=== PATIENT | male | born 1955 | race Caucasian/White ===

== ENCOUNTER 2023-08-07 19:37 | Emergency (ER) | payer OTHER, SELFPAY ==
[2023-08-07 19:41] VITALS: BP 134/56
[2023-08-07 19:43] VITALS: BP 134/56
[2023-08-07 20:00] VITALS: BP 152/76
--- NOTE | 2023-08-07 20:43 | ED.GENMED ---
History of Present Illness
General
Chief Complaint: Fall
Source: patient, ambulance crew and residential records
Exam Limitations: none
Time Seen by Provider: 08/07/23 20:01
Nursing documentation reviewed up to this point in time: agreed with
Travel History
Have you had any contact with someone who has COVID-19?: No
Do you have any symptoms of coronavirus? Fever > 100 degrees, chills, cough, shortness of breath, sore throat, loss of taste or smell, muscle aches, or headache?: No
History of Present Illness
History of Present Illness:
68-year-old male with a past medical history of blindness, COPD, hypertension, hyperlipidemia, DVT on Lovenox, urinary retention secondary to BPH with chronic Brown catheter, morbid obesity who presents to the emergency department from [facility]
residential for evaluation after fall. Patient says that he is mostly bedbound due to his weight. He says that he has been working on transferring and standing recently. He says that today he tried to get up and unfortunately was unable to
support himself. He says that he fell forward�he says that his left leg was tucked underneath him with his knee bent and his right leg went forward into a semisplit position. He says that he fell to the side and hit his head did not lose
consciousness. He was sent to the emergency room for assessment. He complains primarily of pain in his knees he says much worse on the left. He complains of some mild ankle pain mostly in the left ankle. He says that he has some very mild neck
pain. Denies any headache. Complains of some mild back pain in triage he says is no worse than usual. He denies any chest pain or abdominal pain. He denies any numbness or weakness in his extremities. No nausea or vomiting. He is on Lovenox
and aspirin.
Review of Systems
Review of Systems
All Other Systems: ROS reviewed and negative except as documented in HPI and ROS
Constitutional: Denies fever
Respiratory: Denies trouble breathing
Cardiac: Denies chest pain
ABD/GI: Denies abdominal pain, nausea or vomiting
: Denies flank pain
Musculoskeletal: Reports joint pain (Bilateral knee pain worse on the left; left ankle pain) and neck pain; Denies back pain
Neurological: Denies dizzy, headache, weakness or numbness
Phy Exam
Physical Exam
Physical Exam:
General: Awake, alert, oriented x3; appears chronically ill
Head: Normocephalic, atraumatic
Eyes: Conjunctiva normal
Throat: Airway intact, handling secretions
Neck: Trachea midline, no midline cervical spine tenderness
Lungs: Breathing comfortably no distress
Heart: Regular rate; no chest wall tenderness
Abd: Obese but soft, non distended, nontender
: Brown catheter in place draining clear urine without significant sediment
Neuro: Cranial nerves grossly intact, speech fluid
Skin: no rash
Extremities: Patient has left knee held in 45 degrees of flexion; no obvious deformity the left knee he has significant tenderness of the joint line medial greater than lateral and pain with manipulation of patella on the left; he cannot tolerate
passive range of motion on flexion or full extension of the left knee due to pain; he has no significant joint effusion of the left knee; he has no swelling of the left ankle, no reproducible tenderness in the lateral or medial malleolus on the left
he does have some pain with dorsiflexion and plantarflexion mostly in the lateral left ankle; he has a good strong DP pulse distal left lower extremity //on exam of his right knee he has no joint effusion, no deformity; he has medial joint line
tenderness; he does allow for passive range of motion although he has discomfort with full extension and full flexion on the right; he has no swelling or tenderness in the right ankle and tolerates dorsi and plantarflexion of the right ankle without
significant discomfort he has a strong pulse right DP //upper extremities atraumatic with good pulses
Scores
Heart Failure Risk
Heart Failure Risk Score: Not Applicable
Heart Score for Chest Pain Patients
STEMI patient?: Not applicable
Withdrawal Assessment of Alcohol
Withdrawal Assessment Completed?: Not applicable
Course
Orders/Labs/Results
Orders:
Orders
08/07/23 20:41
CR Ankle - Left Min 3 Views Urgent
Comment:
Reason For Exam: ankle pain s/p fall
CR Knee - Left 4 Or More View* Urgent
Comment:
Reason For Exam: knee pain s/p fall
CR Knee- Right 4 Or More View* Urgent
Comment:
Reason For Exam: knee pain s/p fall
08/07/23 20:42
CT Cervical Spine W/o Iv Contr Urgent
Comment:
Reason For Exam: fall with head trauma, neck pain, on lovenox
CT Head W/o Iv Contrast Urgent
Comment:
Reason For Exam: fall with head trauma, on lovenox
08/07/23 20:49
CR Pelvis Comp Min 3 Views Urgent
Comment:
Reason For Exam: fall, b/l leg pain
Vital Signs
Initial and Last Documented VS:
Initial Vital Signs
Temp Pulse Resp BP Pulse Ox
36.5 C 90 16 134/56 95
08/07/23 19:41 08/07/23 19:41 08/07/23 19:41 08/07/23 19:41 08/07/23 19:41
Last Documented Vital Signs
Temp Pulse Resp BP Pulse Ox
36.5 C 82 9 139/74 91
08/07/23 19:41 08/07/23 22:45 08/07/23 22:45 08/07/23 22:44 08/07/23 22:45
MDM/Problems Addressed
Differential Diagnosis Includes:
Knee pain: Fracture, dislocation, sprain, ligamentous injury, meniscus injury
Ankle pain: Fracture, dislocation, sprain
Neck pain: Cervical strain, cervical spine fracture
MDM/Problems Addressed:
68-year-old male presents after mechanical fall from ground-level; he is on Lovenox. Mechanism as above. Complaining mainly of knee pain left greater than right also complaining of some mild left ankle pain, mild neck pain. There was head trauma
but no headache, no nausea vomiting normal mental status. Vital signs are normal. Exam as above. Plan to check CT of the head and cervical spine. Check x-ray of the pelvis, bilateral knees and left ankle. Will monitor closely reassess after the
above.
CT head and cervical spine negative for any acute posttraumatic injury. X-rays of the knees show significant arthritis but no other acute pathology noted. X-ray of the ankle no fracture or dislocation. X-ray of the pelvis normal. Patient awake
and alert with normal vital signs here. I think he is stable for discharge�likely strain/sprain of the knees and ankle as part of the fall. I do not think there is any indication for a knee immobilizer at this point as he is bedbound at baseline
already essentially. Will provide a referral to orthopedist for outpatient follow-up. Patient comfortable with this plan. Spoke about return precautions all questions answered.
Chronic conditions affecting care:
Obesity
*Radiology
Radiology exam reviewed: preliminary read by ED provider and radiology read reviewed
*Pulse Oximetry
Patient hypoxic: no
*Critical Care Note
Total Time (30-74mins, 75-104mins- exclusive of procedures): Not Applicable
Data Reviewed
Source: patient, records and ambulance crew
ED Attending Note
-
Portions of this chart may have been created with voice recognition software.� Occasional wrong word or��sound alike� substitutions may have occurred due to the inherent limitations of voice recognition software.
Discharge Plan
Departure
Patient Disposition: Home (Routine Discharge)
Date of Disposition: 08/07/23
Time of Disposition: 23:01
Patient with high blood pressure during this ER visit?: No
Discharge Problem:
Bilateral knee pain, Ankle pain, left, Neck strain
Instructions: Cervical Muscle Strain (DC), Ankle Sprain ED, Knee Sprain ED
Prescriptions:
No Action
metformin 500 MG tablet
500 mg PO BID
metoprolol tartrate 50 MG tablet
50 mg PO BID
lisinopril 10 MG tablet
20 mg PO DAILY
furosemide [Lasix] 40 mg Tablet
40 mg PO DAILY
acetaminophen [Tylenol] 325 mg Tablet
650 mg PO Q6HPRN PRN (Reason: mild pain)
gabapentin 600 mg Tablet
600 mg PO HS
ipratropium-albuterol [DuoNeb] 0.5 mg-3 mg(2.5 mg base)/3 mL Solution For Nebulization
3 ml INHALATION R Q4HPRN PRN (Reason: sob)
polyethylene glycol 3350 [Miralax] 17 gram Powder In Packet
17 g PO BID
urea 20 % Cream
1 applic TOPICAL BID
Metamucil Packet
1 packet PO DAILY
loperamide 2 mg Tablet
2 mg PO Q6HPRN PRN (Reason: diarrhea)
Thera Tablet
1 tab PO DAILY
melatonin 3 mg Tablet
3 mg PO HS
amlodipine [Norvasc] 5 mg Tablet
5 mg PO DAILY
divalproex [Depakote] 500 mg Tablet,Delayed Release (Dr/Ec)
500 mg PO BID
omeprazole 40 mg Capsule,Delayed Release(Dr/Ec)
40 mg PO DAILY
magnesium hydroxide [Milk of Magnesia] 400 mg/5 mL Suspension
2,400 mg PO HSPRN PRN (Reason: if no bm by 3rd day)
miconazole nitrate 2 % Ointment
1 applic TOPICAL BID
insulin aspart U-100 100 unit/mL Solution
0 sliding scale dose SC ACHS
Patient Comments:
150-200=2units, 201-250=4unit, 251-300=6units, 301-350=8units
bisacodyl [Dulcolax (bisacodyl)] 10 mg Suppository
10 mg WV DAILYPRN PRN (Reason: constipation)
ferrous sulfate 325 mg (65 mg iron) Tablet
325 mg PO DAILY
lidocaine [Lidoderm] 5 % Adhesive Patch,Medicated
1 patch topical DAILYPRN PRN (Reason: b/l knee)
Fleet Enema 19-7 gram/118 mL Enema
118 ml WV DAILYPRN PRN (Reason: constipation)
docusate sodium [Colace] 100 mg Capsule
100 mg PO HS
gabapentin 300 mg Capsule
300 mg PO DAILY
aspirin 81 mg Tablet,Chewable
81 mg PO DAILY
nystatin 100,000 unit/gram Powder
1 applic TOPICAL BID
oxybutynin chloride 5 mg Tablet
5 mg PO TIDPRN PRN (Reason: bladder spasms)
divalproex 125 mg Capsule, Delayed Rel Sprinkle
125 mg PO BID
enoxaparin [Lovenox] 120 mg/0.8 mL Syringe
120 mg SC Q12H
aripiprazole 15 mg Tablet
7.5 mg PO HS
cholecalciferol (vitamin D3) [Vitamin D3] 25 mcg (1,000 unit) Tablet
25 mcg PO DAILY
insulin glargine 100 unit/mL (3 mL) Insulin Pen
10 unit SC HS
Biofreeze (menthol) 4 % Gel
1 applic TOPICAL Q4HPRN PRN (Reason: back,neck,b/l knee)
Referrals:
Silas Ramírez I., DO [Family Provider] -
Ivone Hale I., DO [Active] - Call in 1-3 days for appt
Activity Restrictions/Additional Instructions:
Thank you for visiting the Emergency Department at [facility].
1. Please schedule a follow up appointment as directed. Call first thing tomorrow morning to make an appointment.
2. If indicated, please take your medications as instructed and indicated on discharge paperwork.
3. If any of your symptoms do not improve, or persist, or become more severe within 6-12 hours, please return to the emergency department for further care.
4. Please return to the emergency department if you develop a headache, neck pain/stiffness, fever greater than 100.4F, chest pain, shortness of breath, persistent nausea, vomiting, slurred speech, difficulty walking, numbness/tingling, weakness,
signs of infection or any other symptoms that are worrisome to you.
Please call [phone] if you have any questions.
Interventions
Interventions:
*Risk Screen - Suicide Last Done: 08/07/23 19:47
*General Assessment Last Done: 08/07/23 19:47
*Neglect/Abuse Screening Last Done: 08/07/23 19:47
*ED COVID-19 Vaccine History Last Done: 08/07/23 19:47
ED-Musculoskeletal Assessment Last Done: 08/07/23 19:54
ED- Neurological Assessment Last Done: 08/07/23 19:54
ED-Skin Assessment Last Done: 08/07/23 19:55
[2023-08-07 21:00] VITALS: BP 139/108
[2023-08-07 22:44] VITALS: BP 139/74
[2023-08-07 23:00] VITALS: BP 114/92
[2023-08-07] MEDS: MOTRIN 400 MG PO (23:16)
[2023-08-08] VITALS: BP 121/53
[2023-08-08 01:16] VITALS: BP 106/85
[2023-08-08 02:00] VITALS: BP 122/62
[2023-08-08 03:01] VITALS: BP 143/91
[2023-08-08 08:30] VITALS: BP 120/61
[2023-08-08] MEDS: TYLENOL 650 MG PO (09:54)
[2023-08-10 17:09] LABS: Glucose - Point of Care 162 mg/dl (70-99)
== END 2023-08-08 10:08 | disposition home or self-care (01) ==
LOC: EMR 19:37
PROVIDERS: EMERGENCY PHYSICIAN Emergency Medicine; FAMILY PHYSICIAN Internal Medicine
DX: S16.1XXA Strain of muscle, fascia and tendon at neck level, initial encounter (principal); M25.562 Pain in left knee; M25.561 Pain in right knee; M25.572 Pain in left ankle and joints of left foot; X58.XXXA Exposure to other specified factors, initial encounter
CPT/HCPCS: 99285; 70450; 72125; 72190; 73564; 73610; 82962

== ENCOUNTER 2023-08-10 20:26 | Inpatient (IN) | payer OTHER, SELFPAY ==
[2023-08-10] VITALS (8 sets, daily range): BP systolic 100–128; BP diastolic 60–95; BMI 50.1
[2023-08-10 17:25] LABS: % Eosinophils 6.6 % (0-6); % Immature Granulocytes 1.7 % (0-0.5); % Lymphocytes 22.4 % (20.5-51.1); % Monocytes 11.1 % (1.7-9.3); % Neutrophils 57.2 % (42.2-75.2); Absolute Basophils 0.1 10^3/uL (0-0.2); Absolute Eosinophils 0.6 10^3/uL (0-0.7); Absolute Immature Granulocytes 0.2 10^3/uL (0-0.05); Absolute Lymphocytes 2.2 10^3/uL (1.2-3.4); Absolute Monocytes 1.1 10^3/uL (0.1-0.6); Absolute Neutrophils 5.5 10^3/uL (1.4-6.5); Hematocrit 36.6 % (39.0-52.0); Hemoglobin 12.4 g/dL (13.0-18.0); Mean Corp Hgb Conc. 33.9 g/dL (33.0-37.0); Mean Corpuscular Hgb 33.4 pg (27.0-31.0); Mean Corpuscular Volume 98.7 fL (80.0-94.0); Mean Platelet Volume 9.6 fL (7.4-10.4); Nucleated Red Blood Cells % 0 % (-); Platelet Count 319 10^3/uL (130-400); Red Blood Cell Count 3.71 10^6/uL (4.70-6.10); Red Cell Dist. Width 14.8 % (11.5-14.5); White Blood Cell Count 9.7 10^3/uL (4.8-10.8)
[2023-08-10 17:45] LABS: ALT (SGPT) 28 U/L (0-50); AST (SGOT) 30 U/L (17-59); Albumin 4.5 g/dl (3.5-5.0); Alkaline Phosphatase 77 U/L (38-126); Blood Urea Nitrogen 47 mg/dl (9-20); Calcium 9.7 mg/dl (8.4-10.2); Carbon Dioxide 22 mmol/L (22-30); Estimated Creatinine Clearance 47 ml/min; Glucose 149 mg/dl (70-99); Total Bilirubin 0.6 mg/dl (0.2-1.3); Total Protein 7.9 g/dl (6.3-8.2); eGFR 29.99
[2023-08-10 17:58] LABS: Chloride 103 mmol/L (98-107); Sodium 139 mmol/L (135-145)
[2023-08-10 18:00] LABS: Potassium 6.8 mmol/L (3.5-5.1)
--- NOTE | 2023-08-10 18:07 | ED.GENMED ---
History of Present Illness
<CAMILO Ambrosio - Last Filed: 08/10/23 19:33>
General
Chief Complaint: Abnormal Lab Value
Source: patient
Exam Limitations: none
Time Seen by Provider: 08/10/23 17:39
Nursing documentation reviewed up to this point in time: agreed with
Travel History
Have you had any contact with someone who has COVID-19?: No
Do you have any symptoms of coronavirus? Fever > 100 degrees, chills, cough, shortness of breath, sore throat, loss of taste or smell, muscle aches, or headache?: No
History of Present Illness
History of Present Illness:
Pt is a 68 yr old male from [facility] sent for elevated potassium . Pt arrives awake alert has on complaints. Pt is on chronic O2 4l NC . Blood work from [facility] shows a Potassium of 6.5 BUN 47/2.15
From today August 10. [facility] who reports that on July 13 he had a BUN of 26 and a creatinine was 1.18.
Review of Systems
<CAMILO Ambrosio - Last Filed: 08/10/23 19:33>
Review of Systems
Allergies reviewed?: Yes
All Other Systems: ROS reviewed and negative except as documented in HPI and ROS
Constitutional: Reports no symptoms; Denies fever, fatigue or chills
EENT: Reports no symptoms
Respiratory: Reports no symptoms
Cardiac: Reports no symptoms
ABD/GI: Reports no symptoms
: Reports no symptoms
Musculoskeletal: Reports no symptoms
Skin: Reports no symptoms
Neurological: Reports no symptoms
Psychiatric: Reports no symptoms
Phy Exam
<CAMILO Ambrosio - Last Filed: 08/10/23 19:33>
General Physical Exam
General Presentation: no apparent distress
General age: appears stated age
General Skin: warm and dry
General Habitus: obese
General Mental: alert
General Hydration: appears well hydrated
Cardiovascular Exam
Cardiovascular Exam: regular rate/rhythm, no murmur and normal peripheral pulses
Pulmonary Exam
Pulmonary Exam: lungs clear and no respiratory distress
Genitourinary Exam Male
Exam Male: other (chronic villareal in place )
Neurological Exam
Neurological Exam: alert and oriented x3
Musculoskeletal Exam
Musculoskeletal Exam: full ROM
Skin Exam
Skin Exam: normal color and warm/dry
Psychiatric Exam
Psychiatric Exam: normal mood/affect
Course
<CAMILO Ambrosio - Last Filed: 08/10/23 19:33>
Orders/Labs/Results
Orders:
Orders
08/10/23 17:13
EKG [Electrocardiogram (*1)] Urgent
Reason for Study: Fatigue / Weakness
08/10/23 17:14
EKG- Treatment ONCE
08/10/23 17:15
Complete Blood Count/With Diff Urgent
Comprehensive Metabolic Panel Urgent
Magnesium Urgent
08/10/23 18:18
Bladder Scan- Treatment ONCE
08/10/23 18:22
Calcium Gluconate 1 gram/100mL [Calcium Gluconate] 1 gram in 100 ml IV ONCE
Dextrose 50%-Water [Dextrose 50% Syringe] 25 grams IV NOW STA
Insulin Human Regular [Novolin R] 5 units IV NOW STA
Sodium Bicarbonate 50 meq IV NOW STA
08/10/23 19:18
Sodium Zirconium Cyclosilicate [Lokelma] 10 gram PO NOW STA
08/10/23 19:26
Add On- LAB Urgent
Tests Added?: depakote level
08/10/23 19:44
Depakane Urgent
Comment: COLLECT PLAIN RED
08/10/23 20:05
Insulin Human Regular [Novolin R] 5 units IV NOW STA
08/10/23 20:06
Admit/Transfer Patient As Directed
Co-Sign Provider:
Level of Care: Inpatient admission
Assign to:: IMU- Intermediate Care
Physician / Group: manish lewis
Diagnosis: acute hyperkalemia, delusions, jonh on ckd
Reason for Hospitalization: acute hyperkalemia, delusions, john on ckd
Expected length of stay greater than two midnights?: Yes
ELOS- Estimated Length of Stay in days: 4
I certify the patient meets the requirements for IP care: Yes
08/10/23 20:13
HEMATOLOGY CONSULT Routine
Consulting Provider: Sumi Smiley
Was physician already notified: Yes
Reason for consult: hyperk on lovenox
PSYCHIATRY CONSULT Routine
Consulting Provider: Beronica Romano
Was physician already notified: Yes
Reason for consult: delusion on depakote. hyperK, john
08/10/23 20:22
NEPHROLOGY CONSULT Routine
Consulting Provider: Javier Dimas V.
Was physician already notified: Yes
Reason for consult: john on ckd , hyperk
08/10/23 21:02
Acetaminophen [Tylenol] 650 mg PO Q6HPRN PRN
Bisacodyl [Dulcolax] 10 mg RECTAL DAILYPRN PRN
Dextrose 50%-Water [Dextrose 50% Syringe] 12.5 grams IV [id number] PRN
Glucagon [GlucaGen] 1 mg IM PRN PRN
HydrALAZINE [Apresoline] 10 mg IV Q6HPRN PRN
Ipratropium/Albuterol Sulfate [Duoneb] 3 ml INH R Q4HPRN PRN
Oxybutynin Chloride [Ditropan] 5 mg PO Q8HPRN PRN
Polyethylene Glycol Powder [Miralax] 17 grams PO Q12
urea 0 applic TOPICAL Q12
08/10/23 21:02
Bedside Glucose Monitoring As Directed
Frequency: AC&HS
Comment: Change to q6h if pt on TPN, tube feeding or not eating
DX Deep Vein Thrombosis Video Routine
08/10/23 21:09
Lidocaine [Lidocaine 4% Patch] 1 patch TOPICAL DAILYPRN PRN
08/10/23 22:00
Aripiprazole [Abilify] 7.5 mg PO HS
Docusate Sodium [Colace] 100 mg PO HS
Gabapentin [Neurontin] 600 mg PO HS
Melatonin 3 mg PO HS
Miconazole Nitrate [Desenex/Mitrazol/Zeasorb] 0 applic TOPICAL BID
insulin glargine 10 unit SC HS
08/11/23 00:00
BMP [Basic Metabolic Panel] Urgent
08/11/23 06:00
EKG [Electrocardiogram (*1)] IN AM
Reason for Study: QTc Monitoring
Comment: hyperkalemia
BMP [Basic Metabolic Panel] Q6H
Glycohemoglobin (HgbA1c) IN AM
US Renal Only W/O Bladder IN AM
Comment:
Reason For Exam: john
08/11/23 07:30
Insulin Aspart Corrective Low [Novolog Flexpen-Low Resistance] See Protocol SC AC
08/11/23 08:00
Amlodipine [Norvasc] 5 mg PO DAILY
Aspirin Chewable [Low Strength Aspirin] 81 mg PO DAILY
Cholecalciferol (Vitamin D3) [VITAMIN D3 (cholecalciferol)] 25 mcg PO DAILY
Ferrous Sulfate [Feosol] 325 mg PO DAILY
Gabapentin [Neurontin] 300 mg PO DAILY
Heparin 5,000 units SC Q12
Metoprolol [Lopressor] 50 mg PO BID
Miconazole Nitrate [Antifungal Clear] 0 applic TOPICAL BID
Multivitamin [Theragran] 1 tablet PO DAILY
Pantoprazole [Protonix] 40 mg PO DAILY
08/11/23 12:00
BMP [Basic Metabolic Panel] Q6H
08/11/23 18:00
BMP [Basic Metabolic Panel] Q6H
Abnormal Lab Results
08/10/23 08/10/23
17:15 19:44
RBC 3.71 L 10^6/uL
(4.70-6.10)
Hgb 12.4 L g/dL
(13.0-18.0)
Hct 36.6 L %
(39.0-52.0)
MCV 98.7 H fL
(80.0-94.0)
MCH 33.4 H pg
(27.0-31.0)
RDW 14.8 H %
(11.5-14.5)
Abs Immat Gran (auto) 0.2 H 10^3/uL
(0-0.05)
Absolute Monos (auto) 1.1 H 10^3/uL
(0.1-0.6)
Immature Gran % 1.7 H %
(0-0.5)
Monocytes % 11.1 H %
(1.7-9.3)
Eosinophils % 6.6 H %
(0-6)
Potassium 6.8 H* mmol/L
(3.5-5.1)
BUN 47 H mg/dl
(9-20)
Creatinine 2.3 H mg/dL
(0.7-1.3)
Glucose 149 H mg/dl
(70-99)
Valproic Acid 28.4 L ug/ml
(50.0-120.0)
08/10/23 17:15
08/10/23 17:15
Vital Signs
Initial and Last Documented VS:
Initial Vital Signs
Temp Pulse Resp BP Pulse Ox
98.6 F 75 18 120/91 95
08/10/23 17:09 08/10/23 17:09 08/10/23 17:09 08/10/23 17:09 08/10/23 17:09
Last Documented Vital Signs
Temp Pulse Resp BP Pulse Ox
98.3 F 89 19 113/62 96
08/10/23 23:04 08/10/23 21:20 08/10/23 21:20 08/10/23 21:20 08/10/23 23:37
Public Health Analyst consulted with Physician
Public Health Analyst consulted with physician?: Yes
Name of Physician Consulted: shaista
<Deshawn Jackman MD - Last Filed: 08/10/23 23:50>
Orders/Labs/Results
Orders:
Orders
08/10/23 17:13
EKG [Electrocardiogram (*1)] Urgent
Reason for Study: Fatigue / Weakness
08/10/23 17:14
EKG- Treatment ONCE
08/10/23 17:15
Complete Blood Count/With Diff Urgent
Comprehensive Metabolic Panel Urgent
Magnesium Urgent
08/10/23 18:18
Bladder Scan- Treatment ONCE
08/10/23 18:22
Calcium Gluconate 1 gram/100mL [Calcium Gluconate] 1 gram in 100 ml IV ONCE
Dextrose 50%-Water [Dextrose 50% Syringe] 25 grams IV NOW STA
Insulin Human Regular [Novolin R] 5 units IV NOW STA
Sodium Bicarbonate 50 meq IV NOW STA
08/10/23 19:18
Sodium Zirconium Cyclosilicate [Lokelma] 10 gram PO NOW STA
08/10/23 19:26
Add On- LAB Urgent
Tests Added?: depakote level
08/10/23 19:44
Depakane Urgent
Comment: COLLECT PLAIN RED
08/10/23 20:05
Insulin Human Regular [Novolin R] 5 units IV NOW STA
08/10/23 20:06
Admit/Transfer Patient As Directed
Co-Sign Provider:
Level of Care: Inpatient admission
Assign to:: IMU- Intermediate Care
Physician / Group: manish lewis
Diagnosis: acute hyperkalemia, delusions, john on ckd
Reason for Hospitalization: acute hyperkalemia, delusions, john on ckd
Expected length of stay greater than two midnights?: Yes
ELOS- Estimated Length of Stay in days: 4
I certify the patient meets the requirements for IP care: Yes
08/10/23 20:13
HEMATOLOGY CONSULT Routine
Consulting Provider: Sumi Smiley
Was physician already notified: Yes
Reason for consult: hyperk on lovenox
PSYCHIATRY CONSULT Routine
Consulting Provider: Beronica Romano
Was physician already notified: Yes
Reason for consult: delusion on depakote. hyperK, john
08/10/23 20:22
NEPHROLOGY CONSULT Routine
Consulting Provider: Javier Dimas V.
Was physician already notified: Yes
Reason for consult: john on ckd , hyperk
08/10/23 21:02
Acetaminophen [Tylenol] 650 mg PO Q6HPRN PRN
Bisacodyl [Dulcolax] 10 mg RECTAL DAILYPRN PRN
Dextrose 50%-Water [Dextrose 50% Syringe] 12.5 grams IV [id number] PRN
Glucagon [GlucaGen] 1 mg IM PRN PRN
HydrALAZINE [Apresoline] 10 mg IV Q6HPRN PRN
Ipratropium/Albuterol Sulfate [Duoneb] 3 ml INH R Q4HPRN PRN
Oxybutynin Chloride [Ditropan] 5 mg PO Q8HPRN PRN
Polyethylene Glycol Powder [Miralax] 17 grams PO Q12
urea 0 applic TOPICAL Q12
08/10/23 21:02
Bedside Glucose Monitoring As Directed
Frequency: AC&HS
Comment: Change to q6h if pt on TPN, tube feeding or not eating
DX Deep Vein Thrombosis Video Routine
08/10/23 21:09
Lidocaine [Lidocaine 4% Patch] 1 patch TOPICAL DAILYPRN PRN
08/10/23 22:00
Aripiprazole [Abilify] 7.5 mg PO HS
Docusate Sodium [Colace] 100 mg PO HS
Gabapentin [Neurontin] 600 mg PO HS
Melatonin 3 mg PO HS
Miconazole Nitrate [Desenex/Mitrazol/Zeasorb] 0 applic TOPICAL BID
insulin glargine 10 unit SC HS
08/11/23 00:00
BMP [Basic Metabolic Panel] Urgent
08/11/23 06:00
EKG [Electrocardiogram (*1)] IN AM
Reason for Study: QTc Monitoring
Comment: hyperkalemia
BMP [Basic Metabolic Panel] Q6H
Glycohemoglobin (HgbA1c) IN AM
US Renal Only W/O Bladder IN AM
Comment:
Reason For Exam: john
08/11/23 07:30
Insulin Aspart Corrective Low [Novolog Flexpen-Low Resistance] See Protocol SC AC
08/11/23 08:00
Amlodipine [Norvasc] 5 mg PO DAILY
Aspirin Chewable [Low Strength Aspirin] 81 mg PO DAILY
Cholecalciferol (Vitamin D3) [VITAMIN D3 (cholecalciferol)] 25 mcg PO DAILY
Ferrous Sulfate [Feosol] 325 mg PO DAILY
Gabapentin [Neurontin] 300 mg PO DAILY
Heparin 5,000 units SC Q12
Metoprolol [Lopressor] 50 mg PO BID
Miconazole Nitrate [Antifungal Clear] 0 applic TOPICAL BID
Multivitamin [Theragran] 1 tablet PO DAILY
Pantoprazole [Protonix] 40 mg PO DAILY
08/11/23 12:00
BMP [Basic Metabolic Panel] Q6H
08/11/23 18:00
BMP [Basic Metabolic Panel] Q6H
Abnormal Lab Results
08/10/23 08/10/23
17:15 19:44
RBC 3.71 L 10^6/uL
(4.70-6.10)
Hgb 12.4 L g/dL
(13.0-18.0)
Hct 36.6 L %
(39.0-52.0)
MCV 98.7 H fL
(80.0-94.0)
MCH 33.4 H pg
(27.0-31.0)
RDW 14.8 H %
(11.5-14.5)
Abs Immat Gran (auto) 0.2 H 10^3/uL
(0-0.05)
Absolute Monos (auto) 1.1 H 10^3/uL
(0.1-0.6)
Immature Gran % 1.7 H %
(0-0.5)
Monocytes % 11.1 H %
(1.7-9.3)
Eosinophils % 6.6 H %
(0-6)
Potassium 6.8 H* mmol/L
(3.5-5.1)
BUN 47 H mg/dl
(9-20)
Creatinine 2.3 H mg/dL
(0.7-1.3)
Glucose 149 H mg/dl
(70-99)
Valproic Acid 28.4 L ug/ml
(50.0-120.0)
08/10/23 17:15
08/10/23 17:15
Vital Signs
Initial and Last Documented VS:
Initial Vital Signs
Temp Pulse Resp BP Pulse Ox
98.6 F 75 18 120/91 95
08/10/23 17:09 08/10/23 17:09 08/10/23 17:09 08/10/23 17:09 08/10/23 17:09
Last Documented Vital Signs
Temp Pulse Resp BP Pulse Ox
98.3 F 89 19 113/62 96
08/10/23 23:04 08/10/23 21:20 08/10/23 21:20 08/10/23 21:20 08/10/23 23:37
<CAMILO Ambrosio - Last Filed: 08/10/23 19:33>
MDM/Problems Addressed
Differential Diagnosis Includes:
Not limited to acute renal failure
MDM/Problems Addressed:
Patient is a 68-year-old male with history of chronic Villareal DVT hypertension hyperlipidemia COPD legally blind [facility] L [facility]. Patient was sent for elevated potassium. I spoke to [facility] the [facility] and last labs
other than today was from July 13 at that time. He had a BUN of 26 and a creatinine 1.18. Patient's BUN today here is 47 creatinine 2.3 and potassium elevated 6.8. Patient has a normal sodium no acute EKG changes. Case discussed with ED
physician will admit, hyperkalemic meds ordered. Pt has no complaints. Pt does have chronic villareal however will bladder scan.
<CAMILO Ambrosio - Last Filed: 08/10/23 19:33>
*Pulse Oximetry
Patient hypoxic: no
*EKG
Interpreted by ED Provider?: Yes
Interpretation: normal
Heart Rate: 77
Rate: normal
Rhythm: sinus
QRS Pattern: right bundle branch block
Ischemia: no ischemia
*Critical Care Note
Total Time (30-74mins, 75-104mins- exclusive of procedures): Not Applicable
ED Attending Note
<CAMILO Ambrosio - Last Filed: 08/10/23 19:33>
-
Portions of this chart may have been created with voice recognition software.� Occasional wrong word or��sound alike� substitutions may have occurred due to the inherent limitations of voice recognition software.
<Deshawn Jackman MD - Last Filed: 08/10/23 23:50>
ED Attending Note
Patient seen and examined by attending physician: Yes
ED Attending Note:
Patient with history of oxygen dependent COPD, [facility] after outpatient blood work revealed elevated potassium. Patient denies any complaints. Denies fever. Denies abdominal pain. Denies nausea or vomiting. Denies
recent change in medications or diet. Denies recent illness.
Physical Exam
General: no apparent distress, not acutely ill. afebrile. obese
Head: nc/at. eomi
Neck: supple. normal range of motion.
Heart: s1/s2 regular rate and rhythm, no murmur. equal radial pulses.
Lungs: no acute respiratory distress. clear bilaterally
Abdomen: normal bowel sounds. not tender.
Neuro: alert and oriented. no focal neurological deficits
Skin: no rash
Psychiatric: well kept. interactive and cooperative
Extremities: lymphedema. no calf tenderness.
Elevated potassium noted, increased on outpatient blood work result. Despite normal EKG, without any acute changes, patient will be treated with calcium, sodium bicarbonate, D50, insulin, and Lokelma. Patient will be admitted for further
evaluation treatment.
Discharge Plan
Departure
Patient Disposition: Admit
Date of Disposition: 08/10/23
Time of Disposition: 19:30
Admit to: Med/Surg
Admit to doctor: hospitalist
Presentation/result/management discussed w/ accepting MD/DO: Hospitalist
Patient with high blood pressure during this ER visit?: Yes
Condition: Fair
Covid-19: Not Applicable
Discharge Problem:
Acute renal failure, Acute hyperkalemia
Interventions
Interventions:
*Risk Screen - Suicide Last Done: 08/10/23 17:11
*General Assessment Last Done: 08/10/23 17:11
*Neglect/Abuse Screening Last Done: 08/10/23 17:11
ED- Fall Risk Assessment Last Done: 08/10/23 21:22
*ED COVID-19 Vaccine History Last Done: 08/10/23 17:11
*Nursing Disposition Last Done: 08/10/23 21:22
Discharge Date and Time
Discharge Date/Time: 08/10/23 21:00
[2023-08-10] MEDS: NOVOLIN R 5 UNITS IV (18:45)
[2023-08-10] MEDS: SODIUM BICARBONATE 50 MEQ IV (18:46)
[2023-08-10] MEDS: DEXTROSE 50% SYRINGE 25 GRAMS IV (18:46)
[2023-08-10] MEDS: CALCIUM GLUCONATE 100 IV (18:47)
[2023-08-10] MEDS: LOKELMA 10 GRAM PO (19:29)
--- NOTE | 2023-08-10 19:45 | HPS.HSE ---
Family Physician
-
Family Physician: Silas Ramírez
Chief Complaint
-
Hyperkalemia outpatient lab work
History of Present Illness
68-year-old male from [facility] home for hyperkalemia with outpatient blood work showing a potassium of 6.5 with creat 2.15. On July 13 his creat was 1.18 per [facility] report to ER. The patient is on Lovenox and lisinopril.
Patient reports he had a delusion on 2 to that is from his coming to pick him up at 8 AM to go to [facility] attempted to get out of bed of which she has been nonambulatory for 3 years. And fell onto his left knee and left ankle. He was seen in the ER on
08/07/2023 for left knee and left ankle pain and discharged back to [facility] no acute fracture. The patient is past medical history of chronic respiratory failure with hypercapnia on chronic 2 to 3 L nasal cannula, morbid obesity, chronic Brown
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
Medical History
Past Medical History
Past Medical History: Reports Other
Additional Past Medical History:
chronic respiratory failure with hypercapnia on chronic 2 to 3 L nasal cannula
morbid obesity with chronic ambulatory dysfunction
chronic Brown catheter x 1 year GERD
bipolar disorder
HTN
ESSIE
iron deficiency anemia
vitamin D deficiency
DM2 with diabetic neuropathy
BPH
DVT
restless leg syndrome
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
Past Surgical History: Reports None
Social History
Tobacco: Former Smoker (1 pack week 40 years )
Alcohol: None
Drug: None
Personal:
Living: [facility]
Employment: Retired
Family History
Family History: Not pertinent
Allergies / Home Medications
Allergies reflects when Allergies were last updated in [employer].
Home Medications with original date entered in [employer]
Allergy/Medication List:
Allergies
Allergy/AdvReac Type Severity Reaction Status Date / Time
No Known Allergies Allergy Verified 08/07/23 23:08
Home Medications
metformin 500 mg tablet 500 mg PO BIDWMEAL 11/07/11
metoprolol tartrate 50 mg tablet 50 mg PO BID 11/07/11
acetaminophen 325 mg tablet (Tylenol) 650 mg PO Q6HPRN PRN mild pain 08/07/23
amlodipine 5 mg tablet (Norvasc) 5 mg PO DAILY 08/07/23
aripiprazole 15 mg tablet 7.5 mg PO HS 08/07/23
aspirin 81 mg chewable tablet 81 mg PO DAILY 08/07/23
bisacodyl 10 mg rectal suppository (Dulcolax (bisacodyl)) 10 mg MD DAILYPRN PRN constipation 08/07/23
cholecalciferol (vitamin D3) 25 mcg (1,000 unit) tablet (Vitamin D3) 25 mcg PO DAILY 08/07/23
divalproex 500 mg tablet,delayed release (Depakote) 500 mg PO BID 08/07/23
docusate sodium 100 mg capsule (Colace) 100 mg PO HS 08/07/23
enoxaparin 120 mg/0.8 mL subcutaneous syringe (Lovenox) 120 mg SC Q12H 08/07/23
ferrous sulfate 325 mg (65 mg iron) tablet 325 mg PO DAILY 08/07/23
furosemide 40 mg tablet (Lasix) 40 mg PO DAILY 08/07/23
gabapentin 300 mg capsule 300 mg PO DAILY 08/07/23
gabapentin 600 mg tablet 600 mg PO HS 08/07/23
insulin aspart U-100 100 unit/mL subcutaneous solution 0 sliding scale dose SC ACHS 08/07/23
insulin glargine 100 unit/mL (3 mL) subcutaneous pen 10 unit SC HS 08/07/23
ipratropium 0.5 mg-albuterol 3 mg (2.5 mg base)/3 mL nebulization soln 3 ml inhalation R Q4HPRN PRN sob/wheezing 08/07/23
lidocaine 5 % topical patch (Lidoderm) 1 patch topical [id number] PRN apply to B/L knees 08/07/23
magnesium hydroxide 400 mg/5 mL oral suspension (Milk of Magnesia) 30 ml PO HSPRN PRN if no BM in 3 days 08/07/23
melatonin 3 mg tablet 3 mg PO HS 08/07/23
menthol 4 % topical gel (Biofreeze (menthol)) 1 applic topical Q4HPRN PRN apply to back, neck, or B/L knees 08/07/23
miconazole nitrate 2 % topical ointment 1 applic topical BID apply to folds, scrotum, groin 08/07/23
nystatin 100,000 unit/gram topical powder 1 applic topical Q12H apply to gluteal folds 08/07/23
omeprazole 40 mg capsule,delayed release 40 mg PO DAILY 08/07/23
oxybutynin chloride 5 mg tablet 5 mg PO Q8HPRN PRN bladder instability 08/07/23
polyethylene glycol 3350 17 gram oral powder packet (Miralax) 17 g PO Q12H 08/07/23
psyllium 1 packet PO DAILY 08/07/23
sodium phosphates 19 gram-7 gram/118 mL enema (Fleet Enema) 118 ml MD DAILYPRN PRN constipation 08/07/23
therapeutic multivitamin 1 tab PO DAILY 08/07/23
urea 20 % topical cream 1 applic topical Q12H apply to B/L feet 08/07/23
lisinopril 20 mg tablet 20 mg PO DAILY 08/10/23
loperamide 2 mg capsule 2 mg PO Q6H PRN diarrhea 08/10/23
Review of Systems
-
History Source: Patient
A 12 point ROS was completed and negative except as noted: Yes
Constitutional: Denies Fever or Chills
EENT: Denies Sore Throat or Runny Nose
Respiratory: Denies Cough or Trouble Breathing
Cardiac: Denies Chest Pain, Palpitations or Syncope
Abdomen/GI: Denies Abdominal Pain, Nausea, Vomiting, Diarrhea, Constipated or Bloody Stools
: Reports Brown (Chronic Brown on admit)
Musculoskeletal: Denies Joint Pain or Edema
Skin: Denies Itching or Rash
Neurological: Reports Other (Reports delusions thinking friend is picking him up the other day); Denies Dizzy or Headache
Endocrine: Reports No Symptoms
Hematologic/Lymphatic: Reports No Symptoms
Psych: Reports Calm
Physical Exam
Vital Signs
Vital Signs
Temp Pulse Resp BP Pulse Ox
98.6 F 75 18 120/91 95
08/10/23 17:09 08/10/23 17:09 08/10/23 17:09 08/10/23 17:09 08/10/23 17:09
Physical Exam
General: Comfortable, Conversant and Morbidly Obese; No Pain, Fever or Chills
HEENT: NormoCephalic, PERRLA, No Ptosis and Other (Patient legally blind)
Respiratory: Clear; No Wheezes, Rales or Rhonchi
Cardiac: S1/S2 and Regular Rhythm; No Murmur, Rub, Gallop or Peripheral Edema
GI: Soft, Non Tender, Non Distended, Normal Bowel Sounds and No Hepatosplenomegaly
Rectal: Deferred by Provider
Genito-urinary: Deferred by me and Brown (Present on admission draining yellow in color)
Musculoskeletal: No Clubbing, No Cyanosis and No Edema
Skin: Warm and Dry; No Rash
Neuro: AO x 3, No Motor Deficits (While in bed), No Sensory Deficits and Other (Chronic legally blind); No Slurred Speech or Facial Droop
Psych: Calm
Laboratory Results
-
08/10/23 17:15
08/10/23 17:15
Laboratory Results
Total Bilirubin 0.6 mg/dl (0.2-1.3) 08/10/23 17:15
AST 30 U/L (17-59) 08/10/23 17:15
ALT 28 U/L (0-50) 08/10/23 17:15
Alkaline Phosphatase 77 U/L (38-126) 08/10/23 17:15
Data Reviewed
-
Lab Data: Labs Reviewed by me
Impression/Plan
-
Impression/plan:
Admit to IMU
#Acute hyperkalemia
K6.8
IV dextrose, IV insulin, calcium gluconate, Sodium bicarb given in ER
-Lokelma 10 g once given in ER
-Repeat BMP q 6 hours
ekg in am
-Hold lisinopril, hold Lovenox, hold mag oxide
-Consult hematology for alternative to Lovenox due to hyperkalemia
EKG: NSR with sinus arrhythmia 77 bpm, RBBB, QTc 432 MS-no previous EKGs
#RBBB unclear old or new
#Chronic Brown catheter
-Draining yellow in color
#NATALIA on CKD unclear stage
Creat 2.3 was 1.8 on 07/13/2023 per [facility] records
-Hold metformin 500 mg twice daily
-Continue gabapentin 300 a.m., 600 p.m.
-Hold Lasix 40 mg daily
-Renal ultrasound
-Consult Nephrology
#DVT unknown leg June 2023
-Patient reports was seen at [facility] for DVT unsure which leg
-Check venous Dopplers bilateral lower extremities
-Change Lovenox to heparin
#Hx chronic respiratory failure with hypercapnia on chronic 2 to 3 L nasal cannula -no current active problem
-Continue supportive O2
#DM 2/diabetic neuropathy
-Accu-Cheks with SSI, check HgbA1c
--Continue insulin glargine 10 units subcu at bedtime
#HTN�benign
-Continue amlodipine 5 mg daily
-Iv hydralazine prn
#Bipolar disorder with reported delusions
-Check Depakote level
Continue Depakote 500 mg twice daily if normal
Consult psychiatry-patient reports gets delusions every time he is resumed on Depakote
#GERD
#ESSIE
-Continue CPAP
#Restless leg syndrome
Continue Requip 7.5 mg at bedtime
#Iron deficiency
-Continue ferrous sulfate 325 mg daily
#Insomnia
Continue melatonin 3 mg at bedtime
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
#Vitamin D deficiency
-Continue supplemental vitamin D3
#Morbid obesity due to excess calorie consumption�BMI 51.8 kg
Low-fat 1800 ADA diet
Weight loss recommended
DVT prophylaxis
Change Lovenox to subcu heparin
Full code
[2023-08-10 20:18] LABS: Depakane 28.4 ug/ml (50.0-120.0)
--- NOTE | 2023-08-10 20:27 | HPS.HSE ---
Family Physician
-
Family Physician: Silas Ramírez
Chief Complaint
-
hi K at [place]
History of Present Illness
68M [facility] with class III morbid obesity ( BMI 51) hi dose LMWH for HX DVT , on ACEI for HTN , sent to ER for evalaution of elevated potassium . He wears chronic O2 4l NC . Blood work from [facility] shows a Potassium of 6.5 BUN
47/2.15. On July 13 he had a BUN of 26 and Cr 1.18.
Medical History
Past Medical History
Past Medical History: Reports Other
Additional Past Medical History:
BPDz/Anxiety
Retinitis Pigmentosa - legally blind
Sipnal stenosis
Past Surgical History: Reports Other
Additional Past Surgical History:
Colon resection
Corrected surgery for deviated nsal septum 1997
Social History
Tobacco: Former Smoker
Alcohol: Occasional
Family History
Family History: Not pertinent
Allergies / Home Medications
Allergies reflects when Allergies were last updated in [facility].
Home Medications with original date entered in [facility]
Allergy/Medication List:
Allergies
Allergy/AdvReac Type Severity Reaction Status Date / Time
No Known Allergies Allergy Verified 08/07/23 23:08
Home Medications
metformin 500 mg tablet 500 mg PO BIDWMEAL 11/07/11
metoprolol tartrate 50 mg tablet 50 mg PO BID 11/07/11
acetaminophen 325 mg tablet (Tylenol) 650 mg PO Q6HPRN PRN mild pain 08/07/23
amlodipine 5 mg tablet (Norvasc) 5 mg PO DAILY 08/07/23
aripiprazole 15 mg tablet 7.5 mg PO HS 08/07/23
aspirin 81 mg chewable tablet 81 mg PO DAILY 08/07/23
bisacodyl 10 mg rectal suppository (Dulcolax (bisacodyl)) 10 mg AK DAILYPRN PRN constipation 08/07/23
cholecalciferol (vitamin D3) 25 mcg (1,000 unit) tablet (Vitamin D3) 25 mcg PO DAILY 08/07/23
divalproex 500 mg tablet,delayed release (Depakote) 500 mg PO BID 08/07/23
docusate sodium 100 mg capsule (Colace) 100 mg PO HS 08/07/23
enoxaparin 120 mg/0.8 mL subcutaneous syringe (Lovenox) 120 mg SC Q12H 08/07/23
ferrous sulfate 325 mg (65 mg iron) tablet 325 mg PO DAILY 08/07/23
furosemide 40 mg tablet (Lasix) 40 mg PO DAILY 08/07/23
gabapentin 300 mg capsule 300 mg PO DAILY 08/07/23
gabapentin 600 mg tablet 600 mg PO HS 08/07/23
insulin aspart U-100 100 unit/mL subcutaneous solution 0 sliding scale dose SC ACHS 08/07/23
insulin glargine 100 unit/mL (3 mL) subcutaneous pen 10 unit SC HS 08/07/23
ipratropium 0.5 mg-albuterol 3 mg (2.5 mg base)/3 mL nebulization soln 3 ml inhalation R Q4HPRN PRN sob/wheezing 08/07/23
lidocaine 5 % topical patch (Lidoderm) 1 patch topical [id number] PRN apply to B/L knees 08/07/23
magnesium hydroxide 400 mg/5 mL oral suspension (Milk of Magnesia) 30 ml PO HSPRN PRN if no BM in 3 days 08/07/23
melatonin 3 mg tablet 3 mg PO HS 08/07/23
menthol 4 % topical gel (Biofreeze (menthol)) 1 applic topical Q4HPRN PRN apply to back, neck, or B/L knees 08/07/23
miconazole nitrate 2 % topical ointment 1 applic topical BID apply to folds, scrotum, groin 08/07/23
nystatin 100,000 unit/gram topical powder 1 applic topical Q12H apply to gluteal folds 08/07/23
omeprazole 40 mg capsule,delayed release 40 mg PO DAILY 08/07/23
oxybutynin chloride 5 mg tablet 5 mg PO Q8HPRN PRN bladder instability 08/07/23
polyethylene glycol 3350 17 gram oral powder packet (Miralax) 17 g PO Q12H 08/07/23
psyllium 1 packet PO DAILY 08/07/23
sodium phosphates 19 gram-7 gram/118 mL enema (Fleet Enema) 118 ml AK DAILYPRN PRN constipation 08/07/23
therapeutic multivitamin 1 tab PO DAILY 08/07/23
urea 20 % topical cream 1 applic topical Q12H apply to B/L feet 08/07/23
lisinopril 20 mg tablet 20 mg PO DAILY 08/10/23
loperamide 2 mg capsule 2 mg PO Q6H PRN diarrhea 08/10/23
Review of Systems
-
Constitutional: Reports No Symptoms
EENT: Reports No Symptoms
Respiratory: Reports No Symptoms
Cardiac: Reports No Symptoms
Abdomen/GI: Reports No Symptoms
: Reports No Symptoms
Musculoskeletal: Reports No Symptoms
Skin: Reports See HPI
Neurological: Reports No Symptoms
Endocrine: Reports No Symptoms
Hematologic/Lymphatic: Reports No Symptoms
Psych: Reports No Symptoms
Physical Exam
Vital Signs
Vital Signs
Temp Pulse Resp BP Pulse Ox
98.6 F 83 17 128/95 97
08/10/23 17:09 08/10/23 20:15 08/10/23 20:15 08/10/23 20:00 08/10/23 20:15
Physical Exam
General: Other
HEENT: Other (see below )
Laboratory Results
-
08/10/23 17:15
08/10/23 17:15
Laboratory Results
Total Bilirubin 0.6 mg/dl (0.2-1.3) 08/10/23 17:15
AST 30 U/L (17-59) 08/10/23 17:15
ALT 28 U/L (0-50) 08/10/23 17:15
Alkaline Phosphatase 77 U/L (38-126) 08/10/23 17:15
Data Reviewed
-
Diagnostic Radiology: Report Reviewed by me
Medical Tests (Nuc Med, Echo, EKG etc): Report Reviewed by me
Lab Data: Labs Reviewed by me
Old Records: Reviewed
Impression/Plan
-
Reviewed VS: stable and unremarkable
PE
Gen: Morbidly obese
HEENT: NAD, anicteric, legally blind
Neck:
Lungs: symmetric AE
Cor: RRR S1 S2
Abdomen: Obese
CHRONOMETER REPAIRER: NFND
MS: no edema
Psych: appropriate
Data
nl WCC
Hgb 12.4
Plt 320
K 6.8
CO2 22
Cr 2.3 last Cr in 2011 was 1.0
eGFR 30
BG 150
nl ALT nl AST
BG 160
Pending Valproate
EKG NSR , LAD , RBBB, abn EKG , QTc 432
No prior hospitalist admission:
ASSESSMENT & PLAN
Obtain records for [facility]
Severe hyperkalemia without EKG changes
NATALIA
Chr indwelling F cath
- S/P Calcium G, 1 amp D50, 5 then 5 U Regular insulin , 1 ampIV NaHCO3 50 , Lokalma @ 1820H in ER - repet K at mid night
- held hi dose Lovenox and Lisinopril
- Held PT Frusemide
- held MoM
- F/U K Q6h
- IV NS
- EKG in AM
- US KUB
- Renal consult
HX DVT with PE ? on hi dose Lovenox
- Due to Hyperkalemia - Heaprin gtt in place of hi dose Lovenox
- f/u K
- Heme consult for alternative AC
- Repeat US Maty
HX BPdz
+ Delusions since on resumption of valproate
- check valproate level
- Psych consult for modification of Psych
HX chronic hypoxic RF wear NC 2
on Nocturnal CPAP
- cont CPAP HS
Essential HTN
- cont Metoprolol tartrate
- add IV Hydralazine PRN for SBP > 165, DBP >110
IDDM
- cont CURAM DEVELOPER Basal/Bolus insulin
- held Metformin due to NATAILA
- add ISS Low
Class III Obesity
Bed bound due to body habitat
HX fall following hallucination vs delusionas
- cont indwelling F Cath
- Skin care
DVT Px: Heparin gtt
Code: Full code
IMU
[2023-08-10 21:38] LABS: Glucose - Point of Care 205 mg/dl (70-99)
[2023-08-10] MEDS: ABILIFY 7.5 MG PO (22:19)
[2023-08-10] MEDS: COLACE 100 MG PO (22:21)
[2023-08-10] MEDS: DESENEX/MITRAZOL/ZEASORB TOPICAL (22:21)
[2023-08-10] MEDS: LANTUS 0.100000000000000006 UNITS SC (22:21)
[2023-08-10] MEDS: MELATONIN 3 MG PO (22:21)
[2023-08-10] MEDS: NEURONTIN 600 MG PO (22:21)
[2023-08-10] MEDS: MIRALAX 17 GRAMS PO (22:21)
[2023-08-10] MEDS: NOVOLIN R 0.0500000000000000028 UNITS IV (22:53)
[2023-08-11] VITALS (17 sets, daily range): BP systolic 114–152; BP diastolic 60–123; PULSE 2–105; BMI 49.9
[2023-08-11 01:02] LABS: Blood Urea Nitrogen 51 mg/dl (9-20); Calcium 9.6 mg/dl (8.4-10.2); Carbon Dioxide 27 mmol/L (22-30); Chloride 102 mmol/L (98-107); Estimated Creatinine Clearance 48 ml/min; Glucose 155 mg/dl (70-99); Potassium 6.1 mmol/L (3.5-5.1); Sodium 141 mmol/L (135-145); eGFR 31.63
--- NOTE | 2023-08-11 01:12 | PTCARENOTE ---
Repeat k 6.1. rubber mill tender provider made aware and ordered dextrose, insulin, and lokelma.
[2023-08-11] MEDS: DEXTROSE 50% SYRINGE 25 GRAMS IV ×2 (01:30→06:26)
[2023-08-11] MEDS: NOVOLIN R 0.100000000000000006 UNITS IV ×2 (01:31→06:21)
[2023-08-11] MEDS: LOKELMA 10 GRAM PO (01:32)
[2023-08-11 01:41] LABS: Glucose - Point of Care 197 mg/dl (70-99)
[2023-08-11 05:50] LABS: Blood Urea Nitrogen 48 mg/dl (9-20); Calcium 9.2 mg/dl (8.4-10.2); Carbon Dioxide 27 mmol/L (22-30); Chloride 104 mmol/L (98-107); Estimated Creatinine Clearance 46 ml/min; Glucose 163 mg/dl (70-99); Potassium 6.4 mmol/L (3.5-5.1); Sodium 139 mmol/L (135-145); eGFR 29.99
[2023-08-11] MEDS: CALCIUM GLUCONATE 100 IV (06:27)
[2023-08-11 06:34] LABS: Glucose - Point of Care 168 mg/dl (70-99)
[2023-08-11] MEDS: APRESOLINE 10 MG IV ×2 (06:37→13:38)
[2023-08-11 07:43] LABS: Glucose - Point of Care 200 mg/dl (70-99)
[2023-08-11 08:37] LABS: Glycohemoglobin (HgbA1c) 7.4 % (4.0-5.6)
--- NOTE | 2023-08-11 09:02 | CS.PSYCHR ---
Consult Summary - Psychiatry
-
68-year-old male from [facility] admitted with hyperkalemia- potassium 6.8 with elevated creatinine reportedly above baseline.� Pt was seen in ER 08/07/23 for left knee and ankle injury- Pt reportedly attempted to get out of bed
although he has been nonambulatory for 3 years, returned to [facility] after cleared of any fracture.�
PMH: chronic respiratory failure with hypercapnia on chronic 2 to 3 L O2, morbid obesity, chronic Brown catheter, GERD, HTN, ESSIE, iron deficiency anemia, vitamin D deficiency, DM2 with diabetic neuropathy, BPH, DVT, restless leg syndrome, Legally
blind from retinitis pigmentosa
Psych Hx: unspecified hx of Bipolar d/o; no details available. Pt on Abilify 7.5 mg HS, Depakote 500 mg BID. Pt reportedly c/o delusions on Depakote. VPA level on admission 28.4 (low)
MSE: pt sleeping heavily, with loud breathing/ snoring. He partially woke up, but quickly went back to sleep. Pt calm/ not moving around. Unable to fully assess due to obtunded state
Imp: Unspecified Bipolar d/o by hx. Unclear if sedation is related to psychotropic meds. Abilify and Depakote are not usually sedating. Depakote would not typically cause delusions. No information available on whether there were any recent med
changes
Rec: Would continue Depakote. Could hold Abilify or decrease, although pt is on a relatively low dose. Need further history of pt's medication mgt at [facility].
Will follow
--- NOTE | 2023-08-11 09:04 | W.PN.HOSP.TC ---
Today's Communication/Plan
-
see note
Assessment / Plan
Assessment / Plan
1. Hyperkalemia
-Secondary to renal failure and lisinopril.
-EKG showing NSR, DC 190ms, QRS 142ms.
-Patient got calcium gluconate/insulin-glucose.
-maintain on Lokelma for now if could take oral
2. NATALIA
-Renal function 0.9 in Jul 29, at admit 2.3
-Hold Lasix/lisinopril
-Patient chronic indwelling Villareal catheter, discussed with RN to check with [facility] and was advised change. Asked RN to change villareal catheter, if difficult to replace, will ask urology to help
-Renal ultrasound pending
-Nephrology help requested
3. Left leg DVT
-Recently diagnosed in [facility], was on lovenox 120mg/bid
-repeat LE venous doppler has been ordered
-recheck ordered
-Heme/onc has been involved
4. Acute toxic metabolic encephalopathy
Reported delusion
History of bipolar disorder
-Patient with reported history of delusion with valproate use?
-Currently patient sedated and not able to communicate, ABG ordered to r/o hypercapnic resp failure
-Hold Abilify. Valproate level within normal.
-Psychiatry has been asked to further evaluation.
-Will do brain imaging if patient does not improve after holding psych meds
-Will need speech therapy evaluation before can be started on diet
5. Insulin-dependent diabetes mellitus
-Maintained on Lantus 10 unit at bedtime and insulin sliding scale
6. Essential HTN
-Maintain on metoprolol tartrate. prn hydralazine
GERD
Morbid obesity
Obstructive sleep apnea
Neuropathy
DVT prophylaxis - heparin subq
Full code
Discussed with nephrology/hematology
Voicemail left for daughter to call back
Records requested from [facility].
Total time spent : 56 mins
I personally saw and examined the patient.
I have reviewed all diagnostic interpretations and treatment plans as written.
Time includes patient management by me, time spent at the patients bedside, time to review lab and imaging results, discussing patient care, documentation in the medical record, and time spent with the family or caregiver and discussing care plan
with RN/Consultants.
Anticipated Discharge: 24 - 48 hours
Subjective/Interval History
-
Date of Service: August 11, 2023
Patient sedated, snoring. Waking up on painful stimuli although no meaningful communication
Discussed with RN, patient was able to wake up momentarily although had incoherent speech
Afebrile overnight, BP stable
Objective Data
-
Labs:
Laboratory Results
08/11/23 08/11/23 08/11/23
00:20 04:55 12:00
Sodium 141 139 Pending
Potassium 6.1 H* 6.4 H* Pending
Chloride 102 104 Pending
Carbon Dioxide 27 27 Pending
BUN 51 H 48 H Pending
Creatinine 2.2 H 2.3 H Pending
Glucose 155 H 163 H Pending
Calcium 9.6 9.2 Pending
08/11/23
18:00
Sodium Pending
Potassium Pending
Chloride Pending
Carbon Dioxide Pending
BUN Pending
Creatinine Pending
Glucose Pending
Calcium Pending
Vital Signs:
Vital Signs
Temp Pulse Resp BP Pulse Ox
99.2 F 101 21 114/61 93
08/11/23 03:31 08/11/23 08:03 08/11/23 08:03 08/11/23 08:03 08/11/23 08:03
I&O
08/10/23 08/11/23 08/12/23
06:59 06:59 06:59
Output Total 700 / 700
Balance -700 / -700
Review of Systems
-
Unable to obtain full review of systems at this time due to: Acuity
Physical Exam
-
General: No Apparent Distress; Negative Respiratory Distress
HEENT: Oxygen (NC)
Respiratory: Rhonchi
Cardiac: Regular Rhythm, S1/S2 and Tachycardic
GI: Soft, Nondistended and Normal Bowel Sounds
Musculoskeletal: No Edema
Neuro: Negative Awake or Oriented
--- NOTE | 2023-08-11 09:15 | CON.ONC ---
Impression
Impression
recent nonocclusive LLE DVT (06/2023), identified during admission at [facility] for pneumonia, requiring intubation
NATALIA, hyperkalemia (creatinine on 07/10/23 was 0.9)
Plan
Plan
Reviewed recent records from [facility], DVT was provoked in the setting of ICU admission
Lovenox stopped this admission due to NATALIA/hyperkalemia
Await repeat LE dopplers
Would favor 3 month course of anticoagulation regardless of doppler results due to high risk for re-clot w/ any less than 3 mo a/c
Rec. DOAC if insurance coverage (and no further progression of NATALIA) or warfarin
nephrology consult pending
Patient History
History of Present Illness
68 yo M with extensive PMH as below, sent from [place] with NATALIA (2.15) and hyperkalemia (6.5) on outpatient labs.
Recent medical history noted for LLL pneumonia requiring intubation at [facility] in late Jun 2023 (06/27/23 - 07/10/23). He was found to have staph bacteremia, though was thought possibly a contaminant. He was treated with 7 days of
Vanco and Cefepime. During admission, he was found to have a LLE acute nonocclusive DVT (common femoral and profunda femoral veins). CTA showed no PE. He was started on Lovenox. Creatinine on 07/10/23 was 0.9.
Lovenox was stopped at admission, he's now on UFH 5000u q12
He's unable to offer any history, barely opens eyes to touch.
Past-Medical/Surgical History
PMH/PSH - past medical history of chronic respiratory failure with hypercapnia on chronic 2 to 3 L nasal cannula, morbid obesity, chronic Brown catheter x 1 year GERD, bipolar disorder, HTN, ESSIE, iron deficiency anemia, vitamin D deficiency, DM2
with diabetic neuropathy, BPH, DVT, restless leg syndrome, Legally blind from retinitis pigmentosa
SH - lives in retirement
FH - unknown
Patient Medication
Medication Instructions Recorded Confirmed Last Taken Type
metformin 500 mg tablet 500 mg PO BIDWMEAL 11/07/11 08/10/23 11/09/11 19:15 History
metoprolol tartrate 50 mg tablet 50 mg PO BID 11/07/11 08/10/23 11/09/11 16:00 History
acetaminophen 325 mg tablet 650 mg PO Q6HPRN PRN mild pain 08/07/23 08/10/23 Unknown History
(Tylenol)
amlodipine 5 mg tablet (Norvasc) 5 mg PO DAILY 08/07/23 08/10/23 Unknown History
aripiprazole 15 mg tablet 7.5 mg PO HS 08/07/23 08/10/23 Unknown History
aspirin 81 mg chewable tablet 81 mg PO DAILY 08/07/23 08/10/23 Unknown History
bisacodyl 10 mg rectal suppository 10 mg SD DAILYPRN PRN constipation 08/07/23 08/10/23 Unknown History
(Dulcolax (bisacodyl))
cholecalciferol (vitamin D3) 25 25 mcg PO DAILY 08/07/23 08/10/23 Unknown History
mcg (1,000 unit) tablet (Vitamin
D3)
divalproex 500 mg tablet,delayed 500 mg PO BID 08/07/23 08/10/23 Unknown History
release (Depakote)
docusate sodium 100 mg capsule 100 mg PO HS 08/07/23 08/10/23 Unknown History
(Colace)
enoxaparin 120 mg/0.8 mL 120 mg SC Q12H 08/07/23 08/10/23 Unknown History
subcutaneous syringe (Lovenox)
ferrous sulfate 325 mg (65 mg 325 mg PO DAILY 08/07/23 08/10/23 Unknown History
iron) tablet
furosemide 40 mg tablet (Lasix) 40 mg PO DAILY 08/07/23 08/10/23 Unknown History
gabapentin 300 mg capsule 300 mg PO DAILY 08/07/23 08/10/23 Unknown History
gabapentin 600 mg tablet 600 mg PO HS 08/07/23 08/10/23 Unknown History
insulin aspart U-100 100 unit/mL 0 sliding scale dose SC ACHS 08/07/23 08/10/23 Unknown History
subcutaneous solution
insulin glargine 100 unit/mL (3 10 unit SC HS 08/07/23 08/10/23 Unknown History
mL) subcutaneous pen
ipratropium 0.5 mg-albuterol 3 mg 3 ml inhalation R Q4HPRN PRN 08/07/23 08/10/23 Unknown History
(2.5 mg base)/3 mL nebulization sob/wheezing
soln
lidocaine 5 % topical patch 1 patch topical [id number] PRN apply 08/07/23 08/10/23 Unknown History
(Lidoderm) to B/L knees
magnesium hydroxide 400 mg/5 mL 30 ml PO HSPRN PRN if no BM in 3 08/07/23 08/10/23 Unknown History
oral suspension (Milk of Magnesia) days
melatonin 3 mg tablet 3 mg PO HS 08/07/23 08/10/23 Unknown History
menthol 4 % topical gel (Biofreeze 1 applic topical Q4HPRN PRN apply 08/07/23 08/10/23 Unknown History
(menthol)) to back, neck, or B/L knees
miconazole nitrate 2 % topical 1 applic topical BID apply to 08/07/23 08/10/23 Unknown History
ointment folds, scrotum, groin
nystatin 100,000 unit/gram topical 1 applic topical Q12H apply to 08/07/23 08/10/23 Unknown History
powder gluteal folds
omeprazole 40 mg capsule,delayed 40 mg PO DAILY 08/07/23 08/10/23 Unknown History
release
oxybutynin chloride 5 mg tablet 5 mg PO Q8HPRN PRN bladder 08/07/23 08/10/23 Unknown History
instability
polyethylene glycol 3350 17 gram 17 g PO Q12H 08/07/23 08/10/23 Unknown History
oral powder packet (Miralax)
psyllium 1 packet PO DAILY 08/07/23 08/10/23 Unknown History
sodium phosphates 19 gram-7 118 ml SD DAILYPRN PRN constipation 08/07/23 08/10/23 Unknown History
gram/118 mL enema (Fleet Enema)
therapeutic multivitamin 1 tab PO DAILY 08/07/23 08/10/23 Unknown History
urea 20 % topical cream 1 applic topical Q12H apply to B/L 08/07/23 08/10/23 Unknown History
feet
lisinopril 20 mg tablet 20 mg PO DAILY 08/10/23 08/10/23 Unknown History
loperamide 2 mg capsule 2 mg PO Q6H PRN diarrhea 08/10/23 08/10/23 Unknown History
Active Medications
Generic Name Dose Route Start Last Admin
Trade Name Freq PRN Reason Stop Dose Admin
Acetaminophen 650 mg 08/10/23 21:02
Acetaminophen 325 Mg Tablet PO 09/07/23 21:01
Q6HPRN PRN
mild pain
Albuterol/Ipratropium 3 ml 08/10/23 21:02
Ipratropium 0.5/Albuterol 3 Mg (3 Ml Ampul) INH 09/07/23 21:01
R Q4HPRN PRN
sob/wheezing
Protocol
Amlodipine Besylate 5 mg 08/11/23 08:00
Amlodipine 5 Mg Tablet PO 09/08/23 07:59
DAILY PAMELA
Aripiprazole 7.5 mg 08/10/23 22:00 08/10/23 22:19
Aripiprazole 15 Mg Tablet PO 09/07/23 21:59 7.5 mg
HS PAMELA Administration
Aspirin 81 mg 08/11/23 08:00
Aspirin 81 Mg Chewable Tablet PO 09/08/23 07:59
DAILY PAMELA
Bisacodyl 10 mg 08/10/23 21:02
Bisacodyl 10 Mg Rectal Suppository RECTAL 09/07/23 21:01
DAILYPRN PRN
constipation
Cholecalciferol 25 mcg 08/11/23 08:00
Cholecalciferol (Vitamin D3) 25 Mcg Tablet (1,000 Units) PO 09/08/23 07:59
DAILY PAMELA
Dextrose 12.5 grams 08/10/23 21:02
Dextrose 50% (0.5 Grams/Ml) 50 Ml Syringe IV 09/07/23 21:01
[id number] PRN
hypoglycemia
Protocol
Docusate Sodium 100 mg 08/10/23 22:00 08/10/23 22:21
Docusate Sodium 100 Mg Capsule PO 09/07/23 21:59 100 mg
HS PAMELA Administration
Ferrous Sulfate 325 mg 08/11/23 08:00
Ferrous Sulfate 325 Mg Tablet PO 09/08/23 07:59
DAILY PAMELA
Furosemide 20 mg 08/11/23 09:08
Furosemide 20 Mg (10 Mg/Ml) 2 Ml Vial IV 08/11/23 09:09
ONCE ONE
Gabapentin 600 mg 08/10/23 22:00 08/10/23 22:21
Gabapentin 300 Mg Capsule PO 09/07/23 21:59 600 mg
HS PAMELA Administration
Gabapentin 300 mg 08/11/23 08:00
Gabapentin 300 Mg Capsule PO 09/08/23 07:59
DAILY PAMELA
Glucagon 1 mg 08/10/23 21:02
Glucagon 1 Mg Vial IM 09/07/23 21:01
PRN PRN
hypoglycemia
Protocol
Heparin Sodium 5,000 units 08/11/23 08:00
Heparin 5,000 Units/Ml 1 Ml Vial SC 09/08/23 07:59
Q12 PAMELA
Hydralazine HCl 10 mg 08/10/23 21:02 08/11/23 06:37
Hydralazine 20 Mg/Ml Vial IV 09/07/23 21:01 10 mg
Q6HPRN PRN Administration
SBP>165 eliana>100
Insulin Glargine 10 units/ 0.1 mls @ 0 mls/hr 08/10/23 22:00 08/10/23 22:21
Device SC 09/07/23 21:59 0.1 mls
HS PAMELA Administration
As Directed
Insulin Aspart 0 units 08/11/23 07:30
Insulin Aspart Low Resistance 300 Units/3 Ml Pen.Injctr SC 09/08/23 07:29
AC PAMELA
Protocol
Lidocaine 1 patch 08/10/23 21:09
Lidocaine 4% Topical Patch TOPICAL 09/07/23 21:08
DAILYPRN PRN
apply to B/L knees
Melatonin 3 mg 08/10/23 22:00 08/10/23 22:21
Melatonin 3 Mg Tablet PO 09/07/23 21:59 3 mg
HS PAMELA Administration
Metoprolol Tartrate 50 mg 08/11/23 08:00
Metoprolol 50 Mg Regular Release Tablet PO 09/08/23 07:59
BID PAMELA
Miconazole Nitrate 0 applic 08/11/23 08:00
Miconazole 2% (Same As Aloe [place]) Ointment Tube TOPICAL 09/08/23 07:59
BID PAMELA
Miconazole Nitrate 0 applic 08/10/23 22:00 08/10/23 22:21
Miconazole Powder Bottle TOPICAL 09/07/23 21:59 Not Given
BID PAMELA
Multivitamins Therapeutic 1 tablet 08/11/23 08:00
Multivitamin Tablet PO 09/08/23 07:59
DAILY PAMELA
Urea 20 % Cream Top 0 applic 08/10/23 21:02 08/11/23 08:12
To Bilat Feet Q12 TOPICAL 09/07/23 21:01 Not Given
Q12 PAMELA
Oxybutynin Chloride 5 mg 08/10/23 21:02
Oxybutynin 5 Mg Tablet PO 09/07/23 21:01
Q8HPRN PRN
bladder instability
Pantoprazole Sodium 40 mg 08/11/23 08:00
Pantoprazole 40 Mg Delayed Release Tablet PO 09/08/23 07:59
DAILY PAMLEA
Polyethylene Glycol 17 grams 08/10/23 21:02 08/10/23 22:21
Polyethylene Glycol Powder 17 Grams Packet PO 09/07/23 21:01 17 grams
Q12 PAMELA Administration
Sodium Chloride 0 flush 08/10/23 22:00
Sodium Chloride 0.9% (Flush) Syringe IV 09/07/23 21:59
PER PROTOCOL PAMELA
Sodium Zirconium Cyclosilicate 10 gram 08/11/23 14:00
Sodium Zirconium Cyclosilicate (Lokelma) 10 Gram Powder Packet PO 08/13/23 06:01
TID@0600,1400,1800 PAMELA
Physical Exam
-
limited exam
morbidly obese
no LE edema
Labs
Lab Results
WBC 9.7 10^3/uL (4.8-10.8) 08/10/23 17:15
RBC 3.71 10^6/uL (4.70-6.10) L 08/10/23 17:15
Hgb 12.4 g/dL (13.0-18.0) L 08/10/23 17:15
Hct 36.6 % (39.0-52.0) L 08/10/23 17:15
MCV 98.7 fL (80.0-94.0) H 08/10/23 17:15
MCH 33.4 pg (27.0-31.0) H 08/10/23 17:15
MCHC 33.9 g/dL (33.0-37.0) 08/10/23 17:15
RDW 14.8 % (11.5-14.5) H 08/10/23 17:15
Plt Count 319 10^3/uL (130-400) 08/10/23 17:15
MPV 9.6 fL (7.4-10.4) 08/10/23 17:15
Abs Immat Gran (auto) 0.2 10^3/uL (0-0.05) H 08/10/23 17:15
Absolute Neuts (auto) 5.5 10^3/uL (1.4-6.5) 08/10/23 17:15
Absolute Lymphs (auto) 2.2 10^3/uL (1.2-3.4) 08/10/23 17:15
Absolute Monos (auto) 1.1 10^3/uL (0.1-0.6) H 08/10/23 17:15
Absolute Eos (auto) 0.6 10^3/uL (0-0.7) 08/10/23 17:15
Absolute Basos (auto) 0.1 10^3/uL (0-0.2) 08/10/23 17:15
Immature Gran % 1.7 % (0-0.5) H 08/10/23 17:15
Neutrophils % 57.2 % (42.2-75.2) 08/10/23 17:15
Lymphocytes % 22.4 % (20.5-51.1) 08/10/23 17:15
Monocytes % 11.1 % (1.7-9.3) H 08/10/23 17:15
Eosinophils % 6.6 % (0-6) H 08/10/23 17:15
Basophils % 1.0 % (0-2) 08/10/23 17:15
Creatinine 2.3 mg/dL (0.7-1.3) H 08/11/23 04:55
Vital Signs
Vital Signs
Temp Pulse Resp BP Pulse Ox
96.6 F L 101 21 114/61 93
08/11/23 07:05 08/11/23 08:03 08/11/23 08:03 08/11/23 08:03 08/11/23 08:03
[2023-08-11] MEDS: HEPARIN 5000 UNITS SC ×2 (10:10→20:11)
[2023-08-11 10:25] LABS: B.E. 2.2 mmol/L; HCO3 29.4 mmol/L (21-28); O2 Saturation % 98.4 % (94-98); PCO2 57 mmHg (35-48); PO2 90 mmHg (83-108); pH 7.32 (7.35-7.45)
--- NOTE | 2023-08-11 10:52 | PTCARENOTE ---
Patient too lethargic to swallow pills. Patient currently getting ultra renal ultra sound at bedside. Blood gases obtained and resulted. Dr. Singh looking at labs. Respiratory therapist in room to put CPAP back on. Continuous pressure of 10
with 02 67L. Sp02 currently 97%. Patient will arouse but quickly falls right back asleep. Will monitor frequently.
--- NOTE | 2023-08-11 11:10 | CON.MD ---
Consultation - Medical
-
Impression:
Acute kidney injury (baseline 0.9-1 in 07/29)
Hyperkalemia
Respiratory acidosis
COPD on chronic oxygen therapy
Recent fall with left patellar injury
Hypertension
Change of mental status
Left lower extremity DVT
Diabetes
History of hypertension
Blind
Obese
Chronic Brown due to BPH and chronic urinary retention
Plan:
NATALIA:Hyperkalemia
-Will exchange Brown catheter
-Renal ultrasound obtained
-Hold LES inhibitor and metformin
-Check urinalysis
-Rectal Kayexalate provided for hyperkalemia, hyperkalemia likely due to ongoing acidemia secondary to respiratory acidosis
-BiPAP to be placed for respiratory acidosis and obtain chest x-ray
-recheck bmp at 4pm
[2023-08-11 11:58] LABS: Glucose - Point of Care 174 mg/dl (70-99)
[2023-08-11 12:03] LABS: Urine Albumin Trace (Neg - Trace); Urine Bilirubin Negative (Negative); Urine Character Slightly Cloudy (Clear); Urine Color Yellow; Urine Glucose Negative (Negative); Urine Ketone Negative (Negative); Urine Leukocyte 2+ (Negative); Urine Nitrite Positive (Negative); Urine Occult Blood 4+ (Negative); Urine Specific Gravity 1.015 (<1.030); Urine Urobilinogen Negative (Neg - 1+)
[2023-08-11] MEDS: ANTIFUNGAL CLEAR 1 APPLIC TOPICAL ×2 (12:05→20:15)
[2023-08-11] MEDS: DESENEX/MITRAZOL/ZEASORB 1 APPLIC TOPICAL ×2 (12:06→20:14)
[2023-08-11 12:14] LABS: Urine Bacteria Few (Negative); Urine Red Blood Cell 40-50 /HPF (0-2); Urine White Cell 21-25 /HPF (0-5)
[2023-08-11] MEDS: NOVOLOG FLEXPEN-LOW RESISTANCE 1 UNITS SC ×2 (12:22→18:42)
[2023-08-11] MEDS: NOVOLOG FLEXPEN-LOW RESISTANCE SC (12:22)
[2023-08-11] MEDS: FLUSH (NSS) 1 FLUSH IV (13:39)
--- NOTE | 2023-08-11 13:55 | PTCARENOTE ---
Dobhoff placed by TERMINAL OPERATIONS MANAGER in right nare. Placed for medication administration due to lethargy. Waiting for portal xray to verify placement.
--- NOTE | 2023-08-11 14:23 | CM ---
Reviewed chart and spoke to Stacey, [facility] liaison and [facility]. Patient has been in SNF for 3 years. He was recently moved at [facility] request from [facility] to [facility]. She is satisfied with [facility] and has no concerns for him
to return there. He has 15 day [place] bed hold.
tr reports the hallucinations started about one year ago. They are not constant.
Patient is bed bound at SNF. [facility] has requested they get him up to shower but he has sponge baths. HE was able to feed himself, sitting up in bed.
pharmacy: [facility]
Dr. Ramírez.
PLAN:return to [facility]
[2023-08-11] MEDS: KAYEXALATE SUSPENSION 30 GRAMS PO (15:13)
[2023-08-11] MEDS: VITAMIN D3 (cholecalciferol) PO (15:33)
[2023-08-11] MEDS: THERAGRAN PO (15:33)
[2023-08-11] MEDS: NORVASC 5 MG PO (15:35)
[2023-08-11] MEDS: LOW STRENGTH ASPIRIN 81 MG PO (15:36)
[2023-08-11] MEDS: MIRALAX PO ×2 (15:36→19:50)
[2023-08-11] MEDS: LOPRESSOR PO (15:36)
[2023-08-11] MEDS: FEOSOL PO (15:36)
[2023-08-11 16:34] LABS: Glucose - Point of Care 178 mg/dl (70-99)
[2023-08-11 18:21] LABS: Blood Urea Nitrogen 57 mg/dl (9-20); Calcium 9.6 mg/dl (8.4-10.2); Carbon Dioxide 27 mmol/L (22-30); Chloride 101 mmol/L (98-107); Estimated Creatinine Clearance 38 ml/min; Glucose 175 mg/dl (70-99); Potassium 5.9 mmol/L (3.5-5.1); Sodium 140 mmol/L (135-145); eGFR 23.68
--- NOTE | 2023-08-11 18:30 | PTCARENOTE ---
Kayexalate administered via right nare dobhoff. Patient INC of very large liquid BM. Groin and scrotum with MSAD on admission. Fungal cream and powder applied. Dobhoff is currently clogged. When patient is more alert he can take po medications.
BMP obtained after BM. Potassium result 5.9. Dr Singh notified and order obtained. Brown catheter changed out today and urine sent as ordered. Patient axillary temp this afternoon 101.6. notified blood cultures obtained and started on zosyn.
CPAP was changed today to BIPAP 06/11 4L spo2 91-95%. Patient on n/c later in the day on 4L and tolerated well. Patient starting to be more alert and conversant.
[2023-08-11] MEDS: ZOSYN 50 IV (18:41)
[2023-08-11] MEDS: LOKELMA PO ×2 (18:42)
[2023-08-11 18:56] LABS: Blood Urea Nitrogen 57 mg/dl (9-20); Calcium 9.6 mg/dl (8.4-10.2); Carbon Dioxide 27 mmol/L (22-30); Chloride 101 mmol/L (98-107); Estimated Creatinine Clearance 36 ml/min; Glucose 176 mg/dl (70-99); Potassium 5.9 mmol/L (3.5-5.1); Sodium 141 mmol/L (135-145); eGFR 22.71
[2023-08-11] MEDS: LOPRESSOR 50 MG PO (20:10)
[2023-08-11] MEDS: LASIX 40 MG IV (20:11)
[2023-08-11] MEDS: TYLENOL 650 MG PO (20:20)
--- NOTE | 2023-08-11 20:43 | PTCARENOTE ---
Received pt from [facility]. Pt is AAOx2 (time), drowsy, confused/forgetful, legally blind. Sinus tach w/ BBB, trace LE edema. On 4L NC O2 sat 96%, lungs diminished, shallow and labored breathing, bipap HS. Chronic villareal in place, hygiene provided.
Abd obese, pt able to take pills with water. Dobhoff in R nare, clogged. Pt c/o pain in his butt, PRN pain med given (see MAR). Q2T provided. Mouth care provided. Pt is laying comfortable in bed with call alvarez in reach.
[2023-08-11 21:25] LABS: Glucose - Point of Care 160 mg/dl (70-99)
[2023-08-11] MEDS: COLACE 100 MG PO (22:06)
[2023-08-11] MEDS: NEURONTIN 600 MG PO (22:06)
[2023-08-11] MEDS: MELATONIN 3 MG PO (22:06)
[2023-08-11] MEDS: LANTUS 0.100000000000000006 UNITS SC (22:07)
[2023-08-12] VITALS (77 sets, daily range): BP systolic 54–188; BP diastolic 29–97; PULSE 2–110
[2023-08-12] MEDS: ZOSYN 50 IV ×4 (00:09→17:47)
[2023-08-12 04:27] LABS: Hematocrit 37.7 % (39.0-52.0); Hemoglobin 11.9 g/dL (13.0-18.0); Mean Corp Hgb Conc. 31.6 g/dL (33.0-37.0); Mean Corpuscular Hgb 32.6 pg (27.0-31.0); Mean Corpuscular Volume 103.3 fL (80.0-94.0); Mean Platelet Volume 9.2 fL (7.4-10.4); Platelet Count 300 10^3/uL (130-400); Red Blood Cell Count 3.65 10^6/uL (4.70-6.10); Red Cell Dist. Width 15.2 % (11.5-14.5)
[2023-08-12 05:09] LABS: Blood Urea Nitrogen 58 mg/dl (9-20); Calcium 9.2 mg/dl (8.4-10.2); Carbon Dioxide 28 mmol/L (22-30); Chloride 101 mmol/L (98-107); Estimated Creatinine Clearance 36 ml/min; Glucose 232 mg/dl (70-99); Potassium 6.6 mmol/L (3.5-5.1); Sodium 142 mmol/L (135-145); eGFR 22.71
--- NOTE | 2023-08-12 05:14 | PTCARENOTE ---
CAMILO Hephziba notified for O2 sat of 86%, pt is belly breathing. RT in the room bipap increased to 20/10 @ 15L. Pt O2 sat now 88%.
[2023-08-12] MEDS: SODIUM BICARBONATE 50 MEQ IV (05:31)
[2023-08-12] MEDS: DEXTROSE 50% SYRINGE 25 GRAMS IV (05:32)
[2023-08-12] MEDS: NOVOLIN R 0.100000000000000006 UNITS IV (05:36)
[2023-08-12] MEDS: CALCIUM GLUCONATE 100 IV (05:39)
[2023-08-12 05:41] LABS: Glucose - Point of Care 231 mg/dl (70-99)
[2023-08-12 05:46] LABS: B.E. 3.7 mmol/L; HCO3 37.1 mmol/L (21-28); O2 Saturation % 95.4 % (94-98); PO2 82 mmHg (83-108)
[2023-08-12 05:48] LABS: O2 Therapy bipap 95
[2023-08-12 05:49] LABS: PCO2 > 115 mmHg (35-48); pH 7.08 (7.35-7.45)
[2023-08-12] MEDS: LOKELMA PO (05:51)
--- NOTE | 2023-08-12 06:05 | W.PN.UPDATE ---
Update Note
Progress Note Update
RN notified VALET RUNNER, Patient drowsy, opens eyes when called his name, K 6.6. IV Calcium gluconate, IV Insulin, IV Dextrose, IV Sodium bicarb 1 amp, ordered.
Seen and evaluated patient, patient wasn't responding to sternal rub, FEED MANAGEMENT ADVISOR called, Stable VS at this time, ordered stat EKG, stat ABG .
ABG results noted, Will transfer patient to ICU for intubation,
AIRLINE RESERVATION AGENT, PORTER Hoover, Dr Olmedo made aware.
Daughter and friend were called 2 times.
Finally was able to reach daughter and conveyed the message. Patient remains Full code.
Patient is in ICU
--- NOTE | 2023-08-12 06:11 | W.PN.UPDATE ---
Update Note
Progress Note Update
Laboratory Tests
08/11/23 08/11/23 08/12/23
10:14 10:14 05:38
pH 7.32 L 7.08
pCO2 57 >115
Base Excess 2.2 3.7
Intubated and TF to ICU
[2023-08-12] MEDS: LEVOPHED 250 IV (06:18)
[2023-08-12] MEDS: NSS 250 IV (06:23)
--- NOTE | 2023-08-12 06:27 | W.PN.ANESINT ---
Anesthesia Intubation Note
- Intubation Note
Intubation Note:
Diagnosis: Respiratory Distress
Blade: Glidescope 4
Tube Size: 8.0
Depth: 23cm at the teeth
Side Taped: center
Drugs Used: propofol 30mg, rocuronium 50mg, phenylephrine 1mg
Grade View: 1
EtCO2 Present: yes
Atraumatic: yes
Attempts: 1
Insertion Start and Stop Time: 558 start 600 end
SaO2 Pre: 83
SaO2 Post: 99
Glidescope Used: yes
Other Airway Adjustments: n/a
Pre-Oxygenated: yes
Portable Chest X-Ray: no
RSI: no
Suctioned: no
Bilateral Breath Sounds Confirmed: yes
Vent Settings: per attending MARKETING PERFORMANCE ANALYST
Settings per ___Attending Physician
[2023-08-12] MEDS: NEO-SYNEPHRINE 250 IV (06:44)
--- NOTE | 2023-08-12 06:46 | RR ---
A Rapid Response was called on this patient, please see Rapid Response form.
Rapid response called due to change in mental status. O2 dropping to 84-88% on bipap 20/10 @ 15L. RT @ bedside. Critical K 6.6 ASSOCIATE PROFESSOR OF MEDICINE Hephziba notified Calcium, dextrose, Insulin and Kayexalate ordered (see MAR).
--- NOTE | 2023-08-12 06:58 | W.PN.UPDATE ---
Update Note
Progress Note Update
0600 Patient transferred from IMU requiring immediate intubation. The patient was unresponsive, in respiratory acidosis, and maxed on bipap. Patient intubated successfully in ICU. House ROTARY SHEAR CUTTER was in the process of updating family. ABG 7.08/>115/82�
[2023-08-12 07:04] LABS: Glucose - Point of Care 340 mg/dl (70-99)
--- NOTE | 2023-08-12 07:04 | W.PN.ONC2 ---
Addendum entered and electronically signed by Eduardo Goyal MD 08/12/23 07:27:
Exams: US Periph Venous LOWER Ext Rod
EXAMINATION: Bilateral lower extremity duplex venous ultrasound
INDICATION: Lower extremity edema. Shortness of breath. Patient with a history of DVT. On Lovenox.
COMPARISON: None at this institution.
FINDINGS: Duplex venous ultrasound of both lower extremities is performed.
There is no evidence for deep venous thrombosis on the right. The calf veins are poorly visualized on the right.
There is nonocclusive thrombus in the left common femoral vein proximal to the greater saphenous vein. There is no occlusive thrombus on the left. Poor visualization of the left peroneal vein
IMPRESSION: There is no DVT on the right.
There is nonocclusive thrombus in the left common femoral vein.
Poor visualization of the veins in the calf bilaterally
Original Note:
Today's Communication / Plan
-
Switch from SQ heparin prophylaxis to IV heparin (no bolus) with acute DVT in June (< 3 mo ago) and high risk for VTE progression.
Impression
Impression
recent nonocclusive LLE DVT (06/2023), identified during admission at [facility] for pneumonia, requiring intubation
NATALIA, hyperkalemia (creatinine on 07/10/23 was 0.9)
VDRF
IDDM
Plan
Plan
Reviewed recent records from [place], DVT was provoked in the setting of ICU admission
Lovenox stopped this admission due to NATALIA/hyperkalemia
Repeat LE Doppler reveals no DVT on the right; nonocclusive thrombus in the left common femoral vein.
Patient is just on SQ heparin. This is inadequate A/C for acute DVT (< 3 mo old) with residual thrombus seen on Doppler.
With his being acutely ill and on vent, I would switch to IV heparin (no bolus needed) to maintain therapeutic aPTT.
Would favor 3 month course of anticoagulation at minimum due to high risk for re-clot w/ any less than 3 mo a/c
Subjective/Objective
Chief Complaint
Heme F/U
Subjective
Intubated overnight for severe respiratory acidosis (PH=7.08) and unresponsiveness. Currently on pressors x 2
Vital Signs:
Vital Signs
Temp Pulse Resp BP Pulse Ox
97.4 F 104 28 151/81 100
08/12/23 03:05 08/12/23 04:09 08/12/23 04:09 08/12/23 04:09 08/12/23 06:20
Lab Results:
Laboratory Data
WBC 12.0 10^3/uL (4.8-10.8) H 08/12/23 04:14
Hgb 11.9 g/dL (13.0-18.0) L 08/12/23 04:14
Plt Count 300 10^3/uL (130-400) 08/12/23 04:14
eGFR 22.71 08/12/23 04:14
Physical Exam
Intubated. Lethargic
Cardiology: S1 and S2
--- NOTE | 2023-08-12 07:45 | PTCARENOTE ---
05 rapid response called to room 3342, patient non responsive, abg 7.0, k+6.6, iv meds pushed/and gtts started, no change in condition, brought to ICU for rapid intubation.
pt intubated with 8 ett/25 lip, patient has dobhoff which per IMU staff has been blocked since yesterday, will attept to unclog it today vs insert new one , pt recieved bolus of 500 nss as well on ICU floor
patient severely hypotensive post intubation, with sbp of 55, Levo and Sony started, meds titrated for sbp,
0700 - levo is at 10 and sony is off. no other fluids running at this time.
restraints to b/l upper extremities are in room if needed, pt is still obtunded and non responsive even to vigorous stimulus
--- NOTE | 2023-08-12 07:46 | CON.INTV ---
Consultation
Consultation Request
Date/Time Consultation Requested: 08/12/2023-7 AM
Date/Time Consultation Performed: 08/12/2023-7 AM
Requesting Provider: Hospitalist
Performing Provider: Dr. Bullard
Reason for Consultation: Ventilator/critical care management
Medical History
-
Chief Complaint: Respiratory failure/ventilator dependent
History of Present Illness:
68-year-old male morbidly obese with probable obesity hypoventilation syndrome with chronic hypercapnia on chronic oxygen, bipolar disorder, hypertension, diabetes, DVT presented with recently diagnosed left leg DVT, NATALIA, hyperkalemia, metabolic
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 Patient unresponsive on the ventilator and unable to obtain review of systems. No increased secretions.
Past Medical History
Past Medical History: None (Morbid obesity-BMI 51. Recent [facility] stay. Hypertension. Obesity hypoventilation syndrome. Chronic oxygen supplementation. Legally blind-retinitis pigmentosa. Spinal stenosis. Colon resection. Deviated
septum repair. Former smoker.)
Social History
Tobacco: Former Smoker
Alcohol: Occasional
Drug: None
Personal: Single
Occupational Exposures: No known asbestos exposure
Environmental Exposures: No known tuberculosis exposure
Family History
Family History: Reviewed & Not Pertinent
Allergies / Home Medications
Allergies
Allergy/AdvReac Type Severity Reaction Status Date / Time
No Known Allergies Allergy Verified 08/07/23 23:08
Home Medications
Medication Instructions Recorded Confirmed Last Taken Type
metformin 500 mg tablet 500 mg PO BIDWMEAL Diabetes 11/07/11 08/10/23 11/09/11 19:15 History
metoprolol tartrate 50 mg tablet 50 mg PO BID Blood Pressure 11/07/11 08/10/23 11/09/11 16:00 History
acetaminophen 325 mg tablet 650 mg PO Q6HPRN PRN mild pain 08/07/23 08/10/23 Unknown History
(Tylenol)
amlodipine 5 mg tablet (Norvasc) 5 mg PO DAILY Blood Pressure 08/07/23 08/10/23 Unknown History
aripiprazole 15 mg tablet 7.5 mg PO HS Mental Health/Anxiety 08/07/23 08/10/23 Unknown History
aspirin 81 mg chewable tablet 81 mg PO DAILY Blood Clot 08/07/23 08/10/23 Unknown History
Prevention/Tx
bisacodyl 10 mg rectal suppository 10 mg NC DAILYPRN PRN constipation 08/07/23 08/10/23 Unknown History
(Dulcolax (bisacodyl))
cholecalciferol (vitamin D3) 25 25 mcg PO DAILY Supplement 08/07/23 08/10/23 Unknown History
mcg (1,000 unit) tablet (Vitamin
D3)
divalproex 500 mg tablet,delayed 500 mg PO BID Seizures 08/07/23 08/10/23 Unknown History
release (Depakote)
docusate sodium 100 mg capsule 100 mg PO HS Constipation 08/07/23 08/10/23 Unknown History
(Colace)
enoxaparin 120 mg/0.8 mL 120 mg SC Q12H Blood Clot 08/07/23 08/10/23 Unknown History
subcutaneous syringe (Lovenox) Prevention/Tx
ferrous sulfate 325 mg (65 mg 325 mg PO DAILY Supplement 08/07/23 08/10/23 Unknown History
iron) tablet
furosemide 40 mg tablet (Lasix) 40 mg PO DAILY Fluid 08/07/23 08/10/23 Unknown History
Retention/Swelling
gabapentin 300 mg capsule 300 mg PO DAILY Pain 08/07/23 08/10/23 Unknown History
gabapentin 600 mg tablet 600 mg PO HS Pain 08/07/23 08/10/23 Unknown History
insulin aspart U-100 100 unit/mL 0 sliding scale dose SC ACHS 08/07/23 08/10/23 Unknown History
subcutaneous solution Diabetes
insulin glargine 100 unit/mL (3 10 unit SC HS Diabetes 08/07/23 08/10/23 Unknown History
mL) subcutaneous pen
ipratropium 0.5 mg-albuterol 3 mg 3 ml inhalation R Q4HPRN PRN 08/07/23 08/10/23 Unknown History
(2.5 mg base)/3 mL nebulization sob/wheezing
soln
lidocaine 5 % topical patch 1 patch topical [id number] PRN apply 08/07/23 08/10/23 Unknown History
(Lidoderm) to B/L knees
magnesium hydroxide 400 mg/5 mL 30 ml PO HSPRN PRN if no BM in 3 08/07/23 08/10/23 Unknown History
oral suspension (Milk of Magnesia) days
melatonin 3 mg tablet 3 mg PO HS Sleep 08/07/23 08/10/23 Unknown History
menthol 4 % topical gel (Biofreeze 1 applic topical Q4HPRN PRN apply 08/07/23 08/10/23 Unknown History
(menthol)) to back, neck, or B/L knees
miconazole nitrate 2 % topical 1 applic topical BID apply to 08/07/23 08/10/23 Unknown History
ointment folds, scrotum, groin
nystatin 100,000 unit/gram topical 1 applic topical Q12H apply to 08/07/23 08/10/23 Unknown History
powder gluteal folds
omeprazole 40 mg capsule,delayed 40 mg PO DAILY GERD 08/07/23 08/10/23 Unknown History
release
oxybutynin chloride 5 mg tablet 5 mg PO Q8HPRN PRN bladder 08/07/23 08/10/23 Unknown History
instability
polyethylene glycol 3350 17 gram 17 g PO Q12H Constipation 08/07/23 08/10/23 Unknown History
oral powder packet (Miralax)
psyllium 1 packet PO DAILY Constipation 08/07/23 08/10/23 Unknown History
sodium phosphates 19 gram-7 118 ml NC DAILYPRN PRN constipation 08/07/23 08/10/23 Unknown History
gram/118 mL enema (Fleet Enema)
therapeutic multivitamin 1 tab PO DAILY Supplement 08/07/23 08/10/23 Unknown History
urea 20 % topical cream 1 applic topical Q12H apply to B/L 08/07/23 08/10/23 Unknown History
feet
lisinopril 20 mg tablet 20 mg PO DAILY Blood Pressure 08/10/23 08/10/23 Unknown History
loperamide 2 mg capsule 2 mg PO Q6H PRN diarrhea 08/10/23 08/10/23 Unknown History
Review of Systems
-
Unable to Obtain full review of systems at this time due to: Patient Intubation
Vitals / Labs / Diagnostic Testing
Vital Signs
Temp Pulse Resp BP Pulse Ox
97.4 F 104 28 151/81 100
08/12/23 03:05 08/12/23 04:09 08/12/23 04:09 08/12/23 04:09 08/12/23 06:20
Lab Data
08/12/23 04:14
Laboratory Results
08/11/23 08/12/23
10:14 05:38
pH 7.32 L 7.08 L*
pCO2 57 H > 115 H*
pO2 90 82 L
HCO3 29.4 H 37.1 H
O2 Delivery Level bipap 95
Diagnostic Testing:
Physical Exam
-
Exam:
Well-nourished and well-developed in no apparent distress
HEENT-atraumatic, normocephalic, thick neck, oral tracheal intubation
Neck-supple, no JVD, no bruit
Heart-regular rate and rhythm-no murmurs, rubs or gallops
Chest with diminished breath sounds but clear without wheezes or crackles
Abdomen-soft, nontender, nondistended, no hepatosplenomegaly
Extremities-no cyanosis, clubbing, edema and good peripheral pulses
Integument-intact, no rashes, lesions or ecchymosis
Neurology-alert and oriented, nonfocal motor and sensory exam
Assessment
-
68-year-old male morbidly obese with probable obesity hypoventilation syndrome with chronic hypercapnia on chronic oxygen, bipolar disorder, hypertension, diabetes, DVT presented with recently diagnosed left leg DVT, NATALIA, hyperkalemia, metabolic
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
Assessment
Hypercapnic respiratory failure-ABG 08/12/2023-greater than 115/82/7.08
Intubated 08/12/2023
Extubated
Toxic metabolic encephalopathy
NATALIA
Hyperkalemia
Obesity hypoventilation syndrome suspected
Pneumonia-aspiration risk
COPD on chronic oxygen suspected
Recent left lower extremity DVT-provoked
Leukocytosis
Wkozry-mznroxbuuh-adaoyzpjoh 11.9
Hyperglycemia
Hypertriglyceridemia
Conditions present prior to admission:
Morbid obesity-BMI 51.
Recent [facility] stay.
Hypertension.
Obesity hypoventilation syndrome.
Chronic oxygen supplementation.
Legally blind-retinitis pigmentosa.
Spinal stenosis.
Colon resection.
Deviated septum repair.
Former smoker.
COPD on chronic oxygen supplementation
Chronic Brown due to BPH and chronic urinary retention
Plan
Patient critically ill and transferred to ICU emergently intubated
Ventilator settings reviewed
ABG reviewed
Decrease FiO2 and then PEEP-reviewed with FELT PAD CUTTER
Follow ABG
Consider SBT in the next 24 hours if other issues stabilized
Will need to transition to noninvasive or BiPAP
VAP prevention protocol
Nebulizers if needed-currently not bronchospastic
Anticoagulation for recent DVT
Hematology following-correspondence reviewed
Monitor renal function
Replace and correcting electrolyte abnormalities
Nephrology seen-correspondence reviewed
Check cultures
Empiric antibiotics
Check echocardiogram with abnormal EKG and possible interstitial edema
Monitor hemoglobin
Transfuse if needed
PPI while on the ventilator
Monitor blood sugar
Insulin supplementation as needed
DVT prophylaxis-on heparin drip
GI prophylaxis-on pantoprazole
Early nutrition
Early mobilization
Critical care statement: A total of 50 minutes of critical care time was provided for this patient today. This includes management of unstable vital signs, evaluation of the patient at bedside, reviewing the patient's pertinent medical records
including radiographs, ventilator management, pressor management, sedation management, microbiology, laboratory evaluations, and discussion with primary team, consultants, pharmacy, nutrition, physical therapy, case management, charge nurse,
critical care nursing, and respiratory therapy.
Diagnostic data:
Chest x-ray 08/11/2023-bibasilar interstitial pneumonia
Chest x-ray 08/12/2023-rotated to the left, no pneumothorax, ET tube above lashon, bilateral interstitial infiltrates
Data Reviewed
-
EKG: Report reviewed by me
Radiology: Report reviewed by me
CT Scan: Report reviewed by me
Medical Tests (Nuc Med, Echo etc): Report reviewed by me
Old Records: Reviewed
Critical Care Time (in minutes): 45
[2023-08-12 07:54] LABS: HCO3 26.5 mmol/L (21-28); O2 Saturation % 99.1 % (94-98); PCO2 40 mmHg (35-48); PO2 210 mmHg (83-108); pH 7.43 (7.35-7.45)
[2023-08-12] MEDS: SUBLIMAZE 50 MCG IV ×4 (08:56→21:05)
[2023-08-12] MEDS: VITAMIN D3 (cholecalciferol) PO (08:59)
[2023-08-12] MEDS: LOPRESSOR PO (08:59)
[2023-08-12] MEDS: THERAGRAN PO (08:59)
[2023-08-12] MEDS: NORVASC PO (08:59)
[2023-08-12] MEDS: ANTIFUNGAL CLEAR 1 APPLIC TOPICAL ×2 (09:00→21:00)
[2023-08-12] MEDS: DESENEX/MITRAZOL/ZEASORB 1 APPLIC TOPICAL ×2 (09:00→21:00)
[2023-08-12] MEDS: NOVOLOG FLEXPEN-LOW RESISTANCE 3 UNITS SC (09:09)
[2023-08-12 09:15] LABS: Glucose - Point of Care 289 mg/dl (70-99)
[2023-08-12 10:18] LABS: APTT 23.1 Sec (23.4-35.0)
--- NOTE | 2023-08-12 10:26 | W.PN.NEPH.PH ---
Today's Communication / Plan
-
lokelma
Assessment/Plan
-
Impression:
Acute kidney injury (baseline 0.9-1 in 07/29)
Hyperkalemia
Respiratory acidosis
COPD on chronic oxygen therapy
Recent fall with left patellar injury
Hypertension
Change of mental status
Left lower extremity DVT
Diabetes
History of hypertension
Blind
Obese
Chronic Brown due to BPH and chronic urinary retention
Plan:
-treat K medically
-for OGT, lokelma
-serial BMP
-check cortisol
-keep MAP > 65
-no acidosis
-critical care time 31 minutes
-
-
Date of Service: August 12, 2023
CC / HPI / ROS
-
Chief Complaint:
NATALIA
History of Present Illness:
Hyperkalemia still 6.6
critically ill in ICU on pressors, vent
BP stable on pressors
NATALIA/Cr stable at 2.9
Review of Systems:
intubated/sedated
Labs
-
Labs:
WBC 12.0 10^3/uL (4.8-10.8) H 08/12/23 04:14
RBC 3.65 10^6/uL (4.70-6.10) L 08/12/23 04:14
Hgb 11.9 g/dL (13.0-18.0) L 08/12/23 04:14
Hct 37.7 % (39.0-52.0) L 08/12/23 04:14
Plt Count 300 10^3/uL (130-400) 08/12/23 04:14
eGFR 22.71 08/12/23 04:14
Albumin 4.5 g/dl (3.5-5.0) 08/10/23 17:15
Physical Exam
-
Vital Signs:
Vital Signs
Temp Pulse Resp BP Pulse Ox
98.5 F 99 23 142/80 100
08/12/23 08:00 08/12/23 09:20 08/12/23 09:20 08/12/23 09:20 08/12/23 09:20
Cardiovascular:: Regular rate and rhythm
Respiratory:: Bilateral: Coarse and Bilateral: Wheeze
Lung Excursion:: Normal
Abdomen:: Nontender and Soft
Bowel Sounds:: Normal
Extremity Edema:: +1: Bilateral:
[2023-08-12 10:55] LABS: Blood Urea Nitrogen 53 mg/dl (9-20); Calcium 8.7 mg/dl (8.4-10.2); Carbon Dioxide 24 mmol/L (22-30); Chloride 101 mmol/L (98-107); Estimated Creatinine Clearance 39 ml/min; Glucose 301 mg/dl (70-99); Potassium 6.5 mmol/L (3.5-5.1); Sodium 138 mmol/L (135-145); eGFR 24.74
[2023-08-12] MEDS: MIRALAX PO ×2 (11:06→20:31)
[2023-08-12] MEDS: FEOSOL PO (11:06)
[2023-08-12] MEDS: LOW STRENGTH ASPIRIN PO (11:06)
[2023-08-12] MEDS: HEPARIN 25000 UNITS/250 ML IV ×2 (11:08→20:55)
[2023-08-12 11:14] LABS: Triglycerides 710 mg/dl (10-149)
[2023-08-12] MEDS: KAYEXALATE SUSPENSION 30 GRAMS PO (11:15)
[2023-08-12 12:06] LABS: Cortisol, Random 33.7 ug/dl
[2023-08-12 12:11] LABS: Glucose - Point of Care 210 mg/dl (70-99)
[2023-08-12] MEDS: NOVOLIN R 10 UNITS IV (12:20)
[2023-08-12] MEDS: DEXTROSE 50% SYRINGE 12.5 GRAMS IV (12:21)
[2023-08-12] MEDS: NOVOLOG FLEXPEN-LOW RESISTANCE 2 UNITS SC (12:28)
--- NOTE | 2023-08-12 12:40 | PTCARENOTE ---
Pt received at 0700. Pt lethargic on ventilator. Vent setting A/C 28/500/60%/10. Received on 100% FiO2 and PEEP 15. Weaned by TOY MECHANIC per MD.
PRN Fentanyl boluses x2
Sinus tach with 1st degree and R BBB. Levophed weaned off.
Received with clogged DHT. D/c'd and new DHT placed.
Chronic villareal, hypospadias.
All other assessments unchanged from am
--- NOTE | 2023-08-12 13:41 | W.PN.HOSP.TC ---
Today's Communication/Plan
-
maintain on lokelma, f/u K
vent weaning per pulm
f/u blood and urine cs
continue on zosyn
Assessment / Plan
Assessment / Plan
1. Acute hypercapnic respiratory failure
Acute toxic metabolic encephalopathy
-Patient required intubation on 08/12 in the morning
-Postintubation x-ray showing ET tube in correct position. No pneumothorax
-ABG showing pCO2 greater than 115, repeat ABG postintubation showing pCO2 down to 40
-remains intubated at this point. vent weaning/sedation vacation per Hand Braille Transcriber
2. Hyperkalemia
-Secondary to renal failure and lisinopril.
-EKG showing NSR, MI 190ms, QRS 142ms.
-Patient got calcium gluconate/insulin-glucose.
-NGT in place and getting loklema through NGT
3. NATALIA
-Renal function 0.9 in Jul 29, continue to up trend. 2.9 today.
-Hold Lasix/lisinopril
-Patient chronic indwelling Villareal catheter, discussed with RN to check with assisted and was advised change. Asked RN to change villareal catheter, if difficult to replace, will ask urology to help
-Renal ultrasound pending
-Nephrology help requested
3. Left leg DVT
-Recently diagnosed in [facility], was on lovenox 120mg/bid
-Left lower extremity Doppler showing nonocclusive thrombus in common femoral vein
-Patient has been started on heparin drip per hematology recommendation
4. Sepsis
- suspected urinary source
-Blood culture and urine culture collected
-Maintain on empiric Zosyn
5. Insulin-dependent diabetes mellitus - Uncontrolled
-Maintained on Lantus 10 unit at bedtime and insulin sliding scale
6. Essential HTN
-Maintain on metoprolol tartrate. prn hydralazine
7. Chronic indwelling Villareal catheter
Hypospadias
-Villareal catheter has been exchanged on 08/11
8. Reported delusion
History of bipolar disorder
-Hold Abilify. Valproate level within normal.
-Psychiatry has been asked to further evaluation.
GERD
Morbid obesity
Obstructive sleep apnea
Neuropathy
DVT prophylaxis - heparin subq
Full code
Total critical care time 40 mins. Total critical care time documented does not include time spent on separately billed procedures or the services of residents, students, nurses or physician assistants. I personally saw and examined the patient. I
have reviewed all diagnostic interpretations and treatment plans as written. I was present for the figueroa portions of any procedures performed and the inclusive time noted in any critical care statement. Critical care time includes patient management
by me, time spent at the patients bedside, time to review lab and imaging results, discussing patient care, documentation in the medical record, and time spent with the family or caregiver.
Anticipated Discharge: > 48 hours
Subjective/Interval History
-
Date of Service: August 12, 2023
Intubated and sedated
Earlier in the morning patient was unresponsive and required intubation after found to having worsening hypercapnic respiratory failure
Patient also spiking fever from yesterday evening
Objective Data
-
Labs:
Laboratory Results
08/12/23 08/12/23 08/12/23
04:14 05:38 07:41
WBC 12.0 H
Hgb 11.9 L
Hct 37.7 L
Plt Count 300
APTT
HCO3 37.1 H 26.5
Sodium 142
Potassium 6.6 H*
Chloride 101
Carbon Dioxide 28
BUN 58 H
Creatinine 2.9 H
Glucose 232 H
Calcium 9.2
08/12/23 08/12/23
10:01 15:00
WBC
Hgb
Hct
Plt Count
APTT 23.1 L
HCO3
Sodium 138 Pending
Potassium 6.5 H* Pending
Chloride 101 Pending
Carbon Dioxide 24 Pending
BUN 53 H Pending
Creatinine 2.7 H Pending
Glucose 301 H Pending
Calcium 8.7 Pending
Vital Signs:
Vital Signs
Temp Pulse Resp BP Pulse Ox
98.2 F 112 28 127/66 97
08/12/23 11:00 08/12/23 11:15 08/12/23 11:15 08/12/23 11:15 08/12/23 11:46
I&O
08/11/23 08/12/23 08/13/23
06:59 06:59 06:59
Intake Total 150 / 150 641 / 641
Output Total 700 / 700 850 / 850 625 / 625
Balance -700 / -700 -700 / -700 16 / 16
Review of Systems
-
Unable to obtain full review of systems at this time due to: Patient Intubation
Physical Exam
-
General: No Apparent Distress and Intubated; Negative Respiratory Distress
Respiratory: Rhonchi
Cardiac: Regular Rhythm and S1/S2; Negative Murmur
GI: Soft and Normal Bowel Sounds
Genito-urinary: Other (Villareal caheter in place, have hypospadiasis)
Musculoskeletal: No Edema
Neuro: Sedated
--- NOTE | 2023-08-12 14:12 | CM ---
CM following re: discharge planning.
Discussed in rounds, reviewed pt's chart, met with pt and spoke to pt's daughter Negra. Per Rounds meeting, pt with hypercapnic respiratory failure, Intubated today 08/12/2023, continue supportive care.
Per daughter, pt just moved to [facility] one month ago from [facility] and per daughter pt was intubated 4 times since 2021. Pt's daughter had a long conversation with tab cutter regarding plan of care.
D/C plan: return back to [facility] when medically stable.
CM will follow with discharge plan updates as hospitalization progresses
--- NOTE | 2023-08-12 14:25 | CARDSERVLU ---
Echocardiogram with Lumason completed after protocol screening completed. Allergies verified.
Patent IV site: __left AC___
IV site flushed with 0.9% NaCl pre and post administration.
Diluted bolus method utilized to enhance visualization of ventricular decker.
Total volume given: ___3.5_ mL
Patient tolerated all procedures well without complications.
--- NOTE | 2023-08-12 14:43 | W.PN.UPDATE ---
Update Note
Progress Note Update
Reevaluated patient at the bedside-updated and spoke to daughter at length
She reports fourth intubation in the last year and a half. He has been on CPAP but not BiPAP. She was inquiring about tracheostomy tube
Explained that if he was extubated to BiPAP and he used BiPAP at the retirement religiously and despite BiPAP his CO2 retained he would be a tracheostomy tube candidate.
Plan is to extubate in the next 24 hours with transition to BiPAP-close monitoring for CO2 retention, arrangement of BiPAP in the outpatient setting and if requires reintubation then tracheostomy tube if patient willing would be in order. I
explained long-term tracheostomy tube care, recurrent pneumonias, need for ventilator facility, etc. to daughter. He is 'a fighter' and would want everything at this point.
[2023-08-12] MEDS: LOKELMA 10 GRAM PO (15:03)
--- NOTE | 2023-08-12 16:19 | W.PN.UPDATE ---
Update Note
Progress Note Update
this chart was reviewed. patient has been intubated since seen by psychiatry. agree with fidel antunez. there is little psychiatry can do at this point. patient is quiet in bed. we will sign off for now. please let us know if/when you need us to
return.
--- NOTE | 2023-08-12 16:27 | PTCARENOTE ---
Heparin gtt per protocol.
Echo done at bedside.
Vent settings 28/500/60%/10. Small amount thick yellow secretions.
All other assessments unchanged.
[2023-08-12 17:05] LABS: Blood Urea Nitrogen 52 mg/dl (9-20); Calcium 8.2 mg/dl (8.4-10.2); Carbon Dioxide 22 mmol/L (22-30); Chloride 108 mmol/L (98-107); Estimated Creatinine Clearance 42 ml/min; Glucose 162 mg/dl (70-99); Potassium 4.5 mmol/L (3.5-5.1); Sodium 140 mmol/L (135-145); eGFR 27.13
[2023-08-12 17:10] LABS: APTT 64.4 Sec (23.4-35.0)
[2023-08-12] MEDS: NOVOLOG FLEXPEN-LOW RESISTANCE 1 UNITS SC (17:46)
[2023-08-12 17:56] LABS: Glucose - Point of Care 186 mg/dl (70-99)
[2023-08-12] MEDS: COLACE PO (20:32)
[2023-08-12] MEDS: LOPRESSOR 50 MG PO (21:00)
--- NOTE | 2023-08-12 21:00 | PTCARENOTE ---
Pt tolerating change in vent settings satting at 96% pulse ox.
[2023-08-12] MEDS: MELATONIN PO (21:01)
[2023-08-12] MEDS: NEURONTIN 600 MG PO (21:01)
[2023-08-12 23:22] LABS: Glucose - Point of Care 197 mg/dl (70-99)
[2023-08-12] MEDS: NOVOLOG FLEXPEN-MODERATE RESISTANCE 1 UNITS SC (23:35)
[2023-08-12] MEDS: LANTUS 0.100000000000000006 UNITS SC (23:35)
[2023-08-13] VITALS (27 sets, daily range): BP systolic 89–130; BP diastolic 52–91; BMI 49.2
[2023-08-13 00:09] LABS: APTT 93.9 Sec (23.4-35.0)
[2023-08-13] MEDS: ZOSYN 50 IV ×2 (00:53→05:45)
[2023-08-13] MEDS: TYLENOL SUSPENSION 650 MG PO (04:28)
--- NOTE | 2023-08-13 05:00 | PTCARENOTE ---
PRN tylenol administered by this RN for temp of 100.5 via dobhoff tube. VSS.
[2023-08-13 06:12] LABS: Hematocrit 29.7 % (39.0-52.0); Hemoglobin 9.7 g/dL (13.0-18.0); Mean Corp Hgb Conc. 32.7 g/dL (33.0-37.0); Mean Corpuscular Hgb 32.1 pg (27.0-31.0); Mean Corpuscular Volume 98.3 fL (80.0-94.0); Mean Platelet Volume 9.6 fL (7.4-10.4); Platelet Count 250 10^3/uL (130-400); Red Blood Cell Count 3.02 10^6/uL (4.70-6.10); Red Cell Dist. Width 15.4 % (11.5-14.5); White Blood Cell Count 12.9 10^3/uL (4.8-10.8)
[2023-08-13 06:20] LABS: APTT 90.7 Sec (23.4-35.0)
[2023-08-13] MEDS: NOVOLOG FLEXPEN-MODERATE RESISTANCE 3 UNITS SC (06:58)
[2023-08-13] MEDS: DESENEX/MITRAZOL/ZEASORB 1 APPLIC TOPICAL ×2 (06:59→21:18)
[2023-08-13] MEDS: ANTIFUNGAL CLEAR 1 APPLIC TOPICAL ×2 (07:00→21:18)
[2023-08-13] MEDS: VITAMIN D3 (cholecalciferol) 25 MCG PO (07:06)
[2023-08-13] MEDS: LOW STRENGTH ASPIRIN 81 MG PO (07:06)
[2023-08-13] MEDS: MIRALAX 17 GRAMS PO (07:06)
[2023-08-13] MEDS: PROTONIX IV 40 MG IV (07:06)
[2023-08-13] MEDS: NORVASC 5 MG PO (07:06)
[2023-08-13] MEDS: NSS (PRESERVATIVE FREE) 10 ML IV (07:06)
[2023-08-13 07:07] LABS: Blood Urea Nitrogen 61 mg/dl (9-20); Calcium 8.3 mg/dl (8.4-10.2); Carbon Dioxide 28 mmol/L (22-30); Chloride 103 mmol/L (98-107); Estimated Creatinine Clearance 33 ml/min; Glucose 207 mg/dl (70-99); Potassium 3.9 mmol/L (3.5-5.1); Sodium 141 mmol/L (135-145); eGFR 20.18
[2023-08-13] MEDS: LOPRESSOR 50 MG PO (07:07)
[2023-08-13] MEDS: THERAGRAN 1 TABLET PO (07:07)
[2023-08-13] MEDS: FEOSOL 325 MG PO (07:07)
[2023-08-13 07:09] LABS: Glucose - Point of Care 205 mg/dl (70-99)
[2023-08-13] MEDS: HEPARIN 25000 UNITS/250 ML IV ×2 (07:14→18:18)
--- NOTE | 2023-08-13 07:43 | W.PN.INTV ---
Today's Communication / Plan
Recommendations
Change antibiotics
Not ready for spontaneous breathing trial
Intravenous fluids
Replace electrolytes
Follow hemoglobin
Insulin drip
Assessment
-
68-year-old male morbidly obese with probable obesity hypoventilation syndrome with chronic hypercapnia on chronic oxygen, bipolar disorder, hypertension, diabetes, DVT presented with recently diagnosed left leg DVT, NATALIA, hyperkalemia, metabolic
encephalopathy and hypercapnia despite maximum BiPAP requiring intubation-cream dipper consulted for ventilator/critical care management 08/12/2023.
Assessment
Hypercapnic respiratory failure-ABG 08/12/2023-greater than 115/82/7.08
Intubated 08/12/2023
Extubated
Toxic metabolic encephalopathy
NATALIA
Hyperkalemia
Obesity hypoventilation syndrome suspected
Pneumonia-aspiration risk
COPD on chronic oxygen suspected
Recent left lower extremity DVT-provoked
Leukocytosis
Wgkcrr-rrmzytgzxe-uurficybwc 11.9
Hyperglycemia
Hypertriglyceridemia
Conditions present prior to admission:
Morbid obesity-BMI 51.
Recent NVK-ojlffefx-INT stay.
Hypertension.
Obesity hypoventilation syndrome.
Chronic oxygen supplementation.
Legally blind-retinitis pigmentosa.
Spinal stenosis.
Colon resection.
Deviated septum repair.
Former smoker.
COPD on chronic oxygen supplementation
Chronic Brown due to BPH and chronic urinary retention
Plan
Remains critically ill on a ventilator sedated
Ventilator settings reviewed-adjusted accordingly
Follow occasional ABG
FiO2 weaned
Not stable for spontaneous breathing trial and will consider SBT in the next 24 hours if other issues stabilized
Will need to transition to noninvasive or BiPAP-reviewed with daughter-fourth intubation in the last 1.5 years-transition to CPAP and not BiPAP-told daughter and family members that if we extubate him we would likely extubate him to BiPAP at night
and during the daytime as needed, however, if he failed and required reintubation he would likely be a tracheostomy tube candidate if desired
VAP prevention protocol
Nebulizers if needed-currently not bronchospastic
Anticoagulation for recent DVT
Hematology following-correspondence reviewed
Follow renal function
Continue to replace and correcting electrolyte abnormalities
Nephrology seen-correspondence reviewed-check lactate, serial renal function, continue IV fluids and maintain MAP greater than 65
Check cultures
Empiric antibiotics
With ongoing temperatures on Zosyn will obtain infectious disease consultation-correspondence reviewed-changed to cefepime/renal dosing
Check echocardiogram with abnormal EKG and possible interstitial edema
Follow hemoglobin
Transfuse if needed
PPI while on the ventilator
Follow blood sugar
Insulin drip initiated 08/13/2023
DVT prophylaxis-on heparin drip
GI prophylaxis-on pantoprazole
Early nutrition
Early mobilization
Critical care statement: A total of 45 minutes of critical care time was provided for this patient today. This includes management of unstable vital signs, evaluation of the patient at bedside, reviewing the patient's pertinent medical records
including radiographs, ventilator management, pressor management, sedation management, microbiology, laboratory evaluations, and discussion with primary team, consultants, pharmacy, nutrition, physical therapy, case management, charge nurse,
critical care nursing, and respiratory therapy.
Diagnostic data:
Chest x-ray 08/11/2023-bibasilar interstitial pneumonia
Chest x-ray 08/12/2023-rotated to the left, no pneumothorax, ET tube above lashon, bilateral interstitial infiltrates
Subjective Dataa
Subjective Data
Date of Service:
Date of Service: August 13, 2023
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
Subjective:
Increased secretions, hemoglobin drop, mental status decline, worsening renal function, elevated blood sugar, unable to obtain review of systems as patient is minimally responsive
Review of Systems
General: Unobtainable - Sedation
Objective Data
Data Reviewed
Vital Signs / I&O / Oxygen:
Vital Signs
Temp Pulse Resp BP Pulse Ox
100.5 F H 95 21 119/58 97
08/13/23 03:27 08/13/23 06:00 08/13/23 06:00 08/13/23 06:00 08/13/23 06:00
Intake and Output
08/12/23 08/13/23 08/14/23
06:59 06:59 06:59
Intake Total 150 / 150 1028 / 1028
Output Total 850 / 850 1225 / 1225
Balance -700 / -700 -197 / -197
SaO2 97
Nasal Cannula flow liters per 4
minute
Physical Exam
General: Respiratory Distress (n) and Comfortable
HEENT: Normocephalic and Anicteric
Cardiovascular: Regular Rhythm
Respiratory: Wheeze (n), Crackles, Rhonchi (n), Non-Labored Respirations, Accessory Resp Muscle Use (n) and Stridor (n)
GI: Soft, Non Distended and Non Tender
Neurology: No Motor Deficits, Depressed and Other (Sedated on a ventilator)
Skin: Warm, Good Color, Cyanosis (n) and Jaundice (n)
Labs/Micro/Reports
Lab Data
08/13/23 05:51
08/13/23 05:51
Laboratory Results
08/12/23 08/12/23 08/12/23
07:41 10:01 16:51
APTT 23.1 L 64.4 H
pH 7.43
pCO2 40
pO2 210 H
HCO3 26.5
O2 Delivery Level
08/12/23 08/13/23
23:48 05:51
APTT 93.9 H 90.7 H
pH
pCO2
pO2
HCO3
O2 Delivery Level
Microbiology
08/12/23 15:45 Tracheal Aspirate Gram Stain - Preliminary
08/11/23 18:22 Blood/Venous Blood Culture - Preliminary
No Growth in 24 hours- Final report to follow
08/11/23 17:58 Blood/Venous Blood Culture - Preliminary
No Growth in 24 hours- Final report to follow
08/11/23 04:54 Nose MRSA Screen - Final
No Methicillin Resistant Staphylococcus aureus isolated.
--- NOTE | 2023-08-13 09:43 | W.PN.NEPH.PH ---
Today's Communication / Plan
-
IVF
Assessment/Plan
-
Impression:
Acute kidney injury (baseline 0.9-1 in 07/29)
Hyperkalemia
Respiratory acidosis
COPD on chronic oxygen therapy
Recent fall with left patellar injury
Hypertension
Change of mental status
Left lower extremity DVT
Diabetes
History of hypertension
Blind
Obese
Chronic Brown due to BPH and chronic urinary retention
Plan:
-check lactate
-serial BMP
-IVF today
-keep MAP > 65
-critical care time 31 minutes
-
-
Date of Service: August 13, 2023
CC / HPI / ROS
-
Chief Complaint:
NATALIA
History of Present Illness:
Hyperkalemia better at 3.9
critically ill in ICU on pressors, vent
BP stable on pressors
NATALIA/Cr worse to 3.2 today
Review of Systems:
intubated/sedated
Labs
-
Labs:
WBC 12.9 10^3/uL (4.8-10.8) H 08/13/23 05:51
RBC 3.02 10^6/uL (4.70-6.10) L 08/13/23 05:51
Hgb 9.7 g/dL (13.0-18.0) L 08/13/23 05:51
Hct 29.7 % (39.0-52.0) L 08/13/23 05:51
Plt Count 250 10^3/uL (130-400) 08/13/23 05:51
Sodium 141 mmol/L (135-145) 08/13/23 05:51
Potassium 3.9 mmol/L (3.5-5.1) 08/13/23 05:51
Chloride 103 mmol/L (98-107) 08/13/23 05:51
Carbon Dioxide 28 mmol/L (22-30) 08/13/23 05:51
BUN 61 mg/dl (9-20) H 08/13/23 05:51
Creatinine 3.2 mg/dL (0.7-1.3) H 08/13/23 05:51
eGFR 20.18 08/13/23 05:51
Glucose 207 mg/dl (70-99) H 08/13/23 05:51
Calcium 8.3 mg/dl (8.4-10.2) L 08/13/23 05:51
Albumin 4.5 g/dl (3.5-5.0) 08/10/23 17:15
Physical Exam
-
Vital Signs:
Vital Signs
Temp Pulse Resp BP Pulse Ox
101.9 F H 81 20 110/60 96
08/13/23 08:07 08/13/23 08:00 08/13/23 08:00 08/13/23 08:00 08/13/23 08:00
Cardiovascular:: Regular rate and rhythm
Respiratory:: Bilateral: Coarse
Lung Excursion:: Normal
Abdomen:: Nontender and Soft
Bowel Sounds:: Normal
Extremity Edema:: +1: Bilateral:
--- NOTE | 2023-08-13 10:35 | CON.ID ---
Consultation
-
Date/Time Consultation Requested: 08/13/2023 09:33
Date/Time Consultation Performed: 08/13/2023 1010
Requesting Provider: Dr. Bullard
Performing Provider: Dr. Dickey
Reason for Consultation: Pneumonia; fever
Chief Complaint / Past History
History of Present Illness
Dong Nahs is a 68-year-old man with a significant past medical history of morbid obesity, retinitis pigmentosa and bipolar disease being evaluated at the request of Dr. Bullard in regards to fever and pneumonia. History is obtained from
chart review, along with patient interview.
The patient presented to [facility] on 08/10/2023 from a local [facility]p ([facility]) secondary to an elevated potassium found on testing. At that point in time he was awake and alert had no complaints. According to reviewed notes he
is on chronic O2 (4 L nasal cannula). According to notes, the patient had a normal creatinine earlier in the month, but workup in the ER revealed NATALIA. Since admission, he has developed respiratory insufficiency, and was intubated on 08/12.
Further history obtained includes that of recent admission to [facility] in June 2023, during which time he was noted to have a LLL pneumonia, along with staph bacteremia (?contaminant). He was treated with 7 days of vancomycin
and cefepime, and during that admission he was found to have a nonocclusive DVT without PE.
Past History
Additional Past Medical History:
Retinitis pigmentosa (legally blind)
Spinal stenosis
Bipolar disease/anxiety
Morbid obesity
Hx DVT
HTN
COPD
DM
BPH with chronic urinary retention (chronic Brown)
Allergy History:
No Known Allergies Allergy (Verified 08/07/23 23:08)
Medications Reviewed: Yes
Current Antibiotics:
Zosyn 3.375 g IV every 6 hours (day #3)
Social History
Tobacco: Former Smoker
Alcohol: Occasional
Drug: None
Living: Care Home
Employment: Disabled
Family History
Family History: Unable to Obtain
Review of Systems
Vital Signs
Temp Pulse Resp BP Pulse Ox
101.9 F H 81 20 110/60 96
08/13/23 08:07 08/13/23 08:00 08/13/23 08:00 08/13/23 08:00 08/13/23 08:00
Physical Exam
Physical Exam
Constitutional: Acutely Ill, Chronically Ill and Non-toxic
Head: Normocephalic
Eyes: Pupils Equal, Pupils Round, No Conjunctival Hemorrhage and Sclera Anicteric
Oral: Other (ET tube in place.)
Cardiovascular: S1/S2; Negative S3/S4 or Murmur
Pulmonary: Coarse and Other (On vent.); Negative Wheezes or Rales
Gastrointestinal: Soft, Non Distended, Normal Bowel Sounds, No Rebound and No Guarding
Genito-Urinary: Brown and Clear Urine
Extremities: Edema; Negative Cyanosis or Erythema
Skin: Warm and Dry; Negative Rash or Jaundice
Neurological: Awake and Alert
Psychological: Calm
.
Lab / Diagnostic Study Results
08/13/23 05:51
Abs Immat Gran (auto) 0.2 10^3/uL (0-0.05) H 08/10/23 17:15
Absolute Neuts (auto) 5.5 10^3/uL (1.4-6.5) 08/10/23 17:15
Absolute Lymphs (auto) 2.2 10^3/uL (1.2-3.4) 08/10/23 17:15
Absolute Monos (auto) 1.1 10^3/uL (0.1-0.6) H 08/10/23 17:15
Absolute Basos (auto) 0.1 10^3/uL (0-0.2) 08/10/23 17:15
Immature Gran % 1.7 % (0-0.5) H 08/10/23 17:15
Neutrophils % 57.2 % (42.2-75.2) 08/10/23 17:15
Lymphocytes % 22.4 % (20.5-51.1) 08/10/23 17:15
Monocytes % 11.1 % (1.7-9.3) H 08/10/23 17:15
Eosinophils % 6.6 % (0-6) H 08/10/23 17:15
Basophils % 1.0 % (0-2) 08/10/23 17:15
Urine WBC 21-25 /HPF (0-5) A 08/11/23 11:45
Ur Squamous Epith Cells 3-5 /LPF (Few) 08/11/23 11:45
Microbiology Results
Micro:
08/12/23 15:45 Respiratory Culture - Pending
Tracheal Aspirate Gram Stain - Preliminary
08/11/23 18:22 Blood Culture - Preliminary
Blood/Venous No Growth in 24 hours- Final report to follow
08/11/23 17:58 Blood Culture - Preliminary
Blood/Venous No Growth in 24 hours- Final report to follow
08/11/23 04:54 MRSA Screen - Final
Nose No Methicillin Resistant Staphylococcus aureus isolated.
Imaging:
08/11/2023 Renal ultrasound: No hydronephrosis. No abnormal solid or complex renal masses. No renal calculi. Please see full dictation for additional detail.
Assessment / Plan
VDRF
Fever
Leukocytosis
Retinitis pigmentosa (legally blind)
Spinal stenosis
Bipolar disease/anxiety
Morbid obesity
Hx DVT
HTN
COPD
DM
BPH with chronic urinary retention (chronic Brown)
Recommendations:
Fever may be multifactorial (infection VS drug fever VS other)
Continue with antibiotic coverage, although change to cefepime, dosed for renal insufficiency.
Monitor white count and temperature curve.
Monitor CXR. Not clear if findings are new or residual from prior pneumonia.
Further infectious workup if fevers persist.
Continue with supportive measures. Wean as tolerated.
Patient critically ill in intensive care unit.
Care Review
Plan reviewed with: Physician (Critical Care)
[2023-08-13] MEDS: NSS 1000 IV (11:08)
[2023-08-13] MEDS: STERILE WATER FOR INJECTION 10 ML IV (11:08)
[2023-08-13] MEDS: MAXIPIME 2000 MG IV (11:08)
[2023-08-13] MEDS: NOVOLIN R INSULIN INFUSION 100 IV (11:13)
[2023-08-13] MEDS: NOVOLIN R 3 UNITS IV (11:17)
[2023-08-13 11:25] LABS: Glucose - Point of Care 183 mg/dl (70-99)
[2023-08-13] MEDS: SUBLIMAZE 50 MCG IV ×4 (11:29→21:17)
[2023-08-13] MEDS: NEURONTIN 300 MG TUBE (11:33)
--- NOTE | 2023-08-13 11:44 | PN.DE.MGMTRT ---
Insulin Management
- -
08/13/2023 Diabetes Management Consult
Patient admitted 08/10 with hyperkalemia from [place]. PMH Chronic respiratory failure, morbid obesity, HTN, ESSIE, BPH, DVT, neuropathy. Prior to admission chart indicated patient diabetes regimen was lantus 10 units @ HS with SS novolog and metformin
500 mg BID. Patient received lantus @ hs with corrective insulin but glucose has remained > 200. Glycemic protocol to be started today and possibly tube feeds. Will assess in AM for readiness to transition from insulin infusion to subcutaneous.
Diabetes History
- -
Type of Diabetes: 2 requiring insulin
Pre-Admission Diabetes Regimen
08/12/23 08/13/23
15:45 05:51
Creatinine 2.5 H 3.2 H
Lab Results
Hemoglobin A1c 7.4 % (4.0-5.6) H 08/11/23 04:54
Insulin Pump Settings
IP Diabetes Regimen
08/12/23 08/12/23 08/12/23
12:00 15:45 17:43
Glucose 162 H
POC Glucose 210 H 186 H
08/12/23 08/13/23 08/13/23
23:11 05:51 06:57
Glucose 207 H
POC Glucose 197 H 205 H
08/13/23
11:14
Glucose
POC Glucose 183 H
Patient Education
--- NOTE | 2023-08-13 12:00 | PTCARENOTE ---
Pt remains drowsy. No sedation. Only PRN Fentanyl boluses.
Sinus rhythm with first degree and BBB
Vent settings A/C 20/500/40%/8. No SBT today d/t pt remains drowsy, +temps, and worsening creat.
Lungs coarse. Slightly more secretions via ETT today. Now thick yellow to bernard.
Small brown stool.
Shaye urine via chronic villareal. Poor output. IVF started.
Insulin gtt for glycemic protocol. Remains on Heparin gtt protocol.
All other assessments unchanged.
[2023-08-13 12:15] LABS: COVID-19 Antigen Negative (Negative)
[2023-08-13 12:58] LABS: Glucose - Point of Care 190 mg/dl (70-99)
--- NOTE | 2023-08-13 13:41 | W.PN.HOSP.TC ---
Today's Communication/Plan
-
abx adjusted, ID on board
vent weaning per pulm
Assessment / Plan
Assessment / Plan
1. Acute hypercapnic respiratory failure
Acute toxic metabolic encephalopathy
-Patient required intubation on 08/12 in the morning
-Postintubation x-ray showing ET tube in correct position. No pneumothorax
-ABG showing pCO2 greater than 115, repeat ABG postintubation showing pCO2 down to 40
-remains intubated at this point. vent weaning/sedation vacation per Grain Drier
2. Hyperkalemia - resolved
-Secondary to renal failure and lisinopril.
-EKG showing NSR, AK 190ms, QRS 142ms
-Patient got calcium gluconate/insulin-glucose.
-NGT in place and getting loklema through NGT
3. NATALIA - ongoing
-Renal function 0.9 in Jul 29, continue to up trend. 2.9 today.
-Hold Lasix/lisinopril
-Brown exchanged on day of admission
-Renal ultrasound normal.
-Nephrology following
4. Left leg DVT
-Recently diagnosed in [facility], was on lovenox 120mg/bid
-Left lower extremity Doppler showing nonocclusive thrombus in common femoral vein
-Patient has been started on heparin drip per hematology recommendation
5. Sepsis
-suspected urinary source vs other
-Blood culture and urine culture collected
-ID involved and following along. on cefepime.
6. Insulin-dependent diabetes mellitus - Uncontrolled
-diabetic CONVEYOR [employer] BAK[employer] WORKER involved in care, remains uncontrolled.
6. Essential HTN
-Maintain on metoprolol tartrate. prn hydralazine
7. Chronic indwelling Brown catheter
Hypospadias
-Brown catheter has been exchanged on 08/11
8. Reported delusion
History of bipolar disorder
-Hold Abilify. Valproate level within normal.
-Psychiatry evaluated on day of admission, currently remains intubated/sedated and will be re-involved post extubation
GERD
Morbid obesity
Obstructive sleep apnea
Neuropathy
DVT prophylaxis - heparin subq
Full code
Total critical care time 38 mins. Total critical care time documented does not include time spent on separately billed procedures or the services of residents, students, nurses or physician assistants. I personally saw and examined the patient. I
have reviewed all diagnostic interpretations and treatment plans as written. I was present for the figueroa portions of any procedures performed and the inclusive time noted in any critical care statement. Critical care time includes patient management
by me, time spent at the patients bedside, time to review lab and imaging results, discussing patient care, documentation in the medical record, and time spent with the family or caregiver.
Anticipated Discharge: 24 - 48 hours
Subjective/Interval History
-
Date of Service: August 13, 2023
remains intubated and sedated
on vent
Objective Data
-
Labs:
Laboratory Results
08/13/23 08/13/23
05:51 15:00
WBC 12.9 H
Hgb 9.7 L
Hct 29.7 L
Plt Count 250
APTT 90.7 H
Sodium 141 Pending
Potassium 3.9 Pending
Chloride 103 Pending
Carbon Dioxide 28 Pending
BUN 61 H Pending
Creatinine 3.2 H Pending
Glucose 207 H Pending
Calcium 8.3 L Pending
Vital Signs:
Vital Signs
Temp Pulse Resp BP Pulse Ox
100.9 F H 82 20 100/63 97
08/13/23 11:55 08/13/23 11:00 08/13/23 11:00 08/13/23 11:00 08/13/23 11:00
I&O
08/12/23 08/13/23 08/14/23
06:59 06:59 06:59
Intake Total 150 / 150 1028 / 1028 264 / 264
Output Total 850 / 850 1225 / 1225 150 / 150
Balance -700 / -700 -197 / -197 114 / 114
Review of Systems
-
Unable to obtain full review of systems at this time due to: Patient Intubation
Physical Exam
-
General: No Apparent Distress and Intubated; Negative Respiratory Distress
Respiratory: Clear to Auscultation
Cardiac: Regular Rhythm and S1/S2; Negative Murmur
GI: Soft and Normal Bowel Sounds
Genito-urinary: Other (Brown caheter in place, have hypospadiasis)
Musculoskeletal: No Edema
Neuro: Sedated
[2023-08-13 13:54] LABS: Glucose - Point of Care 171 mg/dl (70-99)
--- NOTE | 2023-08-13 14:40 | CM ---
CM following re: discharge planning.
Discussed in rounds, reviewed pt's chart, met with pt. Per Rounds meeting, pt with hypercapnic respiratory failure, Intubated yesterday 08/12/2023, no plan for extubation today, continue supportive care.
Per daughter, pt just moved to [facility] one month ago from [facility] and per daughter pt was intubated 4 times since 2021.
D/C plan: return back to [facility] when medically stable.
CM will follow with discharge plan updates as hospitalization progress
[2023-08-13] MEDS: NSS 500 IV (15:02)
[2023-08-13 15:10] LABS: Glucose - Point of Care 156 mg/dl (70-99)
[2023-08-13 15:40] LABS: Glucose - Point of Care 159 mg/dl (70-99)
[2023-08-13 15:46] LABS: Lactic Acid 1.4 mmol/L (0.7-2.0)
[2023-08-13 16:14] LABS: Blood Urea Nitrogen 64 mg/dl (9-20); Calcium 8.5 mg/dl (8.4-10.2); Carbon Dioxide 26 mmol/L (22-30); Chloride 102 mmol/L (98-107); Estimated Creatinine Clearance 32 ml/min; Glucose 161 mg/dl (70-99); Potassium 3.7 mmol/L (3.5-5.1); Sodium 142 mmol/L (135-145); eGFR 19.44
--- NOTE | 2023-08-13 16:37 | PTCARENOTE ---
Pt more awake. Makes attempts to mouth words but unintelligible. PRN Fentanyl boluses per order. No other sedation/gtts.
Tube feeds started. Remains on Insulin gtt, Heparin gtt and IVF.
Urine output as low as 10ml/hr this afternoon. Nephro notified. One time 500ml NSS bolus given. Urine output improved. See I&Os.
All other assessments unchanged.
[2023-08-13 17:41] LABS: Glucose - Point of Care 175 mg/dl (70-99)
--- NOTE | 2023-08-13 18:05 | PTCARENOTE ---
SpO2 decreased to 87%. Pt suctioned for large amount of thick yellow secretions. SpO2 remained 87-89% on 40% FiO2. Lung sounds diminished on left side. SENIOR PRINCIPAL and MD notified. CXR ordered.
[2023-08-13 19:54] LABS: Glucose - Point of Care 174 mg/dl (70-99)
[2023-08-13 20:43] LABS: Glucose - Point of Care 160 mg/dl (70-99)
[2023-08-13] MEDS: MIRALAX TUBE (20:50)
[2023-08-13] MEDS: COLACE LIQUID TUBE (20:51)
[2023-08-13 20:54] LABS: Glucose - Point of Care 174 mg/dl (70-99)
[2023-08-13] MEDS: LOPRESSOR 50 MG TUBE (21:17)
[2023-08-13] MEDS: NEURONTIN 600 MG TUBE (21:26)
[2023-08-13 21:41] LABS: Glucose - Point of Care 181 mg/dl (70-99)
[2023-08-13 22:43] LABS: Glucose - Point of Care 167 mg/dl (70-99)
[2023-08-13 23:55] LABS: Glucose - Point of Care 167 mg/dl (70-99)
[2023-08-14] VITALS (24 sets, daily range): BP systolic 98–150; BP diastolic 49–88; BMI 49.7
[2023-08-14] MEDS: NSS 1000 IV ×3 (00:55→23:45)
[2023-08-14 02:04] LABS: Glucose - Point of Care 167 mg/dl (70-99)
[2023-08-14 03:48] LABS: Glucose - Point of Care 195 mg/dl (70-99)
[2023-08-14 04:30] LABS: B.E. 5.8 mmol/L; HCO3 29.8 mmol/L (21-28); O2 Saturation % 97.3 % (94-98); PCO2 40 mmHg (35-48); PO2 84 mmHg (83-108); pH 7.48 (7.35-7.45)
[2023-08-14 04:31] LABS: O2 Therapy VENT
[2023-08-14 04:44] LABS: Glucose - Point of Care 185 mg/dl (70-99)
[2023-08-14 05:43] LABS: Glucose - Point of Care 201 mg/dl (70-99)
[2023-08-14 05:48] LABS: Hematocrit 27.6 % (39.0-52.0); Hemoglobin 9.1 g/dL (13.0-18.0); Mean Corpuscular Hgb 32.9 pg (27.0-31.0); Mean Corpuscular Volume 99.6 fL (80.0-94.0); Mean Platelet Volume 9.9 fL (7.4-10.4); Platelet Count 228 10^3/uL (130-400); Red Blood Cell Count 2.77 10^6/uL (4.70-6.10); Red Cell Dist. Width 15.4 % (11.5-14.5); White Blood Cell Count 11.9 10^3/uL (4.8-10.8)
[2023-08-14 06:10] LABS: Blood Urea Nitrogen 57 mg/dl (9-20); Calcium 7.9 mg/dl (8.4-10.2); Carbon Dioxide 26 mmol/L (22-30); Chloride 105 mmol/L (98-107); Estimated Creatinine Clearance 44 ml/min; Glucose 187 mg/dl (70-99); Potassium 3.5 mmol/L (3.5-5.1); Sodium 143 mmol/L (135-145); eGFR 28.49
[2023-08-14 06:42] LABS: Glucose - Point of Care 177 mg/dl (70-99)
[2023-08-14] MEDS: SUBLIMAZE 50 MCG IV ×6 (07:24→22:26)
[2023-08-14] MEDS: ANTIFUNGAL CLEAR 1 APPLIC TOPICAL ×2 (07:38→20:23)
[2023-08-14] MEDS: VITAMIN D3 (cholecalciferol) 25 MCG TUBE (07:39)
[2023-08-14] MEDS: LOPRESSOR 50 MG TUBE ×2 (07:39→21:09)
[2023-08-14] MEDS: THERAGRAN 1 TABLET TUBE (07:39)
[2023-08-14] MEDS: FEOSOL 325 MG TUBE (07:39)
[2023-08-14] MEDS: DESENEX/MITRAZOL/ZEASORB 1 APPLIC TOPICAL ×2 (07:39→20:22)
[2023-08-14] MEDS: NORVASC 5 MG TUBE (07:39)
[2023-08-14] MEDS: PROTONIX IV 40 MG IV (07:40)
[2023-08-14] MEDS: NSS (PRESERVATIVE FREE) 10 ML IV (07:40)
[2023-08-14] MEDS: LOW STRENGTH ASPIRIN 81 MG TUBE (07:40)
[2023-08-14] MEDS: NEURONTIN 300 MG TUBE (07:40)
--- NOTE | 2023-08-14 07:47 | W.PN.INTV ---
Today's Communication / Plan
Recommendations
Adjust ventilator
Recheck sputum culture
Antibiotics
Avoid oversedation
Insulin drip
Spontaneous breathing trial if secretions manageable
Follow occasional chest x-ray
Assessment
-
68-year-old male morbidly obese with probable obesity hypoventilation syndrome with chronic hypercapnia on chronic oxygen, bipolar disorder, hypertension, diabetes, DVT presented with recently diagnosed left leg DVT, NATALIA, hyperkalemia, metabolic
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
Assessment
Hypercapnic respiratory failure-ABG 08/12/2023-greater than 115/82/7.08
Intubated 08/12/2023
Extubated
Toxic metabolic encephalopathy
NATALIA
Hyperkalemia
Obesity hypoventilation syndrome suspected
Pneumonia-aspiration risk
COPD on chronic oxygen suspected
Recent left lower extremity DVT-provoked
Leukocytosis
Xfuyum-hfndmfvcnt-hpkpmvtbnr 11.9
Hyperglycemia
Hypertriglyceridemia
Conditions present prior to admission:
Morbid obesity-BMI 51.
Recent [facility] stay.
Hypertension.
Obesity hypoventilation syndrome.
Chronic oxygen supplementation.
Legally blind-retinitis pigmentosa.
Spinal stenosis.
Colon resection.
Deviated septum repair.
Former smoker.
COPD on chronic oxygen supplementation
Chronic Brown due to BPH and chronic urinary retention
Plan
Continues to be critically ill sedated on a ventilator
Ventilator settings reviewed-adjusted accordingly
ABG on occasion
Wean FiO2
Patient is still not stable for spontaneous breathing trial and will consider SBT in the next 24 hours if other issues stabilized
Will need to transition to noninvasive or BiPAP-reviewed with daughter-fourth intubation in the last 1.5 years-transition to CPAP and not BiPAP-told daughter and family members that if we extubate him we would likely extubate him to BiPAP at night
and during the daytime as needed, however, if he failed and required reintubation he would likely be a tracheostomy tube candidate if desired
VAP prevention protocol
Nebulizers if needed-currently not bronchospastic
Chest x-ray 08/13/2023-increased left lower lobe pneumonia
Repeat chest x-ray several days
Sport bed with percussion-appears to be helping
Anticoagulation for recent DVT
Hematology following-correspondence reviewed
Monitor renal function
Continue to replace and correcting electrolyte abnormalities
Nephrology seen-correspondence reviewed-check lactate, serial renal function, continue IV fluids and maintain MAP greater than 65
Cultures reviewed-unrevealing thus far
Repeat sputum culture with changing character, volume, leukocytosis, etc.
Infectious disease consultation obtained-correspondence reviewed-changed to cefepime
Echocardiogram 08/12/2023-EF 65-70%
Monitor hemoglobin
Transfuse if needed
PPI while on the ventilator
Monitor blood sugar
Insulin drip initiated 08/13/2023
Diabetic nurse practitioner consultation
DVT prophylaxis-on heparin drip
GI prophylaxis-on pantoprazole
Tolerating tube feeds
Bedside range of motion
Critical care statement: A total of 38 minutes of critical care time was provided for this patient today. This includes management of unstable vital signs, evaluation of the patient at bedside, reviewing the patient's pertinent medical records
including radiographs, ventilator management, pressor management, sedation management, microbiology, laboratory evaluations, and discussion with primary team, consultants, pharmacy, nutrition, physical therapy, case management, charge nurse,
critical care nursing, and respiratory therapy.
Diagnostic data:
Chest x-ray 08/11/2023-bibasilar interstitial pneumonia
Chest x-ray 08/12/2023-rotated to the left, no pneumothorax, ET tube above lashon, bilateral interstitial infiltrates
Subjective Dataa
Subjective Data
Date of Service:
Date of Service: August 14, 2023
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
Subjective:
More alert, thick secretions, no respiratory distress,
Review of Systems
General: Unobtainable - Sedation
Objective Data
Data Reviewed
Vital Signs / I&O / Oxygen:
Vital Signs
Temp Pulse Resp BP Pulse Ox
100.1 F 78 24 122/54 97
08/14/23 07:38 08/14/23 07:39 08/14/23 07:00 08/14/23 07:39 08/14/23 07:00
Intake and Output
08/13/23 08/14/23 08/15/23
06:59 06:59 06:59
Intake Total 1028 / 1028 3332.7 / 3332.7
Output Total 1225 / 1225 1655 / 1655
Balance -197 / -197 1677.7 / 1677.7
SaO2 97
Nasal Cannula flow liters per 4
minute
Physical Exam
General: Respiratory Distress (n) and Comfortable
HEENT: Normocephalic and Anicteric
Cardiovascular: Regular Rhythm
Respiratory: Wheeze (n), Crackles, Rhonchi (n), Non-Labored Respirations, Accessory Resp Muscle Use (n) and Stridor (n)
GI: Soft, Non Distended and Non Tender
Neurology: No Motor Deficits, Depressed and Other (Sedated on a ventilator)
Skin: Warm, Good Color, Cyanosis (n) and Jaundice (n)
Labs/Micro/Reports
Lab Data
08/14/23 05:27
08/14/23 05:27
Laboratory Results
08/14/23
04:23
pH 7.48 H
pCO2 40
pO2 84
HCO3 29.8 H
O2 Delivery Level Vent
Microbiology
08/11/23 18:22 Blood/Venous Blood Culture - Preliminary
No Growth in 48 hours- Final report to follow
08/11/23 17:58 Blood/Venous Blood Culture - Preliminary
No Growth in 48 hours- Final report to follow
08/13/23 11:02 Nasal Swab Influenza Types A & B (ADELITA) - Final
Negative for Influenza A & B, NAAT
Negative results must be combined with clinical observations
and patient history.
Nucleic Acid Amplification test (NAAT)performed on the
[employer] platform.
08/12/23 15:45 Tracheal Aspirate Respiratory Culture - Preliminary
08/12/23 15:45 Tracheal Aspirate Gram Stain - Preliminary
08/11/23 04:54 Nose MRSA Screen - Final
No Methicillin Resistant Staphylococcus aureus isolated.
[2023-08-14 07:48] LABS: Glucose - Point of Care 179 mg/dl (70-99)
[2023-08-14] MEDS: MIRALAX TUBE ×2 (08:20→20:23)
--- NOTE | 2023-08-14 08:35 | PN.DE.MGMTRT ---
Insulin Management
- -
08/13/2023 Diabetes Management Consult
Patient admitted 08/10 with hyperkalemia from [place]. PMH Chronic respiratory failure, morbid obesity, HTN, ESSIE, BPH, DVT, neuropathy. Prior to admission chart indicated patient diabetes regimen was Lantus 10 units @ HS with SS NovoLog and metformin
500 mg BID. Patient received Lantus @ hs with corrective insulin but glucose has remained > 200. Glycemic protocol to be started today and possibly tube feeds. Will assess in AM for readiness to transition from insulin infusion to subcutaneous.
08/14/2023: Diabetes Management F/U:
A1C
Pt required initiation of glycemic protocol due to Hyperglycemia. Tube feeds were started yesterday, currently @50cc/hr.
Glucose has remained elevated 167-201 on drip, requiring 4-6 units of insulin/hr.
Will cont CCGP today and reassess this evening for readiness to transition, ideally at 1800
Diabetes History
- -
Type of Diabetes: 2 requiring insulin
Pre-Admission Diabetes Regimen
08/13/23 08/14/23
15:20 05:27
Creatinine 3.3 H 2.4 H
Lab Results
Hemoglobin A1c 7.4 % (4.0-5.6) H 08/11/23 04:54
Insulin Pump Settings
IP Diabetes Regimen
08/13/23 08/13/23 08/13/23
11:14 12:46 13:42
Glucose
POC Glucose 183 H 190 H 171 H
08/13/23 08/13/23 08/13/23
14:59 15:20 15:29
Glucose 161 H
POC Glucose 156 H 159 H
08/13/23 08/13/23 08/13/23
17:30 19:43 20:32
Glucose
POC Glucose 175 H 174 H 160 H
08/13/23 08/13/23 08/13/23
20:43 21:30 22:32
Glucose
POC Glucose 174 H 181 H 167 H
08/13/23 08/14/23 08/14/23
23:45 01:53 03:37
Glucose
POC Glucose 167 H 167 H 195 H
08/14/23 08/14/23 08/14/23
04:32 05:27 05:31
Glucose 187 H
POC Glucose 185 H 201 H
08/14/23 08/14/23
06:31 07:36
Glucose
POC Glucose 177 H 179 H
Patient Education
[2023-08-14 08:50] LABS: Glucose - Point of Care 182 mg/dl (70-99)
--- NOTE | 2023-08-14 09:25 | W.PN.ID1 ---
Date of Service
Date of Service: August 14, 2023
Today's Communication
Continue antibiotics for today.
Assessment / Plan
VDRF
Fever
Leukocytosis
Retinitis pigmentosa (legally blind)
Spinal stenosis
Bipolar disease/anxiety
Morbid obesity
Hx DVT
HTN
COPD
DM
BPH with chronic urinary retention (chronic Brown)
Recommendations:
COVID and influenza negative. Respiratory culture pending. Blood cultures negative x 48 hours.
Fever may be multifactorial (infection VS drug fever VS other)
Continue with cefepime for today (dosed for renal insufficiency)
Monitor white count and temperature curve.
Monitor CXR. Not clear if findings are new or residual from prior pneumonia.
Further infectious workup if fevers persist.
Continue with supportive measures. Wean as tolerated.
Patient remains critically ill in intensive care unit.
Chief Complaint
-: Fever
Subjective / Review of Systems
Patient seen and examined. Remains vent dependent at the present time. Ongoing fevers noted overnight.
Vital Signs / Physical Exam
Vital Signs
Vital Signs
Temp Pulse Resp BP Pulse Ox
100.1 F 67 20 122/54 96
08/14/23 07:38 08/14/23 08:23 08/14/23 08:23 08/14/23 07:39 08/14/23 08:23
Tmax 101.9
Physical Exam
Constitutional: Acutely Ill, Chronically Ill, Non-toxic and Obese
Eyes: Sclera Anicteric
Oropharyngeal: Other (ET tube in place to vent.)
Cardiovascular: Regular Rate and S1/S2; Negative S3/S4
Pulmonary: Rhonchi and Coarse
Gastrointestinal: Soft, Non Distended and Normal Bowel Sounds
Extremities: Edema; Negative Cyanosis or Erythema
Skin: Negative Rash or Jaundice
Psychological: Calm
Objective Data
Lab Data
Lab Results
08/14/23 05:27
08/14/23 05:27
APTT 90.7 Sec (23.4-35.0) H 08/13/23 05:51
Estimated Creat Clear 44 ml/min 08/14/23 05:27
Lactic Acid 1.4 mmol/L (0.7-2.0) 08/13/23 15:20
Total Bilirubin 0.6 mg/dl (0.2-1.3) 08/10/23 17:15
AST 30 U/L (17-59) 08/10/23 17:15
ALT 28 U/L (0-50) 08/10/23 17:15
Alkaline Phosphatase 77 U/L (38-126) 08/10/23 17:15
Most recent labs reviewed.
Micro Results:
08/11/23 18:22 Blood Culture - Preliminary
Blood/Venous No Growth in 48 hours- Final report to follow
08/11/23 17:58 Blood Culture - Preliminary
Blood/Venous No Growth in 48 hours- Final report to follow
08/13/23 11:02 Influenza Types A & B (ADELITA) - Final
Nasal Swab Negative for Influenza A & B, NAAT
Negative results must be combined with clinical observations
and patient history.
Nucleic Acid Amplification test (NAAT)performed on the
[employer] platform.
08/12/23 15:45 Respiratory Culture - Preliminary
Tracheal Aspirate Gram Stain - Preliminary
08/11/23 04:54 MRSA Screen - Final
Nose No Methicillin Resistant Staphylococcus aureus isolated.
Imaging:
08/11/2023 Renal ultrasound: No hydronephrosis. No abnormal solid or complex renal masses. No renal calculi. Please see full dictation for additional detail.
--- NOTE | 2023-08-14 09:38 | PN.CDI ---
CDI
- -
CDI:
Physician Documentation Request
Admit Date: 08/10/23 20:26
Dear Doctor Kyler,
Please review the following and provide your response in the progress notes.
Clinical Indicators:
Pt admitted with Acute Hyperkalemia/ NATALIA
Documented per progress notes 08/12 & 08/13,' Sepsis -suspected urinary source vs other ...-ID involved and following along. on cefepime....'
On admission Tmax 101.6, HR 95, RR 27
Please clarify the following:
_Sepsis __ was present on admission
__Sepsis _ was not present on admission
Unable to determine
Use of terms such as suspected, likely, concern for, or probable (associated with a specific diagnosis that is being evaluated, monitored, or treated as if it exists) are acceptable and can be coded in the inpatient setting, when documented at the
time of discharge.
Thank you,
Meghan Weeks RN
CDI Specialist
[place] [facility]
Please use your independent medical judgment in providing your response.
--- NOTE | 2023-08-14 09:41 | PTCARENOTE ---
pt received from previous rn- remains on ivf, heparin, and insulin gtts. given prn fentanyl bolus for pain. pt able to nod head yes and no appropriately. full am care and bath provided. turned and repositioned. tube feeds continue and tolerating.
see vent settings as charted. nsr on monitor. all safety precautions in place.
[2023-08-14 09:44] LABS: % Basophils 0.5 % (0-2); % Eosinophils 1.5 % (0-6); % Immature Granulocytes 0.8 % (0-0.5); % Lymphocytes 14.8 % (20.5-51.1); % Monocytes 9.4 % (1.7-9.3); Absolute Basophils 0.1 10^3/uL (0-0.2); Absolute Eosinophils 0.2 10^3/uL (0-0.7); Absolute Immature Granulocytes 0.1 10^3/uL (0-0.05); Absolute Lymphocytes 1.7 10^3/uL (1.2-3.4); Absolute Monocytes 1.1 10^3/uL (0.1-0.6); Absolute Neutrophils 8.6 10^3/uL (1.4-6.5); Nucleated Red Blood Cells % 0 % (-)
[2023-08-14 09:46] LABS: Glucose - Point of Care 175 mg/dl (70-99)
--- NOTE | 2023-08-14 09:49 | PN.CDI ---
CDI
- -
CDI:
Physician Documentation Request
Admit Date: 08/10/23 20:26
Dear Doctor Kyler,
Please review the following and provide your response in the progress notes.
Current documentation includes a diagnosis of hypotension.
Clinical Indicators:
Pt admitted with Acute Hyperkalemia/ NATALIA
Progress notes 08/12 & 08/13,' Sepsis -suspected urinary source vs other ..'
Nephrology note 08/13, ' critically ill in ICU on pressors, vent BP stable on pressors...'
Patient care note 08/12 @ 0745, ' patient severely hypotensive post intubation, with sbp of 55, Levo and Sony started, meds titrated for sbp, 0700 - levo is at 10 and sony is off. no other fluids running at this time. '
Please clarify which of the following is the most likely etiology of the above symptoms and treatment rendered/Pressors:
Septic shock
Hypotension only
Other
Use of terms such as suspected, likely, concern for, or probable (associated with a specific diagnosis that is being evaluated, monitored, or treated as if it exists) are acceptable and can be coded in the inpatient setting, when documented at the
time of discharge.
Thank you,
Meghan Weeks RN
CDI Specialist
[place] [facility]
Please use your independent medical judgment in providing your response.
[2023-08-14] MEDS: NOVOLIN R INSULIN INFUSION 100 IV ×2 (10:28→22:32)
--- NOTE | 2023-08-14 11:02 | W.PN.NEPH.PH ---
Today's Communication / Plan
-
follow bmp
no HD requirement
Assessment/Plan
-
Impression:
Acute kidney injury (baseline 0.9-1 in 07/29)
Hyperkalemia
Respiratory acidosis
Intubated: hypercapnic resp failure
COPD on chronic oxygen therapy
Recent fall with left patellar injury
Hypertension
Change of mental status
Left lower extremity DVT
Diabetes
History of hypertension
Blind
Obese
Chronic Villareal due to BPH and chronic urinary retention
Plan:
-creatinine down to 2.4
-K down to 3.5
-grossly non oliguric
-serial BMP
-now on tube feeds
-keep MAP > 65
-critical care time 31 minutes
Total Time Spent with Patient (in minutes): 31 minutes
-
-
Date of Service: August 14, 2023
CC / HPI / ROS
-
Chief Complaint:
NATALIA
History of Present Illness:
Hyperkalemia better at 3.5
critically ill in ICU on pressors, vent
BP stable on pressors
NATALIA/Cr improved to 2,4
heparin gtt
insulin gtt
Review of Systems:
intubated/sedated
villareal
Labs
-
Labs:
WBC 11.9 10^3/uL (4.8-10.8) H 08/14/23 05:27
RBC 2.77 10^6/uL (4.70-6.10) L 08/14/23 05:27
Hgb 9.1 g/dL (13.0-18.0) L 08/14/23 05:27
Hct 27.6 % (39.0-52.0) L 08/14/23 05:27
Plt Count 228 10^3/uL (130-400) 08/14/23 05:27
Sodium 143 mmol/L (135-145) 08/14/23 05:27
Potassium 3.5 mmol/L (3.5-5.1) 08/14/23 05:27
Chloride 105 mmol/L (98-107) 08/14/23 05:27
Carbon Dioxide 26 mmol/L (22-30) 08/14/23 05:27
BUN 57 mg/dl (9-20) H 08/14/23 05:27
Creatinine 2.4 mg/dL (0.7-1.3) H 08/14/23 05:27
eGFR 28.49 08/14/23 05:27
Glucose 187 mg/dl (70-99) H 08/14/23 05:27
Calcium 7.9 mg/dl (8.4-10.2) L 08/14/23 05:27
Albumin 4.5 g/dl (3.5-5.0) 08/10/23 17:15
Physical Exam
-
Vital Signs:
Vital Signs
Temp Pulse Resp BP Pulse Ox
100.1 F 67 20 122/54 96
08/14/23 07:38 08/14/23 08:23 08/14/23 08:23 08/14/23 07:39 08/14/23 08:23
Cardiovascular:: Regular rate and rhythm
Respiratory:: Bilateral: Coarse
Lung Excursion:: Normal
Abdomen:: Nontender and Soft
Bowel Sounds:: Decreased
Extremity Edema:: +1: Bilateral:
Villareal Catheter: Yes
[2023-08-14] MEDS: MAXIPIME 2000 MG IV (11:18)
[2023-08-14] MEDS: STERILE WATER FOR INJECTION 10 ML IV (11:18)
[2023-08-14] MEDS: KCL ELIXIR 20 MEQ TUBE (11:18)
--- NOTE | 2023-08-14 11:20 | W.PN.HOSP.TC ---
Today's Communication/Plan
-
continue abx
vent weaning per health education assistant
f/u renal function
Assessment / Plan
Assessment / Plan
1. Acute hypercapnic respiratory failure
Vent dependent resp failure
Acute toxic metabolic encephalopathy
-Patient required intubation on 08/12 in the morning
-Postintubation x-ray showing ET tube in correct position. No pneumothorax
-ABG showing pCO2 greater than 115, repeat ABG postintubation showing pCO2 down to 40
-remains intubated at this point. vent weaning/sedation vacation per [employer]
2. Hyperkalemia - resolved
-Secondary to renal failure and lisinopril.
-EKG showing NSR, MS 190ms, QRS 142ms
-Patient got calcium gluconate/insulin-glucose.
-NGT in place and getting Lokelma through NGT
3. NATALIA - Improving
-Renal function 0.9 in Jul 29, trending down slowly.
-Hold Lasix/lisinopril
-Brown exchanged on day of admission
-Renal ultrasound normal.
-Nephrology following
4. Left leg DVT
-Recently diagnosed in [facility], was on Lovenox 120mg/bid
-Left lower extremity Doppler showing nonocclusive thrombus in common femoral vein
-Patient has been started on heparin drip per hematology recommendation
5. Sepsis - POA
Hypotensions w/o shock
-suspected urinary source vs pulm vs other
-Blood culture and urine culture collected
-Reps cs negative so far
-Continues to spike fever.
-ID involved and following along. on cefepime.
6. Insulin-dependent diabetes mellitus - Uncontrolled
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
-On insulin drip as part of ICU protocol
6. Essential HTN
-Maintain on metoprolol tartrate. prn hydralazine
7. Chronic indwelling Brown catheter
Hypospadias
-Brown catheter has been exchanged on 08/11
8. Reported delusion
History of bipolar disorder
-Hold Abilify. Valproate level within normal.
-Psychiatry evaluated on day of admission, currently remains intubated/sedated and will be re-involved post extubation
GERD
Morbid obesity
Obstructive sleep apnea
Neuropathy
DVT prophylaxis - heparin subq
Full code
Total critical care time 36 mins. Total critical care time documented does not include time spent on separately billed procedures or the services of residents, students, nurses or physician assistants. I personally saw and examined the patient. I
have reviewed all diagnostic interpretations and treatment plans as written. I was present for the figueroa portions of any procedures performed and the inclusive time noted in any critical care statement. Critical care time includes patient management
by me, time spent at the patients bedside, time to review lab and imaging results, discussing patient care, documentation in the medical record, and time spent with the family or caregiver.
Anticipated Discharge: > 48 hours
Subjective/Interval History
-
Date of Service: August 14, 2023
Remains intubated
Waking up off sedation
No acute issues overnight
Objective Data
-
Labs:
Laboratory Results
08/14/23 08/14/23
04:23 05:27
WBC 11.9 H
Hgb 9.1 L
Hct 27.6 L
Plt Count 228
HCO3 29.8 H
Sodium 143
Potassium 3.5
Chloride 105
Carbon Dioxide 26
BUN 57 H
Creatinine 2.4 H
Glucose 187 H
Calcium 7.9 L
Vital Signs:
Vital Signs
Temp Pulse Resp BP Pulse Ox
100.1 F 67 20 122/54 96
08/14/23 07:38 08/14/23 08:23 08/14/23 08:23 08/14/23 07:39 08/14/23 08:23
I&O
08/13/23 08/14/23 08/15/23
06:59 06:59 06:59
Intake Total 1028 / 1028 3332.7 / 3507.7 535 / 535
Output Total 1225 / 1225 1655 / 1675 80 / 80
Balance -197 / -197 1677.7 / 1832.7 455 / 455
Review of Systems
-
Unable to obtain full review of systems at this time due to: Patient Intubation
Physical Exam
-
General: No Apparent Distress and Intubated; Negative Respiratory Distress
Respiratory: Clear to Auscultation
Cardiac: Regular Rhythm and S1/S2; Negative Murmur
GI: Soft and Normal Bowel Sounds
Genito-urinary: Other (Brown caheter in place, have hypospadiasis)
Musculoskeletal: No Edema
Neuro: Sedated
[2023-08-14 11:26] LABS: Glucose - Point of Care 172 mg/dl (70-99)
--- NOTE | 2023-08-14 12:01 | PTCARENOTE ---
assessment unchanged, continues on ivf, heparin and tube feeds. pt comfortable at this time. chest percussion on bed completed by RT. turned and repositioned, oral care provided.
[2023-08-14 13:44] LABS: Glucose - Point of Care 162 mg/dl (70-99)
--- NOTE | 2023-08-14 14:27 | CM ---
CM following re: discharge planning.
Discussed in rounds, reviewed pt's chart, met with pt. Per Rounds meeting, pt with hypercapnic respiratory failure, remains intubated, weaning trial today, no plan for extubation today, continue supportive care.
Per daughter, pt just moved to [facility] one month ago from [facility] and per daughter pt was intubated 4 times since 2021.
D/C plan: return back to [facility] when medically stable.
CM will follow with discharge plan updates as hospitalization progress
[2023-08-14 14:34] LABS: Glucose - Point of Care 150 mg/dl (70-99)
[2023-08-14] MEDS: HEPARIN 25000 UNITS/250 ML IV (15:39)
[2023-08-14 15:49] LABS: Glucose - Point of Care 159 mg/dl (70-99)
[2023-08-14 16:39] LABS: Glucose - Point of Care 152 mg/dl (70-99)
[2023-08-14 16:55] LABS: Potassium 3.1 mmol/L (3.5-5.1)
[2023-08-14 17:31] LABS: Glucose - Point of Care 135 mg/dl (70-99)
[2023-08-14] MEDS: KCL ELIXIR 40 MEQ TUBE (17:32)
--- NOTE | 2023-08-14 17:37 | PTCARENOTE ---
pt given prn fentanyl as ordered, turned and repositioned. pt with multiple smears of bm throughout shift. oral care provided. suctioned for thick white to bernard secretions frequently. update given to daughter francisca.
[2023-08-14 18:33] LABS: Glucose - Point of Care 145 mg/dl (70-99)
--- NOTE | 2023-08-14 20:00 | PTCARENOTE ---
report received from rico walker. pt able to nod head to questions. remains intubated. vent setting unchanged, off infusing jevity 1.5 @ 75cc/hr per protocol. hep gtt @ 2300 units/hr. insulin gtt at 8 units/hr. nss @ 80cc/hr. pt assessed and
turned. villareal care provided. prn 50mcg fent given prior to turning. pt suctioned for bernard thick secretions. bilat wrist restraints remain in pace for safety. Will monitor.
[2023-08-14 20:41] LABS: Glucose - Point of Care 147 mg/dl (70-99)
--- NOTE | 2023-08-14 22:30 | PTCARENOTE ---
instulin gtt increased to 12units/hr per protocol. next accu check @ 2387
[2023-08-14 22:42] LABS: Glucose - Point of Care 171 mg/dl (70-99)
[2023-08-14] MEDS: COLACE LIQUID TUBE (22:51)
[2023-08-14] MEDS: NEURONTIN 600 MG TUBE (22:52)
[2023-08-14 23:43] LABS: Glucose - Point of Care 163 mg/dl (70-99)
[2023-08-15] VITALS (22 sets, daily range): BP systolic 96–171; BP diastolic 58–81; BMI 50.2
[2023-08-15 00:40] LABS: Glucose - Point of Care 162 mg/dl (70-99)
--- NOTE | 2023-08-15 00:48 | PTCARENOTE ---
assessment unchanged. nsr. vss. insulin gtt at 12 units/hr per glycemic protocol. Will monitor.
--- NOTE | 2023-08-15 01:30 | PTCARENOTE ---
insulin gtt decreased to 8 units/hr per protcol. will monitor.
[2023-08-15] MEDS: TYLENOL SUSPENSION 650 MG TUBE (01:41)
[2023-08-15 01:47] LABS: Glucose - Point of Care 133 mg/dl (70-99)
[2023-08-15] MEDS: HEPARIN 25000 UNITS/250 ML IV ×3 (02:42→23:20)
[2023-08-15 02:51] LABS: Glucose - Point of Care 138 mg/dl (70-99)
[2023-08-15 03:48] LABS: Glucose - Point of Care 146 mg/dl (70-99)
[2023-08-15] MEDS: SUBLIMAZE 50 MCG IV ×7 (04:36→23:37)
[2023-08-15 05:36] LABS: Hemoglobin 8.9 g/dL (13.0-18.0); Mean Corpuscular Hgb 32.8 pg (27.0-31.0); Mean Corpuscular Volume 99.6 fL (80.0-94.0); Platelet Count 216 10^3/uL (130-400); Red Blood Cell Count 2.71 10^6/uL (4.70-6.10); Red Cell Dist. Width 15.1 % (11.5-14.5); White Blood Cell Count 8.3 10^3/uL (4.8-10.8)
[2023-08-15 05:38] LABS: APTT 68.7 Sec (23.4-35.0)
--- NOTE | 2023-08-15 05:38 | PTCARENOTE ---
bs 125. insulin gtt decreased to 8 units/hr. will recheck in two hours per protocol.
[2023-08-15 05:52] LABS: Glucose - Point of Care 125 mg/dl (70-99)
[2023-08-15 05:53] LABS: Blood Urea Nitrogen 39 mg/dl (9-20); Calcium 7.9 mg/dl (8.4-10.2); Carbon Dioxide 24 mmol/L (22-30); Chloride 110 mmol/L (98-107); Estimated Creatinine Clearance 62 ml/min; Glucose 142 mg/dl (70-99); Magnesium 1.8 mg/dl (1.6-2.3); Potassium 3.3 mmol/L (3.5-5.1); Sodium 146 mmol/L (135-145)
[2023-08-15 05:57] LABS: Triglycerides 411 mg/dl (10-149)
[2023-08-15] MEDS: MAGNESIUM SULFATE 100 IV (06:22)
[2023-08-15] MEDS: KCL 270 MEQ IV (06:30)
--- NOTE | 2023-08-15 07:41 | W.PN.INTV ---
Addendum entered and electronically signed by Caleb Bullard MD 08/15/23 10:46:
No atrial fibrillation-inadvertently placed into his chart-atrial fibrillation was in another patient in the room next to him
Disregard atrial fibrillation rate control comments
Original Note:
Today's Communication / Plan
Recommendations
Atrial fibrillation rate control
Attempt spontaneous breathing trial-doubt extubated will with voluminous secretions
Antibiotics
CT head
Assessment
-
68-year-old male morbidly obese with probable obesity hypoventilation syndrome with chronic hypercapnia on chronic oxygen, bipolar disorder, hypertension, diabetes, DVT presented with recently diagnosed left leg DVT, NATALIA, hyperkalemia, metabolic
encephalopathy and hypercapnia despite maximum BiPAP requiring intubation-spray cementer consulted for ventilator/critical care management 08/12/2023.
Assessment
Hypercapnic respiratory failure-ABG 08/12/2023-greater than 115/82/7.08
Intubated 08/12/2023
Extubated
Toxic metabolic encephalopathy
NATALIA
Hyperkalemia
Rapid atrial fibrillation 08/15/2023
Obesity hypoventilation syndrome suspected
Pneumonia-aspiration risk
COPD on chronic oxygen suspected
Recent left lower extremity DVT-provoked
Leukocytosis
Ebimgc-voldlkczfo-hhrebpyamf 11.9
Hyperglycemia
Hypertriglyceridemia
Conditions present prior to admission:
Morbid obesity-BMI 51.
Recent YIS-ycvwydvx-HND stay.
Hypertension.
Obesity hypoventilation syndrome.
Chronic oxygen supplementation.
Legally blind-retinitis pigmentosa.
Spinal stenosis.
Colon resection.
Deviated septum repair.
Former smoker.
COPD on chronic oxygen supplementation
Chronic Brown due to BPH and chronic urinary retention
Plan
Remains critically ill sedated on a ventilator
Ventilator settings reviewed-adjusted accordingly
ABG on occasion
FiO2 weaned
Attempt spontaneous breathing trial-doubt extubated but with voluminous secretions and marginal long-term preintubation respiratory status
If extubated and requires reintubation likely a tracheostomy tube candidate-have reviewed this with daughter
If extubated we will attempt to transition to noninvasive or BiPAP-Dr. Bullard reviewed with daughter-fourth intubation in the last 1.5 years-transition to CPAP and not BiPAP-Dr. Bullard told daughter and family members that if we extubate him we
would likely extubate him to BiPAP at night and during the daytime as needed, however, if he failed and required reintubation he would likely be a tracheostomy tube candidate if desired
VAP prevention protocol
Nebulizers if needed-currently not bronchospastic
Chest x-ray 08/13/2023-increased left lower lobe pneumonia
Repeat chest x-ray Thursday
Sport bed with percussion-appears to be helping
Anticoagulation for recent DVT
Hematology following-correspondence reviewed
Now with rapid atrial fibrillation
Cardiology evaluation
Rate control
Echocardiogram 08/12/2023-EF 65-70%
With unclear mental status/neurologic exam-obtain CT head-reviewed with primary team
Follow renal function
Replace electrolyte abnormalities
Nephrology seen-correspondence reviewed-check lactate, serial renal function, continue IV fluids and maintain MAP greater than 65
Cultures reviewed-unrevealing thus far
Repeat sputum 08/14/2023-usual respiratory harpreet
Infectious disease consultation obtained-correspondence reviewed-changed to cefepime
Monitor hemoglobin
Transfuse if needed
PPI while on the ventilator
Monitor blood sugar
Insulin drip initiated 08/13/2023
Diabetic nurse practitioner consultation ongoing
DVT prophylaxis-on heparin drip
GI prophylaxis-on pantoprazole
Tolerating tube feeds
Bedside range of motion
Critical care statement: A total of 36 minutes of critical care time was provided for this patient today. This includes management of unstable vital signs, evaluation of the patient at bedside, reviewing the patient's pertinent medical records
including radiographs, atrial fibrillation rate control, ventilator management, spontaneous breathing trial management, pressor management, sedation management, microbiology, laboratory evaluations, and discussion with primary team, consultants,
pharmacy, nutrition, physical therapy, case management, charge nurse, critical care nursing, and respiratory therapy.
Diagnostic data:
Chest x-ray 08/11/2023-bibasilar interstitial pneumonia
Chest x-ray 08/12/2023-rotated to the left, no pneumothorax, ET tube above lashon, bilateral interstitial infiltrates
Subjective Dataa
Subjective Data
Date of Service:
Date of Service: August 15, 2023
Chief Complaint: Collar Tacker Follow Up, Pulmonary Follow Up and Vent Management Follow Up
Subjective:
Still with significant secretions, not following all commands, review of systems unobtainable
Review of Systems
General: Other (Per HPI)
Objective Data
Data Reviewed
Vital Signs / I&O / Oxygen:
Vital Signs
Temp Pulse Resp BP Pulse Ox
98.0 F 63 20 139/71 99
08/15/23 07:22 08/15/23 06:19 08/15/23 06:19 08/15/23 06:19 08/15/23 06:19
Intake and Output
08/14/23 08/15/23 08/16/23
06:59 06:59 06:59
Intake Total 3332.7 / 3507.7 3012.5 / 3012.5
Output Total 1655 / 1675 1610 / 1610
Balance 1677.7 / 1832.7 1402.5 / 1402.5
SaO2 [A/C] 95
SaO2 99
Nasal Cannula flow liters per 4
minute
Physical Exam
General: Respiratory Distress (n) and Comfortable
HEENT: Normocephalic and Anicteric
Cardiovascular: Regular Rhythm
Respiratory: Wheeze (n), Crackles, Rhonchi (n), Non-Labored Respirations, Accessory Resp Muscle Use (n) and Stridor (n)
GI: Soft, Non Distended and Non Tender
Neurology: No Motor Deficits, Depressed and Other (Sedated on a ventilator)
Skin: Warm, Good Color, Cyanosis (n) and Jaundice (n)
Labs/Micro/Reports
Lab Data
08/15/23 05:13
08/15/23 05:13
Laboratory Results
08/15/23
05:17
APTT 68.7 H
Microbiology
08/11/23 18:22 Blood/Venous Blood Culture - Preliminary
No Growth in 72 hours- Final report to follow
08/11/23 17:58 Blood/Venous Blood Culture - Preliminary
No Growth in 72 hours- Final report to follow
08/14/23 10:38 Tracheal Aspirate Gram Stain - Preliminary
08/12/23 15:45 Tracheal Aspirate Respiratory Culture - Preliminary
08/12/23 15:45 Tracheal Aspirate Gram Stain - Preliminary
08/13/23 11:02 Nasal Swab Influenza Types A & B (ADELITA) - Final
Negative for Influenza A & B, NAAT
Negative results must be combined with clinical observations
and patient history.
Nucleic Acid Amplification test (NAAT)performed on the
[employer] platform.
08/11/23 04:54 Nose MRSA Screen - Final
No Methicillin Resistant Staphylococcus aureus isolated.
[2023-08-15 07:47] LABS: Glucose - Point of Care 155 mg/dl (70-99)
--- NOTE | 2023-08-15 07:56 | PTCARENOTE ---
0700 patient received in bed. intubated. ETT 8/24 cm left lip; AC: 20/*500/+8/40% peak 41; VT 538 peak 21; Suction via ETT copious amount thick bernard secretion . oral care done. VS: 98.0-SR 78; RR 21; 156/64 MAP 89; indwelling Brown care done per
hospital's protocols. Draining bayron clear urine. Hourly I/O monitor. Restraints #2 soft b/l wrist in place. pt aroused, not following commands. Blood sugar 155/adjusted per protocol to 14 units , will be rechecked in one hour. Heparing at 2600;
next PTT at 1200; K-cl infusing . MG completed. NSS at 80/hr . HOB elevated
[2023-08-15] MEDS: NOVOLIN R INSULIN INFUSION 100 IV ×2 (08:05→17:54)
[2023-08-15] MEDS: ANTIFUNGAL CLEAR 1 APPLIC TOPICAL ×2 (08:09→20:51)
[2023-08-15] MEDS: MIRALAX 17 GRAMS TUBE (08:20)
[2023-08-15] MEDS: PROTONIX IV 40 MG IV (08:20)
[2023-08-15] MEDS: FEOSOL 325 MG TUBE (08:20)
[2023-08-15] MEDS: NSS (PRESERVATIVE FREE) 10 ML IV (08:20)
[2023-08-15] MEDS: NEURONTIN 300 MG TUBE (08:20)
[2023-08-15] MEDS: LOPRESSOR 50 MG TUBE ×2 (08:22→21:08)
[2023-08-15] MEDS: NORVASC 5 MG TUBE (08:22)
[2023-08-15] MEDS: LOW STRENGTH ASPIRIN 81 MG TUBE (08:22)
[2023-08-15] MEDS: THERAGRAN 1 TABLET TUBE (08:22)
[2023-08-15] MEDS: VITAMIN D3 (cholecalciferol) 25 MCG TUBE (08:31)
[2023-08-15] MEDS: DESENEX/MITRAZOL/ZEASORB 1 APPLIC TOPICAL ×2 (08:32→20:51)
[2023-08-15 09:10] LABS: Glucose - Point of Care 155 mg/dl (70-99)
--- NOTE | 2023-08-15 09:44 | W.PN.ID1 ---
Date of Service
Date of Service: August 15, 2023
Today's Communication
continue cefepime
Assessment / Plan
VDRF
Fever
Leukocytosis
Retinitis pigmentosa (legally blind)
Spinal stenosis
Bipolar disease/anxiety
Class III obesity
Hx DVT
HTN
COPD
DM
BPH with chronic urinary retention (chronic Brown)
Recommendations:
COVID and influenza negative. Respiratory culture usual resp harpreet
Fever resolved
Continue with cefepime - dose adjusted for improving renal function - day 4
Monitor white count and temperature curve
Monitor CXR. Not clear if findings are new or residual from prior pneumonia.
Continue with supportive measures
Dysconjugate gaze noted - seems to be new notified hospitalist - defer management to their team
Patient remains critically ill in intensive care unit - interval improvement
Chief Complaint
-: Fever
Subjective / Review of Systems
no further fevers
bp hypertensive off of pressors
remains ventilated - fio2 40%
leukocytosis resolved
cr further imprvoed - crcl now 60
cxr my read: rotated study, right lung clear, L lung base probable effusion, possible consolidation - radiology read: Obscuration of the left hemidiaphragm suggesting a moderate left lower lobe pneumonia. Stable
moving all extremities - markedly dysconjugate gaze on my exam
Vital Signs / Physical Exam
Vital Signs
Vital Signs
Temp Pulse Resp BP Pulse Ox
98.0 F 74 20 164/70 98
08/15/23 07:22 08/15/23 08:22 08/15/23 06:19 08/15/23 08:22 08/15/23 08:27
Physical Exam
Constitutional: No Acute Distress
Head: Other (markedly deconjugate gaze)
Cardiovascular: Regular Rate and S1/S2; Negative Murmur or Rub
Pulmonary: Clear and Symmetric; Negative Wheezes or Rales
Gastrointestinal: Soft, Non Tender, Non Distended and Normal Bowel Sounds
Skin: Warm and Dry; Negative Rash or Jaundice
Neurological: Awake
Objective Data
Lab Data
Lab Results
08/15/23 05:13
08/15/23 05:13
APTT 68.7 Sec (23.4-35.0) H 08/15/23 05:17
Estimated Creat Clear 62 ml/min 08/15/23 05:13
Lactic Acid 1.4 mmol/L (0.7-2.0) 08/13/23 15:20
Total Bilirubin 0.6 mg/dl (0.2-1.3) 08/10/23 17:15
AST 30 U/L (17-59) 08/10/23 17:15
ALT 28 U/L (0-50) 08/10/23 17:15
Alkaline Phosphatase 77 U/L (38-126) 08/10/23 17:15
Most recent labs reviewed.
Micro Results:
08/14/23 10:38 Respiratory Culture - Preliminary
Tracheal Aspirate Usual Respiratory Harpreet
Gram Stain - Preliminary
08/11/23 18:22 Blood Culture - Preliminary
Blood/Venous No Growth in 72 hours- Final report to follow
08/11/23 17:58 Blood Culture - Preliminary
Blood/Venous No Growth in 72 hours- Final report to follow
08/12/23 15:45 Respiratory Culture - Preliminary
Tracheal Aspirate Gram Stain - Preliminary
08/13/23 11:02 Influenza Types A & B (ADELITA) - Final
Nasal Swab Negative for Influenza A & B, NAAT
Negative results must be combined with clinical observations
and patient history.
Nucleic Acid Amplification test (NAAT)performed on the
[employer] platform.
08/11/23 04:54 MRSA Screen - Final
Nose No Methicillin Resistant Staphylococcus aureus isolated.
Imaging:
08/11/2023 Renal ultrasound: No hydronephrosis. No abnormal solid or complex renal masses. No renal calculi. Please see full dictation for additional detail.
Care Review
Plan reviewed with: Physician (Dr Chávez- rosaura morel )
[2023-08-15 09:46] LABS: Glucose - Point of Care 162 mg/dl (70-99)
--- NOTE | 2023-08-15 10:02 | W.PN.NEPH.PH ---
Today's Communication / Plan
-
increase FWF to 50cc/hr
replete K
Assessment/Plan
-
Impression:
Acute kidney injury (baseline 0.9-1 in 07/29)
Hyperkalemia
Respiratory acidosis
Intubated: hypercapnic resp failure
COPD on chronic oxygen therapy
Recent fall with left patellar injury
Hypertension
Change of mental status
Left lower extremity DVT
Diabetes
History of hypertension
Blind
Obese
Chronic Villareal due to BPH and chronic urinary retention
Plan:
-creatinine down to 1.7
-K down to 3.3, replete
-hypernatremia evolving
-grossly non oliguric ~1800cc
-serial BMP
-now on tube feeds
-keep MAP > 65,hemodynamically stable
-critical care time 31 minutes, remains on vent
-
-
Date of Service: August 15, 2023
CC / HPI / ROS
-
Chief Complaint:
NATALIA
History of Present Illness:
Hyperkalemia better at 3.3
critically ill in ICU on pressors, vent
BP stable on pressors
NATALIA/Cr improved to 1.7
heparin gtt
insulin gtt
Review of Systems:
intubated/sedated
villareal and non oliguric
Labs
-
Labs:
WBC 8.3 10^3/uL (4.8-10.8) 08/15/23 05:13
RBC 2.71 10^6/uL (4.70-6.10) L 08/15/23 05:13
Hgb 8.9 g/dL (13.0-18.0) L 08/15/23 05:13
Hct 27.0 % (39.0-52.0) L 08/15/23 05:13
Plt Count 216 10^3/uL (130-400) 08/15/23 05:13
Sodium 146 mmol/L (135-145) H 08/15/23 05:13
Potassium 3.3 mmol/L (3.5-5.1) L 08/15/23 05:13
Chloride 110 mmol/L (98-107) H 08/15/23 05:13
Carbon Dioxide 24 mmol/L (22-30) 08/15/23 05:13
BUN 39 mg/dl (9-20) H 08/15/23 05:13
Creatinine 1.7 mg/dL (0.7-1.3) H 08/15/23 05:13
eGFR 43.10 08/15/23 05:13
Glucose 142 mg/dl (70-99) H 08/15/23 05:13
Calcium 7.9 mg/dl (8.4-10.2) L 08/15/23 05:13
Albumin 4.5 g/dl (3.5-5.0) 08/10/23 17:15
Physical Exam
-
Vital Signs:
Vital Signs
Temp Pulse Resp BP Pulse Ox
98.0 F 74 20 164/70 98
08/15/23 07:22 08/15/23 08:22 08/15/23 06:19 08/15/23 08:22 08/15/23 08:27
Cardiovascular:: Regular rate and rhythm
Respiratory:: Bilateral: Coarse
Lung Excursion:: Normal
Abdomen:: Nontender and Soft
Bowel Sounds:: Normal
Extremity Edema:: +1: Bilateral:
Villareal Catheter: Yes
Other Findings::
Gen: intubated and awake and oriented
[2023-08-15 11:20] LABS: Glucose - Point of Care 116 mg/dl (70-99)
[2023-08-15] MEDS: DAILY VITAMIN/CENTRUM TUBE (11:31)
[2023-08-15] MEDS: MAXIPIME 2000 MG IV ×2 (11:44→21:08)
[2023-08-15] MEDS: STERILE WATER FOR INJECTION 10 ML IV ×2 (11:45→21:09)
[2023-08-15] MEDS: NSS 1000 IV ×2 (12:04→23:30)
[2023-08-15 12:07] LABS: Glucose - Point of Care 136 mg/dl (70-99)
[2023-08-15 12:22] LABS: APTT 97.1 Sec (23.4-35.0)
--- NOTE | 2023-08-15 12:34 | W.PN.HOSP.TC ---
Today's Communication/Plan
-
increase FWF
abx per ID
increased secretion, went weaning per carpenters supervisor
Assessment / Plan
Assessment / Plan
1. Acute hypercapnic respiratory failure with suspected OHS
Vent dependent resp failure
Acute toxic metabolic encephalopathy
-Patient required intubation on 08/12 in the morning
-Postintubation x-ray showing ET tube in correct position. No pneumothorax
-pre-intubation ABG showing pCO2 greater than 115, repeat ABG postintubation showing pCO2 down to 40
-remains intubated at this point. vent weaning difficult with excessive secretion.
2. Hyperkalemia - resolved
-Secondary to renal failure and lisinopril.
-EKG showing NSR, RI 190ms, QRS 142ms
-Patient got calcium gluconate/insulin-glucose.
-NGT in place and getting Lokelma through NGT
3. NATALIA - Improving
-Renal function 0.9 in Jul 29, trending down slowly.
-Hold Lasix/lisinopril
-Brown exchanged on day of admission
-Renal ultrasound normal.
-Nephrology following
4. Left leg DVT
-Recently diagnosed in [facility], was on Lovenox 120mg/bid
-Left lower extremity Doppler showing nonocclusive thrombus in common femoral vein
-Patient has been started on heparin drip per hematology recommendation
5. Sepsis - POA
Hypotensions w/o shock
-suspected urinary source vs pulm vs other
-Blood culture and urine culture collected
-Reps cs negative so far
-Continues to spike fever.
-ID involved and following along. on cefepime.
6. Insulin-dependent diabetes mellitus - Uncontrolled
-diabetic COAL CARRIER involved in care
-On insulin drip as part of ICU protocol
6. Essential HTN
-Maintain on metoprolol tartrate. prn hydralazine
7. Chronic indwelling Brown catheter
Hypospadias
-Brown catheter has been exchanged on 08/11
8. Reported delusion
History of bipolar disorder
-Hold Abilify. Valproate level within normal.
-Psychiatry evaluated on day of admission, currently remains intubated/sedated and will be re-involved post extubation
9. Hypernatremia
- FWF increased to 50mls/hr
GERD
Morbid obesity
Obstructive sleep apnea
Neuropathy
DVT prophylaxis - heparin subq
Full code
Total critical care time 38 mins. Total critical care time documented does not include time spent on separately billed procedures or the services of residents, students, nurses or physician assistants. I personally saw and examined the patient. I
have reviewed all diagnostic interpretations and treatment plans as written. I was present for the figueroa portions of any procedures performed and the inclusive time noted in any critical care statement. Critical care time includes patient management
by me, time spent at the patients bedside, time to review lab and imaging results, discussing patient care, documentation in the medical record, and time spent with the family or caregiver.
Anticipated Discharge: > 48 hours
Subjective/Interval History
-
Date of Service: August 15, 2023
Remains intubated
Waking up off sedation and following commands
Blood pressure stable, does not require vasopressors
Last Tmax of 100.8 Fahrenheit yesterday 1899
Objective Data
-
Labs:
Laboratory Results
08/15/23 08/15/23 08/15/23
05:13 05:17 11:59
WBC 8.3
Hgb 8.9 L
Hct 27.0 L
Plt Count 216
APTT 68.7 H 97.1 H
Sodium 146 H
Potassium 3.3 L
Chloride 110 H
Carbon Dioxide 24
BUN 39 H
Creatinine 1.7 H
Glucose 142 H
Calcium 7.9 L
Vital Signs:
Vital Signs
Temp Pulse Resp BP Pulse Ox
99.2 F 65 20 163/70 99
08/15/23 11:30 08/15/23 10:00 08/15/23 10:00 08/15/23 10:00 08/15/23 10:00
I&O
08/14/23 08/15/23 08/16/23
06:59 06:59 06:59
Intake Total 3332.7 / 3507.7 3012.5 / 3012.5 642.5 / 642.5
Output Total 1655 / 1675 1610 / 1610 500 / 500
Balance 1677.7 / 1832.7 1402.5 / 1402.5 142.5 / 142.5
Review of Systems
-
Unable to obtain full review of systems at this time due to: Patient Intubation
Physical Exam
-
General: No Apparent Distress and Intubated; Negative Respiratory Distress
Respiratory: Rhonchi
Cardiac: Regular Rhythm and S1/S2; Negative Murmur
GI: Soft, Nontender and Normal Bowel Sounds
Genito-urinary: Other (Brown caheter in place, have hypospadiasis)
Musculoskeletal: No Edema
Neuro: Awake (Waking up off sedation and following command)
[2023-08-15 14:14] LABS: Glucose - Point of Care 134 mg/dl (70-99)
--- NOTE | 2023-08-15 14:24 | PTCARENOTE ---
patient on CPAP mode 8/8/40% . AT 1450 increase secretion thick white copious amount via ETT/oral . pt switch back to AC 20/500/+8/40% peak 27. VT 338/RR 28. PTT 97.1 per protocol target reached no change in rate Heparin infusing via RT AC .
[2023-08-15 15:47] LABS: Glucose - Point of Care 112 mg/dl (70-99)
[2023-08-15 17:17] LABS: Glucose - Point of Care 136 mg/dl (70-99)
--- NOTE | 2023-08-15 18:31 | PTCARENOTE ---
patient in bed, intubated. Large amount of white thick secretion. fentaly prn for pain. Brown draining clear bayron urine . pt AAO .
[2023-08-15 18:37] LABS: INR 1.37; PT 16.7 Sec (11.4-14.6)
[2023-08-15 18:39] LABS: APTT 107.4 Sec (23.4-35.0)
[2023-08-15 19:00] LABS: Glucose - Point of Care 129 mg/dl (70-99)
--- NOTE | 2023-08-15 20:00 | PTCARENOTE ---
report received from rico. pt nods appropiately. 8.0 tube remains 24@ lip. vent setting /. insulin gtt @ 12units/hr. (will follow glycemic protocol). hep gtt infusing 2600 units/hr. ptt therapeutic @ 107.4. nss @ 80cc/hr. villareal cath
draining bayron urine w/ sediment adequately. villareal care provided. bilat restraints intact. prn fent given per protocol. (see mar). pt suctioned for thick bernard secretions. pt updated on plan of care. will monitor.
[2023-08-15] MEDS: MIRALAX TUBE (20:52)
[2023-08-15 21:07] LABS: Glucose - Point of Care 136 mg/dl (70-99)
[2023-08-15 22:22] LABS: Glucose - Point of Care 129 mg/dl (70-99)
[2023-08-15 23:19] LABS: Glucose - Point of Care 142 mg/dl (70-99)
[2023-08-15] MEDS: COLACE LIQUID TUBE (23:31)
[2023-08-15] MEDS: NEURONTIN 600 MG TUBE (23:31)
[2023-08-16] VITALS (27 sets, daily range): BP systolic 87–179; BP diastolic 55–100; BMI 51.9
[2023-08-16] MEDS: NOVOLIN R INSULIN INFUSION 100 IV ×3 (01:10→19:27)
[2023-08-16 01:23] LABS: Glucose - Point of Care 134 mg/dl (70-99)
[2023-08-16] MEDS: SUBLIMAZE 50 MCG IV ×7 (01:36→23:35)
[2023-08-16 03:27] LABS: Glucose - Point of Care 137 mg/dl (70-99)
--- NOTE | 2023-08-16 04:35 | PTCARENOTE ---
no changes in assessment. insulin gtt @ 10units/hr. hep gtt remains 2600 units/hr. nss @80cc/hr. multiple secretions suctioned. fent given per protocol. pt updated on plan of care
[2023-08-16 05:44] LABS: Hematocrit 27.6 % (39.0-52.0); Mean Corp Hgb Conc. 32.6 g/dL (33.0-37.0); Mean Corpuscular Hgb 33.6 pg (27.0-31.0); Mean Platelet Volume 9.7 fL (7.4-10.4); Platelet Count 220 10^3/uL (130-400); Red Blood Cell Count 2.68 10^6/uL (4.70-6.10); Red Cell Dist. Width 14.9 % (11.5-14.5); White Blood Cell Count 9.8 10^3/uL (4.8-10.8)
[2023-08-16 05:48] LABS: Glucose - Point of Care 144 mg/dl (70-99)
[2023-08-16 06:01] LABS: APTT 83.1 Sec (23.4-35.0)
[2023-08-16] MEDS: TYLENOL SUSPENSION 650 MG TUBE (06:03)
[2023-08-16 06:06] LABS: Blood Urea Nitrogen 23 mg/dl (9-20); Carbon Dioxide 24 mmol/L (22-30); Chloride 110 mmol/L (98-107); Estimated Creatinine Clearance 88 ml/min; Glucose 149 mg/dl (70-99); Sodium 144 mmol/L (135-145); eGFR > 60.00
--- NOTE | 2023-08-16 07:30 | W.PN.INTV ---
Today's Communication / Plan
Recommendations
Continue antibiotics
Spontaneous breathing trial-voluminous amounts of secretions that he will likely not be able to handle if extubated is currently limiting factor towards successful extubation
Fentanyl for pain/agitation
Assessment
-
68-year-old male morbidly obese with probable obesity hypoventilation syndrome with chronic hypercapnia on chronic oxygen, bipolar disorder, hypertension, diabetes, DVT presented with recently diagnosed left leg DVT, NATALIA, hyperkalemia, metabolic
encephalopathy and hypercapnia despite maximum BiPAP requiring intubation-veterinary technician assistant consulted for ventilator/critical care management 08/12/2023.
Assessment
Hypercapnic respiratory failure-ABG 08/12/2023-greater than 115/82/7.08
Intubated 08/12/2023
Extubated
Toxic metabolic encephalopathy
NATALIA
Hyperkalemia
Obesity hypoventilation syndrome suspected
Pneumonia-aspiration risk
COPD on chronic oxygen suspected
Recent left lower extremity DVT-provoked
Leukocytosis
[id number] 11.9
Hyperglycemia
Hypertriglyceridemia
Conditions present prior to admission:
Morbid obesity-BMI 51.
Recent LLT-qzlzuiud-[facility] stay.
Hypertension.
Obesity hypoventilation syndrome.
Chronic oxygen supplementation.
Legally blind-retinitis pigmentosa.
Spinal stenosis.
Colon resection.
Deviated septum repair.
Former smoker.
COPD on chronic oxygen supplementation
Chronic Brown due to BPH and chronic urinary retention
Plan
Continues to be critically ill sedated on a ventilator with voluminous amounts of secretions
Ventilator settings reviewed-adjusted accordingly
Follow ABG on occasion
Tolerated spontaneous breathing trial for about 2 hours, however, not extubated because of the voluminous amounts of secretions
Continue occasional spontaneous breathing trial, however, believe would not last long off ventilator unless secretions diminish-hopefully with pneumonia treatment today will
If extubated and requires reintubation likely a tracheostomy tube candidate-Dr. Bullard has reviewed this with daughter
If extubated we will attempt to transition to noninvasive or BiPAP-Dr. Bullard reviewed with daughter-fourth intubation in the last 1.5 years-transition to CPAP and not BiPAP-Dr. Bullard told daughter and family members that if we extubate him we
would likely extubate him to BiPAP at night and during the daytime as needed, however, if he failed and required reintubation he would likely be a tracheostomy tube candidate if desired
VAP prevention protocol continues
Nebulizers if needed-currently not bronchospastic
Chest x-ray 08/13/2023-increased left lower lobe pneumonia
Repeat chest x-ray Thursday
Sport bed with percussion-appears to be helping
Anticoagulation for recent DVT
Hematology following-correspondence reviewed
Echocardiogram 08/12/2023-EF 65-70%
With unclear mental status/neurologic exam-obtain CT head-reviewed with primary team
Monitor renal function
Replace electrolyte abnormalities
Nephrology seen-correspondence reviewed-check lactate, serial renal function, continue IV fluids and maintain MAP greater than 65
Cultures reviewed-unrevealing thus far
Repeat sputum 08/14/2023-usual respiratory harpreet
Infectious disease consultation obtained-correspondence reviewed-changed to cefepime
Follow hemoglobin
Transfuse if needed
PPI while on the ventilator
Follow blood sugar
Insulin drip initiated 08/13/2023
Diabetic nurse practitioner consultation ongoing
DVT prophylaxis-on heparin drip
GI prophylaxis-on pantoprazole
Tolerating tube feeds
Bedside range of motion
Critical care statement: A total of 35 minutes of critical care time was provided for this patient today. This includes management of unstable vital signs, evaluation of the patient at bedside, reviewing the patient's pertinent medical records
including radiographs, ventilator management, spontaneous breathing trial management, pressor management, sedation management, microbiology, laboratory evaluations, and discussion with primary team, consultants, pharmacy, nutrition, physical
therapy, case management, charge nurse, critical care nursing, and respiratory therapy.
Diagnostic data:
Chest x-ray 08/11/2023-bibasilar interstitial pneumonia
Chest x-ray 08/12/2023-rotated to the left, no pneumothorax, ET tube above lashon, bilateral interstitial infiltrates
Subjective Dataa
Subjective Data
Date of Service:
Date of Service: August 16, 2023
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
Subjective:
Opens eyes, follows commands, requiring intermittent fentanyl for comfort, still has voluminous amounts of secretions which is prohibiting extubation,
Review of Systems
General: Other (Per HPI)
Objective Data
Data Reviewed
Vital Signs / I&O / Oxygen:
Vital Signs
Temp Pulse Resp BP Pulse Ox
99.4 F 71 25 139/60 94
08/16/23 06:09 08/16/23 06:00 08/16/23 06:00 08/16/23 06:00 08/16/23 06:00
Intake and Output
08/15/23 08/16/23 08/17/23
06:59 06:59 06:59
Intake Total 3012.5 / 3012.5 4034.5 / 4034.5
Output Total 1610 / 1610 2452 / 2452
Balance 1402.5 / 1402.5 1582.5 / 1582.5
SaO2 [CPAP] 40
SaO2 [A/C] 100
SaO2 94
Nasal Cannula flow liters per 4
minute
Physical Exam
General: Respiratory Distress (n) and Comfortable
HEENT: Normocephalic and Anicteric
Cardiovascular: Regular Rhythm
Respiratory: Wheeze (n), Crackles, Rhonchi (n), Non-Labored Respirations, Accessory Resp Muscle Use (n), Stridor (n) and ET Tube
GI: Soft, Non Distended and Non Tender
Neurology: No Motor Deficits, Depressed and Other (Sedated on a ventilator)
Skin: Warm, Good Color, Cyanosis (n) and Jaundice (n)
Labs/Micro/Reports
Lab Data
08/16/23 05:30
08/16/23 05:30
Laboratory Results
08/15/23 08/15/23 08/16/23
11:59 18:17 05:30
PT 16.7 H
INR 1.37
APTT 97.1 H 107.4 H 83.1 H
Microbiology
08/11/23 18:22 Blood/Venous Blood Culture - Preliminary
No Growth in 4 days- Final report to follow
08/11/23 17:58 Blood/Venous Blood Culture - Preliminary
No Growth in 4 days- Final report to follow
08/12/23 15:45 Tracheal Aspirate Respiratory Culture - Final
Usual Respiratory Harpreet
08/12/23 15:45 Tracheal Aspirate Gram Stain - Final
08/14/23 10:38 Tracheal Aspirate Respiratory Culture - Preliminary
Usual Respiratory Harpreet
08/14/23 10:38 Tracheal Aspirate Gram Stain - Preliminary
08/13/23 11:02 Nasal Swab Influenza Types A & B (ADELITA) - Final
Negative for Influenza A & B, NAAT
Negative results must be combined with clinical observations
and patient history.
Nucleic Acid Amplification test (NAAT)performed on the
[employer] platform.
[2023-08-16] MEDS: NSS (PRESERVATIVE FREE) 10 ML IV (08:03)
[2023-08-16] MEDS: PROTONIX IV 40 MG IV (08:04)
[2023-08-16] MEDS: MIRALAX 17 GRAMS TUBE ×2 (08:05→20:08)
[2023-08-16] MEDS: NEURONTIN 300 MG TUBE (08:05)
[2023-08-16] MEDS: FEOSOL 325 MG TUBE (08:06)
[2023-08-16] MEDS: VITAMIN D3 (cholecalciferol) 25 MCG TUBE (08:06)
[2023-08-16] MEDS: NORVASC 5 MG TUBE (08:06)
[2023-08-16] MEDS: DESENEX/MITRAZOL/ZEASORB 1 APPLIC TOPICAL ×2 (08:07→20:07)
[2023-08-16] MEDS: LOPRESSOR 50 MG TUBE ×2 (08:07→20:08)
[2023-08-16] MEDS: DAILY VITAMIN/CENTRUM 15 ML TUBE (08:08)
[2023-08-16] MEDS: ANTIFUNGAL CLEAR 1 APPLIC TOPICAL ×2 (08:09→20:07)
--- NOTE | 2023-08-16 08:23 | W.PN.NEPH.PH ---
Today's Communication / Plan
-
bmp
maintain current tube feeds
Assessment/Plan
-
Impression:
Acute kidney injury (baseline 0.9-1 in 07/29)
Hyperkalemia
Respiratory acidosis
Intubated: hypercapnic resp failure
COPD on chronic oxygen therapy
Recent fall with left patellar injury
Hypertension
Change of mental status
Left lower extremity DVT
Diabetes
History of hypertension
Blind
Obese
Chronic Villareal due to BPH and chronic urinary retention
Plan:
-creatinine down to 1.2
-Grossly nonoliguric greater than 2 L
-hypernatremia improving with adjusted tube flushes
-Currently still holding lisinopril and Lasix
-keep MAP > 65,hemodynamically stable
-critical care time 31 minutes, remains on vent
Total Time Spent with Patient (in minutes): 31
-
-
Date of Service: August 16, 2023
CC / HPI / ROS
-
Chief Complaint:
NATALIA
History of Present Illness:
critically ill in ICU on vent
insulin gtt
BP stable on pressors
NATALIA/Cr improved to 1.2
heparin gtt
insulin gtt
Review of Systems:
intubated/sedated
villareal and non oliguric
Labs
-
Labs:
WBC 9.8 10^3/uL (4.8-10.8) 08/16/23 05:30
RBC 2.68 10^6/uL (4.70-6.10) L 08/16/23 05:30
Hgb 9.0 g/dL (13.0-18.0) L 08/16/23 05:30
Hct 27.6 % (39.0-52.0) L 08/16/23 05:30
Plt Count 220 10^3/uL (130-400) 08/16/23 05:30
Sodium 144 mmol/L (135-145) 08/16/23 05:30
Potassium 4.0 mmol/L (3.5-5.1) 08/16/23 05:30
Chloride 110 mmol/L (98-107) H 08/16/23 05:30
Carbon Dioxide 24 mmol/L (22-30) 08/16/23 05:30
BUN 23 mg/dl (9-20) H 08/16/23 05:30
Creatinine 1.2 mg/dL (0.7-1.3) 08/16/23 05:30
eGFR > 60.00 08/16/23 05:30
Glucose 149 mg/dl (70-99) H 08/16/23 05:30
Calcium 8.0 mg/dl (8.4-10.2) L 08/16/23 05:30
Albumin 4.5 g/dl (3.5-5.0) 08/10/23 17:15
Physical Exam
-
Vital Signs:
Vital Signs
Temp Pulse Resp BP Pulse Ox
99.4 F 81 25 160/85 94
08/16/23 06:09 08/16/23 08:06 08/16/23 06:00 08/16/23 08:06 08/16/23 06:00
Cardiovascular:: Regular rate and rhythm
Respiratory:: Bilateral: Coarse
Lung Excursion:: Normal
Abdomen:: Nontender and Soft
Bowel Sounds:: Normal
Extremity Edema:: +1: Bilateral:
Villareal Catheter: Yes
[2023-08-16 08:27] LABS: Glucose - Point of Care 145 mg/dl (70-99)
--- NOTE | 2023-08-16 08:37 | PTCARENOTE ---
patient received at 0700 intubated , on heparing at units infusing via RT AC; NSS at 800/hr; Insulin at 12 unit per critical hyperglycemia protocol. ETT # 02/26 center. AC 20/500/+8/40% peak 26/VT 394/RR 23. Copious amount or oral and ETT
white and thick secretions. Secretions increase when pt needs sedation ( pt gagging on ETT, over breathing vent settings, couphing ) . left Dopp Half tube auscultated for proper placement . Jevity 1.5 at goal of 75/hr Auto flush at 50/Q one hr.
soft b/l restraints in place / HOB elevated
[2023-08-16] MEDS: HEPARIN 25000 UNITS/250 ML IV ×2 (09:29→18:27)
[2023-08-16] MEDS: MAXIPIME 2000 MG IV ×2 (09:54→21:01)
[2023-08-16 10:00] LABS: Glucose - Point of Care 160 mg/dl (70-99)
[2023-08-16] MEDS: LOW STRENGTH ASPIRIN 81 MG TUBE (10:04)
[2023-08-16] MEDS: STERILE WATER FOR INJECTION 10 ML IV ×2 (10:04→21:01)
[2023-08-16] MEDS: SUBLIMAZE 100 IV ×2 (11:02→11:37)
[2023-08-16 11:17] LABS: Glucose - Point of Care 136 mg/dl (70-99)
--- NOTE | 2023-08-16 11:36 | W.PN.HOSP.TC ---
Today's Communication/Plan
-
ongoing vent weaning effort
abx per ID
Assessment / Plan
Assessment / Plan
1. Acute hypercapnic respiratory failure with suspected OHS
Vent dependent resp failure
Acute toxic metabolic encephalopathy
-Patient required intubation on 08/12 in the morning
-Postintubation x-ray showing ET tube in correct position. No pneumothorax
-pre-intubation ABG showing pCO2 greater than 115, repeat ABG postintubation showing pCO2 down to 40
-remains intubated at this point. vent weaning difficult with excessive secretion.
2. NATALIA - Resolved
-Renal function 0.9 in Jul 29, trending down slowly.
-Hold Lasix/lisinopril
-Brown exchanged on day of admission
-Renal ultrasound normal.
-Nephrology following
3. Sepsis - POA
Hypotensions w/o shock
-suspected urinary source vs pulm vs other
-Blood culture and urine culture collected
-Reps cs negative so far
-Continues to spike fever.
-ID involved and following along. on cefepime.
4. Left leg DVT
-Recently diagnosed in [facility], was on Lovenox 120mg/bid
-Left lower extremity Doppler showing nonocclusive thrombus in common femoral vein
-Patient has been started on heparin drip per hematology recommendation
5. Hyperkalemia - resolved
-Secondary to renal failure and lisinopril.
-EKG showing NSR, MN 190ms, QRS 142ms
-Patient got calcium gluconate/insulin-glucose.
-NGT in place and got through NGT
6. Insulin-dependent diabetes mellitus - Uncontrolled
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
-On insulin drip as part of ICU protocol
6. Essential HTN
-Maintain on metoprolol tartrate. prn hydralazine
7. Chronic indwelling Brown catheter
Hypospadias
-Brown catheter has been exchanged on 08/11
8. Reported delusion
History of bipolar disorder
-Hold Abilify. Valproate level within normal.
-Psychiatry evaluated on day of admission, currently remains intubated/sedated and will be re-involved post extubation
9. Hypernatremia
- FWF increased to 50mls/hr
GERD
Morbid obesity
Obstructive sleep apnea
Neuropathy
DVT prophylaxis - heparin subq
Full code
Discussed with
Total critical care time 38 mins . Total critical care time documented does not include time spent on separately billed procedures or the services of residents, students, nurses or physician assistants. I personally saw and examined the patient. I
have reviewed all diagnostic interpretations and treatment plans as written. I was present for the figueroa portions of any procedures performed and the inclusive time noted in any critical care statement. Critical care time includes patient management
by me, time spent at the patients bedside, time to review lab and imaging results, discussing patient care, documentation in the medical record, and time spent with the family or caregiver.
Anticipated Discharge: > 48 hours
Subjective/Interval History
-
Date of Service: August 16, 2023
Remains intubated and sedated
Excessive secretions
Afebrile overnight
No events reported
Objective Data
-
Labs:
Laboratory Results
08/16/23
05:30
WBC 9.8
Hgb 9.0 L
Hct 27.6 L
Plt Count 220
APTT 83.1 H
Sodium 144
Potassium 4.0
Chloride 110 H
Carbon Dioxide 24
BUN 23 H
Creatinine 1.2
Glucose 149 H
Calcium 8.0 L
Vital Signs:
Vital Signs
Temp Pulse Resp BP Pulse Ox
99.4 F 88 31 145/60 88
08/16/23 06:09 08/16/23 11:13 08/16/23 11:13 08/16/23 09:00 08/16/23 11:27
I&O
08/15/23 08/16/23 08/17/23
06:59 06:59 06:59
Intake Total 3012.5 / 3012.5 4034.5 / 4279.5 735 / 735
Output Total 1610 / 1610 2452 / 2602 450 / 450
Balance 1402.5 / 1402.5 1582.5 / 1677.5 285 / 285
Review of Systems
-
Unable to obtain full review of systems at this time due to: Patient Intubation
Physical Exam
-
General: No Apparent Distress and Intubated; Negative Respiratory Distress
Respiratory: Clear to Auscultation
Cardiac: Regular Rhythm and S1/S2; Negative Murmur
GI: Soft, Nontender and Normal Bowel Sounds
Genito-urinary: Other (Brown caheter in place, have hypospadiasis)
Musculoskeletal: No Edema
Neuro: Sedated
[2023-08-16] MEDS: SUBLIMAZE 100 MCG IV (11:37)
[2023-08-16] MEDS: NSS 1000 IV (11:53)
--- NOTE | 2023-08-16 11:55 | W.PN.ID1 ---
Date of Service
Date of Service: August 16, 2023
Today's Communication
Continue with cefepime for today - day 5
Assessment / Plan
VDRF
Fever
Leukocytosis
Retinitis pigmentosa (legally blind)
Spinal stenosis
Bipolar disease/anxiety
Class III obesity
Hx DVT
HTN
COPD
DM
BPH with chronic urinary retention (chronic Brown)
Recommendations:
COVID and influenza negative. Respiratory culture usual resp harpreet
Fever resolved
Continue with cefepime for today - day 5
Monitor white count and temperature curve
Monitor CXR. Not clear if findings are new or residual from prior pneumonia.
Continue with supportive measures
Chief Complaint
-: Fever
Subjective / Review of Systems
no further fevers
bp stable
rr midlly elevated
on FiO2 45%, peep 5
no leukocytosis
cr further improved
08/14 resp culture usual resp harpreet
secretions are limiting extubation
Vital Signs / Physical Exam
Vital Signs
Vital Signs
Temp Pulse Resp BP Pulse Ox
99.5 F 88 31 145/60 88
08/16/23 11:30 08/16/23 11:13 08/16/23 11:13 08/16/23 09:00 08/16/23 11:27
Physical Exam
Constitutional: No Acute Distress and Chronically Ill
Cardiovascular: Regular Rate and S1/S2; Negative Murmur or Rub
Pulmonary: Clear and Symmetric; Negative Wheezes or Rales
Gastrointestinal: Soft, Non Tender, Non Distended and Normal Bowel Sounds
Skin: Warm and Dry; Negative Rash or Jaundice
Objective Data
Lab Data
Lab Results
08/16/23 05:30
08/16/23 05:30
PT 16.7 Sec (11.4-14.6) H 08/15/23 18:17
INR 1.37 08/15/23 18:17
APTT 83.1 Sec (23.4-35.0) H 08/16/23 05:30
Estimated Creat Clear 88 ml/min 08/16/23 05:30
Lactic Acid 1.4 mmol/L (0.7-2.0) 08/13/23 15:20
Total Bilirubin 0.6 mg/dl (0.2-1.3) 08/10/23 17:15
AST 30 U/L (17-59) 08/10/23 17:15
ALT 28 U/L (0-50) 08/10/23 17:15
Alkaline Phosphatase 77 U/L (38-126) 08/10/23 17:15
Most recent labs reviewed.
Micro Results:
08/14/23 10:38 Respiratory Culture - Final
Tracheal Aspirate Usual Respiratory Harpreet
Gram Stain - Final
08/11/23 18:22 Blood Culture - Preliminary
Blood/Venous No Growth in 4 days- Final report to follow
08/11/23 17:58 Blood Culture - Preliminary
Blood/Venous No Growth in 4 days- Final report to follow
08/12/23 15:45 Respiratory Culture - Final
Tracheal Aspirate Usual Respiratory Harpreet
Gram Stain - Final
08/13/23 11:02 Influenza Types A & B (ADELITA) - Final
Nasal Swab Negative for Influenza A & B, NAAT
Negative results must be combined with clinical observations
and patient history.
Nucleic Acid Amplification test (NAAT)performed on the
[employer] platform.
08/11/23 04:54 MRSA Screen - Final
Nose No Methicillin Resistant Staphylococcus aureus isolated.
Imaging:
08/11/2023 Renal ultrasound: No hydronephrosis. No abnormal solid or complex renal masses. No renal calculi. Please see full dictation for additional detail.
[2023-08-16 12:09] LABS: Glucose - Point of Care 149 mg/dl (70-99)
[2023-08-16 14:54] LABS: Glucose - Point of Care 124 mg/dl (70-99)
[2023-08-16 16:40] LABS: Glucose - Point of Care 133 mg/dl (70-99)
--- NOTE | 2023-08-16 17:39 | PTCARENOTE ---
patient in bed. Heparing at , Fentanyl at 50 mcg via left AC; pt intubated in restraints
[2023-08-16 18:25] LABS: Glucose - Point of Care 139 mg/dl (70-99)
--- NOTE | 2023-08-16 20:00 | PTCARENOTE ---
Rec'd pt with wrists restrained for pt safety, fent gtt at 50mic, able to follow commands,blind, SR w/ 1'av block, BBB, bp elevated- lopressor given as scheduled, + pulses, + LE edema, skin warm/dry, #8 oral ett- repos at 24 cm R lip, ac 20, tv 500,
5 peep, 45%, lungs coarse, decr in bases, copious amts thick white secretions, sat 94, hypo bowel sounds, abd obese, soft, left nares dobhof- jevity 1.5 aat 75/hr & 50ml h20 flush, no resid, no vomiting, villareal draining bayron urine, hep gtt at 2600
units, insulin gtt at 12 units- see flow sheet for titrations
[2023-08-16 20:27] LABS: Glucose - Point of Care 135 mg/dl (70-99)
[2023-08-16] MEDS: COLACE LIQUID 100 MG TUBE (21:02)
[2023-08-16] MEDS: NEURONTIN 600 MG TUBE (21:02)
[2023-08-16] MEDS: ABILIFY 7.5 MG TUBE (22:18)
[2023-08-16 22:28] LABS: Glucose - Point of Care 185 mg/dl (70-99)
[2023-08-16 23:26] LABS: Glucose - Point of Care 155 mg/dl (70-99)
[2023-08-17] VITALS (29 sets, daily range): BP systolic 120–170; BP diastolic 53–92; BMI 51.9
--- NOTE | 2023-08-17 | PTCARENOTE ---
sys reviewed, cont w/ lg amt white thick secretions,CHG bath done, linens changed
[2023-08-17] MEDS: NSS 1000 IV (00:13)
[2023-08-17] MEDS: NOVOLIN R INSULIN INFUSION 100 IV ×2 (00:45→07:33)
[2023-08-17] MEDS: TYLENOL ORAL SOLUTION 650 MG TUBE ×2 (01:01→04:29)
--- NOTE | 2023-08-17 01:01 | PTCARENOTE ---
tyelnol 650mg via tube given for temp
[2023-08-17 01:24] LABS: Glucose - Point of Care 145 mg/dl (70-99)
[2023-08-17] MEDS: SUBLIMAZE 100 IV ×2 (02:34→20:54)
[2023-08-17 03:28] LABS: Glucose - Point of Care 110 mg/dl (70-99)
[2023-08-17 03:32] LABS: Hematocrit 25.7 % (39.0-52.0); Hemoglobin 8.4 g/dL (13.0-18.0); Mean Corp Hgb Conc. 32.7 g/dL (33.0-37.0); Mean Corpuscular Hgb 33.1 pg (27.0-31.0); Mean Corpuscular Volume 101.2 fL (80.0-94.0); Mean Platelet Volume 9.8 fL (7.4-10.4); Platelet Count 245 10^3/uL (130-400); Red Blood Cell Count 2.54 10^6/uL (4.70-6.10); Red Cell Dist. Width 14.6 % (11.5-14.5); White Blood Cell Count 11.6 10^3/uL (4.8-10.8)
[2023-08-17 03:52] LABS: APTT 99.3 Sec (23.4-35.0)
[2023-08-17] MEDS: HEPARIN 25000 UNITS/250 ML IV ×2 (03:52→22:06)
[2023-08-17 04:31] LABS: Blood Urea Nitrogen 16 mg/dl (9-20); Calcium 7.8 mg/dl (8.4-10.2); Carbon Dioxide 27 mmol/L (22-30); Chloride 112 mmol/L (98-107); Estimated Creatinine Clearance 108 ml/min; Glucose 110 mg/dl (70-99); Potassium 3.9 mmol/L (3.5-5.1); Sodium 140 mmol/L (135-145); eGFR > 60.00
--- NOTE | 2023-08-17 04:31 | PTCARENOTE ---
sys reviewed, continues w/ lg amt thick white secretions, ett repos on left side at 24cm, tylenol 650mg via tube given for temp
[2023-08-17 05:28] LABS: Glucose - Point of Care 135 mg/dl (70-99)
[2023-08-17 07:27] LABS: Glucose - Point of Care 136 mg/dl (70-99)
[2023-08-17] MEDS: ANTIFUNGAL CLEAR 1 APPLIC TOPICAL ×2 (07:32→19:38)
[2023-08-17] MEDS: DESENEX/MITRAZOL/ZEASORB 1 APPLIC TOPICAL ×2 (07:32→19:38)
[2023-08-17] MEDS: DAILY VITAMIN/CENTRUM 15 ML TUBE (07:33)
--- NOTE | 2023-08-17 07:42 | PTCARENOTE ---
0700 patient received in bed , intubated. Fentanyl qtt infusing via RT AC at 75mcg/7.5 ml; NSS at 80/hr; Insulin per hyperglycemia protocol at 12units or 12ml Accu checks Q 2 hrs. ETT # 8/24 cm left lip. Vent Ac 20/500/+5/45% changed to 40% POX 98%
peak 18/RR 22; Suction via ETT or oral white thick secretions large amount. Restraints soft wrist b/l. Inwelling Brown draining clear bayron urine. pt aroused. following commands. left Dobhoff Auscultated for proper placement . Jevity 1.5 at 75/water
auto flush 50/hr HOB elevated. call alvarez within reach
[2023-08-17] MEDS: VITAMIN D3 (cholecalciferol) 25 MCG TUBE (07:54)
[2023-08-17] MEDS: NORVASC 5 MG TUBE (07:54)
[2023-08-17] MEDS: NEURONTIN 300 MG TUBE (07:54)
[2023-08-17] MEDS: NSS (PRESERVATIVE FREE) 10 ML IV (07:54)
[2023-08-17] MEDS: FEOSOL 325 MG TUBE (07:54)
[2023-08-17] MEDS: LOPRESSOR 50 MG TUBE ×2 (07:54→19:38)
[2023-08-17] MEDS: LOW STRENGTH ASPIRIN 81 MG TUBE (07:55)
[2023-08-17] MEDS: PROTONIX IV 40 MG IV (07:55)
--- NOTE | 2023-08-17 08:12 | W.PN.INTV ---
Today's Communication / Plan
Recommendations
bronch today --> mucoid secretions and LLL which were suction, friable mucosa and left upper lobe bronchus with bloody secretions -controlled via chilled NS
Hold off on extubation today given bronchoscopy findings with bloody mucosa --> plan to re-look bronchoscopy tomorrow and if no bleeding and CXR stable then will consider extubation tomorrow to BiPAP
Abx
VAP precautions
heparin gtt ---> if bloody secretions seen then would stop heparin gtt
serial H/H
Assessment
-
68-year-old male morbidly obese with probable obesity hypoventilation syndrome with chronic hypercapnia on chronic oxygen, bipolar disorder, hypertension, diabetes, DVT presented with recently diagnosed left leg DVT, NATALIA, hyperkalemia, metabolic
encephalopathy and hypercapnia despite maximum BiPAP requiring intubation-multimedia designer consulted for ventilator/critical care management 08/12/2023.
Assessment
Acute respiratory failure with hypoxemia and hypercapnia on mechanically-assisted ventilation
Intubated 08/12/2023
Toxic metabolic encephalopathy
NATALIA - resolved
CAP
Centrilobular emphysema (seen on apical lung chandra via cervical CT from 08-07-2023) and at risk for COPD
Recent left lower extremity DVT-provoked
Leukocytosis
Wcpmvc-bzdgdnjzqm-tfbokajdnn 11.9
Hyperglycemia - now resolved
Hypertriglyceridemia
Conditions present prior to admission:
Morbid obesity-BMI 51.
Recent WFT-p[facility] stay.
Hypertension.
Obesity hypoventilation syndrome.
Chronic oxygen supplementation.
Legally blind-retinitis pigmentosa.
Spinal stenosis.
Colon resection.
Deviated septum repair.
Former smoker.
COPD on chronic oxygen supplementation
Chronic Brown due to BPH and chronic urinary retention
Plan
Improved with severity of secretions, and he is following commands, HDN stable off vasopressors and saturating 100% on PST 11/07 at 40% FiO2 --> he however still has significant left lung atelectasis --> I will perform bronchoscopy today with plans to
extubate later this afternoon --> given his hypercapnea I plan to extubate to BiPAP. Turning off sedation now - use prn doses.
Bronchoscopy performed showing moderate amounts of thick yellow/off white mucous in LLL but also bloody secretions in left upper lobe bronchus - could have been exacerbated by coughing while on heparin gtt with last apTT >95 --> hemostasis achieved
with chilled NS
Keep intubated today and plan for re-look tomorrow, and if CXR stable with no worsening bloody secretions and stable airway on bronchoscopy, then will extubate tomorrow
Ventilator settings reviewed-adjusted accordingly
Serial blood gas
If extubated and requires reintubation, he will likely need tracheostomy --> daughter does not feel pt would want this but she wants to keep pt full code for now; this was also previously reviewed with Dr. Bullard & daughter
Dr. Bullard reviewed with daughter-fourth intubation in the last 1.5 years-transition to CPAP and not BiPAP-Dr. Bullard told daughter and family members that if we extubate him we would likely extubate him to BiPAP at night and during the daytime as
needed, however, if he failed and required reintubation he would likely be a tracheostomy
VAP prevention protocol continues
Nebulizers if needed-currently not bronchospastic
Chest x-ray 08/13/2023-increased left lower lobe pneumonia
Repeat chest x-ray Thursday
Sport bed with percussion-appears to be helping
Anticoagulation for recent DVT
Hematology following-correspondence reviewed
Echocardiogram 08/12/2023-EF 65-70%
Previously as per Dr. Tran - With unclear mental status/neurologic exam-obtain CT head-reviewed with primary team - mentation now improved and he is following commands. No urgent need for CT at this time.
Monitor renal function
Replace electrolyte abnormalities with K>3.5, Mg>1.8. PO4>3
Nephrology seen-correspondence reviewed- serial renal function, and maintain MAP greater than 65; stop IVF given risk of becoming fluid overloaded and he is already at goal on TF
Cultures reviewed-unrevealing thus far
Repeat sputum 08/14/2023-usual respiratory harpreet
Infectious disease consultation obtained-correspondence reviewed-changed to cefepime (renally dose cefepime - raise to 2g IV q8hr today)
Follow hemoglobin
Transfuse if needed to maitain Hb>7, plt>50k
PPI while on the ventilator
Follow blood sugar with goal BG 140-180mg/dL
Insulin drip initiated 08/13/2023
Diabetic nurse practitioner consultation ongoing --> hopefully can transition off insulin gtt tonight
DVT prophylaxis-on heparin drip --> will eventullly TRX to NOAC
GI prophylaxis-on pantoprazole 40mg IV q daily
Tolerating tube feeds
Bedside range of motion
Critical care statement: A total of 38 minutes of critical care time was provided for this patient today. This includes management of unstable vital signs, evaluation of the patient at bedside, reviewing the patient's pertinent medical records
including radiographs, ventilator management, spontaneous breathing trial management, pressor management, sedation management, microbiology, laboratory evaluations, and discussion with primary team, consultants, pharmacy, nutrition, physical
therapy, case management, charge nurse, critical care nursing, and respiratory therapy.
Diagnostic data:
Chest x-ray 08/11/2023-bibasilar interstitial pneumonia
Chest x-ray 08/12/2023-rotated to the left, no pneumothorax, ET tube above lashon, bilateral interstitial infiltrates
Chest x-ray 08/13/2023-Mildly improved findings suggesting left lower lobe pneumonia.
Subjective Dataa
Subjective Data
Date of Service:
Date of Service: August 17, 2023
Chief Complaint: Metal Or Wood Blocker Follow Up, Pulmonary Follow Up and Vent Management Follow Up
Subjective:
Seen this AM. On PST on 11/07, 40%. He is asleep but easily arousable and follows commands. ETT secretions are white & thick. Started fentanyl gtt yesterday due to agitation. Febrile overnight to 100.5. No signs of bleeding.
Review of Systems
General: Unobtainable - Sedation
Objective Data
Data Reviewed
Vital Signs / I&O / Oxygen:
Vital Signs
Temp Pulse Resp BP Pulse Ox
98.8 F 63 24 134/60 98
08/17/23 07:51 08/17/23 09:23 08/17/23 09:23 08/17/23 09:00 08/17/23 09:23
Intake and Output
08/16/23 08/17/23 08/18/23
06:59 06:59 06:59
Intake Total 4034.5 / 4279.5 5757.5 / 6008.0 751.5 / 751.5
Output Total 2452 / 2602 2875 / 3000 125 / 125
Balance 1582.5 / 1677.5 2882.5 / 3008.0 626.5 / 626.5
SaO2 [CPAP] 40
SaO2 [A/C] 98
SaO2 98
Nasal Cannula flow liters per 4
minute
Physical Exam
General: Respiratory Distress (n) and Comfortable
HEENT: Normocephalic and Anicteric
Cardiovascular: S1-S2 and Peripheral Edema (Negative)
Respiratory: Wheeze (n), Crackles (n), Rhonchi (n), Non-Labored Respirations, Accessory Resp Muscle Use (n), Stridor (n), ET Tube and Other (Mechanical breath sounds heard bilaterally)
GI: Soft, Non Distended and Non Tender
Neurology: Awake, Alert, No Motor Deficits and Other (Sedated on a ventilator)
Skin: Warm, Dry, Cyanosis (n) and Jaundice (n)
Labs/Micro/Reports
Lab Data
08/17/23 03:19
08/17/23 03:19
Laboratory Results
08/17/23
03:19
APTT 99.3 H
Microbiology
08/11/23 18:22 Blood/Venous Blood Culture - Final
No Growth - Final Report
08/11/23 17:58 Blood/Venous Blood Culture - Final
No Growth - Final Report
08/14/23 10:38 Tracheal Aspirate Respiratory Culture - Final
Usual Respiratory Harpreet
08/14/23 10:38 Tracheal Aspirate Gram Stain - Final
08/12/23 15:45 Tracheal Aspirate Respiratory Culture - Final
Usual Respiratory Harpreet
08/12/23 15:45 Tracheal Aspirate Gram Stain - Final
--- NOTE | 2023-08-17 09:00 | PN.DE.MGMTRT ---
Insulin Management
- -
08/13/2023 Diabetes Management Consult
Patient admitted 08/10 with hyperkalemia from [place]. PMH Chronic respiratory failure, morbid obesity, HTN, ESSIE, BPH, DVT, neuropathy. Prior to admission chart indicated patient diabetes regimen was Lantus 10 units @ HS with SS NovoLog and metformin
500 mg BID. Patient received Lantus @ hs with corrective insulin but glucose has remained > 200. Glycemic protocol to be started today and possibly tube feeds. Will assess in AM for readiness to transition from insulin infusion to subcutaneous.
08/14/2023: Diabetes Management F/U:
A1C 7.4%. Pt required initiation of glycemic protocol due to Hyperglycemia. Tube feeds were started yesterday, currently @50cc/hr.
Glucose has remained elevated 167-201 on drip, requiring 4-6 units of insulin/hr.
Will cont CCGP today and reassess this evening for readiness to transition, ideally at 1800
08/17/2023: Diabetes Management F/U:
Pt remains critically ill and intubated. Started on tube feed 08/13--->Hyperglycemia requiring insulin infusion.
Glucose remained elevated throughout the weekend while on glycemic protocol with high insulin requirements.
Glucose over night was 110 to 185, needed 10-20 units of insulin/hr (TDD of 180 units)
Cont CCGP considering the ongoing hyperglycemia and his hourly insulin requirement.
Will closely follow and reassess for readiness to transition to SQ insulin
Diabetes History
- -
Type of Diabetes: 2 requiring insulin
Pre-Admission Diabetes Regimen
08/17/23
03:19
Creatinine 1.0
Lab Results
Hemoglobin A1c 7.4 % (4.0-5.6) H 08/11/23 04:54
Insulin Pump Settings
IP Diabetes Regimen
08/16/23 08/16/23 08/16/23
09:48 11:06 11:58
Glucose
POC Glucose 160 H 136 H 149 H
02/05/2908/16/23 08/16/23
14:37 16:28 18:13
Glucose
POC Glucose 124 H 133 H 139 H
08/16/23 08/16/23 08/16/23
20:15 22:16 23:15
Glucose
POC Glucose 135 H 185 H 155 H
08/17/23 08/17/23 08/17/23
01:12 03:17 03:19
Glucose 110 H
POC Glucose 145 H 110 H
08/17/23 08/17/23
05:16 07:16
Glucose
POC Glucose 135 H 136 H
Patient Education
[2023-08-17] MEDS: MIRALAX 17 GRAMS TUBE (09:13)
[2023-08-17 09:33] LABS: Glucose - Point of Care 141 mg/dl (70-99)
[2023-08-17] MEDS: STERILE WATER FOR INJECTION 10 ML IV ×2 (11:11→19:37)
[2023-08-17] MEDS: MAXIPIME 2000 MG IV ×2 (11:12→19:37)
[2023-08-17] MEDS: MIRALAX TUBE (11:17)
[2023-08-17 11:37] LABS: Glucose - Point of Care 130 mg/dl (70-99)
[2023-08-17 12:19] LABS: B.E. 4.1 mmol/L; HCO3 28.5 mmol/L (21-28); O2 Saturation % 98.6 % (94-98); PCO2 41 mmHg (35-48); PO2 83 mmHg (83-108); pH 7.45 (7.35-7.45)
--- NOTE | 2023-08-17 13:47 | CM ---
CM following re: discharge planning.
Discussed in rounds, reviewed pt's chart, met with pt. Per Rounds meeting, pt with hypercapnic respiratory failure, remains intubated, weaning trial today continue , continue supportive care.
Per daughter, pt just moved to [facility] one month ago from [facility] and per daughter pt was intubated 4 times since 2021.
D/C plan: return back to [facility] when medically stable.
CM will follow with discharge plan updates as hospitalization progress
--- NOTE | 2023-08-17 13:52 | W.PN.UPDATE ---
Update Note
Progress Note Update
Called daughter, discussed patient's clinical status with passing of PST and candidacy for extubation. Mentioned his CXR which I reviewed today, which albeit shows improved aeration in left hemithorax still shows considerate left lung atelectasis
with continued secretions albeit secretion volume and consistently have markedly improved today compared to prior days.
Bronchoscopy consent obtained verbally for airway clearance and pulmonary toilet purposes. Risk factors included pneumothorax, bleeding, infection and benefits including improved airway clearance, improved oxygenation and improve likelihood of
successful extubation were all discussed. All questions were answered.
[2023-08-17] MEDS: SUBLIMAZE 50 MCG IV ×2 (14:14→19:50)
--- NOTE | 2023-08-17 14:26 | W.PN.NEPH.PH ---
Today's Communication / Plan
-
- Cr and Na normalized. Neph to s/o
Assessment/Plan
-
Impression:
Acute kidney injury (baseline 0.9-1 in 07/29)
Hyperkalemia
Respiratory acidosis
Intubated: hypercapnic resp failure
COPD on chronic oxygen therapy
Recent fall with left patellar injury
Hypertension
Change of mental status
Left lower extremity DVT
Diabetes
History of hypertension
Blind
Obese
Chronic Villareal due to BPH and chronic urinary retention
Plan:
-creatinine down to 1.0
-Grossly nonoliguric greater than 2 L
-hypernatremia improving with adjusted tube flushes
-Currently still holding lisinopril and Lasix
-keep MAP > 65,hemodynamically stable
-nephrology to sign off
-
-
Date of Service: August 17, 2023
CC / HPI / ROS
-
Chief Complaint:
NATALIA
History of Present Illness:
critically ill in ICU on vent
insulin gtt
BP stable on pressors
NATALIA/Cr improved to 1.0
heparin gtt
insulin gtt
Review of Systems:
intubated/sedated
villareal and non oliguric
Labs
-
Labs:
Sodium 140 mmol/L (135-145) 08/17/23 03:19
Potassium 3.9 mmol/L (3.5-5.1) 08/17/23 03:19
Chloride 112 mmol/L (98-107) H 08/17/23 03:19
Carbon Dioxide 27 mmol/L (22-30) 08/17/23 03:19
BUN 16 mg/dl (9-20) 08/17/23 03:19
Creatinine 1.0 mg/dL (0.7-1.3) 08/17/23 03:19
eGFR > 60.00 08/17/23 03:19
Glucose 110 mg/dl (70-99) H 08/17/23 03:19
Calcium 7.8 mg/dl (8.4-10.2) L 08/17/23 03:19
Albumin 4.5 g/dl (3.5-5.0) 08/10/23 17:15
Physical Exam
-
Vital Signs:
Vital Signs
Temp Pulse Resp BP Pulse Ox
99 F 142 30 141/62 97
08/17/23 11:30 08/17/23 11:53 08/17/23 11:53 08/17/23 10:00 08/17/23 11:53
Cardiovascular:: Regular rate and rhythm
Respiratory:: Bilateral: CTA
Lung Excursion:: Normal
Abdomen:: Distended, Nontender and Soft
Bowel Sounds:: Normal
Extremity Edema:: None: Bilateral:
Villareal Catheter: Yes
--- NOTE | 2023-08-17 14:28 | W.SUR.POST ---
Surgical Immediate Post Op
Note
Bedside Bronchoscopy Procedure Note
Pre Op Diagnosis: Atelectasis; hypoxic respiratory failure; excessive airway secretions
Post Op Diagnosis: Same as above
Procedure Performed: Bedside bronchoscopy
Primary Surgeon/Proceduralist: Dr. Wills
Secondary Surgeons: N/A
Anesthesia: Fentanyl 100mcg IVP x1
Estimated Blood Loss: 5cc
Fluids: N/A
Drains/Shunts: N/A
Specimens/Cultures: N/A
Doppler/Duplex/Angio (Y/N): N/A
Complications: No immediate complications
Operative Findings: After verbal consent was obtained from the patient's daughter, patient was pre-oxygenated via ventilator with FiO2 maxed at 100%. The disposable bedside bronchoscopy was inserted via the swivel adapter into the patient's airway
via ETT. 3 mL of 2% lidocaine without epinephrine was instilled onto the lashon. The lashon was sharp and all airways were widely patent down to segmental level on the left and right lung. There was visibly seen mucus/clear secretions which was
'stringy' adjacent to the lashon and seen along right mainstem bronchus as well as left mainstem bronchus. Secretions on the right lung were clear, thin and easily suctioned. Left lower lobe bronchus had thick mucoid secretions that were
suctioned. Patient was violently coughing during suctiong. After suctioning there was mucosal bleeding seen at the left upper lobe bronchus with a slow ooze seen along the mucosa. This was treated with chilled NS 0.9% which achieved hemostasis.
Additional lidocaine (3mL of 2% lido without epi) was instilled into left mainstem bronchus to help reduce bronchospasm/cough. Suctioning also was performed in the left upper lobe including the lingula and HALIE proper. Airway was surveyed again
involving left and right lung revealing widely patent airways down to segmental levels. Bronchoscope was then removed entirely from the airway via ETT and the procedure ended.
[2023-08-17 14:34] LABS: Glucose - Point of Care 85 mg/dl (70-99)
--- NOTE | 2023-08-17 16:15 | W.PN.HOSP.TC ---
Today's Communication/Plan
-
Continue mechanical ventilation and continue to monitor in the ICU
Continue antibiotics
AM labs
Continue anticoagulation
Please see below
Assessment / Plan
Assessment / Plan
Physical Exam
General: No Apparent Distress and Intubated
Respiratory: Clear to Auscultation Bilaterally
Cardiac: Regular Rhythm and S1/S2
GI: Soft, Nontender and Normal Bowel Sounds
Genito-urinary: Other (Brown caheter in place, have hypospadiasis)
Musculoskeletal: No Edema
Neuro: Sedated
Assessment/Plan
1. Acute hypercapnic respiratory failure with suspected OHS
Vent dependent resp failure
Acute toxic metabolic encephalopathy - IMPROVING
-Patient required intubation on 08/12 in the morning
-Postintubation x-ray showing ET tube in correct position. No pneumothorax
-pre-intubation ABG showing pCO2 greater than 115, repeat ABG postintubation showing pCO2 down to 40
-remains intubated at this point. vent weaning difficult with excessive secretion.
-ICU performed bronchoscopy showing 'moderate amounts of thick yellow/off white mucous in LLL but also bloody secretions in left upper lobe bronchus - could have been exacerbated by coughing while on heparin gtt'
-ICU will attempt to extubate on BiPAP by tomorrow
-Might need a tracheostomy if patient requires reintubation
2. NATALIA - Resolved
-Renal function 0.9 in Jul 29, trending down slowly.
-Hold Lasix/lisinopril
-Brown exchanged on day of admission
-Renal ultrasound normal.
-Nephrology following
3. Sepsis - POA
Hypotensions w/o shock
Left Lower Lobe Pneumonia
-suspected urinary source vs pulm vs other
-Blood culture and urine culture collected
-Reps cs negative so far
-Continues to spike fever.
-ID involved and following along. on cefepime.
4. Left leg DVT
-Recently diagnosed in [facility], was on Lovenox 120mg/bid
-Left lower extremity Doppler showing nonocclusive thrombus in common femoral vein
-Patient has been started on heparin drip per hematology recommendation
5. Hyperkalemia - resolved
-Secondary to renal failure and lisinopril.
-EKG showing NSR, AK 190ms, QRS 142ms
-Patient got calcium gluconate/insulin-glucose.
-NGT in place and got through NGT
6. Insulin-dependent diabetes mellitus - Uncontrolled
-diabetic OIL AGENT involved in care
-On insulin drip as part of ICU protocol
6. Essential HTN
-Maintain on metoprolol tartrate. prn hydralazine
7. Chronic indwelling Brown catheter
Hypospadias
-Brown catheter has been exchanged on 08/11
8. Reported delusion
History of bipolar disorder
-Hold Abilify. Valproate level within normal.
-Psychiatry evaluated on day of admission, currently remains intubated/sedated and will be re-involved post extubation
9. Hypernatremia
- FWF was increased to 50mls/hr
GERD
Morbid obesity
Obstructive sleep apnea
Neuropathy
DVT prophylaxis - heparin subq
Full code
Acute Hypercapnic Respiratory Failure requiring ongoing intubation is a high risk encounter
Anticipated Discharge: > 48 hours
Subjective/Interval History
-
Date of Service: August 17, 2023
Patient was seen and examined. He remained intubated but was somewhat awake and moving his arms and opened his eyes.
Objective Data
-
Labs:
Laboratory Results
08/17/23 08/17/23 08/17/23
03:19 12:10 16:00
WBC Pending
Hgb Pending
Hct Pending
Plt Count Pending
HCO3 28.5 H
Sodium 140
Potassium 3.9
Chloride 112 H
Carbon Dioxide 27
BUN 16
Creatinine 1.0
Glucose 110 H
Calcium 7.8 L
Vital Signs:
Vital Signs
Temp Pulse Resp BP Pulse Ox
99 F 142 30 141/62 96
08/17/23 11:30 08/17/23 11:53 08/17/23 11:53 08/17/23 10:00 08/17/23 15:10
I&O
08/16/23 08/17/23 08/18/23
06:59 06:59 06:59
Intake Total 4034.5 / 4279.5 5757.5 / 6008.0 1636.0 / 1636.0
Output Total 2452 / 2602 2875 / 3000 925 / 925
Balance 1582.5 / 1677.5 2882.5 / 3008.0 711.0 / 711.0
[2023-08-17 17:08] LABS: Glucose - Point of Care 131 mg/dl (70-99)
[2023-08-17 17:23] LABS: Hematocrit 27.7 % (39.0-52.0); Hemoglobin 8.9 g/dL (13.0-18.0); Mean Corp Hgb Conc. 32.1 g/dL (33.0-37.0); Mean Corpuscular Volume 102.6 fL (80.0-94.0); Mean Platelet Volume 10.6 fL (7.4-10.4); Platelet Count 251 10^3/uL (130-400); Red Cell Dist. Width 14.9 % (11.5-14.5); White Blood Cell Count 11.9 10^3/uL (4.8-10.8)
[2023-08-17] MEDS: MAXIPIME IV (18:29)
[2023-08-17 18:47] LABS: Glucose - Point of Care 110 mg/dl (70-99)
--- NOTE | 2023-08-17 20:00 | PTCARENOTE ---
Rec'd pt with wrists restrained for pt safety, follows commands, HOWARD , nods yes/no to questions asked, fent 50mic given for gen pain, fent gtt incr to 100 tracy, SR w/ 1 ' av block, bp stable, + pulses, + LE edema, skin warm/dry, on insulin gtt at 10
units- see flow sheet for titrations, hep gtt at 2600 units, # 8 oral ett- moved to R side at 24 cm, ac 20, tv 500, 5 peep, 40%, sat 97, suct for thick blood tinged white secretions, lungs coarse, +bowel sounds, no bm, abd obese, soft, Left nares
dobhoff- jevity 1.5 at 75ml/hr & 50ml/hr h20 flush, no resid, villareal draining bayron urine, on lat rotation bed
[2023-08-17 20:06] LABS: Glucose - Point of Care 122 mg/dl (70-99)
[2023-08-17] MEDS: ABILIFY 7.5 MG TUBE (21:02)
[2023-08-17] MEDS: COLACE LIQUID 100 MG TUBE (21:02)
[2023-08-17] MEDS: NEURONTIN 600 MG TUBE (21:02)
[2023-08-17 22:11] LABS: Glucose - Point of Care 114 mg/dl (70-99)
[2023-08-18] VITALS (30 sets, daily range): BP systolic 107–168; BP diastolic 58–96; PULSE 2–74; BMI 52.4
--- NOTE | 2023-08-18 | PTCARENOTE ---
sys reviewed, changes noted, CHG bath done, linens changed
[2023-08-18 00:02] LABS: Glucose - Point of Care 135 mg/dl (70-99)
[2023-08-18 02:07] LABS: Glucose - Point of Care 118 mg/dl (70-99)
[2023-08-18] MEDS: NOVOLIN R INSULIN INFUSION 100 IV ×2 (02:48→13:59)
[2023-08-18 03:07] LABS: % Basophils 0.6 % (0-2); % Immature Granulocytes 5.8 % (0-0.5); % Lymphocytes 17.4 % (20.5-51.1); % Monocytes 9.2 % (1.7-9.3); Absolute Basophils 0.1 10^3/uL (0-0.2); Absolute Eosinophils 0.7 10^3/uL (0-0.7); Absolute Immature Granulocytes 0.6 10^3/uL (0-0.05); Absolute Lymphocytes 1.9 10^3/uL (1.2-3.4); Absolute Neutrophils 6.8 10^3/uL (1.4-6.5); Hematocrit 26.1 % (39.0-52.0); Hemoglobin 8.6 g/dL (13.0-18.0); Mean Corpuscular Hgb 32.1 pg (27.0-31.0); Mean Corpuscular Volume 97.4 fL (80.0-94.0); Mean Platelet Volume 9.8 fL (7.4-10.4); Nucleated Red Blood Cells % 0.5 % (-); Platelet Count 252 10^3/uL (130-400); Red Blood Cell Count 2.68 10^6/uL (4.70-6.10); Red Cell Dist. Width 14.9 % (11.5-14.5); Venous Blood Gas B.E. 4.6 mmol/L (-4 to +4); Venous Blood Gas HCO3 29.2 mmol/L (22-27); Venous Blood Gas O2 Sat % 99.3 %; Venous Blood Gas pCO2 43 mmHg (35-48); Venous Blood Gas pH 7.44 (7.32-7.43); Venous Blood Gas pO2 171 mmHg (30-50); White Blood Cell Count 11.1 10^3/uL (4.8-10.8)
[2023-08-18] MEDS: MAXIPIME 2000 MG IV ×3 (03:12→19:55)
[2023-08-18] MEDS: STERILE WATER FOR INJECTION 10 ML IV ×3 (03:13→19:55)
[2023-08-18 03:24] LABS: INR 1.25; PT 15.5 Sec (11.4-14.6)
[2023-08-18 03:26] LABS: APTT 94.1 Sec (23.4-35.0)
[2023-08-18 03:29] LABS: NT-proBNP 4700 pg/ml
[2023-08-18 03:44] LABS: ALT (SGPT) 26 U/L (0-50); AST (SGOT) 25 U/L (17-59); Albumin 2.8 g/dl (3.5-5.0); Alkaline Phosphatase 78 U/L (38-126); Blood Urea Nitrogen 16 mg/dl (9-20); Carbon Dioxide 26 mmol/L (22-30); Chloride 109 mmol/L (98-107); Estimated Creatinine Clearance 121 ml/min; Glucose 121 mg/dl (70-99); Magnesium 1.7 mg/dl (1.6-2.3); Phosphorus 2.9 mg/dl (2.5-4.5); Potassium 4.2 mmol/L (3.5-5.1); Sodium 138 mmol/L (135-145); Total Bilirubin 0.6 mg/dl (0.2-1.3); Total Protein 5.6 g/dl (6.3-8.2); eGFR > 60.00
[2023-08-18 04:22] LABS: Glucose - Point of Care 120 mg/dl (70-99)
--- NOTE | 2023-08-18 04:28 | PTCARENOTE ---
sys reviewed, changes noted, ett repos on left side at 24cm
[2023-08-18 06:11] LABS: Glucose - Point of Care 145 mg/dl (70-99)
[2023-08-18] MEDS: NORVASC 5 MG TUBE (07:42)
[2023-08-18] MEDS: NEURONTIN 300 MG TUBE (07:42)
[2023-08-18] MEDS: LOW STRENGTH ASPIRIN 81 MG TUBE (07:42)
[2023-08-18] MEDS: FEOSOL 325 MG TUBE (07:42)
[2023-08-18] MEDS: LOPRESSOR 50 MG TUBE (07:42)
[2023-08-18] MEDS: DESENEX/MITRAZOL/ZEASORB 1 APPLIC TOPICAL ×2 (07:42→19:54)
[2023-08-18] MEDS: MIRALAX 17 GRAMS TUBE (07:42)
[2023-08-18] MEDS: VITAMIN D3 (cholecalciferol) 25 MCG TUBE (07:42)
[2023-08-18] MEDS: DAILY VITAMIN/CENTRUM 15 ML TUBE (07:42)
[2023-08-18] MEDS: NSS (PRESERVATIVE FREE) 10 ML IV (07:43)
[2023-08-18] MEDS: PROTONIX IV 40 MG IV (07:43)
[2023-08-18] MEDS: ANTIFUNGAL CLEAR 1 APPLIC TOPICAL ×2 (07:44→19:54)
--- NOTE | 2023-08-18 07:55 | W.PN.INTV ---
Today's Communication / Plan
Recommendations
Repeated bronch today --> no active bleeding seen. Patient extubated to BiPAP.
Start Mucinex.
BiPAP at night/during naps
Last day of ABX today
Heparin gtt
PANTOGRAPH MACHINE OPERATOR pending
Try to wean off insulin gtt
Assessment
-
68-year-old morbidly obese M with probable obesity hypoventilation syndrome with chronic hypercapnia on chronic oxygen, bipolar disorder, hypertension, diabetes, DVT presented with recently diagnosed left leg DVT, NATALIA, hyperkalemia, metabolic
encephalopathy and hypercapnia despite maximum BiPAP requiring intubation-manhole builder consulted for ventilator/critical care management 08/12/2023.
Assessment
Acute respiratory failure with hypoxemia and hypercapnia on mechanically-assisted ventilation
Intubated 08/12/2023
Extubated 08/18/2023
Toxic metabolic encephalopathy
NATALIA - resolved
CAP
Centrilobular emphysema (seen on apical lung chandra via cervical CT from 08-07-2023) and at risk for COPD
Recent left lower extremity DVT-provoked
Leukocytosis
Anemia
Hyperglycemia - now resolved
Hypertriglyceridemia
Conditions present prior to admission:
Morbid obesity-BMI 51.
Recent [facility] stay.
Hypertension.
Obesity hypoventilation syndrome.
Chronic oxygen supplementation.
Legally blind-retinitis pigmentosa.
Spinal stenosis.
Colon resection.
Deviated septum repair.
Former smoker.
COPD on chronic oxygen supplementation
Chronic Brown due to BPH and chronic urinary retention
Plan
Repeat bronchoscopy performed today --> no active bleeding seen and additional suctioning the left lower lobe which shows moderate amounts of thick white/yellow secretions.
SBT on PST 11/07 performed and patient extubated to BiPAP
Continue BiPAP with sleep on 24/04
Titrate FiO2 to maintain SpO2 >88 and <94%
In the AM prior to extubation, the patient's ventilator settings were reviewed, and adjusted accordingly
Continue to obtain serial blood gas
If he requires reintubation, he will likely need tracheostomy --> daughter does not feel pt would want this but she wants to keep pt full code for now; this was also previously reviewed with Dr. Bullard & daughter
Dr. Bullard reviewed with daughter-fourth intubation in the last 1.5 years-transition to CPAP and not BiPAP
Nebulizers if needed-currently not bronchospastic
Sport bed with percussion-appears to be helping
Anticoagulation for recent DVT - currently on heparin gtt
Hematology following-correspondence reviewed
Echocardiogram 08/12/2023-EF 65-70% with dilated RV and normal RVSF
Previously as per Dr. Tran - With unclear mental status/neurologic exam-obtain CT head-reviewed with primary team - mentation now improved and he is following commands. No urgent need for CT at this time.
Monitor renal function
Replace electrolyte abnormalities with K>3.5, Mg>1.8. PO4>3
Nephrology seen-correspondence reviewed- serial renal function, and maintain MAP greater than 65
Diurese today with lasix given mild pulmonary vascular congestion developing on CXR and elevated pro-BNP
Cultures reviewed-unrevealing thus far
Repeat sputum 08/14/2023-usual respiratory harpreet
Infectious disease consultation obtained-correspondence reviewed-changed to cefepime (renally dose cefepime - raise to 2g IV q8hr yesterday) --> ID to stop ABx after today as he has been on cefepime since 08/13 s/p zosyn x 2 days (08/11 + 08/12)
Follow hemoglobin
Transfuse if needed to maitain Hb>7, plt>50k
Follow blood sugar with goal BG 140-180mg/dL
Insulin drip initiated 08/13/2023
Diabetic nurse practitioner consultation ongoing --> hopefully can transition off insulin gtt now that he is extubated
PANTOGRAPH MACHINE OPERATOR ordered to evaluate if safe to start PO diet
PPI started (takes PPI at home)
DVT prophylaxis-on heparin drip --> will eventullly TRX to NOAC
GI prophylaxis-on pantoprazole 40mg IV q daily
Tube feeds now stopped as pt extubated and is on bipap now and remains sleepy
Bedside range of motion
Critical care statement: A total of 36 minutes of critical care time was provided for this patient today. This includes management of unstable vital signs, evaluation of the patient at bedside, reviewing the patient's pertinent medical records
including radiographs, ventilator management, spontaneous breathing trial management, pressor management, sedation management, microbiology, laboratory evaluations, and discussion with primary team, consultants, pharmacy, nutrition, physical
therapy, case management, charge nurse, critical care nursing, and respiratory therapy.
Diagnostic data:
Chest x-ray 08/11/2023-bibasilar interstitial pneumonia
Chest x-ray 08/12/2023-rotated to the left, no pneumothorax, ET tube above lashon, bilateral interstitial infiltrates
Chest x-ray 08/13/2023-Mildly improved findings suggesting left lower lobe pneumonia.
CXR 08/18/2023: Right basilar pneumonia, and a left basilar opacity that may represent pneumonia, pleural fluid, and/or atelectasis.
Subjective Dataa
Subjective Data
Date of Service:
Date of Service: August 18, 2023
Chief Complaint: Agate Setter Follow Up and Vent Management Follow Up
Subjective:
Pt seen this AM. Remains intubated on 40%, PEEP of 5. ETT secretions are minimal and yellow. No pressors. BP 153/65 and HR 65. He continues to follow commands when sedation is lowered. No events reported from overnight.
Review of Systems
General: Unobtainable - Sedation
Objective Data
Data Reviewed
Vital Signs / I&O / Oxygen:
Vital Signs
Temp Pulse Resp BP Pulse Ox
99.0 F 81 22 150/76 99
08/18/23 08:15 08/18/23 06:00 08/18/23 06:00 08/18/23 06:00 08/18/23 07:14
Intake and Output
08/17/23 08/18/23 08/19/23
06:59 06:59 06:59
Intake Total 5757.5 / 6008.0 4372.5 / 4547.5 550 / 550
Output Total 2875 / 3000 2660 / 2850 250 / 250
Balance 2882.5 / 3008.0 1712.5 / 1697.5 300 / 300
SaO2 [CPAP] 40
SaO2 [A/C] 97
SaO2 99
Nasal Cannula flow liters per 4
minute
Physical Exam
General: Respiratory Distress (n) and Comfortable
HEENT: Normocephalic and Anicteric
Cardiovascular: S1-S2 and Peripheral Edema (Negative)
Respiratory: Wheeze (n), Crackles (n), Rhonchi (n), Non-Labored Respirations, Accessory Resp Muscle Use (n), Stridor (n), ET Tube and Other (Mechanical breath sounds heard bilaterally)
GI: Soft, Non Distended and Non Tender
Neurology: Awake, Alert, No Motor Deficits and Other (Sedated on a ventilator)
Skin: Warm, Dry, Cyanosis (n) and Jaundice (n)
Labs/Micro/Reports
Lab Data
08/18/23 02:55
08/18/23 02:55
Laboratory Results
08/17/23 08/18/23
12:10 02:55
PT 15.5 H
INR 1.25
APTT 94.1 H
pH 7.45
pCO2 41
pO2 83
HCO3 28.5 H
O2 Delivery Level
Microbiology
08/11/23 18:22 Blood/Venous Blood Culture - Final
No Growth - Final Report
08/11/23 17:58 Blood/Venous Blood Culture - Final
No Growth - Final Report
08/14/23 10:38 Tracheal Aspirate Respiratory Culture - Final
Usual Respiratory Harpreet
08/14/23 10:38 Tracheal Aspirate Gram Stain - Final
08/12/23 15:45 Tracheal Aspirate Respiratory Culture - Final
Usual Respiratory Harpreet
08/12/23 15:45 Tracheal Aspirate Gram Stain - Final
[2023-08-18 08:20] LABS: Glucose - Point of Care 119 mg/dl (70-99)
[2023-08-18] MEDS: HEPARIN 25000 UNITS/250 ML IV ×2 (08:20→18:12)
[2023-08-18] MEDS: SUBLIMAZE 100 IV (08:23)
[2023-08-18 10:20] LABS: Glucose - Point of Care 77 mg/dl (70-99)
--- NOTE | 2023-08-18 10:38 | PN.DE.MGMTRT ---
Insulin Management
- -
08/13/2023 Diabetes Management Consult
Patient admitted 08/[address] PMH Chronic respiratory failure, morbid obesity, HTN, ESSIE, BPH, DVT, neuropathy. Prior to admission chart indicated patient diabetes regimen was Lantus 10 units @ HS with SS NovoLog and metformin
500 mg BID. Patient received Lantus @ hs with corrective insulin but glucose has remained > 200. Glycemic protocol to be started today and possibly tube feeds. Will assess in AM for readiness to transition from insulin infusion to subcutaneous.
08/14/2023: Diabetes Management F/U:
A1C 7.4%. Pt required initiation of glycemic protocol due to Hyperglycemia. Tube feeds were started yesterday, currently @50cc/hr.
Glucose has remained elevated 167-201 on drip, requiring 4-6 units of insulin/hr.
Will cont CCGP today and reassess this evening for readiness to transition, ideally at 1800
08/17/2023: Diabetes Management F/U:
Pt remains critically ill and intubated. Started on tube feed 08/13--->Hyperglycemia requiring insulin infusion.
Glucose remained elevated throughout the weekend while on glycemic protocol with high insulin requirements.
Glucose over night was 110 to 185, needed 10-20 units of insulin/hr (TDD of 180 units)
Cont CCGP considering the ongoing hyperglycemia and his hourly insulin requirement.
Will closely follow and reassess for readiness to transition to SQ insulin
08/18/2023 Diabetes Management Follow up
Patient remains intubated is s/p bronchoscopy yesterday. Remains on glycemic protocol requiring 10 to 14 units of insulin per hour. Tube feeds continue at 75 ml/ hr. Will initiate 8 units novolog SQ to offset tube feeds. If tube feeds held or
stopped please hold 8 units novolog q6 hours and continue glycemic protocol. Will follow for readiness to transition to SQ insulin.
Diabetes History
- -
Type of Diabetes: 2
Pre-Admission Diabetes Regimen
08/18/23
02:55
Creatinine 0.9
Lab Results
Hemoglobin A1c 7.4 % (4.0-5.6) H 08/11/23 04:54
Insulin Pump Settings
IP Diabetes Regimen
08/17/23 08/17/23 08/17/23
11:16 14:11 16:47
Glucose
POC Glucose 130 H 85 131 H
08/17/23 08/17/23 08/17/23
18:31 19:54 21:59
Glucose
POC Glucose 110 H 122 H 114 H
08/17/23 08/18/23 08/18/23
23:50 01:56 02:55
Glucose 121 H
POC Glucose 135 H 118 H
08/18/23 08/18/23 08/18/23
04:11 05:59 08:09
Glucose
POC Glucose 120 H 145 H 119 H
08/18/23
10:09
Glucose
POC Glucose 77
Patient Education
[2023-08-18 11:37] LABS: Glucose - Point of Care 127 mg/dl (70-99)
--- NOTE | 2023-08-18 11:47 | PTCARENOTE ---
Pt drowsy. Wakes easily. Fentanyl gtt halfed. Will SBT after bronch. Remains on insulin and Heparin gtt. Insulin changes discussed with diabetes management QUALITY CONTROL TECHNICIAN. Will begin q6h SQ Novolog. Tube feeds at goal. Sinus Rhythm with first degree
and BBB. All other assessments unchanged.
--- NOTE | 2023-08-18 11:59 | W.PN.ID1 ---
Date of Service
Date of Service: August 18, 2023
Today's Communication
Discontinue cefepime after last dose today.
Assessment / Plan
VDRF
Fever
Leukocytosis
Retinitis pigmentosa (legally blind)
Spinal stenosis
Bipolar disease/anxiety
Class III obesity
Hx DVT
HTN
COPD
DM
BPH with chronic urinary retention (chronic Brown)
Recommendations:
COVID and influenza negative. Respiratory culture usual resp harpreet
Fever resolved
On Cefepime (day#8 abx)
Would discontinue further cefepime after last dose today, and thereafter follow off of antimicrobial therapy.
Monitor white count and temperature curve
Monitor CXR. Not clear if findings are new or residual from prior pneumonia.
Continue with supportive measures
����������������������������������������������������������
Chief Complaint
-: Fever and Leukocytosis
Subjective / Review of Systems
Patient seen and examined. Remains vent dependent at present.
Review of Systems: No Fever
Vital Signs / Physical Exam
Vital Signs
Vital Signs
Temp Pulse Resp BP Pulse Ox
99.0 F 75 25 153/65 98
08/18/23 08:15 08/18/23 11:00 08/18/23 11:00 08/18/23 11:00 08/18/23 11:00
Physical Exam
Constitutional: Comfortable, Chronically Ill, Non-toxic and Obese
Oropharyngeal: Other (ET tube in place.)
Cardiovascular: S1/S2; Negative S3/S4
Pulmonary: Coarse; Negative Wheezes or Rales
Gastrointestinal: Soft, Non Distended, Normal Bowel Sounds, No Rebound and No Guarding
Extremities: Edema; Negative Cyanosis or Erythema
Psychological: Calm
Objective Data
Lab Data
Lab Results
08/18/23 02:55
08/18/23 02:55
PT 15.5 Sec (11.4-14.6) H 08/18/23 02:55
INR 1.25 08/18/23 02:55
APTT 94.1 Sec (23.4-35.0) H 08/18/23 02:55
Estimated Creat Clear 121 ml/min 08/18/23 02:55
Lactic Acid 1.4 mmol/L (0.7-2.0) 08/13/23 15:20
Total Bilirubin 0.6 mg/dl (0.2-1.3) 08/18/23 02:55
AST 25 U/L (17-59) 08/18/23 02:55
ALT 26 U/L (0-50) 08/18/23 02:55
Alkaline Phosphatase 78 U/L (38-126) 08/18/23 02:55
Most recent labs reviewed.
Micro Results:
08/11/23 18:22 Blood Culture - Final
Blood/Venous No Growth - Final Report
08/11/23 17:58 Blood Culture - Final
Blood/Venous No Growth - Final Report
08/14/23 10:38 Respiratory Culture - Final
Tracheal Aspirate Usual Respiratory Harpreet
Gram Stain - Final
08/12/23 15:45 Respiratory Culture - Final
Tracheal Aspirate Usual Respiratory Harpreet
Gram Stain - Final
08/13/23 11:02 Influenza Types A & B (ADELITA) - Final
Nasal Swab Negative for Influenza A & B, NAAT
Negative results must be combined with clinical observations
and patient history.
Nucleic Acid Amplification test (NAAT)performed on the
[employer] platform.
08/11/23 04:54 MRSA Screen - Final
Nose No Methicillin Resistant Staphylococcus aureus isolated.
Imaging:
08/11/2023 Renal ultrasound: No hydronephrosis. No abnormal solid or complex renal masses. No renal calculi. Please see full dictation for additional detail.
Care Review
Plan reviewed with: Physician (Critical Care)
[2023-08-18 12:30] LABS: Glucose - Point of Care 159 mg/dl (70-99)
[2023-08-18] MEDS: LASIX 40 MG IV (13:08)
[2023-08-18] MEDS: NOVOLOG FLEXPEN 8 UNITS SC ×3 (13:19→23:38)
[2023-08-18 13:32] LABS: Glucose - Point of Care 147 mg/dl (70-99)
[2023-08-18] MEDS: SUBLIMAZE 50 MCG IV (14:00)
--- NOTE | 2023-08-18 14:12 | W.PN.HOSP.TC ---
Today's Communication/Plan
-
Weaning trial as per ICU
Last day of antibiotics is today
Assessment / Plan
Assessment / Plan
Physical Exam
General: No Apparent Distress and Intubated
Respiratory: Clear to Auscultation Bilaterally
Cardiac: Regular Rhythm and S1/S2
GI: Soft, Nontender and Normal Bowel Sounds
Genito-urinary: Other (Brown catheter in place, have hypospadiasis)
Musculoskeletal: No Edema
Neuro: Sedated
Assessment/Plan
1. Acute hypercapnic respiratory failure with suspected OHS
Vent dependent respiratory failure
Acute toxic metabolic encephalopathy - IMPROVING
-Patient required intubation on 08/12 in the morning
-Postintubation x-ray showing ET tube in correct position. No pneumothorax
-pre-intubation ABG showing pCO2 greater than 115, repeat ABG postintubation showing pCO2 down to 40
-remains intubated at this point. vent weaning difficult with excessive secretion.
-ICU performed bronchoscopy showing 'moderate amounts of thick yellow/off white mucous in LLL but also bloody secretions in left upper lobe bronchus - could have been exacerbated by coughing while on heparin gtt'
-ICU will attempt to extubate on BiPAP by tomorrow
-Might need a tracheostomy if patient requires reintubation
2. NATALIA - Resolved
-Renal function 0.9 in Jul 29, trending down slowly.
-Hold Lasix/lisinopril
-Brown exchanged on day of admission
-Renal ultrasound normal.
-Nephrology following
3. Sepsis - POA
Hypotensions w/o shock
Left Lower Lobe Pneumonia
-suspected urinary source vs pulm vs other
-Blood culture and urine culture collected
-Reps cs negative so far
-ID involved and following along. on cefepime.
4. Left leg DVT
-Recently diagnosed in [facility], was on Lovenox 120mg/bid
-Left lower extremity Doppler showing nonocclusive thrombus in common femoral vein
-Patient has been started on heparin drip per hematology recommendation
5. Hyperkalemia - resolved
-Secondary to renal failure and lisinopril.
-EKG showing NSR, OK 190ms, QRS 142ms
-Patient got calcium gluconate/insulin-glucose.
-NGT in place and got through NGT
6. Insulin-dependent diabetes mellitus - Uncontrolled
-diabetic SMART GRID ENGINEER involved in care
-On insulin drip as part of ICU protocol as well as subq Insulin
6. Essential HTN
-Maintain on metoprolol tartrate. prn hydralazine
7. Chronic indwelling Brown catheter
Hypospadias
-Brown catheter has been exchanged on 08/11
8. Reported delusion
History of bipolar disorder
-Hold Abilify. Valproate level within normal.
-Psychiatry evaluated on day of admission, currently remains intubated/sedated and will be re-involved post extubation
9. Hypernatremia
- FWF was increased to 50mls/hr
GERD
Morbid obesity
Obstructive sleep apnea
Neuropathy
DVT prophylaxis - heparin subq
Full code
Acute Hypercapnic Respiratory Failure requiring ongoing intubation is a high risk encounter
Anticipated Discharge: > 48 hours
Subjective/Interval History
-
Date of Service: August 18, 2023
Patient was seen and examined. He remains intubated, undergoing weaning trial.
Objective Data
-
Labs:
Laboratory Results
08/18/23
02:55
WBC 11.1 H
Hgb 8.6 L
Hct 26.1 L
Plt Count 252
PT 15.5 H
INR 1.25
APTT 94.1 H
Sodium 138
Potassium 4.2
Chloride 109 H
Carbon Dioxide 26
BUN 16
Creatinine 0.9
Glucose 121 H
Calcium 8.0 L
Total Bilirubin 0.6
AST 25
ALT 26
Alkaline Phosphatase 78
Vital Signs:
Vital Signs
Temp Pulse Resp BP Pulse Ox
99.7 F 66 20 135/63 99
08/18/23 12:08 08/18/23 13:13 08/18/23 13:13 08/18/23 13:13 08/18/23 12:00
I&O
08/17/23 08/18/23 08/19/23
06:59 06:59 06:59
Intake Total 5757.5 / 6008.0 4372.5 / 4547.5 1293.2 / 1293.2
Output Total 2875 / 3000 2660 / 2850 1510 / 1510
Balance 2882.5 / 3008.0 1712.5 / 1697.5 -216.8 / -216.8
--- NOTE | 2023-08-18 14:25 | W.SUR.POST ---
Surgical Immediate Post Op
Note
Bedside Bronchoscopy Procedure Note
Pre Op Diagnosis: Atelectasis; hypoxic respiratory failure; excessive airway secretions
Post Op Diagnosis: Same as above
Procedure Performed: Bedside bronchoscopy
Primary Surgeon/Proceduralist: Dr. Wills
Secondary Surgeons:� � N/A
Anesthesia:� Fentanyl 50mcg IVP x1
Estimated Blood Loss: � None
Fluids:� N/A
Drains/Shunts: � N/A
Specimens/Cultures: N/A �
Doppler/Duplex/Angio (Y/N): � N/A
Complications: No immediate complications
Operative Findings: After verbal consent was obtained from the patient's daughter, patient was pre-oxygenated via ventilator with FiO2 maxed at 100%.� The disposable bedside bronchoscopy was inserted via the swivel adapter into the patient's airway
via ETT.� 3 mL of 2% lidocaine without epinephrine was instilled onto the lashon.� The lashon was sharp and all airways were widely patent down to segmental level on the left and right lung.� There was visibly seen mucus/clear secretions attached to
the lashon and clear, thin secretions seen along right mainstem bronchus. The right-sided secretions were easily suctioned.� Left lower lobe bronchus had thick mucoid secretions that were suctioned.� No active bleeding seen. There was small airway
erythema seen at the left upper lobe proper lashon, but again no active bleeding seen. Airway was surveyed again involving left and right lung showed widely patent airways down to segmental levels.� Bronchoscope was then removed entirely from the
airway via ETT and the procedure ended.
[2023-08-18 14:36] LABS: Glucose - Point of Care 121 mg/dl (70-99)
[2023-08-18 15:02] LABS: B.E. 3.3 mmol/L; HCO3 27.8 mmol/L (21-28); O2 Saturation % 98.9 % (94-98); PCO2 41 mmHg (35-48); PO2 100 mmHg (83-108); pH 7.44 (7.35-7.45)
--- NOTE | 2023-08-18 15:25 | PTCARENOTE ---
Pt extubated to BiPAP 20/10 15L. SpO2 97%
All other assessments unchanged.
Daughter updated.
[2023-08-18 15:41] LABS: Glucose - Point of Care 120 mg/dl (70-99)
[2023-08-18 16:54] LABS: Glucose - Point of Care 144 mg/dl (70-99)
[2023-08-18 17:51] LABS: Glucose - Point of Care 141 mg/dl (70-99)
[2023-08-18 18:53] LABS: Glucose - Point of Care 152 mg/dl (70-99)
[2023-08-18] MEDS: LOPRESSOR 50 MG PO (19:57)
--- NOTE | 2023-08-18 20:00 | PTCARENOTE ---
Rec'd pt resting in bed, comf, oriented, follows commands, HOWARD, SR w/ BBB, 1' AV block, bp stable, + anasarca, skin warm/dry, BIPAP 20/10 w/ 15 liters, attempted to decr to 12 liters but sat dropped to 89%, lungs coarse, RR 20's, + bowel sounds, abd
obese, soft, left nares dobhoff- jevity 1.5 at 75ml/hr & 50ml/hr h20 flush, 5 ml resid, no n/v, villareal draining bayron urine, insulin gtt at 5 units- see flow sheet for titrations, hep gtt at 2600 units/hr
[2023-08-18] MEDS: ROBITUSSIN 400 MG PO ×2 (20:07→23:22)
[2023-08-18 20:42] LABS: Glucose - Point of Care 147 mg/dl (70-99)
[2023-08-18] MEDS: NEURONTIN 600 MG PO (21:49)
[2023-08-18] MEDS: COLACE LIQUID 100 MG TUBE (21:49)
[2023-08-18] MEDS: ABILIFY 7.5 MG PO (21:50)
[2023-08-18] MEDS: DILAUDID 0.5 MG IV (22:07)
--- NOTE | 2023-08-18 22:10 | PTCARENOTE ---
dilaudid 0.5 mg iv given for generalized pain
[2023-08-18 22:43] LABS: Glucose - Point of Care 153 mg/dl (70-99)
[2023-08-18 23:43] LABS: Glucose - Point of Care 151 mg/dl (70-99)
[2023-08-19] VITALS (25 sets, daily range): BP systolic 121–175; BP diastolic 60–99; PULSE 2–78; BMI 51.9
--- NOTE | 2023-08-19 | PTCARENOTE ---
sys reviewed, changes noted
[2023-08-19 00:41] LABS: Glucose - Point of Care 139 mg/dl (70-99)
[2023-08-19 01:40] LABS: Glucose - Point of Care 138 mg/dl (70-99)
--- NOTE | 2023-08-19 02:13 | PTCARENOTE ---
inc of tarry brown stool, CHG bath done, beatriz care given
[2023-08-19] MEDS: OFIRMEV 100 IV (02:33)
--- NOTE | 2023-08-19 02:37 | PTCARENOTE ---
offirmiv 1 gm iv given for sacral pain
[2023-08-19 02:38] LABS: Glucose - Point of Care 120 mg/dl (70-99)
[2023-08-19 03:18] LABS: % Basophils 0.7 % (0-2); % Eosinophils 6.7 % (0-6); % Immature Granulocytes 8.3 % (0-0.5); % Neutrophils 60.3 % (42.2-75.2); Absolute Basophils 0.1 10^3/uL (0-0.2); Absolute Eosinophils 0.7 10^3/uL (0-0.7); Absolute Immature Granulocytes 0.9 10^3/uL (0-0.05); Absolute Lymphocytes 1.7 10^3/uL (1.2-3.4); Absolute Monocytes 0.9 10^3/uL (0.1-0.6); Absolute Neutrophils 6.5 10^3/uL (1.4-6.5); Hematocrit 26.7 % (39.0-52.0); Hemoglobin 8.8 g/dL (13.0-18.0); Nucleated Red Blood Cells % 0.6 % (-); Platelet Count 255 10^3/uL (130-400); Red Blood Cell Count 2.67 10^6/uL (4.70-6.10); Red Cell Dist. Width 14.6 % (11.5-14.5); White Blood Cell Count 10.7 10^3/uL (4.8-10.8)
[2023-08-19 03:20] LABS: Venous Blood Gas B.E. 6.1 mmol/L (-4 to +4); Venous Blood Gas HCO3 31.2 mmol/L (22-27); Venous Blood Gas O2 Sat % 99.2 %; Venous Blood Gas pCO2 47 mmHg (35-48); Venous Blood Gas pH 7.43 (7.32-7.43); Venous Blood Gas pO2 141 mmHg (30-50)
[2023-08-19 03:32] LABS: APTT 63.5 Sec (23.4-35.0)
[2023-08-19] MEDS: HEPARIN 25000 UNITS/250 ML IV (03:34)
[2023-08-19] MEDS: ROBITUSSIN 400 MG PO ×5 (03:36→19:57)
[2023-08-19 03:42] LABS: Glucose - Point of Care 130 mg/dl (70-99)
--- NOTE | 2023-08-19 03:50 | PTCARENOTE ---
Addendum entered by Rhona Fish RN 08/19/23 03:52:
sys reviewed, changes noted
Original Note:
ptt 63.5, heparin gtt incr to 3100 units per protocal(spoke w/ pharmacist about high dose- per pharm follow protocal)
[2023-08-19 04:17] LABS: ALT (SGPT) 29 U/L (0-50); AST (SGOT) 30 U/L (17-59); Albumin 2.9 g/dl (3.5-5.0); Alkaline Phosphatase 81 U/L (38-126); Blood Urea Nitrogen 18 mg/dl (9-20); Calcium 8.2 mg/dl (8.4-10.2); Carbon Dioxide 28 mmol/L (22-30); Chloride 103 mmol/L (98-107); Estimated Creatinine Clearance 120 ml/min; Glucose 136 mg/dl (70-99); Magnesium 1.7 mg/dl (1.6-2.3); Phosphorus 3.5 mg/dl (2.5-4.5); Potassium 4.2 mmol/L (3.5-5.1); Sodium 134 mmol/L (135-145); Total Bilirubin 0.7 mg/dl (0.2-1.3); Total Protein 5.6 g/dl (6.3-8.2); eGFR > 60.00
[2023-08-19] MEDS: NOVOLOG FLEXPEN 8 UNITS SC (05:32)
[2023-08-19 05:41] LABS: Glucose - Point of Care 137 mg/dl (70-99)
[2023-08-19 07:42] LABS: Glucose - Point of Care 132 mg/dl (70-99)
[2023-08-19] MEDS: FEOSOL 325 MG PO (08:21)
[2023-08-19] MEDS: NORVASC 5 MG PO (08:21)
[2023-08-19] MEDS: LOPRESSOR 50 MG PO ×2 (08:21→19:58)
[2023-08-19] MEDS: LOW STRENGTH ASPIRIN 81 MG PO (08:22)
[2023-08-19] MEDS: MIRALAX 17 GRAMS TUBE (08:22)
[2023-08-19] MEDS: DAILY VITAMIN/CENTRUM 15 ML TUBE (08:22)
[2023-08-19] MEDS: PROTONIX IV 40 MG IV (08:23)
[2023-08-19] MEDS: VITAMIN D3 (cholecalciferol) 25 MCG TUBE (08:23)
[2023-08-19] MEDS: NEURONTIN 300 MG PO ×2 (08:24→13:28)
--- NOTE | 2023-08-19 08:30 | PTCARENOTE ---
Assumed care of pt at 0715 following shift report. Pt awake and resting quietly in bed- on Bipap 20/10 w/12 L/min O2 - Pox 99%. No resp. distress, denies c/o pain. Pt incontinent of small amount soft brown BM- pericare/skin care completed. Lt nare
DHT present w/ Jevity 1.5 tube feeding at goal. Placement of DHT confirmed w/ auscultation of air bolus. Heparin gtt at 31ml/hr, Insulin gtt per glycemic protocol. Brown patent and draining clear yellow urine. Physical assessment completed as
documented. Call alvarez w/in pt reach and safe environment maintained.
[2023-08-19 08:51] LABS: Glucose - Point of Care 117 mg/dl (70-99)
[2023-08-19] MEDS: NOVOLIN R INSULIN INFUSION 100 IV (08:51)
--- NOTE | 2023-08-19 09:03 | W.PN.INTV ---
Today's Communication / Plan
Recommendations
Supplemental oxygen with goal SpO2 >88%
Start DuoNebs every 12
Mucolytic's
Incentive spirometer
BiPAP at night/during naps --> this is very important!
s/p course of ABx
Heparin gtt --> TRX to NOAC today
WOOD TURNING LATHE OPERATOR passed for diet
Wean off insulin gtt with goal BG 140-180mg/dL
Will need repeat CXR in 4-6 weeks to follow left sided PNA and atelectasis to resolution.
Patient stable for downgrade out of ICU to IMU. Pulmonary service will continue to follow along. Thank you for allowing us to be involved in the care of this patient.
Assessment
-
68-year-old morbidly obese M with probable obesity hypoventilation syndrome with chronic hypercapnia on chronic oxygen, bipolar disorder, hypertension, diabetes, DVT presented with recently diagnosed left leg DVT, NATALIA, hyperkalemia, metabolic
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
Assessment
Acute respiratory failure with hypoxemia and hypercapnia
Intubated 08/12/2023
Extubated 08/18/2023
Toxic metabolic encephalopathy - resolved
NATALIA - resolved
CAP
Centrilobular emphysema (seen on apical lung chandra via cervical CT from 08-07-2023) and at risk for COPD
Recent left lower extremity DVT-provoked - Dx on 08/11/2023 involving left CFV (nonocclusive thrombus)
Leukocytosis
Anemia
Hyperglycemia - now resolved
Hypertriglyceridemia
Conditions present prior to admission:
Morbid obesity-BMI 51.
Recent KSR-duyicpcq-WNV stay.
Hypertension.
Obesity hypoventilation syndrome.
Chronic oxygen supplementation.
Legally blind-retinitis pigmentosa.
Spinal stenosis.
Colon resection.
Deviated septum repair.
Former smoker.
COPD on chronic oxygen supplementation
Chronic Brown due to BPH and chronic urinary retention
Plan
Patient has continued to improve and is doing remarkably well today.
Continue nasal cannula during the day with BiPAP during sleep at settings IPAP 20, EPAP 10; titrate FiO2 to maintain SpO2 >88%
Continue mucolytic's with Mucinex and chest PT as needed
If he requires reintubation, he will likely need tracheostomy --> daughter does not feel pt would want this but she wants to keep pt full code for now; this was also previously reviewed with Dr. Bullard & daughter
Dr. Bullard reviewed with daughter-fourth intubation in the last 1.5 years-transition to CPAP and not BiPAP
I discussed what a tracheostomy is and that if he ends up getting re-intubated that he very well may need one if he is unable to be successfully extubated. He currently is doing well on nasal cannula, and as long as he remains compliant with his
BiPAP then we can avoid mechanical ventilation. He says that he falls asleep easily and forgets to put the bipap on, and he also is bedbound due to spinal stenosis, back pain, knee pain and his obesity, so he relies on caregivers/nursing staff to
apply the bipap to him and again, that does not always happen allie if he does not call them. I told him that he needs ti advocate for his own health, and that if he feels sleepy then he needs to apply the bipap mask on othewise he very well may get
re-intubated and end up with a tracheostomy. I answered all his questions.
Considering he has suspected COPD, I will start DuoNebs q12hr
Sport bed with percussion-appears to be helping
Anticoagulation for recent DVT - currently on heparin gtt --> transition to Eliquis and then stop heparin gtt after 1st dose is given
Hematology following-correspondence reviewed
Echocardiogram 08/12/2023-EF 65-70% with dilated RV and normal RVSF
Previously as per Dr. Tran - With unclear mental status/neurologic exam-obtain CT head-reviewed with primary team - mentation now improved and he is following commands/back to baseline. No need for CT at this time.
Monitor renal function
Replace electrolyte abnormalities with K>3.5, Mg>1.8. PO4>3
Nephrology seen-correspondence reviewed- serial renal function, and maintain MAP greater than 65
Diurese as needed - lasix given on 08/18 due to mild pulmonary vascular congestion developing on CXR and elevated pro-BNP
Cultures reviewed-unrevealing thus far
Repeat sputum 08/14/2023-usual respiratory harpreet
Infectious disease consultation obtained-correspondence reviewed- s/p course of ABx with cefepime given from 08/13 - 08/18; zosyn given x 2 days (08/11 + 08/12)
Follow hemoglobin
Transfuse if needed to maitain Hb>7, plt>50k
Follow blood sugar with goal BG 140-180mg/dL
Insulin drip initiated 08/13/2023
Diabetic nurse practitioner consultation ongoing --> now the patient is extubated, start ADA and wean off insulin drip
Diet consistency as per WOOD TURNING LATHE OPERATOR
Continue PPI (takes PPI at home)
DVT prophylaxis- Eliquis
GI prophylaxis-on pantoprazole 40mg IV q daily
Bedside range of motion
Ultimately will need repeat CXR in 4-6 weeks to follow left sided PNA and atelectasis to resolution.
Dispo: Patient stable for downgrade out of ICU to IMU. Pulmonary service will continue to follow along. Thank you for allowing us to be involved in the care of this patient.
Diagnostic data:
Chest x-ray 08/11/2023-bibasilar interstitial pneumonia
Chest x-ray 08/12/2023-rotated to the left, no pneumothorax, ET tube above lashon, bilateral interstitial infiltrates
Chest x-ray 08/13/2023-Mildly improved findings suggesting left lower lobe pneumonia.
CXR 08/18/2023: Right basilar pneumonia, and a left basilar opacity that may represent pneumonia, pleural fluid, and/or atelectasis.
CXR 08/19/2023: Status post extubation. Slight improvement in aeration compared to the most recent exam.
Subjective Dataa
Subjective Data
Date of Service:
Date of Service: August 19, 2023
Chief Complaint: Drapery Counselor Follow Up
Subjective:
Seen this AM. Extubated yesterday. On 6L/min. BP 133/60, SpO2 98%. He is awake, alert in no acute distress. Currently on heparin drip as of this morning. Speech has cleared him for a diet. He has phlegm that he is bringing up. Denies
shortness of breath at rest, headache, abdominal pain, fevers or chills.
Review of Systems
General: Other (12 point ROS performed and is negative unless mentioned above.)
Objective Data
Data Reviewed
Vital Signs / I&O / Oxygen:
Vital Signs
Temp Pulse Resp BP Pulse Ox
98.6 F 65 18 131/61 95
08/19/23 07:30 08/19/23 09:00 08/19/23 09:00 08/19/23 09:00 08/19/23 09:00
Intake and Output
08/18/23 08/19/23 08/20/23
06:59 06:59 06:59
Intake Total 4372.5 / 4547.5 3855.2 / 3894.2
Output Total 2660 / 2850 4460 / 4460
Balance 1712.5 / 1697.5 -604.8 / -565.8
SaO2 [CPAP] 40
SaO2 [A/C] 97
SaO2 95
Nasal Cannula flow liters per 4
minute
Physical Exam
General: Respiratory Distress (n), Comfortable and Good Appetite
HEENT: Normocephalic and Anicteric
Cardiovascular: S1-S2 and Peripheral Edema (Negative)
Respiratory: Wheeze (n), Crackles (n), Rhonchi (left-hemithorax), Non-Labored Respirations, Accessory Resp Muscle Use (n) and Stridor (n)
GI: Soft, Non Distended, Non Tender and NG Tube (present this AM)
Neurology: Awake, Alert and No Motor Deficits
Skin: Warm, Dry, Cyanosis (n) and Jaundice (n)
Labs/Micro/Reports
Lab Data
08/19/23 03:09
08/19/23 03:09
Laboratory Results
08/18/23 08/19/23
14:55 03:09
APTT 63.5 H
pH 7.44
pCO2 41
pO2 100
HCO3 27.8
O2 Delivery Level
Microbiology
08/11/23 18:22 Blood/Venous Blood Culture - Final
No Growth - Final Report
08/11/23 17:58 Blood/Venous Blood Culture - Final
No Growth - Final Report
08/14/23 10:38 Tracheal Aspirate Respiratory Culture - Final
Usual Respiratory Harpreet
08/14/23 10:38 Tracheal Aspirate Gram Stain - Final
--- NOTE | 2023-08-19 09:33 | PN.DE.MGMTRT ---
Insulin Management
- -
08/13/2023 Diabetes Management Consult
Patient admitted 08/10 with hyperkalemia from [place]. PMH Chronic respiratory failure, morbid obesity, HTN, ESSIE, BPH, DVT, neuropathy. Prior to admission chart indicated patient diabetes regimen was Lantus 10 units @ HS with SS NovoLog and metformin
500 mg BID. Patient received Lantus @ hs with corrective insulin but glucose has remained > 200. Glycemic protocol to be started today and possibly tube feeds. Will assess in AM for readiness to transition from insulin infusion to subcutaneous.
08/14/2023: Diabetes Management F/U:
A1C 7.4%. Pt required initiation of glycemic protocol due to Hyperglycemia. Tube feeds were started yesterday, currently @50cc/hr.
Glucose has remained elevated 167-201 on drip, requiring 4-6 units of insulin/hr.
Will cont CCGP today and reassess this evening for readiness to transition, ideally at 1800
08/17/2023: Diabetes Management F/U:
Pt remains critically ill and intubated. Started on tube feed 08/13--->Hyperglycemia requiring insulin infusion.
Glucose remained elevated throughout the weekend while on glycemic protocol with high insulin requirements.
Glucose over night was 110 to 185, needed 10-20 units of insulin/hr (TDD of 180 units)
Cont CCGP considering the ongoing hyperglycemia and his hourly insulin requirement.
Will closely follow and reassess for readiness to transition to SQ insulin
08/18/2023 Diabetes Management Follow up
Patient remains intubated is s/p bronchoscopy yesterday. Remains on glycemic protocol requiring 10 to 14 units of insulin per hour. Tube feeds continue at 75 ml/ hr. Will initiate 8 units novolog SQ to offset tube feeds. If tube feeds held or
stopped please hold 8 units novolog q6 hours and continue glycemic protocol. Will follow for readiness to transition to SQ insulin.
08/19/2023 Diabetes Management Follow up
Patient extubated yesterday ~3PM. Did well overnight. Tube feeds continue @ 75 per hour. Currently being evaluated by speech. Q 6 hour novolog started yesterday @ 8 units, will increase to 12 units. Insulin infusion continued requiring 6 to 8
units per hour. If diet started will provide lantus BID, and stop drip, and change Q6 hour novolog to AC novolog.
Diabetes History
- -
Type of Diabetes: 2 requiring insulin
Pre-Admission Diabetes Regimen
08/19/23
03:09
Creatinine 0.9
Lab Results
Hemoglobin A1c 7.4 % (4.0-5.6) H 08/11/23 04:54
Insulin Pump Settings
IP Diabetes Regimen
08/18/23 08/18/23 08/18/23
10:09 11:25 12:19
Glucose
POC Glucose 77 127 H 159 H
08/18/23 08/18/23 08/18/23
13:21 14:24 15:29
Glucose
POC Glucose 147 H 121 H 120 H
08/18/23 08/18/23 08/18/23
16:43 17:40 18:42
Glucose
POC Glucose 144 H 141 H 152 H
08/18/23 08/18/23 08/18/23
20:31 22:31 23:32
Glucose
POC Glucose 147 H 153 H 151 H
08/19/23 08/19/23 08/19/23
00:29 01:29 02:26
Glucose
POC Glucose 139 H 138 H 120 H
08/19/23 08/19/23 08/19/23
03:09 03:32 05:30
Glucose 136 H
POC Glucose 130 H 137 H
08/19/23 08/19/23
07:27 08:40
Glucose
POC Glucose 132 H 117 H
Meal type: Breakfast
Patient Education
--- NOTE | 2023-08-19 09:59 | PTOTSP ---
ST Swallowing Assessment
Pt presents with mild oropharyngeal and esophageal dysphagia 2/2 reduced dentition and inadequate airway protection in the context of recent prolonged intuabtion s/p extubation, increased respiratory demand, GERD, and hx of gastric surgery with
planned follow-up.
Recommending IDDSI Level 6/Level 0 (Soft-bite sized solids/regular thin liquids); meds as tolerated.
[2023-08-19 10:07] LABS: Glucose - Point of Care 148 mg/dl (70-99)
[2023-08-19 10:17] LABS: APTT 101.4 Sec (23.4-35.0)
[2023-08-19] MEDS: ELIQUIS 5 MG PO ×2 (10:38→19:57)
[2023-08-19] MEDS: TYLENOL 650 MG PO ×3 (10:39→21:46)
--- NOTE | 2023-08-19 10:46 | W.PN.ID1 ---
Date of Service
Date of Service: August 19, 2023
Today's Communication
Observe off antibiotics.
Assessment / Plan
S/P VDRF
Fever
Leukocytosis
Retinitis pigmentosa (legally blind)
Spinal stenosis
Bipolar disease/anxiety
Class III obesity
Hx DVT
HTN
COPD
DM
BPH with chronic urinary retention (chronic Brown)
Recommendations:
Cultures unrevealing. Patient is status post 8-day course of antibiotics. CXR shows improvement.
Fever resolved
Observe off antibiotics.
Monitor white count and temperature curve
Monitor CXR.
Continue with supportive measures
����������������������������������������������������������
Chief Complaint
-: Fever and Leukocytosis
Subjective / Review of Systems
Patient seen and examined. Since yesterday, patient has been extubated. At present, he reports no issues. Denies pain. Denies fevers or chills. Reports cough, but only mild sputum production.
Vital Signs / Physical Exam
Vital Signs
Vital Signs
Temp Pulse Resp BP Pulse Ox
98.6 F 65 18 131/61 95
08/19/23 07:30 08/19/23 09:00 08/19/23 09:00 08/19/23 09:00 08/19/23 09:00
Physical Exam
Constitutional: No Acute Distress, Comfortable, Chronically Ill, Non-toxic and Obese
Eyes: Sclera Anicteric
Cardiovascular: S1/S2; Negative S3/S4
Pulmonary: Non Labored; Negative Wheezes or Rales
Gastrointestinal: Soft, Non Tender and Non Distended
Extremities: Edema; Negative Erythema
Neurological: Awake and Alert
Psychological: Calm
Objective Data
Lab Data
Lab Results
08/19/23 03:09
08/19/23 03:09
PT 15.5 Sec (11.4-14.6) H 08/18/23 02:55
INR 1.25 08/18/23 02:55
APTT 101.4 Sec (23.4-35.0) H 08/19/23 09:54
Estimated Creat Clear 120 ml/min 08/19/23 03:09
Lactic Acid 1.4 mmol/L (0.7-2.0) 08/13/23 15:20
Total Bilirubin 0.7 mg/dl (0.2-1.3) 08/19/23 03:09
AST 30 U/L (17-59) 08/19/23 03:09
ALT 29 U/L (0-50) 08/19/23 03:09
Alkaline Phosphatase 81 U/L (38-126) 08/19/23 03:09
Most recent labs reviewed.
Chest X-Ray: Image Reviewed and Report Reviewed
Micro Results:
08/11/23 18:22 Blood Culture - Final
Blood/Venous No Growth - Final Report
08/11/23 17:58 Blood Culture - Final
Blood/Venous No Growth - Final Report
08/14/23 10:38 Respiratory Culture - Final
Tracheal Aspirate Usual Respiratory Perlita
Gram Stain - Final
08/12/23 15:45 Respiratory Culture - Final
Tracheal Aspirate Usual Respiratory Perlita
Gram Stain - Final
08/13/23 11:02 Influenza Types A & B (ADELITA) - Final
Nasal Swab Negative for Influenza A & B, NAAT
Negative results must be combined with clinical observations
and patient history.
Nucleic Acid Amplification test (NAAT)performed on the
[employer] platform.
08/11/23 04:54 MRSA Screen - Final
Nose No Methicillin Resistant Staphylococcus aureus isolated.
Imaging:
08/19/2023 CXR (portable): Significant patient rotation noted. Right lung base is not fully included in the study. Improved lung volumes noted, with decreased interstitial edema and decreased bibasilar atelectasis and pleural fluid. No new area of
airspace disease.
08/11/2023 Renal ultrasound: No hydronephrosis. No abnormal solid or complex renal masses. No renal calculi. Please see full dictation for additional detail.
Care Review
Plan reviewed with: Physician (Critical Care)
--- NOTE | 2023-08-19 11:00 | CON.GI ---
Addendum entered and electronically signed by Juventino Vicente MD 08/19/23 16:05:
I saw and examined the patient.
The PA's note was reviewed and I agree with the note.
Comment:
The patient is a 68 year-old male with h/o chronic respiratory failure with hypercapnia on chronic oxygen, CKD, DVT, DM, HTN, bipolar disorder, GERD, iron deficiency anemia and morbid obesity, who p/w hyperkalemia.� Patient had AMS due to
hypercarbia and was intubated on 08/12, and eventually was extubated requiting BiPAP on 08/18 now on O2. Had speech eval showed concern for reverse aspiration.�
Impression / Rec:
1. ? reverse aspriation risk - speech eval showed concern for reverse aspiration. Pt reports some reflux / rumination of ingested food or liquids, which has been ongoing for about a year. [facility] reportedly had EGD
about 6 months prior and was advised to go to tertiary center. Will need to obtain records for review, will follow for now.
Original Note:
Consultation
-
Date/Time Consultation Requested: 08/19/23 @ 10:27
Date/Time Consultation Performed: 08/19/23 @ 11:00
Requesting Provider: Dr. Funez
Performing Provider: CAMILO Rahman; Dr. Juventino Vicente
Reason for Consultation: ?reverse aspiration, dysphagia
Medical History
Chief Complaint / HPI
Chief Complaint: hyperkalemia outpatient labs
History of Present Illness:
The patient is a 68-year-old male with a past medical history significant for CKD, history of DVT, chronic respiratory failure with hypercapnia on chronic oxygen, type 2 diabetes, hypertension, bipolar disorder, GERD, ESSIE with CPAP use, restless leg
syndrome, iron deficiency anemia, morbid obesity s/p gastric sleeve surgery, colon resection for perforated diverticulitis, who presented to [facility] on 08/10 after having elevated potassium levels on outpatient lab work. We being asked to
evaluate for concern for reverse aspiration. Upon review of records, patient was admitted to the IMU from [facility] for hyperkalemia treated with Lokelma, IV dextrose, IV insulin, and calcium gluconate. No noted EKG changes on
admission. Potassium was 6.8 on admission with noted NATALIA with a BUN 47 and creatinine of 2.3. Nephrology was consulted for further management with eventual normalization of potassium after the above treatment. He has also had subsequent
normalization of his kidney function as well. Due to his mental status and severe hypercarbia he required intubation and mechanical ventilation on 08/12 and transfer to the ICU. He underwent bronchoscopy on 08/18 which showed excessive mucous in the
LLL, bloody secretions HALIE. ID is also follow for concern of sepsis possibly pneumonia v urinary source. He is currently on cefepime. He was placed on IV heparin on admission due to his renal function with history of recent DVT (dx at [place] [facility] He was subsequently extubated requiring BiPAP on 08/18 now on supplemental O2. He underwent evaluation by speech today and was recommended for IDDSI level 6 food with thin liquids and medications as tolerated. There is concern
for possible reverse aspiration. The patient reports that historically he has had workup for possible reverse aspiration. He follows with Dr. Alfredo at [facility] and was advised to have a video swallow study done at a tertiary center but he was
unable to complete this. He notes that he did have an endoscopy 6 months ago at [facility] which showed some residual food in his stomach but otherwise no narrowing or obstructions to explain his symptoms. He notes that he does take
Protonix daily for reflux but denies any heartburn or reflux symptoms currently. He denies any odynophagia. He denies any overt dysphagia in regards to swallowing food but notes that sometimes the food does come back up from his stomach. He
denies any overt nausea or vomiting. He denies any forced regurgitation or signs of food impaction. He does note that he has delayed symptoms including wheezing when he feels that he is having aspiration events. He denies any use of NSAIDs. He
denies any recent antibiotics prior to admission. He reports remote history of colonoscopy without polyps.
Past Medical History
Past Medical History: GERD, HTN, NIDDM and Other (CKD, bipolar disorder, ESSIE with CPAP use, restless leg syndrome, iron deficiency anemia, morbid obesity, history of recent DVT on Lovenox, blindness, insomnia, chronic villareal catheter for urinary
retention)
Past Surgical History: Bowel Resection (Secondary to diverticulitis with bowel perforation) and Other (Surgery for deviated septum, gastric sleeve surgery at [facility], eye surgery)
Social History
Tobacco: Non-Smoker
Alcohol: None
Drug: None
Living: [facility] (Assisted living)
Family History
Family History: Reviewed & Not Pertinent
Allergies / Home Medications
Allergy/AdvReac Type Severity Reaction Status Date / Time
No Known Allergies Allergy Verified 08/07/23 23:08
Medication Instructions Recorded
metformin 500 mg tablet 500 mg PO BIDWMEAL Diabetes 11/07/11
metoprolol tartrate 50 mg tablet 50 mg PO BID Blood Pressure 11/07/11
acetaminophen 325 mg tablet 650 mg PO Q6HPRN PRN mild pain 08/07/23
(Tylenol)
amlodipine 5 mg tablet (Norvasc) 5 mg PO DAILY Blood Pressure 08/07/23
aripiprazole 15 mg tablet 7.5 mg PO HS Mental Health/Anxiety 08/07/23
aspirin 81 mg chewable tablet 81 mg PO DAILY Blood Clot 08/07/23
Prevention/Tx
bisacodyl 10 mg rectal suppository 10 mg [place] DAILYPRN PRN constipation 08/07/23
(Dulcolax (bisacodyl))
cholecalciferol (vitamin D3) 25 25 mcg PO DAILY Supplement 08/07/23
mcg (1,000 unit) tablet (Vitamin
D3)
divalproex 500 mg tablet,delayed 500 mg PO BID Seizures 08/07/23
release (Depakote)
docusate sodium 100 mg capsule 100 mg PO HS Constipation 08/07/23
(Colace)
enoxaparin 120 mg/0.8 mL 120 mg SC Q12H Blood Clot 08/07/23
subcutaneous syringe (Lovenox) Prevention/Tx
ferrous sulfate 325 mg (65 mg 325 mg PO DAILY Supplement 08/07/23
iron) tablet
furosemide 40 mg tablet (Lasix) 40 mg PO DAILY Fluid 08/07/23
Retention/Swelling
gabapentin 300 mg capsule 300 mg PO DAILY Pain 08/07/23
gabapentin 600 mg tablet 600 mg PO HS Pain 08/07/23
insulin aspart U-100 100 unit/mL 0 sliding scale dose SC ACHS 08/07/23
subcutaneous solution Diabetes
insulin glargine 100 unit/mL (3 10 unit SC HS Diabetes 08/07/23
mL) subcutaneous pen
ipratropium 0.5 mg-albuterol 3 mg 3 ml inhalation R Q4HPRN PRN 08/07/23
(2.5 mg base)/3 mL nebulization sob/wheezing
soln
lidocaine 5 % topical patch 1 patch topical [id number] PRN apply 08/07/23
(Lidoderm) to B/L knees
magnesium hydroxide 400 mg/5 mL 30 ml PO HSPRN PRN if no BM in 3 08/07/23
oral suspension (Milk of Magnesia) days
melatonin 3 mg tablet 3 mg PO HS Sleep 08/07/23
menthol 4 % topical gel (Biofreeze 1 applic topical Q4HPRN PRN apply 08/07/23
(menthol)) to back, neck, or B/L knees
miconazole nitrate 2 % topical 1 applic topical BID apply to 08/07/23
ointment folds, scrotum, groin
nystatin 100,000 unit/gram topical 1 applic topical Q12H apply to 08/07/23
powder gluteal folds
omeprazole 40 mg capsule,delayed 40 mg PO DAILY GERD 08/07/23
release
oxybutynin chloride 5 mg tablet 5 mg PO Q8HPRN PRN bladder 08/07/23
instability
polyethylene glycol 3350 17 gram 17 g PO Q12H Constipation 08/07/23
oral powder packet (Miralax)
psyllium 1 packet PO DAILY Constipation 08/07/23
sodium phosphates 19 gram-7 118 ml KY DAILYPRN PRN constipation 08/07/23
gram/118 mL enema (Fleet Enema)
therapeutic multivitamin 1 tab PO DAILY Supplement 08/07/23
urea 20 % topical cream 1 applic topical Q12H apply to B/L 08/07/23
feet
lisinopril 20 mg tablet 20 mg PO DAILY Blood Pressure 08/10/23
loperamide 2 mg capsule 2 mg PO Q6H PRN diarrhea 08/10/23
Review of Systems
-
History Source: Patient
Constitutional: Reports No Symptoms
EENT: Reports No Symptoms
Respiratory: Reports Cough
Cardiac: Reports No Symptoms
Abdomen/GI: Reports No Symptoms
: Reports No Symptoms
Musculoskeletal: Reports No Symptoms
Skin: Reports No Symptoms
Neurological: Reports No Symptoms
Vital Signs
Temp Pulse Resp BP Pulse Ox
98.6 F 65 18 131/61 95
08/19/23 07:30 08/19/23 09:00 08/19/23 09:00 08/19/23 09:00 08/19/23 09:00
Physical Exam
Exam
General: Other (Morbidly obese, chronically ill-appearing male in no significant distress)
HEENT: Normocephalic, Anicteric and Atraumatic
Respiratory: Non Labored Respirations and Other (Overall diminished breath sounds, without significant wheezing, supplemental oxygen in place)
Cardiac: S1/S2 and Regular Rhythm
GI: Soft, Non Tender, Non Distended, Normal Bowel Sounds and Other (Morbidly obese abdomen)
Skin: Warm and Dry
Neuro: Awake, Alert and Oriented
Psych: Calm
Results
WBC 10.7 10^3/uL (4.8-10.8) 08/19/23 03:09
Hgb 8.8 g/dL (13.0-18.0) L 08/19/23 03:09
Hct 26.7 % (39.0-52.0) L 08/19/23 03:09
MCV 100.0 fL (80.0-94.0) H 08/19/23 03:09
Plt Count 255 10^3/uL (130-400) 08/19/23 03:09
Absolute Neuts (auto) 6.5 10^3/uL (1.4-6.5) 08/19/23 03:09
PT 15.5 Sec (11.4-14.6) H 08/18/23 02:55
INR 1.25 08/18/23 02:55
APTT 101.4 Sec (23.4-35.0) H 08/19/23 09:54
Sodium 134 mmol/L (135-145) L 08/19/23 03:09
Potassium 4.2 mmol/L (3.5-5.1) 08/19/23 03:09
Chloride 103 mmol/L (98-107) 08/19/23 03:09
Carbon Dioxide 28 mmol/L (22-30) 08/19/23 03:09
BUN 18 mg/dl (9-20) 08/19/23 03:09
Creatinine 0.9 mg/dL (0.7-1.3) 08/19/23 03:09
Calcium 8.2 mg/dl (8.4-10.2) L 08/19/23 03:09
Total Bilirubin 0.7 mg/dl (0.2-1.3) 08/19/23 03:09
AST 30 U/L (17-59) 08/19/23 03:09
ALT 29 U/L (0-50) 08/19/23 03:09
Alkaline Phosphatase 81 U/L (38-126) 08/19/23 03:09
Prior GI Procedures:
EGD: 6 months ago at [place] (record not available for review)
Colonoscopy: Remote history no polyps per patient (not available for review)
Assessment / Plan
-
The patient is a 68-year-old male with a past medical history significant for CKD, history of DVT, chronic respiratory failure with hypercapnia on chronic oxygen, type 2 diabetes, hypertension, bipolar disorder, GERD, ESSIE with CPAP use, restless leg
syndrome, iron deficiency anemia, morbid obesity, who presented to [facility] on 08/10 after having elevated potassium levels on outpatient lab work. We being asked to evaluate for concern for reverse aspiration. Prolonged hospital course as
noted above with VDRF extubated on 08/18. Now with concern for reverse aspiration. He notes previous evaluation for concern for reverse aspiration and was recommended to undergo evaluation at a tertiary center due to his morbid obesity but has not
been able to follow-up due to ongoing medical problems. He notes he had an endoscopy 6 months ago which showed food residue in the stomach otherwise was normal without any obstructive process. He was seen by speech therapy and approved for a diet.
Problem list:
-concern for reverse aspiration
-acute hypercapnic respiratory failure/VDRF s/p extubation on 08/18 now on bipap/supplemental oxygen
-?sepsis, pulmonary v urinary source
-NATALIA on CKD, resolved
-hyperkalemia, resolved
-Chronic microcytic anemia
-Morbid obesity
Other pertinent medical hx:
-HTN
-HLD
-IDDM
-bipolar disorder
-COPD
Recommendations:
-Etiology of reverse aspiration unclear. Had prior EGD 6 months ago with no evident findings per patient.
-Will obtain records from [facility] and [facility] for the last office note and EGD report
-To consider esophagram versus VSE inpatient pending above record review but he will need to be optimized from a medical and pulmonary standpoint as he was just extubated yesterday and requiring intermittent BiPAP.
-Diet as per speech therapy
-Aspiration precautions
-To consider outpatient evaluation at tertiary center as per recommendation from the patient's GI physician
-Further recommendations pending above
-Will follow
-
-
Thank you for consultation and allowing me to participate in the patient's care. Please call the sales and operations trainee GI physician during the after hours with any questions or concerns.
--- NOTE | 2023-08-19 11:18 | PTOTSP ---
Pt admitted from LTC facility where he requires mechanical lift for transfers at baseline. He does not have goals for PT. PT will sign off. RN aware.
[2023-08-19 11:26] LABS: Glucose - Point of Care 141 mg/dl (70-99)
[2023-08-19] MEDS: LANTUS 0.200000000000000011 UNITS SC ×2 (11:27→21:47)
[2023-08-19] MEDS: DESENEX/MITRAZOL/ZEASORB 1 APPLIC TOPICAL ×2 (11:28→19:58)
[2023-08-19] MEDS: ANTIFUNGAL CLEAR 1 APPLIC TOPICAL ×2 (11:28→19:59)
[2023-08-19] MEDS: GLUCOPHAGE 500 MG PO ×2 (11:38→17:11)
--- NOTE | 2023-08-19 12:15 | PTCARENOTE ---
Pt resting quietly in bed, talking on phone at various times. No new complaints. Remains on O2 at 6l/min via Midflow since placed by Resp Therapy. Pox mid 90's. No resp. distress. Occasional to frequent moist cough productive of moderate amount of
thick white sputum. Pt using Yankauer suction independently prn. Heparin gtt d/c'ed per order and pt now on Eliquis PO. Long acting insulin administered as documented in SEP and Insulin gtt to be d/c'ed hrs after long acting insulin given.
[2023-08-19 12:37] LABS: Glucose - Point of Care 115 mg/dl (70-99)
[2023-08-19 13:23] LABS: Glucose - Point of Care 125 mg/dl (70-99)
[2023-08-19] MEDS: NOVOLOG FLEXPEN 5 UNITS SC ×2 (13:28→17:13)
[2023-08-19] MEDS: NOVOLOG FLEXPEN-MODERATE RESISTANCE SC (13:29)
--- NOTE | 2023-08-19 15:34 | CM ---
CM following re: discharge planning.
Discussed in rounds, reviewed pt's chart, met with pt. Per Rounds meeting, pt with hypercapnic respiratory failure, extubated yesterday to 6L NC of O2, on Bi-pap.
Per daughter, pt just moved to [facility] one month ago from [facility] and per daughter pt was intubated 4 times since 2021.
D/C plan: return back to [facility] when medically stable.
CM will follow with discharge plan updates as hospitalization progress
--- NOTE | 2023-08-19 16:14 | PTCARENOTE ---
Pt continues to rest quietly in bed w/o complaint. Tolerating ordered diet w/o complication- hearty appetite noted as pt ate 100% of lunch and soon after asked if it was too early to order dinner. Insulin gtt off at 1330. Pt remains on O2 at 6l/min
via midflow w/ pox 94-97%. No additional changes from previous assessment findings.
[2023-08-19] MEDS: NOVOLOG FLEXPEN-MODERATE RESISTANCE 1 UNITS SC (17:12)
[2023-08-19 17:24] LABS: Glucose - Point of Care 162 mg/dl (70-99)
--- NOTE | 2023-08-19 19:01 | W.PN.HOSP.TC ---
Today's Communication/Plan
-
Doing better
Please see below
Assessment / Plan
Assessment / Plan
Physical Exam
General: No Apparent Distress
Respiratory: Clear to Auscultation Bilaterally
Cardiac: Regular Rhythm and S1/S2
GI: Soft, Nontender and Normal Bowel Sounds
Genito-urinary: Other (Brown catheter in place, have hypospadiasis)
Musculoskeletal: No Edema
Neuro: Alert and Awake
Assessment/Plan
1. Acute hypercapnic respiratory failure with suspected OHS
Vent dependent respiratory failure
Acute toxic metabolic encephalopathy - IMPROVING
-Extubated on 08/18/23
-Patient required intubation on 08/12 in the morning
-Postintubation x-ray showing ET tube in correct position. No pneumothorax
-Pre-intubation arterial blood gas showed pCO2 greater than 115, repeat ABG postintubation showing pCO2 down to 40
-Continue nasal cannula during the day with BiPAP during sleep at settings IPAP 20, EPAP 10
-Patient must wear BiPAP when sleepy/sleeping to avoid risk of reintubation
-Titrate FiO2 to maintain SpO2 >88%
-ICU performed bronchoscopy showing 'moderate amounts of thick yellow/off white mucous in LLL but also bloody secretions in left upper lobe bronchus - could have been exacerbated by coughing while on heparin gtt'
-Mucolytics with Mucinex
-Chest physiotherapy
-Duonebs Q12H
-No need for CT head at this time since mentation improved
-Will need repeat CXR in 4-6 weeks to follow left sided PNA and atelectasis to resolution
2. NATALIA - Resolved
-Renal function 0.9 in Jul 29, trending down slowly.
-Hold Lisinopril
-Lasix was given on 08/18/23 due to vascular congestion developing on CXR and elevated pro-BNP
-Brown exchanged on day of admission
-Renal ultrasound normal.
-Replace electrolyte abnormalities to keep K>3.5, Mg>1.8. PO4>3
-Nephrology following
3. Sepsis - POA
Hypotensions w/o shock
Left Lower Lobe Pneumonia
-suspected urinary source vs pulm vs other
-Blood culture and urine culture collected
-Reps cs negative so far
-ID involved and following along.
-Status post Cefepime and Zosyn
4. Left leg DVT
-Recently diagnosed in [facility], was on Lovenox 120mg/bid
-Left lower extremity Doppler showing nonocclusive thrombus in common femoral vein
-Patient was started on heparin drip per hematology recommendation
-Now transitioned to Eliquis
5. Hyperkalemia - resolved
-Secondary to renal failure and lisinopril.
-EKG showing NSR, WV 190ms, QRS 142ms
-Patient got calcium gluconate/insulin-glucose.
-NGT in place and got through NGT
6. Insulin-dependent diabetes mellitus - Uncontrolled
-diabetic SAL[employer] involved in care
-On insulin drip as part of ICU protocol as well as subq Insulin
-Wean off Insulin Drip
-Start Diabetic Diet
6. Essential HTN
-Maintain on metoprolol tartrate. prn hydralazine
7. Chronic indwelling Brown catheter
Hypospadias
-Brown catheter has been exchanged on 08/11
8. Reported delusion
History of bipolar disorder
-Continue Abilify. Valproate level within normal.
-Psychiatry evaluated on day of admission, currently remains intubated/sedated and will be re-involved post extubation
9. Hypernatremia - RESOLVED
Mild Hyponatremia
- Monitor BMP
GERD
Morbid obesity
Obstructive sleep apnea
Neuropathy
DVT prophylaxis - Eliquis
Full code
Anticipated Discharge: > 48 hours
Subjective/Interval History
-
Date of Service: August 19, 2023
Patient was seen and examined. He was extubated yesterday as per patient's nurse, he was awake and speaking on the phone.
Objective Data
-
Labs:
Laboratory Results
08/19/23
09:54
APTT 101.4 H
Vital Signs:
Vital Signs
Temp Pulse Resp BP Pulse Ox
98.1 F 77 27 144/77 99
08/19/23 15:00 08/19/23 18:00 08/19/23 18:00 08/19/23 18:00 08/19/23 18:00
I&O
08/18/23 08/19/23 08/20/23
06:59 06:59 06:59
Intake Total 4372.5 / 4547.5 3855.2 / 3894.2 415.5 / 415.5
Output Total 2660 / 2850 4460 / 4460 2200 / 2200
Balance 1712.5 / 1697.5 -604.8 / -565.8 -1784.5 / -1784.5
[2023-08-19] MEDS: DUONEB 3 ML INH (21:01)
--- NOTE | 2023-08-19 21:19 | PTCARENOTE ---
Received patient in bed AAOx3 and able to make his needs known. Plan of care for the shift reviewed with the patient. Questions answered regarding BiPaP and prn Tylenol. Pt's sinus rhythm on the monitor with PVCs and vent bigeminy. Qtc 556 and QT
416. Coarse and rhonchi breath sounds. The patient has productive cough and utilizes the Yankauer to suction himself. SpO2 at 95% on midflow oxygen 6L. Abdomen is obese and nontender. Chronic villareal is intact. Villareal care provided. The patient had a
small BM. MASD. Pt has small open wound to his buttocks. Patient cleansed and full linen change completed. Lotion, antifungal powder/ ointment, and Calazime applied. Mouth care provided and new setup for suction and Yankauer placed. Safety measures
maintain. Bed in the lowest position. Call alvarez and Yankauer are within reach. All needs are met at this time.
[2023-08-19 21:42] LABS: Glucose - Point of Care 119 mg/dl (70-99)
[2023-08-19] MEDS: COLACE 100 MG PO (21:46)
[2023-08-19] MEDS: ABILIFY 7.5 MG PO (21:46)
[2023-08-19] MEDS: NEURONTIN 600 MG PO (21:49)
[2023-08-20] VITALS (23 sets, daily range): BP systolic 115–161; BP diastolic 38–84; PULSE 2–80; BMI 50.4
[2023-08-20] MEDS: ROBITUSSIN 400 MG PO ×6 (00:03→19:57)
--- NOTE | 2023-08-20 00:08 | PTCARENOTE ---
Patient reassessed. Asleep but arouses easily to verbal and tactile command/stimuli. Scheduled medication administered. Remains sinus rhythm on the monitor. The pt's on BiPAP 15/8 and 10 L. SpO2 at 97%. Turns and repositioning continued. No further
changes from the previous assessment.
--- NOTE | 2023-08-20 01:05 | W.PN.UPDATE ---
Update Note
Progress Note Update
orders placed for transfer to IMU level of status per Dr. Wills, brick cleaner.
--- NOTE | 2023-08-20 02:22 | PTCARENOTE ---
Patient removed his BiPAP. Pt states that 'I am taking a banana break.' SpO2 decreased from 95% to 88%. Explained to the patient that BiPAP needs to be replaced but pt became agitated stating 'Don't touch me. You don't have a right to touch me.'
Explained to the patient that his oxygen is dropping and to place BiPAP on but the pt declined. Attempted to place midflow oxygen on the patient but he grabbed RNs hand and stated that he doesn't want oxygen on. Pt's SpO2 at this point is 85% on
room air. Discussed previous intubation status with the patient and patient verbalized wanting to be intubated. This RN then continued to speak with patient and encouraged him to at least utilize the midflow oxygen. Pt's confused and stated that he
was in [place] and did not need oxygen. Patient reoriented to place and situation. After multiple encouragement, pt agreed to apply midflow oxygen. Pt encouraged to take deep breaths with midflow o2 at 6L. SpO2 increased to 96%. No further changes.
All needs met.
[2023-08-20 04:37] LABS: Hematocrit 29.2 % (39.0-52.0); Hemoglobin 9.6 g/dL (13.0-18.0); Mean Corp Hgb Conc. 32.9 g/dL (33.0-37.0); Mean Corpuscular Hgb 32.7 pg (27.0-31.0); Mean Corpuscular Volume 99.3 fL (80.0-94.0); Mean Platelet Volume 9.9 fL (7.4-10.4); Platelet Count 301 10^3/uL (130-400); Red Blood Cell Count 2.94 10^6/uL (4.70-6.10); Red Cell Dist. Width 14.6 % (11.5-14.5); White Blood Cell Count 9.9 10^3/uL (4.8-10.8)
[2023-08-20 04:53] LABS: Blood Urea Nitrogen 20 mg/dl (9-20); Calcium 9.5 mg/dl (8.4-10.2); Carbon Dioxide 31 mmol/L (22-30); Chloride 98 mmol/L (98-107); Estimated Creatinine Clearance 108 ml/min; Glucose 126 mg/dl (70-99); Potassium 4.6 mmol/L (3.5-5.1); Sodium 138 mmol/L (135-145); eGFR > 60.00
--- NOTE | 2023-08-20 04:55 | PTCARENOTE ---
Patient reassessed. Pt's awake and oriented x3. Patient remains on midflow oxygen at 6L. Labs drawn and sent. Pt assists with repositioning to best of ability. All needs are met at this time. Call alvarez is within reach. Safety measures maintained.
--- NOTE | 2023-08-20 07:50 | PN.DE.MGMTRT ---
Insulin Management
- -
08/13/2023 Diabetes Management Consult
Patient admitted 08/10 with hyperkalemia from [place]. PMH Chronic respiratory failure, morbid obesity, HTN, ESSIE, BPH, DVT, neuropathy. Prior to admission chart indicated patient diabetes regimen was Lantus 10 units @ HS with SS NovoLog and metformin
500 mg BID. Patient received Lantus @ hs with corrective insulin but glucose has remained > 200. Glycemic protocol to be started today and possibly tube feeds. Will assess in AM for readiness to transition from insulin infusion to subcutaneous.
08/14/2023: Diabetes Management F/U:
A1C 7.4%. Pt required initiation of glycemic protocol due to Hyperglycemia. Tube feeds were started yesterday, currently @50cc/hr.
Glucose has remained elevated 167-201 on drip, requiring 4-6 units of insulin/hr.
Will cont CCGP today and reassess this evening for readiness to transition, ideally at 1800
08/17/2023: Diabetes Management F/U:
Pt remains critically ill and intubated. Started on tube feed 08/13--->Hyperglycemia requiring insulin infusion.
Glucose remained elevated throughout the weekend while on glycemic protocol with high insulin requirements.
Glucose over night was 110 to 185, needed 10-20 units of insulin/hr (TDD of 180 units)
Cont CCGP considering the ongoing hyperglycemia and his hourly insulin requirement.
Will closely follow and reassess for readiness to transition to SQ insulin
08/18/2023 Diabetes Management Follow up
Patient remains intubated is s/p bronchoscopy yesterday. Remains on glycemic protocol requiring 10 to 14 units of insulin per hour. Tube feeds continue at 75 ml/ hr. Will initiate 8 units novolog SQ to offset tube feeds. If tube feeds held or
stopped please hold 8 units novolog q6 hours and continue glycemic protocol. Will follow for readiness to transition to SQ insulin.
08/19/2023 Diabetes Management Follow up
Patient extubated yesterday ~3PM. Did well overnight. Tube feeds continue @ 75 per hour. Currently being evaluated by speech. Q 6 hour novolog started yesterday @ 8 units, will increase to 12 units. Insulin infusion continued requiring 6 to 8
units per hour. If diet started will provide lantus BID, and stop drip, and change Q6 hour novolog to AC novolog.
08/20/2023 Diabetes Management Follow up
Transitioned from insulin infusion yesterday ~ noon. Currently receiving lantus 20 units BID and novolog 5 units AC with moderate corrective. Glucose range 119 to 162. Will continue 20 units lantus BID and novolog 5 units AC, will decrease
corrective insulin from moderate to low. Will follow.
Diabetes History
- -
Type of Diabetes: 2 requiring insulin
Pre-Admission Diabetes Regimen
08/20/23
04:24
Creatinine 1.0
Lab Results
Hemoglobin A1c 7.4 % (4.0-5.6) H 08/11/23 04:54
Insulin Pump Settings
IP Diabetes Regimen
08/19/23 08/19/23 08/19/23
08:40 09:50 11:11
Glucose
POC Glucose 117 H 148 H 141 H
08/19/23 08/19/23 08/19/23
12:25 13:12 17:12
Glucose
POC Glucose 115 H 125 H 162 H
08/19/23 08/20/23
21:31 04:24
Glucose 126 H
POC Glucose 119 H
Meal type: Lunch
Amount consumed: 100%
Patient Education
[2023-08-20] MEDS: DUONEB 3 ML INH ×2 (07:59→20:18)
--- NOTE | 2023-08-20 08:00 | PTCARENOTE ---
Received patient in bed AAOx3 and able to make his needs known. NSR with BBC on the monitor with PVCs Qtc 449 and QT 416. Coarse and rhonchi breath sounds. The patient has productive cough SpO2 at 97% on midflow oxygen 6L. Abdomen is obese and
nontender. Chronic villareal is intact. Villareal care provided. Patient cleansed and full linen change completed. Lotion, antifungal powder/ ointment, and Calazime applied. Mouth care provided and new setup for suction and Yankauer placed. Safety measures
maintain. Bed in the lowest position. Call alvarez and Dionte are within reach. All needs are met at this time.
[2023-08-20 08:11] LABS: Glucose - Point of Care 142 mg/dl (70-99)
[2023-08-20] MEDS: GLUCOPHAGE 500 MG PO ×2 (08:28→16:10)
[2023-08-20] MEDS: PROTONIX 40 MG PO (08:28)
[2023-08-20] MEDS: ELIQUIS 5 MG PO ×2 (08:28→19:57)
[2023-08-20] MEDS: LOW STRENGTH ASPIRIN 81 MG PO (08:28)
[2023-08-20] MEDS: LOPRESSOR 50 MG PO ×2 (08:28→20:26)
[2023-08-20] MEDS: NEURONTIN 300 MG PO ×2 (08:28→11:17)
[2023-08-20] MEDS: FEOSOL 325 MG PO (08:28)
[2023-08-20] MEDS: NOVOLOG FLEXPEN 5 UNITS SC ×3 (08:29→16:51)
[2023-08-20] MEDS: NORVASC 5 MG PO (08:29)
[2023-08-20] MEDS: THERAGRAN 1 TABLET PO (08:29)
[2023-08-20] MEDS: MIRALAX PO (08:29)
[2023-08-20] MEDS: VITAMIN D3 (cholecalciferol) 25 MCG PO (08:29)
[2023-08-20] MEDS: LANTUS 0.200000000000000011 UNITS SC ×2 (08:32→21:57)
[2023-08-20] MEDS: DESENEX/MITRAZOL/ZEASORB 1 APPLIC TOPICAL ×2 (08:39→20:26)
[2023-08-20] MEDS: ANTIFUNGAL CLEAR 1 APPLIC TOPICAL ×2 (08:39→19:58)
[2023-08-20] MEDS: NOVOLOG FLEXPEN-LOW RESISTANCE SC ×2 (08:39→16:51)
--- NOTE | 2023-08-20 09:02 | W.PN.PUL3 ---
Today's Communication / Plan
-
Supplemental oxygen with goal SpO2 >88%
DuoNebs q12hr
Mucolytics
Incentive spirometer�
BiPAP at night/during naps --> this is very important!
Try to use 5L/min in bipap machine tonight as the [facility] may not be able to handle above 6L/min
s/p course of ABx
NOAC
Goal BG 140-180mg/dL
Will need repeat CXR in 4-6 weeks to follow left sided PNA and atelectasis to resolution.
Assessment
-
68-year-old morbidly obese M with probable obesity hypoventilation syndrome with chronic hypercapnia on chronic oxygen, bipolar disorder, hypertension, diabetes, DVT presented with recently diagnosed left leg DVT, NATALIA, hyperkalemia, metabolic
encephalopathy and hypercapnia despite maximum BiPAP requiring intubation-floor polisher consulted for ventilator/critical care management 08/12/2023.
Assessment
Acute respiratory failure with hypoxemia and hypercapnia
Intubated 08/12/2023
Extubated 08/18/2023
Toxic metabolic encephalopathy - resolved
Obesity-hypoventilation syndrome now on nocturnal BiPAP
NATALIA - resolved
CAP
Centrilobular emphysema (seen on apical lung chandra via cervical CT from 08-07-2023) and at risk for COPD
Recent left lower extremity DVT-provoked - Dx on 08/11/2023 involving left CFV (nonocclusive thrombus)
Leukocytosis
Anemia
Hyperglycemia - now resolved
Hypertriglyceridemia
Conditions present prior to admission:
Morbid obesity-BMI 51 with Hx of bariatric surgery (sleeve)
Recent EFK-mehsowce-VUB stay.�
Hypertension.�
Obesity hypoventilation syndrome.�
Chronic oxygen supplementation.�
Legally blind-retinitis pigmentosa.�
Spinal stenosis.�
Colon resection.�
Deviated septum repair.�
Former smoker.
COPD on chronic oxygen supplementation
Chronic Brown due to BPH and chronic urinary retention
Plan
Patient has continued to improve and is continuing to do remarkably well
Continue nasal cannula during the day with BiPAP during sleep at settings IPAP 15, EPAP 8, and titrate O2 flow rate to maintain SpO2 >88%
Continue mucolytics with Mucinex and chest PT as needed
If he requires reintubation, he will likely need tracheostomy --> daughter does not feel pt would want this but she wants to keep pt full code for now; this was also previously reviewed with Dr. Bullard & daughter
Dr. Bullard reviewed with daughter-fourth intubation in the last 1.5 years-transition to CPAP and not BiPAP
I discussed what a tracheostomy is and that if he ends up getting re-intubated that he very well may need one if he is unable to be successfully extubated. He currently is doing well on nasal cannula, and as long as he remains compliant with his
BiPAP then we can avoid mechanical ventilation.� He says that he falls asleep easily and forgets to put the bipap on, and he also is bedbound due to spinal stenosis, back pain, knee pain and his obesity, so he relies on caregivers/nursing staff to
apply the bipap to him and again, that does not always happen allie if he does not call them.� I told him that he needs ti advocate for his own health, and that if he feels sleepy then he needs to apply the bipap mask on othewise he very well may get
re-intubated and end up with a tracheostomy.� I answered all his questions.
Considering he has suspected COPD, I started DuoNebs q12hr on 08/19
Sport bed with percussion-appears to be helping
Anticoagulation for recent DVT - on 08/19 we transitioned from heparin gtt to Eliquis - he should continue this upon discharge and considering his sedentary lifestyle, he should continue therapeutic dosing for minimum of 3 months and then consider
switching to prophylactic dose after that. Would defer this decision to his hematology.
Hematology following-correspondence reviewed
Echocardiogram 08/12/2023-EF 65-70% with dilated RV and normal RVSF
Previously as per Dr. Tran - With unclear mental status/neurologic exam-obtain CT head-reviewed with primary team -�mentation now improved and he is following�commands/back to baseline.� No need for CT at this time.
Monitor renal function
Replace electrolyte abnormalities with K>3.5, Mg>1.8. PO4>3
Nephrology seen-correspondence reviewed- serial renal function, and maintain MAP greater than 65
Diurese as needed� - lasix given on 08/18 due to mild pulmonary vascular congestion developing on CXR and elevated pro-BNP
Cultures reviewed-unrevealing thus far
Repeat sputum 08/14/2023-usual respiratory harpreet
Infectious disease consultation obtained-correspondence reviewed- s/p course of ABx with cefepime given from 08/13 - 08/18; zosyn given x 2 days (08/11 + 08/12)
Follow hemoglobin
Transfuse if needed to maitain Hb>7, plt>50k
Follow blood sugar with goal BG 140-180mg/dL
Insulin drip initiated 08/13/2023 --> stopped on 08/19
Diabetic nurse practitioner consultation ongoing -->�now the patient is extubated, continue ADA; he has been weaned off insulin drip and BG has been in 110s-130s
Diet as per UTILITY AIDE
Continue PPI (takes PPI at home)
DVT prophylaxis- Eliquis
GI prophylaxis-on pantoprazole 40mg PO daily
Bedside range of motion - PT/OT
I updated his daughter Negra over the phone and answered all her questions.
Ultimately will need repeat CXR in 4-6 weeks to follow left sided PNA and atelectasis to resolution.
Dispo: Patient stable for downgrade out of IMU to telemetry.� Pulmonary service will continue to follow along.� Thank you for allowing us to be involved in the care of this patient.
Diagnostic data:
Chest x-ray 08/11/2023-bibasilar interstitial pneumonia
Chest x-ray 08/12/2023-rotated to the left, no pneumothorax, ET tube above lashon, bilateral interstitial infiltrates
Chest x-ray 08/13/2023-Mildly improved findings suggesting left lower lobe pneumonia.
CXR 08/18/2023: Right basilar pneumonia, and a left basilar opacity that may represent pneumonia, pleural fluid, and/or atelectasis.
CXR 08/19/2023: Status post extubation. Slight improvement in aeration compared to the most recent exam.
Subjective Data
-
Date of Service:
Date of Service: August 20, 2023
Chief Complaint: Pulmonary Follow Up
Subjective:
Patient seen this morning. Saturating 98% on 4 L/min nasal cannula. He wore his BiPAP 15 bled with 10L/min overnight but he took it off at 2:00 AM after he 'woke up naturally and felt refreshed.' I asked him if he did not want to wear the BiPAP
anymore because the pressures were too high or there was an issue with the mask, and he replied no. He currently is eating breakfast, tolerating this without any nausea, abdominal pain. Also denies chest pain, shortness of breath, headache, fevers
or chills.
Review of Systems
General: Other (12 point ROS performed and is negative unless mentioned above.)
Objective Data
Data Reviewed
Vital Signs / I&O / Oxygen:
Vital Signs
Temp Pulse Resp BP Pulse Ox
98.4 F 78 19 161/77 98
08/20/23 08:17 08/20/23 09:00 08/20/23 09:00 08/20/23 09:00 08/20/23 08:00
Intake and Output
08/19/23 08/20/23 08/21/23
06:59 06:59 06:59
Intake Total 3855.2 / 3894.2 415.5 / 415.5
Output Total 4460 / 4460 2525 / 2525
Balance -604.8 / -565.8 -2109.5 / -2109.5
SaO2 [CPAP] 40
SaO2 [A/C] 97
SaO2 98
Nasal Cannula flow liters per 6
minute
Physical Exam
General: Comfortable, Good Appetite and Other (morbidly obese)
HEENT: Normocephalic and Anicteric
Cardiovascular: S1-S2 and Peripheral Edema (negative)
Respiratory: Wheeze (negative), Rhonchi (left base) and Non-Labored Respirations
GI: Soft, Non Distended, Non Tender, Normal Bowel Sounds and Other (abdominal obesity)
Neurology: Awake and Alert
Skin: Warm and Dry
Labs/Micro/Reports
Lab Data
08/20/23 04:24
08/20/23 04:24
Laboratory Results
08/19/23
09:54
APTT 101.4 H
[2023-08-20] MEDS: NOVOLOG FLEXPEN-MODERATE RESISTANCE SC (09:29)
--- NOTE | 2023-08-20 10:16 | W.PN.ID1 ---
Date of Service
Date of Service: August 20, 2023
Today's Communication
Observe off abx.
Assessment / Plan
S/P VDRF
Fever
Leukocytosis
Retinitis pigmentosa (legally blind)
Spinal stenosis
Bipolar disease/anxiety
Class III obesity
Hx DVT
HTN
COPD
DM
BPH with chronic urinary retention (chronic Brown)
Recommendations:
Cultures unrevealing. Patient is status post 8-day course of antibiotics. CXR shows improvement.
Fever resolved
Observe off antibiotics.
Monitor white count and temperature curve
Monitor CXR.
Continue with supportive measures
����������������������������������������������������������
Chief Complaint
-: Fever and Leukocytosis
Subjective / Review of Systems
Review of Systems: No Fever, No Chills, No Cough, No Sputum Production and No Abdominal Pain
Vital Signs / Physical Exam
Vital Signs
Vital Signs
Temp Pulse Resp BP Pulse Ox
98.4 F 78 19 161/77 98
08/20/23 08:17 08/20/23 09:00 08/20/23 09:00 08/20/23 09:00 08/20/23 08:00
Physical Exam
Physical Exam:
Constitutional: No Acute Distress, Comfortable, Chronically Ill, Non-toxic and Obese
Eyes: Sclera Anicteric
Cardiovascular: S1/S2; Negative S3/S4
Pulmonary: Non Labored; Negative Wheezes or Rales
Gastrointestinal: Soft, Non Tender and Non Distended
Extremities: Edema; Negative Erythema
Neurological: Awake and Alert
Psychological: Calm
Objective Data
Lab Data
Lab Results
08/20/23 04:24
08/20/23 04:24
PT 15.5 Sec (11.4-14.6) H 08/18/23 02:55
INR 1.25 08/18/23 02:55
APTT 101.4 Sec (23.4-35.0) H 08/19/23 09:54
Estimated Creat Clear 108 ml/min 08/20/23 04:24
Lactic Acid 1.4 mmol/L (0.7-2.0) 08/13/23 15:20
Total Bilirubin 0.7 mg/dl (0.2-1.3) 08/19/23 03:09
AST 30 U/L (17-59) 08/19/23 03:09
ALT 29 U/L (0-50) 08/19/23 03:09
Alkaline Phosphatase 81 U/L (38-126) 08/19/23 03:09
Most recent labs reviewed.
Chest X-Ray: Image Reviewed and Report Reviewed
Microbiology: Report Reviewed
Micro Results:
08/11/23 18:22 Blood Culture - Final
Blood/Venous No Growth - Final Report
08/11/23 17:58 Blood Culture - Final
Blood/Venous No Growth - Final Report
08/14/23 10:38 Respiratory Culture - Final
Tracheal Aspirate Usual Respiratory Perlita
Gram Stain - Final
08/12/23 15:45 Respiratory Culture - Final
Tracheal Aspirate Usual Respiratory Perlita
Gram Stain - Final
08/13/23 11:02 Influenza Types A & B (ADELITA) - Final
Nasal Swab Negative for Influenza A & B, NAAT
Negative results must be combined with clinical observations
and patient history.
Nucleic Acid Amplification test (NAAT)performed on the
[employer] NOW platform.
08/11/23 04:54 MRSA Screen - Final
Nose No Methicillin Resistant Staphylococcus aureus isolated.
Imaging:
08/19/2023 CXR (portable): Significant patient rotation noted. Right lung base is not fully included in the study. Improved lung volumes noted, with decreased interstitial edema and decreased bibasilar atelectasis and pleural fluid. No new area of
airspace disease.
08/11/2023 Renal ultrasound: No hydronephrosis. No abnormal solid or complex renal masses. No renal calculi. Please see full dictation for additional detail.
--- NOTE | 2023-08-20 10:58 | PTCARENOTE ---
PT received full bed bath, shampoo and oral care, linens changed and PT repositioned for comfort, PT denies any complaints at this time
[2023-08-20] MEDS: TYLENOL 650 MG PO ×3 (11:17→21:56)
[2023-08-20] MEDS: NOVOLOG FLEXPEN-LOW RESISTANCE 1 UNITS SC (11:38)
[2023-08-20 11:46] LABS: Glucose - Point of Care 165 mg/dl (70-99)
--- NOTE | 2023-08-20 12:51 | W.PN.HOSP.TC ---
Today's Communication/Plan
-
Refused BiPAP and oxygen overnight
Later was agreeable to oxygen
Continue antibiotics, Eliquis
Assessment / Plan
Assessment / Plan
Physical Exam
General: No Apparent Distress
Respiratory: Clear to Auscultation Bilaterally
Cardiac: Regular Rhythm and S1/S2
GI: Soft, Nontender and Normal Bowel Sounds
Genito-urinary: Other (Brown catheter in place, have hypospadiasis)
Musculoskeletal: No Edema
Neuro: Alert and Awake
Assessment/Plan
1. Acute hypercapnic respiratory failure with suspected OHS
Vent dependent respiratory failure
Acute toxic metabolic encephalopathy - IMPROVING
-Extubated on 08/18/23
-Patient required intubation on 08/12 in the morning
-Postintubation x-ray showing ET tube in correct position. No pneumothorax
-Pre-intubation arterial blood gas showed pCO2 greater than 115, repeat ABG postintubation showing pCO2 down to 40
-Continue nasal cannula during the day with BiPAP during sleep at settings IPAP 20, EPAP 10
-Patient must wear BiPAP when sleepy/sleeping to avoid risk of reintubation
-Titrate FiO2 to maintain SpO2 >88%
-ICU performed bronchoscopy showing 'moderate amounts of thick yellow/off white mucous in LLL but also bloody secretions in left upper lobe bronchus - could have been exacerbated by coughing while on heparin gtt'
-Mucolytics with Mucinex
-Chest physiotherapy
-Duonebs Q12H
-No need for CT head at this time since mentation improved
-Plan to repeat CXR in 4-6 weeks to follow left sided PNA and atelectasis to resolution
2. NATALIA - Resolved
-Renal function 0.9 in Jul 29, trending down overall to baseline
-Hold Lisinopril
-Lasix was given on 08/18/23 due to vascular congestion developing on CXR and elevated pro-BNP
-Brown exchanged on day of admission
-Renal ultrasound normal.
-Replace electrolyte abnormalities to keep K>3.5, Mg>1.8. PO4>3
-Nephrology following
3. Sepsis - POA
Hypotensions w/o shock
Left Lower Lobe Pneumonia
-suspected urinary source vs pulm vs other
-Blood culture and urine culture collected
-Respiratory culture negative
-ID involved and following along.
-Status post Cefepime and Zosyn
4. Left leg DVT
-Recently diagnosed in [facility], was on Lovenox 120mg/bid
-Left lower extremity Doppler showing nonocclusive thrombus in common femoral vein
-Patient was started on heparin drip per hematology recommendation
-Now transitioned to Eliquis - continue
5. Hyperkalemia - resolved
-Secondary to renal failure and lisinopril.
-EKG showing NSR, MI 190ms, QRS 142ms
-Patient got calcium gluconate/insulin-glucose.
-NGT in place and got through NGT
6. Insulin-dependent diabetes mellitus - Uncontrolled
-diabetic ATHLETIC EVENTS SCORER involved in care
-On insulin drip as part of ICU protocol as well as subq Insulin
-Wean off Insulin Drip
-Continue Diabetic Diet
6. Essential HTN
-Maintain on metoprolol tartrate. prn hydralazine
7. Chronic indwelling Brown catheter
Hypospadias
-Brown catheter has been exchanged on 08/11
8. Reported delusion
History of bipolar disorder
-Continue Abilify. Valproate level within normal.
-Psychiatry evaluated on day of admission, currently remains intubated/sedated and will be re-involved post extubation
9. Hypernatremia - RESOLVED
Mild Hyponatremia
- Monitor BMP
GERD
Morbid obesity
Obstructive sleep apnea
Neuropathy
DVT prophylaxis - Eliquis
Full code
Anticipated Discharge: > 48 hours
Subjective/Interval History
-
Date of Service: August 20, 2023
Patient was seen and examined. He was about to get cleaned at the time he was seen, at one point overnight he refused BiPAP and oxygen but later agreed to oxygen.
Objective Data
-
Labs:
Laboratory Results
08/20/23
04:24
WBC 9.9
Hgb 9.6 L
Hct 29.2 L
Plt Count 301
Sodium 138
Potassium 4.6
Chloride 98
Carbon Dioxide 31 H
BUN 20
Creatinine 1.0
Glucose 126 H
Calcium 9.5
Vital Signs:
Vital Signs
Temp Pulse Resp BP Pulse Ox
98.2 F 67 25 140/58 99
08/20/23 11:25 08/20/23 12:00 08/20/23 12:00 08/20/23 10:00 08/20/23 12:00
I&O
08/19/23 08/20/23 08/21/23
06:59 06:59 06:59
Intake Total 3855.2 / 3894.2 415.5 / 415.5
Output Total 4460 / 4460 2525 / 2750 1175 / 1175
Balance -604.8 / -565.8 -2109.5 / -2334.5 -1175 / -1175
--- NOTE | 2023-08-20 13:55 | CM ---
CM following re: discharge planning.
Discussed in rounds, reviewed pt's chart, met with pt. Per Rounds meeting, pt with hypercapnic respiratory failure, requires 4L NC of O2, has C-pap machine and will need Bi-pap
Pt's clinical faxed to [facility] for review.
[facility] nursing report: [phone]
Discharge instructions fax: [phone]
D/C plan: return back to [facility] when medically stable.
CM will follow with discharge plan updates as hospitalization progress
--- NOTE | 2023-08-20 15:08 | PN.CDI ---
CDI
- -
CDI:
Physician Documentation Request
Admit Date: 08/10/23 20:26
Dear Doctor Armin,
Please review the following and provide your response in the progress notes.
Clinical Indicators:
Pt admitted with septic shock 2/ Urinary source vs pulm vs other/ Left lower lobe PNA /was treated with Zosyn/Cefepime
Documented per consult 08/19, 'Had speech eval showed concern for reverse aspiration.�...'
patient care note 08/16 @ 1999,' lungs coarse, decr in bases, copious amts thick white secretions...'
Patent care note 08/17 @ 0431,' continues w/ lg amt thick white secretion...'
Bronchoscopy ,' The right-sided secretions were easily suctioned.� Left lower lobe bronchus had thick mucoid secretions that were suctioned.� No active bleeding seen. There was small airway erythema seen at the left upper lobe proper lashon..'
Based on the above, could you clarify in the Progress Notes further specificity regarding the known, suspected or likely type of pneumonia you are treating (recognizing the specific organism may not be known)?
Examples
Aspiration Pneumonia - indicate substance such as food or vomitus, oils or other solids or liquids
Other organism - specify known or suspected type
Other type
Unable to determine
Use of terms such as suspected, likely, concern for, or probable (associated with a specific diagnosis that is being evaluated, monitored, or treated as if it exists) are acceptable and can be coded in the inpatient setting, when documented at the
time of discharge.
Thank you,
Meghan Weeks RN
CDI Specialist
[place] [facility]
Please use your independent medical judgment in providing your response.
--- NOTE | 2023-08-20 15:24 | PN.CDI ---
CDI
- -
CDI:
Physician Documentation Request
Admit Date: 08/10/23 20:26
Dear Doctor Armin,
Please review the following and provide your response in the progress notes.
Clinical Indicators:
Pt admitted with septic shock 2/2 Urinary source vs pulm vs other/ Left lower lobe PNA /was treated with Zosyn/Cefepime
Urinalysis below/No documented Urine culture done
08/11/23
11:45
Urine Color Yellow
Urine Clarity Slightly cloudy
Urine Occult Blood 4+ A
Urine Nitrite Positive A
Urine RBC 40-50 A
Urine WBC 21-25 A
Urine Bacteria Few A
Please provide a diagnosis for the above documented Urinary source:
UTI
Urinary source has been ruled out as a source of sepsis
Other
Use of terms such as suspected, likely, concern for, or probable (associated with a specific diagnosis that is being evaluated, monitored, or treated as if it exists) are acceptable and can be coded in the inpatient setting, when documented at the
time of discharge.
Thank you,
Meghan Weeks RN
CDI Specialist
[place] [facility]
Please use your independent medical judgment in providing your response.
--- NOTE | 2023-08-20 15:28 | PN.CDI ---
CDI
- -
CDI:
Physician Documentation Request
Admit Date: 08/10/23 20:26
Dear Doctor Armin,
Please review the following and provide your response in the progress notes.
Clinical Indicators:
Pt admitted with septic shock 2/ Urinary source vs pulm vs other/ Left lower lobe PNA /was treated with Zosyn/Cefepime
Pulmonary notes 08/19 & 08/20, ' Diurese as needed - lasix given on 08/18 due to mild pulmonary vascular congestion developing on CXR and elevated pro-BNP...'
Progress notes 08/19 & 08/20 , ' -Lasix was given on 08/18/23 due to vascular congestion developing on CXR and elevated pro-BNP...'
ECHO 08/12 , ' Left ventricular ejection fraction is 65-70%.
Please further specify the diagnosis for the above pulmonary vascular congestion /Treatment of IV Lasix :
Acute noncardiogenic pulmonary edema (Vascular congestion)
Acute CHF (please specify type)
Multifactorial Acute noncardiogenic pulmonary edema ( vascular congestion )/Acute CHF (please specify type)
Othe
Use of terms such as suspected, likely, concern for, or probable (associated with a specific diagnosis that is being evaluated, monitored, or treated as if it exists) are acceptable and can be coded in the inpatient setting, when documented at the
time of discharge.
Thank you,
Meghan Weeks RN
CDI Specialist
[place] [facility]
Please use your independent medical judgment in providing your response.
[2023-08-20 17:00] LABS: Glucose - Point of Care 110 mg/dl (70-99)
--- NOTE | 2023-08-20 17:00 | PTCARENOTE ---
Assessment remains unchanged, PT denies any complaints or issues at this time, PT repositioned for comfort
--- NOTE | 2023-08-20 19:30 | PTCARENOTE ---
aaox3. vss. nsr. pulse ox >94% on 6l midflo. villareal draining yellow urine. villareal care provided. pt turned and assessed. will monitor.
[2023-08-20] MEDS: DEPAKOTE (12 HR RELEASE) 500 MG PO (19:58)
[2023-08-20] MEDS: ABILIFY 7.5 MG PO (21:55)
[2023-08-20] MEDS: NEURONTIN 600 MG PO (21:57)
[2023-08-20] MEDS: REFRESH EYE DROPS (PF) 1 DROPS OPHTH (21:57)
[2023-08-20 22:23] LABS: Glucose - Point of Care 119 mg/dl (70-99)
[2023-08-20] MEDS: COLACE PO (22:46)
[2023-08-20 23:20] LABS: Glucose - Point of Care 116 mg/dl (70-99)
[2023-08-21] VITALS (26 sets, daily range): BP systolic 99–157; BP diastolic 38–136; PULSE 2–74; BMI 50.5
[2023-08-21] MEDS: ROBITUSSIN 400 MG PO ×6 (00:23→21:05)
--- NOTE | 2023-08-21 01:15 | PTCARENOTE ---
sao2 decreased to 55% while pt was on bipap. tubing connected. no known issues with equipment. pt was asleep at the time. once awake sa02 increased up to 98%.
[2023-08-21 05:43] LABS: Hematocrit 28.9 % (39.0-52.0); Hemoglobin 9.6 g/dL (13.0-18.0); Mean Corp Hgb Conc. 33.2 g/dL (33.0-37.0); Mean Corpuscular Hgb 32.7 pg (27.0-31.0); Mean Corpuscular Volume 98.3 fL (80.0-94.0); Mean Platelet Volume 9.6 fL (7.4-10.4); Platelet Count 333 10^3/uL (130-400); Red Blood Cell Count 2.94 10^6/uL (4.70-6.10); Red Cell Dist. Width 14.7 % (11.5-14.5)
[2023-08-21 05:44] LABS: Venous Blood Gas B.E. 7.4 mmol/L (-4 to +4); Venous Blood Gas HCO3 34.1 mmol/L (22-27); Venous Blood Gas O2 Sat % 79.1 %; Venous Blood Gas pCO2 59 mmHg (35-48); Venous Blood Gas pH 7.37 (7.32-7.43); Venous Blood Gas pO2 47 mmHg (30-50)
[2023-08-21 06:04] LABS: Blood Urea Nitrogen 20 mg/dl (9-20); Calcium 9.6 mg/dl (8.4-10.2); Carbon Dioxide 32 mmol/L (22-30); Chloride 99 mmol/L (98-107); Estimated Creatinine Clearance 106 ml/min; Glucose 125 mg/dl (70-99); Phosphorus 4.4 mg/dl (2.5-4.5); Potassium 4.8 mmol/L (3.5-5.1); Sodium 137 mmol/L (135-145); eGFR > 60.00
[2023-08-21 06:10] LABS: NT-proBNP 876 pg/ml
[2023-08-21 07:03] LABS: Glucose - Point of Care 118 mg/dl (70-99)
[2023-08-21 07:30] LABS: Glucose - Point of Care 117 mg/dl (70-99)
[2023-08-21] MEDS: NOVOLOG FLEXPEN-LOW RESISTANCE SC ×3 (07:32→15:58)
[2023-08-21] MEDS: DUONEB 3 ML INH ×2 (07:44→19:39)
[2023-08-21] MEDS: FEOSOL 325 MG PO (08:24)
[2023-08-21] MEDS: LASIX 40 MG PO (08:24)
[2023-08-21] MEDS: VITAMIN D3 (cholecalciferol) 25 MCG PO (08:24)
[2023-08-21] MEDS: LOPRESSOR 50 MG PO ×2 (08:24→21:04)
[2023-08-21] MEDS: PROTONIX 40 MG PO (08:24)
[2023-08-21] MEDS: NORVASC 5 MG PO (08:24)
[2023-08-21] MEDS: TYLENOL 650 MG PO ×3 (08:25→21:27)
[2023-08-21] MEDS: DEPAKOTE (12 HR RELEASE) 500 MG PO ×2 (08:25→21:05)
[2023-08-21] MEDS: GLUCOPHAGE 500 MG PO ×2 (08:25→16:28)
[2023-08-21] MEDS: LOW STRENGTH ASPIRIN 81 MG PO (08:25)
[2023-08-21] MEDS: MIRALAX 17 GRAMS PO (08:26)
[2023-08-21] MEDS: THERAGRAN 1 TABLET PO (08:26)
[2023-08-21] MEDS: ELIQUIS 5 MG PO ×2 (08:26→21:04)
[2023-08-21] MEDS: NOVOLOG FLEXPEN 5 UNITS SC ×3 (08:26→15:58)
[2023-08-21] MEDS: NEURONTIN 300 MG PO ×2 (08:26→13:08)
[2023-08-21] MEDS: ANTIFUNGAL CLEAR 1 APPLIC TOPICAL ×2 (08:27→21:06)
[2023-08-21] MEDS: ZESTRIL 10 MG PO (08:27)
[2023-08-21] MEDS: DESENEX/MITRAZOL/ZEASORB 1 APPLIC TOPICAL ×2 (08:27→21:05)
--- NOTE | 2023-08-21 08:32 | PN.DE.MGMTRT ---
Insulin Management
- -
08/13/2023 Diabetes Management Consult
Patient admitted 08/10 with hyperkalemia from [place]. PMH Chronic respiratory failure, morbid obesity, HTN, ESSIE, BPH, DVT, neuropathy. Prior to admission chart indicated patient diabetes regimen was Lantus 10 units @ HS with SS NovoLog and metformin
500 mg BID. Patient received Lantus @ hs with corrective insulin but glucose has remained > 200. Glycemic protocol to be started today and possibly tube feeds. Will assess in AM for readiness to transition from insulin infusion to subcutaneous.
08/14/2023: Diabetes Management F/U:
A1C 7.4%. Pt required initiation of glycemic protocol due to Hyperglycemia. Tube feeds were started yesterday, currently @50cc/hr.
Glucose has remained elevated 167-201 on drip, requiring 4-6 units of insulin/hr.
Will cont CCGP today and reassess this evening for readiness to transition, ideally at 1800
08/17/2023: Diabetes Management F/U:
Pt remains critically ill and intubated. Started on tube feed 08/13--->Hyperglycemia requiring insulin infusion.
Glucose remained elevated throughout the weekend while on glycemic protocol with high insulin requirements.
Glucose over night was 110 to 185, needed 10-20 units of insulin/hr (TDD of 180 units)
Cont CCGP considering the ongoing hyperglycemia and his hourly insulin requirement.
Will closely follow and reassess for readiness to transition to SQ insulin
08/18/2023 Diabetes Management Follow up
Patient remains intubated is s/p bronchoscopy yesterday. Remains on glycemic protocol requiring 10 to 14 units of insulin per hour. Tube feeds continue at 75 ml/ hr. Will initiate 8 units NovoLog SQ to offset tube feeds. If tube feeds held or
stopped please hold 8 units NovoLog q6 hours and continue glycemic protocol. Will follow for readiness to transition to SQ insulin.
08/19/2023 Diabetes Management Follow up
Patient extubated yesterday ~3PM. Did well overnight. Tube feeds continue @ 75 per hour. Currently being evaluated by speech. Q 6 hour NovoLog started yesterday @ 8 units, will increase to 12 units. Insulin infusion continued requiring 6 to 8
units per hour. If diet started will provide Lantus BID, and stop drip, and change Q6 hour NovoLog to AC NovoLog.
08/20/2023 Diabetes Management Follow up
Transitioned from insulin infusion yesterday ~ noon. Currently receiving Lantus 20 units BID and NovoLog 5 units AC with moderate corrective. Glucose range 119 to 162. Will continue 20 units Lantus BID and NovoLog 5 units AC, will decrease
corrective insulin from moderate to low. Will follow.
08/21/2023: Diabetes Management F/U:
Glucose stable and in range, premeal 117 to 165, FBG 125 this AM.
Will continue 20 units Lantus BID, NovoLog 5 units AC and low corrective insulin
Will follow.
Diabetes History
- -
Type of Diabetes: 2 requiring insulin
Pre-Admission Diabetes Regimen
08/21/23
05:36
Creatinine 1.0
Lab Results
Hemoglobin A1c 7.4 % (4.0-5.6) H 08/11/23 04:54
Insulin Pump Settings
IP Diabetes Regimen
08/20/23 08/20/23 08/20/23
11:32 16:49 22:08
Glucose
POC Glucose 165 H 110 H 119 H
08/20/23 08/21/23 08/21/23
23:09 05:36 06:52
Glucose 125 H
POC Glucose 116 H 118 H
08/21/23
07:19
Glucose
POC Glucose 117 H
Meal type: Lunch
Amount consumed: 100%
Patient Education
[2023-08-21] MEDS: LANTUS 0.200000000000000011 UNITS SC ×2 (08:51→21:28)
[2023-08-21] MEDS: REFRESH EYE DROPS (PF) 1 DROPS OPHTH (08:51)
--- NOTE | 2023-08-21 09:11 | W.PN.ID1 ---
Date of Service
Date of Service: August 21, 2023
Today's Communication
Observe off antibiotics closely.
Assessment / Plan
S/P VDRF
Fever
Leukocytosis
Retinitis pigmentosa (legally blind)
Spinal stenosis
Bipolar disease/anxiety
Class III obesity
Hx DVT
HTN
COPD
DM
BPH with chronic urinary retention (chronic Brown)
Recommendations:
Cultures unrevealing. S/P 8-day course of antibiotics. Prior CXR shows improvement.
Fever resolved
Observe off antibiotics.
Monitor white count and temperature curve
Monitor CXR.
Continue with supportive measures
Given comorbidities, prognosis remains extremely guarded. Patient continues to require supplemental O2.
����������������������������������������������������������
Chief Complaint
-: Fever and Leukocytosis
Subjective / Review of Systems
Remains off vent at this time. No significant changes overnight.
Vital Signs / Physical Exam
Vital Signs
Vital Signs
Temp Pulse Resp BP Pulse Ox
97.4 F 82 18 128/63 94
08/21/23 07:23 08/21/23 08:24 08/21/23 07:46 08/21/23 08:24 08/21/23 07:46
Physical Exam
Constitutional: No Acute Distress, Comfortable, Chronically Ill, Non-toxic and Obese
Eyes: No Conjunctival Hemorrhage
Cardiovascular: S1/S2; Negative S3/S4
Pulmonary: Non Labored
Gastrointestinal: Non Distended and Normal Bowel Sounds
Extremities: Edema; Negative Cyanosis, Erythema or Splinter Hemorrhage
Musculoskeletal: Negative Joint Swelling or Joint Effusion
Psychological: Calm
Objective Data
Lab Data
Lab Results
08/21/23 05:36
08/21/23 05:36
PT 15.5 Sec (11.4-14.6) H 08/18/23 02:55
INR 1.25 08/18/23 02:55
APTT 101.4 Sec (23.4-35.0) H 08/19/23 09:54
Estimated Creat Clear 106 ml/min 08/21/23 05:36
Lactic Acid 1.4 mmol/L (0.7-2.0) 08/13/23 15:20
Total Bilirubin 0.7 mg/dl (0.2-1.3) 08/19/23 03:09
AST 30 U/L (17-59) 08/19/23 03:09
ALT 29 U/L (0-50) 08/19/23 03:09
Alkaline Phosphatase 81 U/L (38-126) 08/19/23 03:09
Most recent labs reviewed.
Micro Results:
08/11/23 18:22 Blood Culture - Final
Blood/Venous No Growth - Final Report
08/11/23 17:58 Blood Culture - Final
Blood/Venous No Growth - Final Report
08/14/23 10:38 Respiratory Culture - Final
Tracheal Aspirate Usual Respiratory Perlita
Gram Stain - Final
08/12/23 15:45 Respiratory Culture - Final
Tracheal Aspirate Usual Respiratory Perlita
Gram Stain - Final
08/13/23 11:02 Influenza Types A & B (ADELITA) - Final
Nasal Swab Negative for Influenza A & B, NAAT
Negative results must be combined with clinical observations
and patient history.
Nucleic Acid Amplification test (NAAT)performed on the
[employer] platform.
08/11/23 04:54 MRSA Screen - Final
Nose No Methicillin Resistant Staphylococcus aureus isolated.
Imaging:
08/19/2023 CXR (portable): Significant patient rotation noted. Right lung base is not fully included in the study. Improved lung volumes noted, with decreased interstitial edema and decreased bibasilar atelectasis and pleural fluid. No new area of
airspace disease.
08/11/2023 Renal ultrasound: No hydronephrosis. No abnormal solid or complex renal masses. No renal calculi. Please see full dictation for additional detail.
--- NOTE | 2023-08-21 09:27 | W.PN.PUL3 ---
Today's Communication / Plan
-
Supplemental oxygen with goal SpO2 >88%
DuoNebs q12hr
Mucolytics
Incentive spirometer�
BiPAP at night/during naps --> this is very important!
Try to use 4-5L/min bled into bipap machine as the longterm may not be able to handle above 6L/min
s/p course of ABx
NOAC
Goal BG 140-180mg/dL
Will need repeat CXR in 4-6 weeks to follow left sided PNA and atelectasis to resolution.
Assessment
-
68-year-old morbidly obese M with probable obesity hypoventilation syndrome with chronic hypercapnia on chronic oxygen, bipolar disorder, hypertension, diabetes, DVT presented with recently diagnosed left leg DVT, NATALIA, hyperkalemia, metabolic
encephalopathy and hypercapnia despite maximum BiPAP requiring intubation-cmv driver consulted for ventilator/critical care management 08/12/2023.
Assessment
Acute respiratory failure with hypoxemia and hypercapnia
Intubated 08/12/2023
Extubated 08/18/2023
Toxic metabolic encephalopathy - resolved
Obesity-hypoventilation syndrome now on nocturnal BiPAP
NATALIA - resolved
CAP
Centrilobular emphysema (seen on apical lung chandra via cervical CT from 08-07-2023) and at risk for COPD
Recent left lower extremity DVT-provoked - Dx on 08/11/2023 involving left CFV (nonocclusive thrombus)
Leukocytosis - resolved
Anemia - stable
Hyperglycemia - resolved
Hypertriglyceridemia
Conditions present prior to admission:
Morbid obesity-BMI 51 with Hx of bariatric surgery (sleeve)
Recent VZP-prrnivnd-SUK stay.�
Hypertension.�
Obesity hypoventilation syndrome.�
Chronic oxygen supplementation.�
Legally blind-retinitis pigmentosa.�
Spinal stenosis.�
Colon resection.�
Deviated septum repair.�
Former smoker.
COPD on chronic oxygen supplementation
Chronic Brown due to BPH and chronic urinary retention
Plan
Continue nasal cannula during the day with BiPAP during sleep at settings IPAP 15, EPAP 8, and titrate O2 flow rate to maintain SpO2 >88%
Continue mucolytics with Mucinex and chest PT as needed
If he requires reintubation, he will likely need tracheostomy --> daughter does not feel pt would want this but she wants to keep pt full code for now; this was also previously reviewed with Dr. Bullard & daughter
Dr. Bullard reviewed with daughter-fourth intubation in the last 1.5 years-transition to CPAP and not BiPAP
I discussed what a tracheostomy is and that if he ends up getting re-intubated that he very well may need one if he is unable to be successfully extubated. He currently is doing well on nasal cannula, and as long as he remains compliant with his
BiPAP then we can avoid mechanical ventilation.� He says that he falls asleep easily and forgets to put the bipap on, and he also is bedbound due to spinal stenosis, back pain, knee pain and his obesity, so he relies on caregivers/nursing staff to
apply the bipap to him and again, that does not always happen allie if he does not call them.� I told him that he needs ti advocate for his own health, and that if he feels sleepy then he needs to apply the bipap mask on othewise he very well may get
re-intubated and end up with a tracheostomy.� I answered all his questions.
Considering he has suspected COPD, I started DuoNebs q12hr on 08/19
Sport bed with percussion-appears to be helping
Anticoagulation for recent DVT - on 08/19 we transitioned from heparin gtt to Eliquis - continue 5mg BID upon discharge x 3 months considering his sedentary lifestyle, then switch to prophylactic dose (2.mg PO BID) after that. I discussed this with
hematology, Dr. Goyal, who agrees with this plan.
Hematology following-correspondence reviewed
Echocardiogram 08/12/2023-EF 65-70% with dilated RV and normal RVSF
Previously as per Dr. Tran - With unclear mental status/neurologic exam-obtain CT head-reviewed with primary team -�mentation now back to baseline - no need for CT at this time.
Monitor renal function
Replace electrolyte abnormalities with K>3.5, Mg>1.8. PO4>3
Nephrology seen-correspondence reviewed- serial renal function, and maintain MAP greater than 65
Diurese as needed� - lasix given on 08/18 due to mild pulmonary vascular congestion developing on CXR and elevated pro-BNP
Cultures reviewed-unrevealing thus far
Repeat sputum 08/14/2023-usual respiratory harpreet
Infectious disease consultation obtained-correspondence reviewed- s/p course of ABx with cefepime given from 08/13 - 08/18; zosyn given x 2 days (08/11 + 08/12)
Follow hemoglobin
Transfuse if needed to maintain Hb>7, plt>50k
Follow blood sugar with goal BG 140-180mg/dL
Insulin drip initiated 08/13/2023 --> stopped on 08/19
Diabetic nurse practitioner consultation ongoing -->�now the patient is extubated, continue ADA; he has been weaned off insulin drip and BG has been in 110s-130s
Diet as per RESIDENT CARE DIRECTOR
Continue PPI (takes PPI at home)
DVT prophylaxis- Eliquis
GI prophylaxis-on pantoprazole 40mg PO daily
Bedside range of motion - PT/OT
I updated his daughter Negra over the phone and answered all her questions.
Ultimately will need repeat CXR in 4-6 weeks to follow left sided PNA and atelectasis to resolution.
Pulmonary service will continue to follow along.� Thank you for allowing us to be involved in the care of this patient.
Diagnostic data:
Chest x-ray 08/11/2023-bibasilar interstitial pneumonia
Chest x-ray 08/12/2023-rotated to the left, no pneumothorax, ET tube above lashon, bilateral interstitial infiltrates
Chest x-ray 08/13/2023-Mildly improved findings suggesting left lower lobe pneumonia.
CXR 08/18/2023: Right basilar pneumonia, and a left basilar opacity that may represent pneumonia, pleural fluid, and/or atelectasis.
CXR 08/19/2023: Status post extubation. Slight improvement in aeration compared to the most recent exam.
Subjective Data
-
Date of Service:
Date of Service: August 21, 2023
Chief Complaint: Pulmonary Follow Up
Subjective:
Patient seen today. Currently on mid flow nasal cannula at 6 L/min saturating 96%. Wore BiPAP 17/02 overnight bled with 4 L/min. He wore the BiPAP all night. Currently denies any headache, chest pain, shortness of breath, fevers or chills.
Review of Systems
General: Other (Negative unless mentioned above)
Objective Data
Data Reviewed
Vital Signs / I&O / Oxygen:
Vital Signs
Temp Pulse Resp BP Pulse Ox
97.4 F 82 18 128/63 94
08/21/23 07:23 08/21/23 08:24 08/21/23 07:46 08/21/23 08:24 08/21/23 07:46
Intake and Output
08/20/23 08/21/23 08/22/23
06:59 06:59 06:59
Intake Total 415.5 / 415.5 840 / 840
Output Total 2525 / 2750 2925 / 5625 2700 / 2700
Balance -2109.5 / -2334.5 -2925 / -4785 -1860 / -1860
SaO2 [CPAP] 40
SaO2 [A/C] 97
SaO2 94
Nasal Cannula flow liters per 5
minute
Physical Exam
General: Comfortable, Good Appetite and Other (morbidly obese)
HEENT: Normocephalic and Anicteric
Cardiovascular: S1-S2 and Peripheral Edema (negative)
Respiratory: Wheeze (negative), Rhonchi (left base) and Non-Labored Respirations
GI: Soft, Non Distended, Non Tender, Normal Bowel Sounds and Other (abdominal obesity)
Neurology: Awake, Alert and Tremors (neg)
Skin: Warm and Dry
Labs/Micro/Reports
Lab Data
08/21/23 05:36
08/21/23 05:36
--- NOTE | 2023-08-21 10:32 | PTCARENOTE ---
Pt received from security shift supervisor RN. Tabitha3, resting in bed. NSR on manager cardiac. Pt on midflow 6L. VSS. Brown draining clear, yellow urine. Continuing with q2h turns. Assessment documented. GI at bedside, plan for possible esophagram Thursday.
--- NOTE | 2023-08-21 12:01 | W.PN.GI.CBS2 ---
Today's Communication / Plan
-
records, speech pathology follow up
Assessment / Plan
-
The patient is a 68-year-old male with a past medical history significant for CKD, history of DVT, chronic respiratory failure with hypercapnia on chronic oxygen, type 2 diabetes, hypertension, bipolar disorder, GERD, ESSIE with CPAP use, restless leg
syndrome, iron deficiency anemia, morbid obesity, who presented to [facility] on 08/10 after having elevated potassium levels on outpatient lab work. We being asked to evaluate for concern for reverse aspiration. Prolonged hospital course as
noted above with VDRF extubated on 08/18. Now with concern for reverse aspiration. He notes previous evaluation for concern for reverse aspiration and was recommended to undergo evaluation at a tertiary center due to his morbid obesity but has not
been able to follow-up due to ongoing medical problems. He notes he had an endoscopy 6 months ago which showed food residue in the stomach otherwise was normal without any obstructive process. He was seen by speech therapy and approved for a diet.
Problem list:
-concern for reverse aspiration
-acute hypercapnic respiratory failure/VDRF s/p extubation on 08/18 now on bipap/supplemental oxygen
-?sepsis, pulmonary v urinary source
-NATALIA on CKD, resolved
-hyperkalemia, resolved
-Chronic microcytic anemia
-Morbid obesity
Other pertinent medical hx:
-HTN
-HLD
-IDDM
-bipolar disorder
-COPD
Recommendations:
-Etiology of reverse aspiration unclear. Had prior EGD 6 months ago with no evident findings per patient - records pending
-Will obtain records from [facility] for the last office note and EGD report - I reviewed records in chart we did not get EGD
-To consider esophagram versus VSE inpatient pending above record review but he will need to be optimized from a medical and pulmonary standpoint as he was just extubated yesterday and requiring intermittent BiPAP - consider on Thursday depending on
clinical status
-Speech path last note 08/19: 'Pt presents with mild oropharyngeal and esophageal dysphagia 2/2 reduced dentition and inadequate airway protection in the context of recent prolonged intuabtion s/p extubation, increased respiratory demand, GERD, and
hx of gastric surgery with planned follow-up.'
-Diet as per speech therapy
-Aspiration precautions
-To consider outpatient evaluation at tertiary center as per recommendation from the patient's GI physician
-Further recommendations pending above
-Will follow
Of note, dysphagia present for 2 years can also be addressed outpatient, follows with Dr. Alfredo GI
Total Time Spent with Patient (in minutes): 35
Subjective
Subjective
Date of Service: August 21, 2023
No events from GI standpoint
On d/w patient, has been having intermittent dysphagia x2 years
Depends on food he eats if will come back up
Objective
Data Reviewed
Laboratory Data:
Laboratory Results
08/21/23 05:36
08/21/23 05:36
Laboratory Results
PT 15.5 Sec (11.4-14.6) H 08/18/23 02:55
INR 1.25 08/18/23 02:55
APTT 101.4 Sec (23.4-35.0) H 08/19/23 09:54
Phosphorus 4.4 mg/dl (2.5-4.5) 08/21/23 05:36
Magnesium 2.0 mg/dl (1.6-2.3) 08/21/23 05:36
Total Bilirubin 0.7 mg/dl (0.2-1.3) 08/19/23 03:09
AST 30 U/L (17-59) 08/19/23 03:09
ALT 29 U/L (0-50) 08/19/23 03:09
Alkaline Phosphatase 81 U/L (38-126) 08/19/23 03:09
Vital Signs and I&O:
Vital Signs
Temp Pulse Resp BP Pulse Ox
97.4 F 81 25 133/60 96
08/21/23 07:23 08/21/23 10:00 08/21/23 10:00 08/21/23 09:00 08/21/23 10:00
I&O
08/20/23 08/21/23 08/22/23
06:59 06:59 06:59
Intake Total 415.5 / 415.5 840 / 840
Output Total 2525 / 2750 2925 / 5625 2700 / 2700
Balance -2109.5 / -2334.5 -2925 / -4785 -1860 / -1860
Physical Exam
Physical Exam
GI: Non Distended and Non Tender
[2023-08-21 12:09] LABS: Glucose - Point of Care 121 mg/dl (70-99)
--- NOTE | 2023-08-21 12:19 | CM ---
CM following re: discharge planning.
Discussed in rounds, reviewed pt's chart, met with pt. Per Rounds meeting, pt with hypercapnic respiratory failure, requires 4L NC of O2, has C-pap machine and will need Bi-pap. Pt is downgraded from ICU level of care
Pt's clinical faxed to [facility] for review yesterday. CM spoke to [facility] liaison today and she has been notified that pt will need Bi-pap machine when pt arrives to [facility] and per liaison, she will order Bi-pap machine
today.
[facility] nursing report: [phone]
Discharge instructions fax: [phone]
D/C plan: return back to [facility] when medically stable.
CM will follow with discharge plan updates as hospitalization progress
--- NOTE | 2023-08-21 12:50 | W.PN.HOSP.TC ---
Today's Communication/Plan
-
Please see below
Assessment / Plan
Assessment / Plan
Physical Exam
General: No Apparent Distress
Respiratory: Clear to Auscultation Bilaterally
Cardiac: Regular Rhythm and S1/S2
GI: Soft, Nontender and Normal Bowel Sounds
Genito-urinary: Other (Brown catheter in place, have hypospadiasis)
Musculoskeletal: No Edema
Neuro: Alert and Awake
Assessment/Plan
# Acute hypercapnic respiratory failure with suspected OHS
Vent dependent respiratory failure
Acute toxic metabolic encephalopathy - IMPROVING
-Extubated on 08/18/23
-Patient required intubation on 08/12 in the morning
-Postintubation x-ray showing ET tube in correct position. No pneumothorax
-Pre-intubation arterial blood gas showed pCO2 greater than 115, repeat ABG postintubation showing pCO2 down to 40
-Continue nasal cannula during the day with BiPAP during sleep/daytime sleep/naps at settings IPAP 20, EPAP 10
-Patient must wear BiPAP when sleepy/sleeping to avoid risk of reintubation
-Titrate FiO2 to maintain SpO2 >88%
-ICU performed bronchoscopy showing 'moderate amounts of thick yellow/off white mucous in LLL but also bloody secretions in left upper lobe bronchus - could have been exacerbated by coughing while on heparin gtt'
-Mucolytics with Mucinex
-Chest physiotherapy
-Duonebs Q12H
-No need for CT head at this time since mentation improved
-Plan to repeat CXR in 4-6 weeks to follow left sided PNA and atelectasis to resolution
#Concern for Reverse Aspiration
-GI consulted, recommendations appreciated
-Possible esophagogram on 08/24/23
# NATALIA - Resolved
# Multifactorial Acute pulmonary edema ( vascular congestion )
-Renal function 0.9 in Jul 29, trended down overall to baseline
-Hold Lisinopril
-Continue Lasix 40 mg PO daily
-Brown exchanged on day of admission
-Renal ultrasound normal.
-Replace electrolyte abnormalities to keep K>3.5, Mg>1.8. PO4>3
-Nephrology following
# Sepsis - POA
Concern for UTI
Hypotensions w/o shock
Left Lower Lobe Pneumonia
Suspected Aspiration Pneumonia in setting of Reverse Aspiration
-suspected urinary source vs pulm vs other
-Blood culture and urine culture collected
-Respiratory culture negative
-ID involved and following along.
-Status post Cefepime and Zosyn
# Left leg DVT
-Recently diagnosed in [facility], was on Lovenox 120mg/bid
-Left lower extremity Doppler showing nonocclusive thrombus in common femoral vein
-Patient was started on heparin drip per hematology recommendation
-Now transitioned to Eliquis - continue
# Hyperkalemia - resolved
-Secondary to renal failure and lisinopril.
-EKG showing NSR, SD 190ms, QRS 142ms
-Patient got calcium gluconate/insulin-glucose.
-NGT in place and got through NGT
# Insulin-dependent diabetes mellitus - Uncontrolled
-diabetic APPLICATIONS ARCHITECT involved in care
-On insulin drip as part of ICU protocol as well as subq Insulin
-Status post Insulin Drip
-Continue Diabetic Diet
# Essential Hypertension
-Maintain on metoprolol tartrate. prn hydralazine
# Chronic indwelling Brown catheter
Hypospadias
-Brown catheter has been exchanged on 08/11
# Reported delusion
History of bipolar disorder
-Continue Abilify. Valproate level within normal.
-Psychiatry evaluated on day of admission, currently remains intubated/sedated and will be re-involved post extubation
# Hypernatremia - RESOLVED
Mild Hyponatremia
- Monitor BMP
GERD
Morbid obesity
Obstructive sleep apnea
Neuropathy
DVT prophylaxis - Eliquis
Full code
Anticipated Discharge: > 48 hours
Subjective/Interval History
-
Date of Service: August 21, 2023
Patient was seen and examined. He was sleeping comfortably, woke up when called, and denied any new complaints.
Objective Data
-
Labs:
Laboratory Results
08/21/23
05:36
WBC 10.0
Hgb 9.6 L
Hct 28.9 L
Plt Count 333
Sodium 137
Potassium 4.8
Chloride 99
Carbon Dioxide 32 H
BUN 20
Creatinine 1.0
Glucose 125 H
Calcium 9.6
Vital Signs:
Vital Signs
Temp Pulse Resp BP Pulse Ox
98.2 F 81 25 133/60 96
08/21/23 11:00 08/21/23 10:00 08/21/23 10:00 08/21/23 09:00 08/21/23 10:00
I&O
08/20/23 08/21/23 08/22/23
06:59 06:59 06:59
Intake Total 415.5 / 415.5 840 / 840
Output Total 2525 / 2750 2925 / 5625 2700 / 2700
Balance -2109.5 / -2334.5 -2925 / -4785 -1860 / -1860
--- NOTE | 2023-08-21 15:35 | PTOTSP ---
ST Follow-Up
Pt presents with fairly functional oropharyngeal parameters for safe ingestion of all solids and liquids. Pt presents symptoms consistent with possible esophageal dysfunction that should be worked up by GI.
Recommendations:
- Upgrade diet to REGULAR SOLIDS and continue with THIN LIQUIDS with medications as tolerated.
- Nursing to assist with tray set-up.
- Aspiration and reflux precautions.
- GI follow-up.
[2023-08-21 16:07] LABS: Glucose - Point of Care 114 mg/dl (70-99)
[2023-08-21] MEDS: ABILIFY 7.5 MG PO (21:03)
[2023-08-21] MEDS: NEURONTIN 600 MG PO (21:04)
[2023-08-21] MEDS: COLACE 100 MG PO (21:05)
[2023-08-21 21:36] LABS: Glucose - Point of Care 121 mg/dl (70-99)
--- NOTE | 2023-08-21 22:25 | PTCARENOTE ---
Pt aox3, VSS, blind at baseline, able to make needs known, HOWARD. Remains on 6L midflow sats 100%. BiPAP HS. Frequent moist and productive cough, pt using Yankauer suction as needed. Secretions are thin white/clear. Pt has a stage 2 developing on left
buttock, foam applied, pt educated on importance of turning to other side, multiple attempts to turn pt to right side but he cannot tolerate due to Coccyx pain. PRN Tylenol administered for pain.
[2023-08-22] VITALS (17 sets, daily range): BP systolic 92–141; BP diastolic 38–71; PULSE 2–78; BMI 50.2
[2023-08-22] MEDS: ROBITUSSIN 400 MG PO ×6 (01:19→21:30)
[2023-08-22] MEDS: TYLENOL 650 MG PO ×3 (05:53→21:34)
--- NOTE | 2023-08-22 07:08 | W.PN.HOSP.TC ---
Today's Communication/Plan
-
BIPAP bedtime and naps
O2 supplementation as necessary
monitor off abx
glycemic control
stable for downgrade to Telemetry
Assessment / Plan
Assessment / Plan
Physical Exam
General: No Apparent Distress
Respiratory: Clear to Auscultation Bilaterally
Cardiac: Regular Rhythm and S1/S2
GI: Soft, Nontender and Normal Bowel Sounds
Genito-urinary: Brown catheter in place, hypospadiasis
Musculoskeletal: No Edema
Neuro: Alert and Awake
Assessment/Plan
# Acute hypercapnic respiratory failure with suspected OHS
Vent dependent respiratory failure
Acute toxic metabolic encephalopathy - Improved
-Extubated on 08/18/23
-Patient required intubation on 08/12 in the morning
-Postintubation x-ray showing ET tube in correct position. No pneumothorax
-Pre-intubation arterial blood gas showed pCO2 greater than 115, repeat ABG postintubation showing pCO2 down to 40
-Continue nasal cannula during the day with BiPAP during sleep/daytime sleep/naps settings as per Vice President Of Talent Management
-Patient must wear BiPAP when sleepy/sleeping to avoid risk of reintubation
-Titrate FiO2 to maintain SpO2 >88%
-ICU performed bronchoscopy showing 'moderate amounts of thick yellow/off white mucous in LLL but also bloody secretions in left upper lobe bronchus - could have been exacerbated by coughing while on heparin gtt'
-Mucolytics with Mucinex
-Chest physiotherapy
-Duonebs Q12H
-No need for CT head at this time since mentation improved
-Plan to repeat CXR in 4-6 weeks to follow left sided PNA and atelectasis to resolution
-downgraded to Tele 08/22
#Concern for Reverse Aspiration
-GI consulted, recommendations appreciated
-Possible esophagogram on 08/24/23Thursday
# NATALIA - Resolved
# Multifactorial Acute pulmonary edema ( vascular congestion )
-Renal function 0.9 in Jul 29, trended down overall to baseline
-Hold Lisinopril
-Continue Lasix 40 mg PO daily
-Brown exchanged on admission
-Renal ultrasound normal.
-Replace electrolyte abnormalities to keep K>3.5, Mg>1.8. PO4>3
-Nephrology following
# Sepsis - POA
Concern for UTI
Hypotensions w/o shock
Left Lower Lobe Pneumonia
Suspected Aspiration Pneumonia in setting of Reverse Aspiration
-suspected urinary source vs pulm vs other
-Blood cultures NGTD
-Respiratory culture negative
-ID eval appreciated.
-Completed Cefepime and Zosyn, total 8 days abx, monitoring off
# Left leg DVT
-Recently diagnosed in [facility], was on Lovenox 120mg/bid
-Left lower extremity Doppler showing nonocclusive thrombus in common femoral vein
-Patient was started on heparin drip per hematology recommendation
- transitioned to Eliquis - continue
# Hyperkalemia - resolved
-Secondary to renal failure and lisinopril.
-EKG showing NSR, AK 190ms, QRS 142ms
-received calcium gluconate/insulin-glucose (temporized).
# Insulin-dependent diabetes mellitus - Uncontrolled
-diabetic WRAPPER SORTER consult appreciated
-s/p insulin gtt transitioned to subq
-Continue Diabetic Diet
# Essential Hypertension
-Maintain on metoprolol tartrate. prn hydralazine
# Chronic indwelling Brown catheter
Hypospadias
-Brown catheter exchanged /
# Reported delusion
History of bipolar disorder
-Continue Abilify. Valproate level within normal.
-Psychiatry evaluated on day of admission, currently remains intubated/sedated and will be re-involved post extubation
# Hypernatremia - RESOLVED
Mild Hyponatremia
- Monitor BMP
GERD
Morbid obesity
Obstructive sleep apnea
Neuropathy
DVT prophylaxis - Eliquis
GI ppx Protonix
Full code
Discussed with patient, patient's daughter, nurse, and retort press operator
I spent a total of 55 minutes with the patient or on the floor. More than 50% of this time involved counseling and coordination of care.
Anticipated Discharge: 24 - 48 hours
Subjective/Interval History
-
Date of Service: August 22, 2023
Seen and examined at bedside in no acute distress resting comfortably in bed. Lethargic but arousable, denies new acute issues at this time.
Objective Data
-
Vital Signs:
Vital Signs
Temp Pulse Resp BP Pulse Ox
97.9 F 67 19 127/64 100
08/21/23 19:09 08/22/23 06:00 08/22/23 06:00 08/22/23 06:00 08/22/23 06:00
I&O
08/21/23 08/22/23 08/23/23
06:59 06:59 06:59
Intake Total 3020 / 3020
Output Total 2925 / 5625 6950 / 6950
Balance -2925 / -4785 -3930 / -3930
[2023-08-22] MEDS: NOVOLOG FLEXPEN 5 UNITS SC ×3 (07:46→17:26)
[2023-08-22] MEDS: LANTUS 0.200000000000000011 UNITS SC ×2 (07:48→21:48)
[2023-08-22] MEDS: THERAGRAN 1 TABLET PO (07:49)
[2023-08-22] MEDS: PROTONIX 40 MG PO (07:49)
[2023-08-22] MEDS: ZESTRIL 10 MG PO (07:49)
[2023-08-22] MEDS: LASIX 40 MG PO (07:49)
[2023-08-22] MEDS: FEOSOL 325 MG PO (07:49)
[2023-08-22] MEDS: LOW STRENGTH ASPIRIN 81 MG PO (07:49)
[2023-08-22 07:50] LABS: Glucose - Point of Care 113 mg/dl (70-99)
[2023-08-22] MEDS: ELIQUIS 5 MG PO ×2 (07:50→21:33)
[2023-08-22] MEDS: MIRALAX 17 GRAMS PO (07:50)
[2023-08-22] MEDS: LOPRESSOR 50 MG PO ×2 (07:50→21:34)
[2023-08-22] MEDS: VITAMIN D3 (cholecalciferol) 25 MCG PO (07:50)
[2023-08-22] MEDS: NEURONTIN 300 MG PO ×2 (07:50→11:25)
[2023-08-22] MEDS: GLUCOPHAGE 500 MG PO ×2 (07:50→17:30)
[2023-08-22] MEDS: DEPAKOTE (12 HR RELEASE) 500 MG PO ×2 (07:50→21:30)
[2023-08-22] MEDS: NORVASC 5 MG PO (07:50)
[2023-08-22] MEDS: NOVOLOG FLEXPEN-LOW RESISTANCE SC ×2 (07:51→10:59)
[2023-08-22] MEDS: DESENEX/MITRAZOL/ZEASORB 1 APPLIC TOPICAL ×2 (07:51→21:38)
[2023-08-22] MEDS: ANTIFUNGAL CLEAR 1 APPLIC TOPICAL ×2 (07:52→21:38)
[2023-08-22] MEDS: DUONEB 3 ML INH ×2 (08:01→20:16)
--- NOTE | 2023-08-22 08:02 | W.PN.PUL3 ---
Today's Communication / Plan
-
Supplemental oxygen with goal SpO2 >88%
DuoNebs q12hr
Mucolytics
Incentive spirometer�
BiPAP at night/during naps --> this is very important!
Try to use 4-5L/min bled into bipap machine as the care home may not be able to handle above 6L/min
s/p course of ABx
NOAC
Goal BG 140-180mg/dL
Will need repeat CXR in 4-6 weeks to follow left sided PNA and atelectasis to resolution.
Assessment
-
68-year-old morbidly obese M with probable obesity hypoventilation syndrome with chronic hypercapnia on chronic oxygen, bipolar disorder, hypertension, diabetes, DVT presented with recently diagnosed left leg DVT, NATALIA, hyperkalemia, metabolic
encephalopathy and hypercapnia despite maximum BiPAP requiring intubation-novelty dipper consulted for ventilator/critical care management 08/12/2023.
Assessment
Acute respiratory failure with hypoxemia and hypercapnia
Intubated 08/12/2023
Extubated 08/18/2023
Toxic metabolic encephalopathy - resolved
Obesity-hypoventilation syndrome now on nocturnal BiPAP
NATALIA - resolved
CAP
Centrilobular emphysema (seen on apical lung chandra via cervical CT from 08-07-2023) and at risk for COPD
Recent left lower extremity DVT-provoked - Dx on 08/11/2023 involving left CFV (nonocclusive thrombus)
Leukocytosis - resolved
Anemia - stable
Hyperglycemia - resolved
Hypertriglyceridemia
Conditions present prior to admission:
Morbid obesity-BMI 51 with Hx of bariatric surgery (sleeve)
Recent DAX-jubdulfa-CEU stay.�
Hypertension.�
Obesity hypoventilation syndrome.�
Chronic oxygen supplementation.�
Legally blind-retinitis pigmentosa.�
Spinal stenosis.�
Colon resection.�
Deviated septum repair.�
Former smoker.
COPD on chronic oxygen supplementation
Chronic Brown due to BPH and chronic urinary retention
Plan
Continue nasal cannula during the day with BiPAP during sleep at settings IPAP 15, EPAP 8, and titrate O2 flow rate to maintain SpO2 >88%
Continue mucolytics with Mucinex and chest PT as needed
If he requires reintubation, he will likely need tracheostomy --> daughter does not feel pt would want this but she wants to keep pt full code for now; this was also previously reviewed with Dr. Bullard & daughter
Dr. Bullard reviewed with daughter-fourth intubation in the last 1.5 years-transition to CPAP and not BiPAP
I discussed what a tracheostomy is and that if he ends up getting re-intubated that he very well may need one if he is unable to be successfully extubated. He currently is doing well on nasal cannula, and as long as he remains compliant with his
BiPAP then we can avoid mechanical ventilation.� He says that he falls asleep easily and forgets to put the bipap on, and he also is bedbound due to spinal stenosis, back pain, knee pain and his obesity, so he relies on caregivers/nursing staff to
apply the bipap to him and again, that does not always happen allie if he does not call them.� I told him that he needs ti advocate for his own health, and that if he feels sleepy then he needs to apply the bipap mask on othewise he very well may get
re-intubated and end up with a tracheostomy.� I answered all his questions.
Considering he has suspected COPD, I started DuoNebs q12hr on 08/19
Sport bed with percussion-appears to be helping
Anticoagulation for recent DVT - on 08/19 we transitioned from heparin gtt to Eliquis - continue 5mg BID upon discharge x 3 months considering his sedentary lifestyle, then switch to prophylactic dose (2.mg PO BID) after that. I discussed this with
hematology, Dr. Goyal, who agrees with this plan.
Hematology following-correspondence reviewed
Echocardiogram 08/12/2023-EF 65-70% with dilated RV and normal RVSF
Previously as per Dr. Tran - With unclear mental status/neurologic exam-obtain CT head-reviewed with primary team -�mentation now back to baseline - no need for CT at this time.
Monitor renal function
Replace electrolyte abnormalities with K>3.5, Mg>1.8. PO4>3
Nephrology seen-correspondence reviewed- serial renal function, and maintain MAP greater than 65
Diurese as needed� - lasix given on 08/18 due to mild pulmonary vascular congestion developing on CXR and elevated pro-BNP
Cultures reviewed-unrevealing thus far
Repeat sputum 08/14/2023-usual respiratory harpreet
Infectious disease consultation obtained-correspondence reviewed- s/p course of ABx with cefepime given from 08/13 - 08/18; zosyn given x 2 days (08/11 + 08/12)
Follow hemoglobin
Transfuse if needed to maintain Hb>7, plt>50k
Follow blood sugar with goal BG 140-180mg/dL
Insulin drip initiated 08/13/2023 --> stopped on 08/19
Diabetic nurse practitioner consultation ongoing -->�now the patient is extubated, continue ADA; he has been weaned off insulin drip and BG has been in 110s-130s
Diet as per MAINFRAME CONSULTANT
Continue PPI (takes PPI at home)
DVT prophylaxis- Eliquis
GI prophylaxis-on pantoprazole 40mg PO daily
Bedside range of motion - PT/OT
I updated his daughter Negra over the phone and answered all her questions.
Ultimately will need repeat CXR in 4-6 weeks to follow left sided PNA and atelectasis to resolution.
Pulmonary service will continue to follow along.� Thank you for allowing us to be involved in the care of this patient.
Dispo planning.
Diagnostic data:
Chest x-ray 08/11/2023-bibasilar interstitial pneumonia
Chest x-ray 08/12/2023-rotated to the left, no pneumothorax, ET tube above lashon, bilateral interstitial infiltrates
Chest x-ray 08/13/2023-Mildly improved findings suggesting left lower lobe pneumonia.
CXR 08/18/2023: Right basilar pneumonia, and a left basilar opacity that may represent pneumonia, pleural fluid, and/or atelectasis.
CXR 08/19/2023: Status post extubation. Slight improvement in aeration compared to the most recent exam.
Subjective Data
-
Date of Service:
Date of Service: August 22, 2023
Chief Complaint: Pulmonary Follow Up
Subjective:
Patient seen today at bedside. He says his cough is better. He is saturating 97% on 4 L/min nasal cannula. Patient wore his BiPAP overnight and there were no acute issues. Patient says that he does not mind the mask.
Review of Systems
General: Other (Negative unless mentioned above)
Objective Data
Data Reviewed
Vital Signs / I&O / Oxygen:
Vital Signs
Temp Pulse Resp BP Pulse Ox
98.5 F 68 18 141/56 100
08/22/23 08:00 08/22/23 08:04 08/22/23 08:04 08/22/23 08:00 08/22/23 08:04
Intake and Output
08/21/23 08/22/23 08/23/23
06:59 06:59 06:59
Intake Total 3020 / 3020 300 / 300
Output Total 2925 / 5625 6950 / 6950 240 / 240
Balance -2925 / -4785 -3930 / -3930 60 / 60
SaO2 [CPAP] 40
SaO2 [A/C] 97
SaO2 100
Nasal Cannula flow liters per 4
minute
Physical Exam
General: Respiratory Distress (Negative), Comfortable, Good Appetite and Other (morbidly obese)
HEENT: Normocephalic and Anicteric
Cardiovascular: S1-S2 and Peripheral Edema (negative)
Respiratory: Wheeze (negative), Crackles (Coarse breath sounds bibasilarly), Rhonchi (Negative), Non-Labored Respirations and Stridor (Negative)
GI: Soft, Non Distended, Non Tender, Normal Bowel Sounds and Other (abdominal obesity)
Neurology: Awake, Alert and Tremors (neg)
Skin: Warm and Dry
Labs/Micro/Reports
Lab Data
08/21/23 05:36
08/21/23 05:36
--- NOTE | 2023-08-22 09:16 | PTCARENOTE ---
Pt aox3, VSS, blind at baseline, able to make needs known, HOWARD. Remains on 6L midflow sats 97%. BiPAP overnight. Frequent moist and productive cough, pt using Yankauer suction as needed. Secretions are thin white/clear. Pt has a stage 2 developing
on left buttock, foam applied, pt educated on importance of turning to other side, multiple attempts to turn pt to right side but he cannot tolerate due to Coccyx pain. PRN Tylenol for pain.
[2023-08-22 11:11] LABS: Glucose - Point of Care 118 mg/dl (70-99)
--- NOTE | 2023-08-22 14:00 | PTCARENOTE ---
Received patient from ICU in [facility]. Patient is AAOx3, no c/o pain, 4L midflow 95%, lungs with rhonchi throughout, Dionte in patients reach per his request, call alvarez in reach. Patient was oriented to bed and bedside table due to visual
impairment.
--- NOTE | 2023-08-22 14:11 | PTCARENOTE ---
Report given to RN, pt escorted in bed to room 426-1.
[2023-08-22 17:10] LABS: Glucose - Point of Care 185 mg/dl (70-99)
[2023-08-22] MEDS: NOVOLOG FLEXPEN-LOW RESISTANCE 1 UNITS SC (17:27)
[2023-08-22] MEDS: ABILIFY 7.5 MG PO (21:30)
[2023-08-22] MEDS: COLACE 100 MG PO (21:33)
[2023-08-22] MEDS: NEURONTIN 600 MG PO (21:34)
[2023-08-22 21:44] LABS: Glucose - Point of Care 112 mg/dl (70-99)
[2023-08-23] VITALS (7 sets, daily range): BP systolic 96–149; BP diastolic 53–68; PULSE 2–77; BMI 50.4
[2023-08-23] MEDS: ROBITUSSIN PO ×2 (00:06→04:23)
[2023-08-23] MEDS: TYLENOL 650 MG PO (06:10)
[2023-08-23 07:14] LABS: Glucose - Point of Care 116 mg/dl (70-99)
--- NOTE | 2023-08-23 07:27 | W.PN.HOSP.TC ---
Today's Communication/Plan
-
BIPAP bedtime and naps
O2 supplementation as necessary
monitor off abx
glycemic control
Esophogram tomorrow as per GI
Assessment / Plan
Assessment / Plan
Physical Exam
General: No Apparent Distress
Respiratory: Clear to Auscultation Bilaterally
Cardiac: Regular Rhythm and S1/S2
GI: Soft, Nontender and Normal Bowel Sounds
Genito-urinary: Brown catheter in place, hypospadiasis
Musculoskeletal: No Edema
Neuro: Alert and Awake
Assessment/Plan
# Acute hypercapnic respiratory failure with suspected OHS
Vent dependent respiratory failure
Acute toxic metabolic encephalopathy - Improved
-Extubated on 08/18/23
-Patient required intubation on 08/12 in the morning
-Postintubation x-ray showing ET tube in correct position. No pneumothorax
-Pre-intubation arterial blood gas showed pCO2 greater than 115, repeat ABG postintubation showing pCO2 down to 40
-Continue nasal cannula during the day with BiPAP during sleep/daytime sleep/naps settings as per Financial Project Manager
-Patient must wear BiPAP when sleepy/sleeping to avoid risk of reintubation
-Titrate FiO2 to maintain SpO2 >88%
-ICU performed bronchoscopy showing 'moderate amounts of thick yellow/off white mucous in LLL but also bloody secretions in left upper lobe bronchus - could have been exacerbated by coughing while on heparin gtt'
-Mucolytics with Mucinex
-Chest physiotherapy
-Duonebs Q12H
-Plan to repeat CXR in 4-6 weeks to follow left sided PNA and atelectasis to resolution
-downgraded to Tele 08/22
#Concern for Reverse Aspiration
-GI consulted, recommendations appreciated
-Esophagogram on 08/24/23Thursday
# NATALIA - Resolved
# Multifactorial Acute pulmonary edema ( vascular congestion )
-Renal function 0.9 in Jul 29, trended down overall to baseline
-Hold Lisinopril
-Continue Lasix 40 mg PO daily
-Brown exchanged on admission
-Renal ultrasound normal.
-Replace electrolyte abnormalities to keep K>3.5, Mg>1.8. PO4>3
-Nephrology following
# Sepsis - POA
Concern for UTI
Hypotensions w/o shock
Left Lower Lobe Pneumonia
Suspected Aspiration Pneumonia in setting of Reverse Aspiration
-suspected urinary source vs pulm vs other
-Blood cultures NGTD
-Respiratory culture negative
-ID eval appreciated.
-Completed Cefepime and Zosyn, total 8 days abx, monitoring off
# Left leg DVT
-Recently diagnosed in [facility], was on Lovenox 120mg/bid
-Left lower extremity Doppler showing nonocclusive thrombus in common femoral vein
-Patient was started on heparin drip per hematology recommendation
- transitioned to Eliquis - continue
# Hyperkalemia - resolved
-Secondary to renal failure and lisinopril.
-EKG showing NSR, MD 190ms, QRS 142ms
-received calcium gluconate/insulin-glucose (temporized).
# Insulin-dependent diabetes mellitus - Uncontrolled
-diabetic WHEY DEPARTMENT OPERATOR consult appreciated
-s/p insulin gtt transitioned to subq
-Continue Diabetic Diet
# Essential Hypertension
-Maintain on metoprolol tartrate. prn hydralazine
# Chronic indwelling Brown catheter
Hypospadias
-Brown catheter exchanged 2/
# Reported delusion
History of bipolar disorder
-Continue Abilify. Valproate level within normal.
-Psychiatry evaluated on day of admission, currently remains intubated/sedated and will be re-involved post extubation
# Hypernatremia - RESOLVED
Mild Hyponatremia
- Monitor BMP
GERD
Morbid obesity
Obstructive sleep apnea
Neuropathy
DVT prophylaxis - Eliquis
GI ppx Protonix
Full code
Discussed with patient, patient's daughter, nurse, and music orchestrator
I spent a total of 55 minutes with the patient or on the floor. More than 50% of this time involved counseling and coordination of care.
Anticipated Discharge: 24 - 48 hours
Subjective/Interval History
-
Date of Service: August 23, 2023
Spends most of the day sleeping. Arousable. Otherwise appears comfortable, No new acute issues at this time.
Objective Data
-
Labs:
Laboratory Results
08/23/23
06:54
WBC Pending
Hgb Pending
Hct Pending
Plt Count Pending
Sodium Pending
Potassium Pending
Chloride Pending
Carbon Dioxide Pending
BUN Pending
Creatinine Pending
Glucose Pending
Calcium Pending
Vital Signs:
Vital Signs
Temp Pulse Resp BP Pulse Ox
98.2 F 69 14 96/55 100
08/23/23 03:55 08/23/23 03:55 08/23/23 03:55 08/23/23 03:55 08/23/23 03:55
I&O
08/22/23 08/23/23 08/24/23
06:59 06:59 06:59
Intake Total 3020 / 3020 660 / 660
Output Total 6950 / 6950 2740 / 2740
Balance -3930 / -3930 -2079 / -2079
[2023-08-23 07:34] LABS: Venous Blood Gas B.E. 4.8 mmol/L (-4 to +4); Venous Blood Gas HCO3 31.8 mmol/L (22-27); Venous Blood Gas O2 Sat % 94.5 %; Venous Blood Gas O2 Therapy 92; Venous Blood Gas pCO2 59 mmHg (35-48); Venous Blood Gas pH 7.34 (7.32-7.43); Venous Blood Gas pO2 72 mmHg (30-50)
[2023-08-23 07:41] LABS: Hematocrit 29.1 % (39.0-52.0); Hemoglobin 9.5 g/dL (13.0-18.0); Mean Corp Hgb Conc. 32.6 g/dL (33.0-37.0); Mean Corpuscular Hgb 31.9 pg (27.0-31.0); Mean Corpuscular Volume 97.7 fL (80.0-94.0); Mean Platelet Volume 9.7 fL (7.4-10.4); Platelet Count 371 10^3/uL (130-400); Red Blood Cell Count 2.98 10^6/uL (4.70-6.10); Red Cell Dist. Width 15.1 % (11.5-14.5); White Blood Cell Count 10.1 10^3/uL (4.8-10.8)
[2023-08-23 07:56] LABS: NT-proBNP 356 pg/ml
[2023-08-23 08:08] LABS: Blood Urea Nitrogen 23 mg/dl (9-20); Calcium 8.9 mg/dl (8.4-10.2); Carbon Dioxide 29 mmol/L (22-30); Chloride 96 mmol/L (98-107); Estimated Creatinine Clearance 82 ml/min; Glucose 106 mg/dl (70-99); Magnesium 1.9 mg/dl (1.6-2.3); Phosphorus 5.3 mg/dl (2.5-4.5); Potassium 4.8 mmol/L (3.5-5.1); Sodium 134 mmol/L (135-145); eGFR 59.47
[2023-08-23] MEDS: DUONEB 3 ML INH ×3 (08:09→20:34)
[2023-08-23] MEDS: NOVOLOG FLEXPEN 5 UNITS SC ×3 (08:13→16:56)
[2023-08-23] MEDS: NOVOLOG FLEXPEN-LOW RESISTANCE SC ×2 (08:13→13:21)
[2023-08-23] MEDS: ROBITUSSIN 400 MG PO ×3 (08:14→16:55)
[2023-08-23] MEDS: MIRALAX 17 GRAMS PO (08:14)
[2023-08-23] MEDS: FEOSOL 325 MG PO (08:15)
[2023-08-23] MEDS: NEURONTIN 300 MG PO ×2 (08:15→13:25)
[2023-08-23] MEDS: ELIQUIS 5 MG PO ×2 (08:15→20:28)
[2023-08-23] MEDS: LOPRESSOR 50 MG PO ×2 (08:15→20:31)
[2023-08-23] MEDS: THERAGRAN 1 TABLET PO (08:15)
[2023-08-23] MEDS: PROTONIX 40 MG PO (08:15)
[2023-08-23] MEDS: LOW STRENGTH ASPIRIN 81 MG PO (08:15)
[2023-08-23] MEDS: ZESTRIL 10 MG PO (08:15)
[2023-08-23] MEDS: VITAMIN D3 (cholecalciferol) 25 MCG PO (08:15)
[2023-08-23] MEDS: NORVASC 5 MG PO (08:15)
[2023-08-23] MEDS: LASIX 40 MG PO (08:15)
[2023-08-23] MEDS: GLUCOPHAGE 500 MG PO ×2 (08:15→16:59)
[2023-08-23] MEDS: DEPAKOTE (12 HR RELEASE) 500 MG PO ×2 (08:15→20:28)
[2023-08-23] MEDS: DESENEX/MITRAZOL/ZEASORB 1 APPLIC TOPICAL ×2 (08:16→20:33)
[2023-08-23] MEDS: ANTIFUNGAL CLEAR 1 APPLIC TOPICAL ×2 (08:16→20:32)
[2023-08-23] MEDS: LANTUS 0.200000000000000011 UNITS SC (08:18)
--- NOTE | 2023-08-23 09:05 | W.PN.PUL3 ---
Today's Communication / Plan
-
Supplemental oxygen with goal SpO2 >88%
DuoNebs q12hr
Mucolytics
Incentive spirometer�
BiPAP at night/during naps --> this is very important!
Try to use 4-5L/min bled into bipap machine as the senior care may not be able to handle above 6L/min
s/p course of ABx
NOAC
Goal BG 140-180mg/dL
Will need repeat CXR in 4-6 weeks to follow left sided PNA and atelectasis to resolution.
Assessment
-
68-year-old morbidly obese M with probable obesity hypoventilation syndrome with chronic hypercapnia on chronic oxygen, bipolar disorder, hypertension, diabetes, DVT presented with recently diagnosed left leg DVT, NATALIA, hyperkalemia, metabolic
encephalopathy and hypercapnia despite maximum BiPAP requiring intubation-flame burner consulted for ventilator/critical care management 08/12/2023.
Assessment
Acute respiratory failure with hypoxemia and hypercapnia
Intubated 08/12/2023
Extubated 08/18/2023
Toxic metabolic encephalopathy - resolved
Obesity-hypoventilation syndrome now on nocturnal BiPAP
NATALIA - resolved
CAP
Centrilobular emphysema (seen on apical lung chandra via cervical CT from 08-07-2023) and at risk for COPD
Recent left lower extremity DVT-provoked - Dx on 08/11/2023 involving left CFV (nonocclusive thrombus)
Leukocytosis - resolved
Anemia - stable
Hyperglycemia - resolved
Hypertriglyceridemia
Conditions present prior to admission:
Morbid obesity-BMI 51 with Hx of bariatric surgery (sleeve)
Recent DZN-wrvvhnrq-UED stay.�
Hypertension.�
Obesity hypoventilation syndrome.�
Chronic oxygen supplementation.�
Legally blind-retinitis pigmentosa.�
Spinal stenosis.�
Colon resection.�
Deviated septum repair.�
Former smoker.
COPD on chronic oxygen supplementation
Chronic Brown due to BPH and chronic urinary retention
Plan
Continue nasal cannula during the day with BiPAP during sleep at settings IPAP 15, EPAP 8, and titrate O2 flow rate to maintain SpO2 >88%
Continue mucolytics with Mucinex and chest PT as needed
If he requires reintubation, he will likely need tracheostomy --> daughter does not feel pt would want this but she wants to keep pt full code for now; this was also previously reviewed with Dr. Bullard & daughter
Dr. Bullard reviewed with daughter-fourth intubation in the last 1.5 years-transition to CPAP and not BiPAP
I discussed what a tracheostomy is and that if he ends up getting re-intubated that he very well may need one if he is unable to be successfully extubated. He currently is doing well on nasal cannula, and as long as he remains compliant with his
BiPAP then we can avoid mechanical ventilation.� He says that he falls asleep easily and forgets to put the bipap on, and he also is bedbound due to spinal stenosis, back pain, knee pain and his obesity, so he relies on caregivers/nursing staff to
apply the bipap to him and again, that does not always happen allie if he does not call them.� I told him that he needs ti advocate for his own health, and that if he feels sleepy then he needs to apply the bipap mask on othewise he very well may get
re-intubated and end up with a tracheostomy.� I answered all his questions.
Considering he has suspected COPD, I started DuoNebs q12hr on 08/19
Sport bed with percussion-appears to be helping
Anticoagulation for recent DVT - on 08/19 we transitioned from heparin gtt to Eliquis - continue 5mg BID upon discharge x 3 months considering his sedentary lifestyle, then switch to prophylactic dose (2.mg PO BID) after that. I discussed this with
hematology, Dr. Goyal, who agrees with this plan.
Hematology following-correspondence reviewed
Echocardiogram 08/12/2023-EF 65-70% with dilated RV and normal RVSF
Previously as per Dr. Tran - With unclear mental status/neurologic exam-obtain CT head-reviewed with primary team -�mentation now back to baseline - no need for CT at this time.
Monitor renal function
Replace electrolyte abnormalities with K>3.5, Mg>1.8. PO4>3
Nephrology seen-correspondence reviewed- serial renal function, and maintain MAP greater than 65
Diurese as needed� - lasix given on 08/18 due to mild pulmonary vascular congestion developing on CXR and elevated pro-BNP
Cultures reviewed-unrevealing thus far
Repeat sputum 08/14/2023-usual respiratory harpreet
Infectious disease consultation obtained-correspondence reviewed- s/p course of ABx with cefepime given from 08/13 - 08/18; zosyn given x 2 days (08/11 + 08/12)
Follow hemoglobin
Transfuse if needed to maintain Hb>7, plt>50k
Follow blood sugar with goal BG 140-180mg/dL
Insulin drip initiated 08/13/2023 --> stopped on 08/19
Diabetic nurse practitioner consultation ongoing -->�now the patient is extubated, continue ADA; he has been weaned off insulin drip and BG has been in 110s-130s
Diet as per BRUSH AND BROOM CLIPPER
Continue PPI (takes PPI at home)
DVT prophylaxis- Eliquis
GI prophylaxis-on pantoprazole 40mg PO daily
Bedside range of motion - PT/OT
I updated his daughter Negra over the phone and answered all her questions.
Ultimately will need repeat CXR in 4-6 weeks to follow left sided PNA and atelectasis to resolution.
Pulmonary service will continue to follow along.� Thank you for allowing us to be involved in the care of this patient.
Dispo planning --> likely going back to nursing facility tomorrow.
Diagnostic data:
Chest x-ray 08/11/2023-bibasilar interstitial pneumonia
Chest x-ray 08/12/2023-rotated to the left, no pneumothorax, ET tube above lashon, bilateral interstitial infiltrates
Chest x-ray 08/13/2023-Mildly improved findings suggesting left lower lobe pneumonia.
CXR 08/18/2023: Right basilar pneumonia, and a left basilar opacity that may represent pneumonia, pleural fluid, and/or atelectasis.
CXR 08/19/2023: Status post extubation. Slight improvement in aeration compared to the most recent exam.
Subjective Data
-
Date of Service:
Date of Service: August 23, 2023
Chief Complaint: Pulmonary Follow Up
Subjective:
Patient seen this morning. Wore BiPAP overnight 17/02, bled with 4L/min. Feels well today. No acute events reported overnight.
Review of Systems
General: Other (Negative unless mentioned above)
Objective Data
Data Reviewed
Vital Signs / I&O / Oxygen:
Vital Signs
Temp Pulse Resp BP Pulse Ox
98.8 F 65 16 149/53 98
08/23/23 11:15 08/23/23 11:15 08/23/23 11:15 08/23/23 11:15 08/23/23 11:15
Intake and Output
08/22/23 08/23/23 08/24/23
06:59 06:59 06:59
Intake Total 3020 / 3020 660 / 660
Output Total 6950 / 6950 2740 / 2740
Balance -3930 / -3930 -2079 / -2079
SaO2 [CPAP] 40
SaO2 [A/C] 97
SaO2 98
Nasal Cannula flow liters per 4
minute
Physical Exam
General: Respiratory Distress (Negative), Comfortable, Good Appetite and Other (morbidly obese)
HEENT: Normocephalic and Anicteric
Cardiovascular: S1-S2 and Peripheral Edema (negative)
Respiratory: Wheeze (negative), Crackles (Coarse breath sounds bibasilarly), Rhonchi (Negative), Non-Labored Respirations and Stridor (Negative)
GI: Soft, Non Distended, Non Tender, Normal Bowel Sounds and Other (abdominal obesity)
Neurology: Awake, Alert and Tremors (neg)
Skin: Warm and Dry
Labs/Micro/Reports
Lab Data
08/23/23 06:54
08/23/23 06:54
[2023-08-23 11:51] LABS: Glucose - Point of Care 122 mg/dl (70-99)
--- NOTE | 2023-08-23 14:29 | CM ---
Chart reviewed, per Hospitalist, plan for discharge tomorrow. Updated clinicals sent to [facility] for patient return. Patient will require Bi-PAP machine at [facility]. CM will continue to follow for discharge planning needs.
Plan; return to [facility] tomorrow
[facility] nursing report: [phone]
Discharge instructions fax: [phone]
--- NOTE | 2023-08-23 15:20 | W.PN.GI.CBS2 ---
Today's Communication / Plan
-
esophagram tmwr
Assessment / Plan
-
The patient is a 68-year-old male with a past medical history significant for CKD, history of DVT, chronic respiratory failure with hypercapnia on chronic oxygen, type 2 diabetes, hypertension, bipolar disorder, GERD, ESSIE with CPAP use, restless leg
syndrome, iron deficiency anemia, morbid obesity, who presented to [facility] on 08/10 after having elevated potassium levels on outpatient lab work. We being asked to evaluate for concern for reverse aspiration. Prolonged hospital course as
noted above with VDRF extubated on 08/18. Now with concern for reverse aspiration. He notes previous evaluation for concern for reverse aspiration and was recommended to undergo evaluation at a tertiary center due to his morbid obesity but has not
been able to follow-up due to ongoing medical problems. He notes he had an endoscopy 6 months ago which showed food residue in the stomach otherwise was normal without any obstructive process. He was seen by speech therapy and approved for a diet.
Problem list:
-concern for reverse aspiration
-acute hypercapnic respiratory failure/VDRF s/p extubation on 08/18 now on bipap/supplemental oxygen
-?sepsis, pulmonary v urinary source
-NATALIA on CKD, resolved
-hyperkalemia, resolved
-Chronic microcytic anemia
-Morbid obesity
Other pertinent medical hx:
-HTN
-HLD
-IDDM
-bipolar disorder
-COPD
Recommendations:
-Etiology of reverse aspiration unclear. Had prior EGD 6 months ago with no evident findings per patient - did nore receive records
- 08/21 speech path note cleared him for regular diet, thin liquids 'Pt presents symptoms consistent with possible esophageal dysfunction that should be worked up by GI.'
Of note, dysphagia present for 2 years can also be addressed outpatient, follows with Dr. Juni LEYVA pending esophagram findings
D/w Dr. Ospina
Subjective
Subjective
Date of Service: August 23, 2023
napping with bipap on
dysphagia intermittent
Objective
Data Reviewed
Laboratory Data:
Laboratory Results
08/23/23 06:54
08/23/23 06:54
Laboratory Results
PT 15.5 Sec (11.4-14.6) H 08/18/23 02:55
INR 1.25 08/18/23 02:55
APTT 101.4 Sec (23.4-35.0) H 08/19/23 09:54
Phosphorus 5.3 mg/dl (2.5-4.5) H 08/23/23 06:54
Magnesium 1.9 mg/dl (1.6-2.3) 08/23/23 06:54
Total Bilirubin 0.7 mg/dl (0.2-1.3) 08/19/23 03:09
AST 30 U/L (17-59) 08/19/23 03:09
ALT 29 U/L (0-50) 08/19/23 03:09
Alkaline Phosphatase 81 U/L (38-126) 08/19/23 03:09
Vital Signs and I&O:
Vital Signs
Temp Pulse Resp BP Pulse Ox
98.8 F 65 16 149/53 98
08/23/23 11:15 08/23/23 11:15 08/23/23 11:15 08/23/23 11:15 08/23/23 11:15
I&O
08/22/23 08/23/23 08/24/23
06:59 06:59 06:59
Intake Total 3020 / 3020 660 / 660
Output Total 6950 / 6950 2740 / 2740
Balance -3930 / -3930 -2079 / -2079
Physical Exam
Physical Exam
GI: Non Distended and Non Tender
[2023-08-23 16:24] LABS: Glucose - Point of Care 196 mg/dl (70-99)
[2023-08-23] MEDS: NOVOLOG FLEXPEN-LOW RESISTANCE 1 UNITS SC (16:56)
[2023-08-23] MEDS: ABILIFY 7.5 MG PO (20:38)
[2023-08-23] MEDS: NEURONTIN 600 MG PO (20:40)
[2023-08-23] MEDS: COLACE 100 MG PO (20:41)
[2023-08-23 22:25] LABS: Glucose - Point of Care 118 mg/dl (70-99)
[2023-08-24] MEDS: LANTUS 0.200000000000000011 UNITS SC ×2 (00:07→22:08)
[2023-08-24 04:12] VITALS: BP 113/64
[2023-08-24 05:34] VITALS: PULSE 2
[2023-08-24 06:00] VITALS: BMI 49.9
--- NOTE | 2023-08-24 06:59 | W.PN.HOSP.TC ---
Today's Communication/Plan
-
cont bipap bedtime and naps
oxygen supplementation prn
duoneb prn as per pulm
diet as per speech
discharge planning likely return to [facility] tomorrow if remains stable/continues to improve.
Assessment / Plan
Assessment / Plan
Physical Exam
General: No Apparent Distress
Respiratory: Clear to Auscultation Bilaterally
Cardiac: Regular Rhythm and S1/S2
GI: Soft, Nontender and Normal Bowel Sounds
Genito-urinary: Brown catheter in place, hypospadiasis
Musculoskeletal: No Edema
Neuro: Alert and Awake
Assessment/Plan
# Acute hypercapnic respiratory failure with suspected OHS
Vent dependent respiratory failure
Acute toxic metabolic encephalopathy - Improved
-Extubated on 08/18/23
-Patient required intubation on 08/12 in the morning
-Postintubation x-ray showing ET tube in correct position. No pneumothorax
-Pre-intubation arterial blood gas showed pCO2 greater than 115, repeat ABG postintubation showing pCO2 down to 40
-Continue nasal cannula during the day with BiPAP during sleep/daytime sleep/naps settings as per Tie Puller
-Patient must wear BiPAP when sleepy/sleeping to avoid risk of reintubation
-Titrate FiO2 to maintain SpO2 >88%
-ICU performed bronchoscopy showing 'moderate amounts of thick yellow/off white mucous in LLL but also bloody secretions in left upper lobe bronchus - could have been exacerbated by coughing while on heparin gtt'
-Mucolytics with Mucinex
-Chest physiotherapy
-Duonebs Q12H
-Plan to repeat CXR in 4-6 weeks to follow left sided PNA and atelectasis to resolution
-downgraded to Tele 08/22
#Concern for Reverse Aspiration
-GI consulted, recommendations appreciated
-Esophagogram 08/24/23Thursday noted aspiration. Speech however concerned aspiration occurred d/t improper positioning and rapid ingestion during test. VSE was recommended but patient unable to undergo due to obesity.
Outpatient FEES recommended for further evaluation, continuing current diet Regular thin liquids for now.
# NATALIA - Resolved
# Multifactorial Acute pulmonary edema ( vascular congestion )
-Renal function 0.9 in Jul 29, trended down overall to baseline
-Hold Lisinopril
-Continue Lasix 40 mg PO daily
-Brown exchanged on admission
-Renal ultrasound normal.
-Replace electrolyte abnormalities to keep K>3.5, Mg>1.8. PO4>3
-Nephrology following
# Sepsis - POA
Concern for UTI
Hypotensions w/o shock
Left Lower Lobe Pneumonia
Suspected Aspiration Pneumonia in setting of Reverse Aspiration
-suspected urinary source vs pulm vs other
-Blood cultures NGTD
-Respiratory culture negative
-ID eval appreciated.
-Completed Cefepime and Zosyn, total 8 days abx, monitoring off
# Left leg DVT
-Recently diagnosed in [facility], was on Lovenox 120mg/bid
-Left lower extremity Doppler showing nonocclusive thrombus in common femoral vein
-Patient was started on heparin drip per hematology recommendation
- transitioned to Eliquis - continue
# Hyperkalemia - resolved
-Secondary to renal failure and lisinopril.
-EKG showing NSR, MO 190ms, QRS 142ms
-received calcium gluconate/insulin-glucose (temporized).
# Insulin-dependent diabetes mellitus - Uncontrolled
-diabetic [employer] consult appreciated
-s/p insulin gtt transitioned to subq
-Continue Diabetic Diet
# Essential Hypertension
-Maintain on metoprolol tartrate. prn hydralazine
# Chronic indwelling Brown catheter
Hypospadias
-Brown catheter exchanged /
# Reported delusion
History of bipolar disorder
-Continue Abilify. Valproate level within normal.
-Psychiatry evaluated on day of admission, currently remains intubated/sedated and will be re-involved post extubation
# Hypernatremia - RESOLVED
Mild Hyponatremia
- Monitor BMP
GERD
Morbid obesity
Obstructive sleep apnea
Neuropathy
DVT prophylaxis - Eliquis
GI ppx Protonix
Full code
I spent a total of 58 minutes with the patient or on the floor. More than 50% of this time involved counseling and coordination of care.
Anticipated Discharge: Within 24 hours
Subjective/Interval History
-
Date of Service: August 24, 2023
no acute distress. reports feeling well. Denies new acute issues at this time.
Objective Data
-
Vital Signs:
Vital Signs
Temp Pulse Resp BP Pulse Ox
97.8 F 82 16 113/64 95
08/24/23 04:12 08/24/23 04:12 08/24/23 04:12 08/24/23 04:12 08/24/23 04:12
I&O
08/22/23 08/23/23 08/24/23
06:59 06:59 06:59
Intake Total 3020 / 3020 660 / 660 840 / 840
Output Total 6950 / 6950 2740 / 2740 2400 / 2400
Balance -3930 / -3930 -2080 / -2080 -1560 / -1560
[2023-08-24 07:00] VITALS: BP 129/53
[2023-08-24] MEDS: DUONEB 3 ML INH ×2 (07:39→13:24)
[2023-08-24 08:09] LABS: Glucose - Point of Care 119 mg/dl (70-99)
[2023-08-24] MEDS: NOVOLOG FLEXPEN-LOW RESISTANCE SC ×3 (08:12→18:46)
[2023-08-24] MEDS: NOVOLOG FLEXPEN SC (08:12)
--- NOTE | 2023-08-24 08:14 | PN.DE.MGMTRT ---
Insulin Management
- -
08/13/2023 Diabetes Management Consult
Patient admitted 08/10 with hyperkalemia from [place]. PMH Chronic respiratory failure, morbid obesity, HTN, ESSIE, BPH, DVT, neuropathy. Prior to admission chart indicated patient diabetes regimen was Lantus 10 units @ HS with SS NovoLog and metformin
500 mg BID. Patient received Lantus @ hs with corrective insulin but glucose has remained > 200. Glycemic protocol to be started today and possibly tube feeds. Will assess in AM for readiness to transition from insulin infusion to subcutaneous.
08/14/2023: Diabetes Management F/U:
A1C 7.4%. Pt required initiation of glycemic protocol due to Hyperglycemia. Tube feeds were started yesterday, currently @50cc/hr.
Glucose has remained elevated 167-201 on drip, requiring 4-6 units of insulin/hr.
Will cont CCGP today and reassess this evening for readiness to transition, ideally at 1800
08/17/2023: Diabetes Management F/U:
Pt remains critically ill and intubated. Started on tube feed 08/13--->Hyperglycemia requiring insulin infusion.
Glucose remained elevated throughout the weekend while on glycemic protocol with high insulin requirements.
Glucose over night was 110 to 185, needed 10-20 units of insulin/hr (TDD of 180 units)
Cont CCGP considering the ongoing hyperglycemia and his hourly insulin requirement.
Will closely follow and reassess for readiness to transition to SQ insulin
08/18/2023 Diabetes Management Follow up
Patient remains intubated is s/p bronchoscopy yesterday. Remains on glycemic protocol requiring 10 to 14 units of insulin per hour. Tube feeds continue at 75 ml/ hr. Will initiate 8 units NovoLog SQ to offset tube feeds. If tube feeds held or
stopped please hold 8 units NovoLog q6 hours and continue glycemic protocol. Will follow for readiness to transition to SQ insulin.
08/19/2023 Diabetes Management Follow up
Patient extubated yesterday ~3PM. Did well overnight. Tube feeds continue @ 75 per hour. Currently being evaluated by speech. Q 6 hour NovoLog started yesterday @ 8 units, will increase to 12 units. Insulin infusion continued requiring 6 to 8
units per hour. If diet started will provide Lantus BID, and stop drip, and change Q6 hour NovoLog to AC NovoLog.
08/20/2023 Diabetes Management Follow up
Transitioned from insulin infusion yesterday ~ noon. Currently receiving Lantus 20 units BID and NovoLog 5 units AC with moderate corrective. Glucose range 119 to 162. Will continue 20 units Lantus BID and NovoLog 5 units AC, will decrease
corrective insulin from moderate to low. Will follow.
08/21/2023: Diabetes Management F/U:
Glucose stable and in range, premeal 117 to 165, FBG 125 this AM.
Will continue 20 units Lantus BID, NovoLog 5 units AC and low corrective insulin
08/24/2023: Diabetes Management F/U:
Glucose remained stable and in range throughout the weekend, FBG 119 this AM, premeal 116 to 196, with occasional 1 unit of corrective insulin.
Will make no changes to current regimen. Continue 20 units Lantus BID, NovoLog 5 units AC and low corrective insulin
Will follow
Diabetes History
- -
Type of Diabetes: 2
Pre-Admission Diabetes Regimen
Lab Results
Hemoglobin A1c 7.4 % (4.0-5.6) H 08/11/23 04:54
Insulin Pump Settings
IP Diabetes Regimen
08/23/23 08/23/23 08/23/23
11:50 16:23 22:24
POC Glucose 122 H 196 H 118 H
08/24/23
08:07
POC Glucose 119 H
Meal type: Dinner
Meal type: Lunch
Meal type: Breakfast
Amount consumed: 100%
Amount consumed: 100%
Amount consumed: 100%
Patient Education
[2023-08-24] MEDS: GLUCOPHAGE PO (08:54)
[2023-08-24] MEDS: LANTUS SC (09:09)
[2023-08-24] MEDS: ANTIFUNGAL CLEAR 1 APPLIC TOPICAL ×2 (10:36→19:59)
[2023-08-24] MEDS: DESENEX/MITRAZOL/ZEASORB 1 APPLIC TOPICAL ×2 (10:37→19:59)
[2023-08-24] MEDS: DEPAKOTE (12 HR RELEASE) 500 MG PO ×2 (10:38→19:57)
[2023-08-24] MEDS: ELIQUIS 5 MG PO ×2 (10:38→19:57)
[2023-08-24] MEDS: ZESTRIL 10 MG PO (10:38)
[2023-08-24] MEDS: LOPRESSOR 50 MG PO ×2 (10:39→19:59)
[2023-08-24] MEDS: NEURONTIN 300 MG PO ×2 (10:39→14:19)
[2023-08-24] MEDS: NORVASC 5 MG PO (10:39)
--- NOTE | 2023-08-24 12:13 | CM ---
Patient from [facility].
TC to Stacey re Bipap, she is checking to make sure it was ordered.
Bipap settings faxed to [phone].
Plan: back to [facility] when Medically stable.
Medical necessity forms on chart.
[facility] rehab
[2023-08-24 12:30] VITALS: BP 128/55
[2023-08-24 12:38] LABS: Glucose - Point of Care 128 mg/dl (70-99)
--- NOTE | 2023-08-24 12:41 | W.PN.GI.CBS2 ---
Addendum entered and electronically signed by Ortiz Molina MD 08/24/23 17:42:
I saw and examined the patient.
The BRASS BOBBIN WINDER or PA's note was reviewed and I agree with the note.
Comment: 68-year-old male past medical history as below GI consulted for dysphagia and reverse aspiration. Of note, he has longstanding dysphagia for at least 2 years and follows with outpatient GI doctor Dr. Alfredo. He was recommended to go to a
tertiary care center for what sounds like a motility study. He has had a recent upper endoscopy done and we have been unable to get these records.
Ultimately, we did an esophagram today which I reviewed with the radiologist. He did aspirate the contrast material during exam attempted to clear with a cough and incomplete clearing. Did not give any more contrast. Definitely reflux is all the
way to the thoracic inlet. Unclear if this is esophageal versus oropharyngeal.
We asked speech to reevaluate him but unfortunately they are unable to do a video swallow in-house due to his body habitus. They recommended outpatient follow-up.
At this time, I recommend that he follows up with his GI doctor outpatient regarding his chronic dysphagia. Defer diet to speech. GI will sign off. Please call with questions.
Original Note:
Today's Communication / Plan
-
Speech re-evaluation today. Consider VSE inpatient (to be determined per speech). Diet as per them. GI will sign off.
Assessment / Plan
-
The patient is a 68-year-old male with a past medical history significant for CKD, history of DVT, chronic respiratory failure with hypercapnia on chronic oxygen, type 2 diabetes, hypertension, bipolar disorder, GERD, ESSIE with CPAP use, restless leg
syndrome, iron deficiency anemia, morbid obesity, who presented to [facility] on 08/10 after having elevated potassium levels on outpatient lab work. We being asked to evaluate for concern for reverse aspiration. Prolonged hospital course as
noted above with VDRF extubated on 08/18. Now with concern for reverse aspiration. He notes previous evaluation for concern for reverse aspiration and was recommended to undergo evaluation at a tertiary center due to his morbid obesity but has not
been able to follow-up due to ongoing medical problems. He notes he had an endoscopy 6 months ago which showed food residue in the stomach otherwise was normal without any obstructive process. He was seen by speech therapy and approved for a diet.
Problem list:
-concern for reverse aspiration
-acute hypercapnic respiratory failure/VDRF s/p extubation on 08/18 now on bipap/supplemental oxygen
-?sepsis, pulmonary v urinary source
-NATALIA on CKD, resolved
-hyperkalemia, resolved
-Chronic microcytic anemia
-Morbid obesity
Other pertinent medical hx:
-HTN
-HLD
-IDDM
-bipolar disorder
-COPD
Recommendations:
-Etiology of reverse aspiration unclear. Had prior EGD 6 months ago with no evident findings per patient (records not available)
---Esophagram could not be completed due to aspiration of contrast per radiologist.
-Would have speech re-evaluate the pt today
-Consider VSE inpatient, can be decided by Speech.
-Diet as per speech therapy
-Aspiration precautions
-I did discuss with the pt that if he has continued episodes respiratory failure requiring ventilator 2/2 reverse aspiration he may need a PEG tube or other alternatives for nutrition in the future. This is not something he would want currently.
-I advised him to follow-up outpatient with his GI and undergo evaluation at tertiary center as per recommendation from his GI physician when he is medically stable
-No new GI recommendations at this time. Will sign off, please call back with ?s
Subjective
Subjective
Date of Service: August 24, 2023
The pt was seen and examined at the bedside. He denies any GI complaints. He reports several days a week having some dysphagia symptoms but this is chronic and not changed. Esophagram unable to be completed due to aspiration.
Objective
Data Reviewed
Laboratory Data:
Laboratory Results
08/23/23 06:54
08/23/23 06:54
Laboratory Results
PT 15.5 Sec (11.4-14.6) H 08/18/23 02:55
INR 1.25 08/18/23 02:55
APTT 101.4 Sec (23.4-35.0) H 08/19/23 09:54
Phosphorus 5.3 mg/dl (2.5-4.5) H 08/23/23 06:54
Magnesium 1.9 mg/dl (1.6-2.3) 08/23/23 06:54
Total Bilirubin 0.7 mg/dl (0.2-1.3) 08/19/23 03:09
AST 30 U/L (17-59) 08/19/23 03:09
ALT 29 U/L (0-50) 08/19/23 03:09
Alkaline Phosphatase 81 U/L (38-126) 08/19/23 03:09
Vital Signs and I&O:
Vital Signs
Temp Pulse Resp BP Pulse Ox
97.8 F 70 18 129/53 93
08/24/23 07:00 08/24/23 07:41 08/24/23 07:41 08/24/23 07:00 08/24/23 07:41
I&O
08/23/23 08/24/23 08/25/23
06:59 06:59 06:59
Intake Total 660 / 660 840 / 840
Output Total 2740 / 2740 2400 / 2400
Balance -2080 / -2080 -1560 / -1560
Physical Exam
Physical Exam
HEENT: Anicteric
Cardiology: S1 and S2 (regular rate/rhythm)
Pulmonary: Clear (overall diminished)
GI: Soft, Non Distended, Non Tender and Other (obese abdomen)
--- NOTE | 2023-08-24 12:53 | W.PN.ID1 ---
Date of Service
Date of Service: August 24, 2023
Today's Communication
Sign off
Assessment / Plan
S/P VDRF
Fever
Leukocytosis
Retinitis pigmentosa (legally blind)
Spinal stenosis
Bipolar disease/anxiety
Class III obesity
Hx DVT
HTN
COPD
DM
BPH with chronic urinary retention (chronic Brown)
Recommendations:
Cultures unrevealing. S/P 8-day course of antibiotics. Prior CXR shows improvement.
Fever resolved
Continue off antibiotics.
Little more to offer from a Infectious Diseases standpoint.
Will see again at your request.
����������������������������������������������������������
Chief Complaint
-: Fever and Leukocytosis
Subjective / Review of Systems
Review of Systems: No Fever
Vital Signs / Physical Exam
Vital Signs
Vital Signs
Temp Pulse Resp BP Pulse Ox
97.8 F 70 18 129/53 93
08/24/23 07:00 08/24/23 07:41 08/24/23 07:41 08/24/23 07:00 08/24/23 07:41
Physical Exam
Physical Exam:
Constitutional: No Acute Distress, Comfortable, Chronically Ill, Non-toxic and Obese
Eyes: No Conjunctival Hemorrhage
Cardiovascular: S1/S2; Negative S3/S4
Pulmonary: Non Labored
Gastrointestinal: Non Distended and Normal Bowel Sounds
Extremities: Edema; Negative Cyanosis, Erythema or Splinter Hemorrhage
Musculoskeletal: Negative Joint Swelling or Joint Effusion
Psychological: Calm
Objective Data
Lab Data
Lab Results
08/23/23 06:54
08/23/23 06:54
PT 15.5 Sec (11.4-14.6) H 08/18/23 02:55
INR 1.25 08/18/23 02:55
APTT 101.4 Sec (23.4-35.0) H 08/19/23 09:54
Estimated Creat Clear 82 ml/min 08/23/23 06:54
Lactic Acid 1.4 mmol/L (0.7-2.0) 08/13/23 15:20
Total Bilirubin 0.7 mg/dl (0.2-1.3) 08/19/23 03:09
AST 30 U/L (17-59) 08/19/23 03:09
ALT 29 U/L (0-50) 08/19/23 03:09
Alkaline Phosphatase 81 U/L (38-126) 08/19/23 03:09
Most recent labs reviewed.
Micro Results:
08/11/23 18:22 Blood Culture - Final
Blood/Venous No Growth - Final Report
08/11/23 17:58 Blood Culture - Final
Blood/Venous No Growth - Final Report
08/14/23 10:38 Respiratory Culture - Final
Tracheal Aspirate Usual Respiratory Perlita
Gram Stain - Final
08/12/23 15:45 Respiratory Culture - Final
Tracheal Aspirate Usual Respiratory Perlita
Gram Stain - Final
08/13/23 11:02 Influenza Types A & B (ADELITA) - Final
Nasal Swab Negative for Influenza A & B, NAAT
Negative results must be combined with clinical observations
and patient history.
Nucleic Acid Amplification test (NAAT)performed on the
[employer] platform.
08/11/23 04:54 MRSA Screen - Final
Nose No Methicillin Resistant Staphylococcus aureus isolated.
Imaging:
08/19/2023 CXR (portable): Significant patient rotation noted. Right lung base is not fully included in the study. Improved lung volumes noted, with decreased interstitial edema and decreased bibasilar atelectasis and pleural fluid. No new area of
airspace disease.
08/11/2023 Renal ultrasound: No hydronephrosis. No abnormal solid or complex renal masses. No renal calculi. Please see full dictation for additional detail.
[2023-08-24] MEDS: MIRALAX PO (14:12)
[2023-08-24] MEDS: NOVOLOG FLEXPEN 5 UNITS SC ×2 (14:15→18:47)
[2023-08-24] MEDS: VITAMIN D3 (cholecalciferol) 25 MCG PO (14:19)
[2023-08-24] MEDS: PROTONIX 40 MG PO (14:19)
[2023-08-24] MEDS: LASIX 40 MG PO (14:20)
[2023-08-24] MEDS: FEOSOL 325 MG PO (14:20)
[2023-08-24] MEDS: LOW STRENGTH ASPIRIN 81 MG PO (14:20)
[2023-08-24] MEDS: THERAGRAN 1 TABLET PO (14:21)
--- NOTE | 2023-08-24 16:07 | W.PN.PUL3 ---
Today's Communication / Plan
-
O2
BPAP
Asp precs
Dns prn
Dispo
Assessment
-
68-year-old morbidly obese M with probable obesity hypoventilation syndrome with chronic hypercapnia on chronic oxygen, bipolar disorder, hypertension, diabetes, DVT presented with recently diagnosed left leg DVT, NATALIA, hyperkalemia, metabolic
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
Assessment
Acute respiratory failure with hypoxemia and hypercapnia
Intubated 08/12/2023
Extubated 08/18/2023
Toxic metabolic encephalopathy - resolved
Obesity-hypoventilation syndrome now on nocturnal BiPAP
NATALIA - resolved
CAP
Centrilobular emphysema (seen on apical lung chandra via cervical CT from 08-07-2023) and at risk for COPD
Recent left lower extremity DVT-provoked - Dx on 08/11/2023 involving left CFV (nonocclusive thrombus)
Leukocytosis - resolved
Anemia - stable
Hyperglycemia - resolved
Hypertriglyceridemia
Conditions present prior to admission:
Morbid obesity-BMI 51 with Hx of bariatric surgery (sleeve)
Recent QAI-capnwhod-[facility] stay.�
Hypertension.�
Obesity hypoventilation syndrome.�
Chronic oxygen supplementation.�
Legally blind-retinitis pigmentosa.�
Spinal stenosis.�
Colon resection.�
Deviated septum repair.�
Former smoker.
COPD on chronic oxygen supplementation
Chronic Brown due to BPH and chronic urinary retention
Plan
Currently on O2 4L, POx 95%
Continue nasal cannula during the day
BiPAP during sleep at settings IPAP 15, EPAP 8, and titrate O2 flow rate to maintain SpO2 >88%
Continue mucolytics with Mucinex and chest PT as needed
If he requires reintubation, he will likely need tracheostomy --> daughter does not feel pt would want this but she wants to keep pt full code for now; this was also previously reviewed with Dr. Bullard & daughter
Dr. Bullard reviewed with daughter-fourth intubation in the last 1.5 years-transition to CPAP and not BiPAP
Dr Wills discussed what a tracheostomy is and that if he ends up getting re-intubated he very well may need one if he is unable to be successfully extubated.
Currently is doing well on nasal cannula, and as long as he remains compliant with his BiPAP then we can hopefully avoid mechanical ventilation.� He says that he falls asleep easily and forgets to put the bipap on, and he also is bedbound due to
spinal stenosis, back pain, knee pain and his obesity, so he relies on caregivers/nursing staff to apply the bipap to him and again, that does not always happen allie if he does not call them.� Told him that he needs to advocate for his own health,
and that if he feels sleepy then he needs to apply the bipap mask on othewise he very well may get re-intubated and end up with a tracheostomy.�
Considering he has suspected COPD, started DuoNebs q12hr on 08/19
Change DNs to prn -
Sport bed with percussion-appears to be helping
Anticoagulation for recent DVT - on 08/19 we transitioned from heparin gtt to Eliquis - continue 5mg BID upon discharge x 3 months considering his sedentary lifestyle, then switch to prophylactic dose (2.5 mg PO BID) after that. Discussed this with
hematology, Dr. Goyal, who agrees with this plan.
Hematology following-correspondence reviewed
Echocardiogram 08/12/2023-EF 65-70% with dilated RV and normal RVSF
Previously as per Dr. Tran - With unclear mental status/neurologic exam-obtain CT head-reviewed with primary team -�mentation now back to baseline, conversant, appropriate
Monitor renal function
Replace electrolyte abnormalities with K>3.5, Mg>1.8. PO4>3
Nephrology seen-correspondence reviewed- serial renal function, and maintain MAP greater than 65
Continue outpatient furosemide 40 mg qd po
Diuresis boost as needed� - lasix given on 08/18 due to mild pulmonary vascular congestion developing on CXR and elevated pro-BNP
Cultures reviewed-unrevealing thus far
Repeat sputum 08/14/2023-usual respiratory harpreet
Infectious disease consultation obtained-correspondence reviewed- s/p course of ABx with cefepime given from 08/13 - 08/18; zosyn given x 2 days (08/11 + 08/12)
Now observing off atbs
Asp precs
Seen by Speech, esophagogram showed aspiration with thin barium while reclined 20-30 degrees and with rapid ingestion via straw. Per speech continue cautious regular diet with thin liquids
DVT prophylaxis- Eliquis
GI prophylaxis-on pantoprazole 40mg PO daily
Bedside range of motion - PT/OT
Ultimately will need repeat CXR in 4-6 weeks to follow left sided PNA and atelectasis to resolution.
Dispo planning, pulm nguyen stable to do so
Diagnostic data:
Chest x-ray 08/11/2023-bibasilar interstitial pneumonia
Chest x-ray 08/12/2023-rotated to the left, no pneumothorax, ET tube above lashon, bilateral interstitial infiltrates
Chest x-ray 08/13/2023-Mildly improved findings suggesting left lower lobe pneumonia.
CXR 08/18/2023: Right basilar pneumonia, and a left basilar opacity that may represent pneumonia, pleural fluid, and/or atelectasis.
CXR 08/19/2023: Status post extubation. Slight improvement in aeration compared to the most recent exam.
Subjective Data
-
Date of Service:
Date of Service: August 24, 2023
Chief Complaint: Pulmonary Follow Up
Subjective:
No major pulm events reported
Continues on daytime O2
Denies dyspnea or cough at time of visit
Review of Systems
General: Fever (n), Sweats (n), Chills and Satisfactory Appetite (n)
Cardiopulmonary: Dyspnea (n) and Cough
GI: Abdominal Pain (n), Nausea (n) and Vomiting
Neuro: Weakness
Objective Data
Data Reviewed
Vital Signs / I&O / Oxygen:
Vital Signs
Temp Pulse Resp BP Pulse Ox
97.6 F 78 18 128/55 95
08/24/23 12:30 08/24/23 13:26 08/24/23 13:26 08/24/23 12:30 08/24/23 13:26
Intake and Output
08/23/23 08/24/23 08/25/23
06:59 06:59 06:59
Intake Total 660 / 660 840 / 840
Output Total 2740 / 2740 2400 / 2400
Balance -2080 / -2080 -1560 / -1560
SaO2 [CPAP] 40
SaO2 [A/C] 97
SaO2 95
Nasal Cannula flow liters per 4
minute
Physical Exam
General: Respiratory Distress (Negative), Comfortable, Good Appetite and Other (morbidly obese)
HEENT: Normocephalic and Anicteric
Cardiovascular: S1-S2, Regular Rhythm and Peripheral Edema (negative)
Respiratory: Wheeze (negative), Crackles (Coarse breath sounds bibasilarly), Rhonchi (Negative), Non-Labored Respirations and Stridor (Negative)
GI: Soft, Non Distended, Non Tender and Other (abdominal obesity)
Neurology: Awake, Alert and Tremors (neg)
Skin: Warm and Dry
Labs/Micro/Reports
Lab Data
08/23/23 06:54
08/23/23 06:54
[2023-08-24 17:16] LABS: Glucose - Point of Care 132 mg/dl (70-99)
[2023-08-24] MEDS: GLUCOPHAGE 500 MG PO (18:49)
[2023-08-24 19:31] VITALS: PULSE 2; PULSE 79
[2023-08-24 19:59] VITALS: BP 109/54
[2023-08-24 21:51] LABS: Glucose - Point of Care 116 mg/dl (70-99)
[2023-08-24] MEDS: ABILIFY 7.5 MG PO (22:09)
[2023-08-24] MEDS: NEURONTIN 600 MG PO (22:09)
[2023-08-24] MEDS: TYLENOL 650 MG PO (22:09)
[2023-08-24] MEDS: COLACE PO ×2 (22:09→22:12)
[2023-08-25 00:02] VITALS: BP 118/50
[2023-08-25 01:10] VITALS: PULSE 2
[2023-08-25 06:00] VITALS: BMI 48.8
[2023-08-25 07:20] LABS: Glucose - Point of Care 146 mg/dl (70-99)
--- NOTE | 2023-08-25 07:28 | W.PN.HOSP.TC ---
Today's Communication/Plan
-
discharge
Assessment / Plan
Assessment / Plan
Physical Exam
General: No Apparent Distress
Respiratory: Clear to Auscultation Bilaterally
Cardiac: Regular Rhythm and S1/S2
GI: Soft, Nontender and Normal Bowel Sounds
Genito-urinary: Brown catheter in place, hypospadiasis
Musculoskeletal: No Edema
Neuro: Alert and Awake
Assessment/Plan
# Acute hypercapnic respiratory failure with suspected OHS
Vent dependent respiratory failure
Acute toxic metabolic encephalopathy - Improved
-Extubated on 08/18/23
-Patient required intubation on 08/12 in the morning
-Postintubation x-ray showing ET tube in correct position. No pneumothorax
-Pre-intubation arterial blood gas showed pCO2 greater than 115, repeat ABG postintubation showing pCO2 down to 40
-Continue nasal cannula during the day with BiPAP during sleep/daytime sleep/naps settings as per [employer]
-Patient must wear BiPAP when sleepy/sleeping to avoid risk of reintubation
-Titrate FiO2 to maintain SpO2 >88%
-ICU performed bronchoscopy showing 'moderate amounts of thick yellow/off white mucous in LLL but also bloody secretions in left upper lobe bronchus - could have been exacerbated by coughing while on heparin gtt'
-Mucolytics with Mucinex
-Chest physiotherapy
-Duonebs Q12H
-Plan to repeat CXR in 4-6 weeks to follow left sided PNA and atelectasis to resolution
-downgraded to Tele 08/22
#Concern for Reverse Aspiration
-GI consulted, recommendations appreciated
-Esophagogram 08/24/23Thursday noted aspiration. Speech however concerned aspiration occurred d/t improper positioning and rapid ingestion during test. VSE was recommended but patient unable to undergo due to obesity.
Outpatient FEES recommended for further evaluation, continuing current diet Regular thin liquids for now.
# NATALIA - Resolved
# Multifactorial Acute pulmonary edema ( vascular congestion )
-Renal function 0.9 in Jul 29, trended down overall to baseline
-Hold Lisinopril
-Continue Lasix 40 mg PO daily
-Brown exchanged on admission
-Renal ultrasound normal.
-Replace electrolyte abnormalities to keep K>3.5, Mg>1.8. PO4>3
-Nephrology following
# Sepsis - POA
Concern for UTI
Hypotensions w/o shock
Left Lower Lobe Pneumonia
Suspected Aspiration Pneumonia in setting of Reverse Aspiration
-suspected urinary source vs pulm vs other
-Blood cultures NGTD
-Respiratory culture negative
-ID eval appreciated.
-Completed Cefepime and Zosyn, total 8 days abx, monitoring off
# Left leg DVT
-Recently diagnosed in [facility], was on Lovenox 120mg/bid
-Left lower extremity Doppler showing nonocclusive thrombus in common femoral vein
-Patient was started on heparin drip per hematology recommendation
- transitioned to Eliquis - continue
# Hyperkalemia - resolved
-Secondary to renal failure and lisinopril.
-EKG showing NSR, PA 190ms, QRS 142ms
-received calcium gluconate/insulin-glucose (temporized).
# Insulin-dependent diabetes mellitus - Uncontrolled
-diabetic BRONZER consult appreciated
-s/p insulin gtt transitioned to subq
-Continue Diabetic Diet
# Essential Hypertension
-Maintain on metoprolol tartrate. prn hydralazine
# Chronic indwelling Brown catheter
Hypospadias
-Brown catheter exchanged 2/
# Reported delusion
History of bipolar disorder
-Continue Abilify. Valproate level within normal.
-Psychiatry evaluated on day of admission, currently remains intubated/sedated and will be re-involved post extubation
# Hypernatremia - RESOLVED
Mild Hyponatremia
- Monitor BMP
GERD
Morbid obesity
Obstructive sleep apnea
Neuropathy
DVT prophylaxis - Eliquis
GI ppx Protonix
Full code
Medically stable for discharge back to SNF with outpatient follow up recommendations.
Attempted to contact daughter Negra to provide update, unable to reach, unable to leave message. Contacted patient's secondary contact friend Luciano Swenson. All questions answered along with call back number in case he or patient's daughter Negra
has any questions or concerns (Luciano reported that he would notify Negra).
Total Time Preparing Discharge ___50____ minutes including examination of the patient, summary of the hospital stay, instructions for continuing care to all relevant caregivers; and preparation of discharge records, prescriptions, and referral
forms if necessary.
Anticipated Discharge: Today
Subjective/Interval History
-
Date of Service: August 25, 2023
No acute distress appears comfortable at this time. Alert and conversant. Denies new acute issues at this time.
Objective Data
-
Vital Signs:
Vital Signs
Temp Pulse Resp BP Pulse Ox
97.7 F 70 20 118/50 98
08/25/23 00:02 08/25/23 00:02 08/25/23 00:02 08/25/23 00:02 08/25/23 00:02
I&O
08/24/23 08/25/23 08/26/23
06:59 06:59 06:59
Intake Total 840 / 840 2640 / 2640
Output Total 2400 / 2400 4175 / 4175
Balance -1560 / -1560 -1535 / -1535
[2023-08-25] MEDS: NOVOLOG FLEXPEN-LOW RESISTANCE SC ×2 (07:44→11:44)
--- NOTE | 2023-08-25 07:51 | PN.DE.MGMTRT ---
Insulin Management
- -
:
08/13/2023 Diabetes Management Consult
Patient admitted 08/10 with hyperkalemia from ID. PMH Chronic respiratory failure, morbid obesity, HTN, ESSIE, BPH, DVT, neuropathy. Prior to admission chart indicated patient diabetes regimen was Lantus 10 units @ HS with SS NovoLog and metformin
500 mg BID. Patient received Lantus @ hs with corrective insulin but glucose has remained > 200. Glycemic protocol to be started today and possibly tube feeds. Will assess in AM for readiness to transition from insulin infusion to subcutaneous.
08/14/2023: Diabetes Management F/U:
A1C 7.4%. Pt required initiation of glycemic protocol due to Hyperglycemia. Tube feeds were started yesterday, currently @50cc/hr.
Glucose has remained elevated 167-201 on drip, requiring 4-6 units of insulin/hr.
Will cont CCGP today and reassess this evening for readiness to transition, ideally at 1800
08/17/2023: Diabetes Management F/U:
Pt remains critically ill and intubated. Started on tube feed 08/13--->Hyperglycemia requiring insulin infusion.
Glucose remained elevated throughout the weekend while on glycemic protocol with high insulin requirements.
Glucose over night was 110 to 185, needed 10-20 units of insulin/hr (TDD of 180 units)
Cont CCGP considering the ongoing hyperglycemia and his hourly insulin requirement.
Will closely follow and reassess for readiness to transition to SQ insulin
08/18/2023 Diabetes Management Follow up
Patient remains intubated is s/p bronchoscopy yesterday. Remains on glycemic protocol requiring 10 to 14 units of insulin per hour. Tube feeds continue at 75 ml/ hr. Will initiate 8 units NovoLog SQ to offset tube feeds. If tube feeds held or
stopped please hold 8 units NovoLog q6 hours and continue glycemic protocol. Will follow for readiness to transition to SQ insulin.
08/19/2023 Diabetes Management Follow up
Patient extubated yesterday ~3PM. Did well overnight. Tube feeds continue @ 75 per hour. Currently being evaluated by speech. Q 6 hour NovoLog started yesterday @ 8 units, will increase to 12 units. Insulin infusion continued requiring 6 to 8
units per hour. If diet started will provide Lantus BID, and stop drip, and change Q6 hour NovoLog to AC NovoLog.
08/20/2023 Diabetes Management Follow up
Transitioned from insulin infusion yesterday ~ noon. Currently receiving Lantus 20 units BID and NovoLog 5 units AC with moderate corrective. Glucose range 119 to 162. Will continue 20 units Lantus BID and NovoLog 5 units AC, will decrease
corrective insulin from moderate to low. Will follow.
08/21/2023: Diabetes Management F/U:
Glucose stable and in range, premeal 117 to 165, FBG 125 this AM.
Will continue 20 units Lantus BID, NovoLog 5 units AC and low corrective insulin
08/24/2023: Diabetes Management F/U:
Glucose remained stable and in range throughout the weekend, FBG 119 this AM, premeal 116 to 196, with occasional 1 unit of corrective insulin.
Will make no changes to current regimen. Continue 20 units Lantus BID, NovoLog 5 units AC and low corrective insulin
Will follow
08/25/2023 Diabetes Management Follow up
Glucose remains stable, 116 to 132, on current regimen, lantus 20 units BID with novolog 5 units AC. Required no corrective insulin yesterday. Will make no change to current regimen.
Diabetes History
- -
Type of Diabetes: 2 requiring insulin
Pre-Admission Diabetes Regimen
Lab Results
Hemoglobin A1c 7.4 % (4.0-5.6) H 08/11/23 04:54
Insulin Pump Settings
IP Diabetes Regimen
08/24/23 08/24/23 08/24/23
08:07 12:37 17:14
POC Glucose 119 H 128 H 132 H
08/24/23 08/25/23
21:50 07:17
POC Glucose 116 H 146 H
Meal type: Lunch
Meal type: Dinner
Meal type: Breakfast
Amount consumed: 100%
Amount consumed: 100%
Amount consumed: 0
Patient Education
[2023-08-25] MEDS: LANTUS 0.200000000000000011 UNITS SC (08:12)
[2023-08-25] MEDS: NOVOLOG FLEXPEN 5 UNITS SC ×2 (08:12→12:54)
[2023-08-25] MEDS: VITAMIN D3 (cholecalciferol) 25 MCG PO (08:13)
[2023-08-25] MEDS: ELIQUIS 5 MG PO (08:13)
[2023-08-25] MEDS: GLUCOPHAGE 500 MG PO (08:13)
[2023-08-25] MEDS: DEPAKOTE (12 HR RELEASE) 500 MG PO (08:13)
[2023-08-25] MEDS: PROTONIX 40 MG PO (08:13)
[2023-08-25] MEDS: LOW STRENGTH ASPIRIN 81 MG PO (08:13)
[2023-08-25] MEDS: NEURONTIN 300 MG PO ×2 (08:13→12:55)
[2023-08-25] MEDS: FEOSOL 325 MG PO (08:14)
[2023-08-25] MEDS: THERAGRAN 1 TABLET PO (08:14)
[2023-08-25] MEDS: MIRALAX PO (08:14)
[2023-08-25] MEDS: DESENEX/MITRAZOL/ZEASORB 1 APPLIC TOPICAL (08:19)
[2023-08-25] MEDS: ANTIFUNGAL CLEAR 1 APPLIC TOPICAL (08:20)
[2023-08-25 08:56] VITALS: BP 117/62
[2023-08-25] MEDS: NORVASC 5 MG PO (09:22)
[2023-08-25] MEDS: LOPRESSOR 50 MG PO (09:22)
[2023-08-25] MEDS: LASIX 40 MG PO (09:22)
[2023-08-25] MEDS: ZESTRIL 10 MG PO (09:22)
--- NOTE | 2023-08-25 11:07 | CM ---
Addendum entered by Latisha Mosher 08/25/23 11:23:
IMM completed.
Original Note:
Patient from [facility].
TC to Stacey at [facility], BiPaP should be in today.
Patient for probable d/c today.
Medical necessity forms on chart.
[facility] rehab
[2023-08-25 11:41] LABS: Glucose - Point of Care 115 mg/dl (70-99)
--- NOTE | 2023-08-25 13:30 | W.PN.PUL3 ---
Today's Communication / Plan
-
O2
BPAP
BDs prn
Dispo
Reconsult prn
Assessment
-
68-year-old morbidly obese M with probable obesity hypoventilation syndrome with chronic hypercapnia on chronic oxygen, bipolar disorder, hypertension, diabetes, DVT presented with recently diagnosed left leg DVT, NATALIA, hyperkalemia, metabolic
encephalopathy and hypercapnia despite maximum BiPAP requiring intubation-customer service consultant consulted for ventilator/critical care management 08/12/2023.
Assessment
Acute respiratory failure with hypoxemia and hypercapnia
Intubated 08/12/2023
Extubated 08/18/2023
Toxic metabolic encephalopathy - resolved
Obesity-hypoventilation syndrome now on nocturnal BiPAP
NATALIA - resolved
CAP
Centrilobular emphysema (seen on apical lung chandra via cervical CT from 08-07-2023) and at risk for COPD
Recent left lower extremity DVT-provoked - Dx on 08/11/2023 involving left CFV (nonocclusive thrombus)
Leukocytosis - resolved
Anemia - stable
Hyperglycemia - resolved
Hypertriglyceridemia
Conditions present prior to admission:
Morbid obesity-BMI 51 with Hx of bariatric surgery (sleeve)
Recent NLD-ieodrvbm-[facility] stay.�
Hypertension.�
Obesity hypoventilation syndrome.�
Chronic oxygen supplementation.�
Legally blind-retinitis pigmentosa.�
Spinal stenosis.�
Colon resection.�
Deviated septum repair.�
Former smoker.
COPD on chronic oxygen supplementation
Chronic Brown due to BPH and chronic urinary retention
Plan
Currently on O2 4L, POx 95%
Continue nasal cannula during the day
BiPAP during sleep at settings IPAP 15, EPAP 8, and titrate O2 flow rate to maintain SpO2 >88%
Continue mucolytics with Mucinex and chest PT as needed
If he requires reintubation, he will likely need tracheostomy --> daughter does not feel pt would want this but she wants to keep pt full code for now; this was also previously reviewed with Dr. Bullard & daughter
Dr. Bullard reviewed with daughter-fourth intubation in the last 1.5 years-transition to CPAP and not BiPAP
Dr Wills discussed what a tracheostomy is and that if he ends up getting re-intubated he very well may need one if he is unable to be successfully extubated.
Currently is doing well on nasal cannula, and as long as he remains compliant with his BiPAP then we can hopefully avoid mechanical ventilation.� He says that he falls asleep easily and forgets to put the bipap on, and he also is bedbound due to
spinal stenosis, back pain, knee pain and his obesity, so he relies on caregivers/nursing staff to apply the bipap to him and again, that does not always happen allie if he does not call them.� Told him that he needs to advocate for his own health,
and that if he feels sleepy then he needs to apply the bipap mask on othewise he very well may get re-intubated and end up with a tracheostomy.�
Considering he has suspected COPD, started DuoNebs q12hr on 08/19
Changed DNs to prn -
Sport bed with percussion
Anticoagulation for recent DVT - on 08/19 we transitioned from heparin gtt to Eliquis - continue 5mg BID upon discharge x 3 months considering his sedentary lifestyle, then switch to prophylactic dose (2.5 mg PO BID) after that. Discussed this with
hematology, Dr. Goyal, who agrees with this plan.
Hematology following-correspondence reviewed
Echocardiogram 08/12/2023-EF 65-70% with dilated RV and normal RVSF
Previously as per Dr. Tran - With unclear mental status/neurologic exam-obtain CT head-reviewed with primary team -�mentation now back to baseline, conversant, appropriate
Monitor renal function
Replace electrolyte abnormalities with K>3.5, Mg>1.8. PO4>3
Nephrology seen-correspondence reviewed- serial renal function, and maintain MAP greater than 65
Continue outpatient furosemide 40 mg qd po
Diuresis boost as needed� - lasix given on 08/18 due to mild pulmonary vascular congestion developing on CXR and elevated pro-BNP
Cultures reviewed-unrevealing thus far
Repeat sputum 08/14/2023-usual respiratory harpreet
Infectious disease consultation obtained-correspondence reviewed- s/p course of ABx with cefepime given from 08/13 - 08/18; zosyn given x 2 days (08/11 + 08/12)
Now observing off atbs
Asp precs
Seen by Speech, esophagogram showed aspiration with thin barium while reclined 20-30 degrees and with rapid ingestion via straw. Per speech continue cautious regular diet with thin liquids
DVT prophylaxis- Eliquis
GI prophylaxis-on pantoprazole 40mg PO daily
Bedside range of motion - PT/OT
Ultimately will need repeat CXR in 4-6 weeks to follow left sided PNA and atelectasis to resolution.
Dispo planning, pulm nguyen stable to do so
Reconsult prn
D/w RN and RT
Diagnostic data:
Chest x-ray 08/11/2023-bibasilar interstitial pneumonia
Chest x-ray 08/12/2023-rotated to the left, no pneumothorax, ET tube above lashon, bilateral interstitial infiltrates
Chest x-ray 08/13/2023-Mildly improved findings suggesting left lower lobe pneumonia.
CXR 08/18/2023: Right basilar pneumonia, and a left basilar opacity that may represent pneumonia, pleural fluid, and/or atelectasis.
CXR 08/19/2023: Status post extubation. Slight improvement in aeration compared to the most recent exam.
Subjective Data
-
Date of Service:
Date of Service: August 25, 2023
Chief Complaint: Pulmonary Follow Up
Subjective:
No resp events reported
Taking a nap with BPAP on, denies major complaints when wakes up for visit
Review of Systems
General: Fever (n), Sweats (n), Chills and Satisfactory Appetite
HEENT: Epistaxis (n)
Cardiopulmonary: Dyspnea, Cough (n) and Wheezing
GI: Abdominal Pain (n), Nausea and Vomiting (n)
Neuro: Weakness
Objective Data
Data Reviewed
Vital Signs / I&O / Oxygen:
Vital Signs
Temp Pulse Resp BP Pulse Ox
97.8 F 73 16 117/62 98
08/25/23 08:56 08/25/23 09:22 08/25/23 08:56 08/25/23 09:22 08/25/23 08:56
Intake and Output
08/24/23 08/25/23 08/26/23
06:59 06:59 06:59
Intake Total 840 / 840 2640 / 2640
Output Total 2400 / 2400 4175 / 4175
Balance -1560 / -1560 -1535 / -1535
SaO2 [CPAP] 40
SaO2 [A/C] 97
SaO2 98
Nasal Cannula flow liters per 4
minute
Physical Exam
General: Respiratory Distress (Negative), Comfortable, Good Appetite and Other (morbidly obese)
HEENT: Normocephalic and Anicteric
Cardiovascular: S1-S2, Regular Rhythm, JVD (n) and Peripheral Edema (negative)
Respiratory: Wheeze (negative), Crackles (trace), Rhonchi (Negative), Non-Labored Respirations and Stridor (Negative)
GI: Soft, Non Distended, Non Tender and Other (abdominal obesity)
Neurology: Awake, Alert and Tremors (neg)
Skin: Warm and Dry
Labs/Micro/Reports
Lab Data
08/23/23 06:54
08/23/23 06:54
[2023-08-25 13:59] VITALS: PULSE 2
--- NOTE | 2023-08-25 15:57 | W.DCSUMMARY ---
Discharge Summary
Discharge Data
Date of Admission: 08/10/23
Date of Discharge: 08/25/23
-
Pending Results: No
Hospital Course
68M extensive past medical history included chronic respiratory failure with hypercapnia on chronic 2 to 3 L nasal cannula, morbid obesity, chronic Brown, GERD, bipolar disorder, HTN, ESSIE, iron deficiency anemia, vitamin D deficiency, DM2 with
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
Acute hypercapnic respiratory failure with suspected OHS, patient required intubation on morning 08/12. Pre-intubation arterial blood gas showed pCO2 greater than 115, repeat ABG postintubation showed pCO2 down to 40. [employer] Station [employer] performed
bronchoscopy showed 'moderate amounts of thick yellow/off white mucous in LLL but also bloody secretions in left upper lobe bronchus - could have been exacerbated by coughing while on heparin gtt.' Acute toxic metabolic encephalopathy improved,
extubated 08/18/23. Continued nasal cannula during the day with BiPAP during sleep/daytime sleep/naps settings as per [employer].
Concern for Reverse Aspiration, Esophagogram 08/24/23Thursday noted aspiration.� Speech however concerned aspiration occurred d/t improper positioning and rapid ingestion during test.� VSE was recommended but patient unable to undergo due to
obesity.� Outpatient FEES recommended for further evaluation, continued current diet Regular thin liquids for now.�
NATALIA, gradually resolved over the course of hospitalization. Lisinopril held. Continued on Lasix 40 mg PO daily. Brown exchanged on admission. Renal ultrasound normal.
Electrolyte abn's were monitored and repleted as necessary.
Sepsis POA, concern for UTI, left lower lobe pna, possible aspiration. Blood cultures NGTD. Respiratory culture negative. ID evaluated and patient completed abx regimen total 8 days abx.
Left leg DVT, recently diagnosed in [facility], pt was on Lovenox 120mg/bid. Left lower extremity Doppler showing nonocclusive thrombus in common femoral vein. Patient was started on heparin drip during critical illness intubation-
eventually transitioned to Eliquis towards the end of hospital course.
Hyperkalemia, present on admission, resolved with calcium gluconate/insulin-glucose temporization and hold on Lisinopril.
Insulin-dependent diabetes mellitus Uncontrolled, patient was briefly treated with insulin gtt before transitioning to subQ.
Medically stable, patient was discharged to SNF rehab with outpatient follow up recommendations.
Discharge Plan
-
Patient Disposition: Shelter/SNF
Discharge Diagnosis/Procedures: Acute respiratory failure with hypoxemia and hypercapnia
Intubated 08/12/2023
Extubated 08/18/2023
Toxic metabolic encephalopathy - resolved
Obesity-hypoventilation syndrome now on nocturnal BiPAP
Acute Kidney Injury - resolved
Community Acquired Pneumonia
Centrilobular emphysema Chronic Obstructive Pulmonary Disease
Recent left lower extremity Deep Venous Thrombosis-provoked
Leukocytosis - resolved
Anemia - stable
Diabetes
Hypertriglyceridemia
Morbid obesity- history of bariatric surgery (sleeve)
Hypertension.
Obesity hypoventilation syndrome.
Chronic oxygen supplementation.
Legally blind-retinitis pigmentosa.
Spinal stenosis.
Colon resection.
Deviated septum repair.
Former smoker.
Chronic Brown due to BPH and chronic urinary retention
Chronic Dysphagia Possible Reverse Aspiration
Condition: Fair
Diet: Diabetic, Carb Controlled
Activity: With assistance
Driving Restrictions: No driving
Bathing Restrictions: None
Blood Work: Please repeat CBC and BMP with primary care provider in 1 week of discharge.
Others Tests: CXR 4-6 weeks with primary care provider or pulmonology, to follow up pneumonia.
Please obtain fiberoptic endoscopic evaluation of swallowing (FEES) with primary care provider or your GI doctor in 1 month of discharge
Other Services: ST
Activity Restrictions/Additional Instructions:
Please follow up with your primary care provider in 1 week of discharge, your GI doctor in 2 weeks of discharge, and pulmonology in 1 month of discharge.
Please continue with BIPAP at bedtime and during naps IPAP 15, EPAP 8 with O2 4L
Lovenox has been switched to Eliquis for treatment DVT.
Lantus increased to 20U twice a day for better control Diabetes
Lisinopril reduced to 10 mg daily from 20 mg due to hypotension
Miralax reduced to daily as oppose to prior twice a day.
Please take medications as prescribed/recommended and follow up with primary care provider and/or other healthcare provider involved in your care for refills and/or further adjustments to your medication regimen as necessary.
Referrals:
Silas Ramírez I., DO [Family Provider] - in one week
Jacqueline Jett, [Active] - in one month (Obesity hypoventilation syndrome now on BiPAP; also reported Hx of COPD; will need to see board certified sleep physician following discharge.)
Prescriptions:
New
Eliquis 5 mg Tablet
5 mg PO BID 30 Days Qty: 60 0RF
Continued
metformin 500 MG tablet
500 mg PO BID
metoprolol tartrate 50 MG tablet
50 mg PO BID
furosemide [Lasix] 40 mg Tablet
40 mg PO DAILY
acetaminophen [Tylenol] 325 mg Tablet
650 mg PO Q6HPRN MDD 3000 mg PRN (Reason: mild pain)
gabapentin 600 mg Tablet
600 mg PO HS
ipratropium-albuterol 0.5 mg-3 mg(2.5 mg base)/3 mL Solution For Nebulization
3 ml INHALATION R Q4HPRN PRN (Reason: sob/wheezing)
urea 20 % Cream
1 applic TOPICAL Q12H
therapeutic multivitamin Tablet
1 tab PO DAILY
melatonin 3 mg Tablet
3 mg PO HS
amlodipine [Norvasc] 5 mg Tablet
5 mg PO DAILY
divalproex [Depakote] 500 mg Tablet,Delayed Release (Dr/Ec)
500 mg PO BID
omeprazole 40 mg Capsule,Delayed Release(Dr/Ec)
40 mg PO DAILY
magnesium hydroxide [Milk of Magnesia] 400 mg/5 mL Suspension
30 ml PO HSPRN PRN (Reason: if no BM in 3 days)
miconazole nitrate 2 % Ointment
1 applic TOPICAL BID
insulin aspart U-100 100 unit/mL Solution
0 sliding scale dose SC ACHS
Rx Instructions:
150-200 = 2 units; 201-250 = 4 units; 251-300 = 6 units; 301-350 = 8 units; 351-400 = 10 units; call provider for BS less than 70 or greater than 400.
bisacodyl [Dulcolax (bisacodyl)] 10 mg Suppository
10 mg OK DAILYPRN PRN (Reason: constipation)
ferrous sulfate 325 mg (65 mg iron) Tablet
325 mg PO DAILY
lidocaine [Lidoderm] 5 % Adhesive Patch,Medicated
1 patch topical [id number] PRN (Reason: apply to B/L knees)
Fleet Enema 19-7 gram/118 mL Enema
118 ml OK DAILYPRN PRN (Reason: constipation)
docusate sodium [Colace] 100 mg Capsule
100 mg PO HS
gabapentin 300 mg Capsule
300 mg PO DAILY
aspirin 81 mg Tablet,Chewable
81 mg PO DAILY
nystatin 100,000 unit/gram Powder
1 applic TOPICAL Q12H
oxybutynin chloride 5 mg Tablet
5 mg PO Q8HPRN PRN (Reason: bladder instability)
aripiprazole 15 mg Tablet
7.5 mg PO HS
cholecalciferol (vitamin D3) [Vitamin D3] 25 mcg (1,000 unit) Tablet
25 mcg PO DAILY
Biofreeze (menthol) 4 % Gel
1 applic TOPICAL Q4HPRN PRN (Reason: apply to back, neck, or B/L knees)
loperamide 2 mg Capsule
2 mg PO Q6HPRN PRN (Reason: diarrhea)
Changed
polyethylene glycol 3350 [Miralax] 17 gram Powder In Packet
17 g PO DAILY Qty: 100 0RF
Discontinued
enoxaparin [Lovenox] 120 mg/0.8 mL Syringe
120 mg SC Q12H
insulin glargine 100 unit/mL (3 mL) Insulin Pen
10 unit SC HS
lisinopril 20 mg Tablet
20 mg PO DAILY
No Action
Metamucil Packet
1 packet PO DAILY
insulin glargine [Lantus Solostar U-100 Insulin] 100 unit/mL (3 mL) Insulin Pen
20 unit SC BID
lisinopril 10 mg tablet
10 mg PO DAILY
Discharge Orders:
Discharge Patient (As Directed); Ordered 08/25/23
Ordered By: Kiesha Ospina
Discharge Date and Time
Discharge Date/Time: 08/25/23 16:55
== END 2023-08-25 16:55 | DRG 870 ==
LOC: 4 WEST ACU 20:26
PROVIDERS: Clinical Nurse Specialist Family Health; Hospitalist; Internal Medicine Critical Care Medicine; Internal Medicine Hematology & Oncology; Nurse Practitioner Family; Nurse Practitioner Gerontology; Nurse Practitioner Primary Care; Radiology Diagnostic Radiology; Specialist; ADMITTING PHYSICIAN Internal Medicine; ATTENDING PHYSICIAN Internal Medicine; CONSULT PHYSICIAN Internal Medicine Gastroenterology; CONSULT PHYSICIAN Internal Medicine Infectious Disease; CONSULT PHYSICIAN Specialist; EMERGENCY PHYSICIAN Emergency Medicine; FAMILY PHYSICIAN Internal Medicine; OTHER PHYSICIAN Internal Medicine Critical Care Medicine; OTHER PHYSICIAN Internal Medicine Hematology & Oncology; OTHER PHYSICIAN Psychiatry & Neurology Psychiatry
PROC: 5A09357 Assistance with Respiratory Ventilation, Less than 24 Consecutive Hours, Continuous Positive Airway Pressure (ICD-10-PCS; 2023-08-10)
PROC: 0DH67UZ Insertion of Feeding Device into Stomach, Via Natural or Artificial Opening (ICD-10-PCS; 2023-08-11)
PROC: 0BH17EZ Insertion of Endotracheal Airway into Trachea, Via Natural or Artificial Opening (ICD-10-PCS; 2023-08-12)
PROC: 5A1955Z Respiratory Ventilation, Greater than 96 Consecutive Hours (ICD-10-PCS; 2023-08-12)
PROC: 3E0F8GC Introduction of Other Therapeutic Substance into Respiratory Tract, Via Natural or Artificial Opening Endoscopic (ICD-10-PCS; 2023-08-17)
PROC: 0B9G8ZZ Drainage of Left Upper Lung Lobe, Via Natural or Artificial Opening Endoscopic (ICD-10-PCS; 2023-08-17)
PROC: 0B9K8ZZ Drainage of Right Lung, Via Natural or Artificial Opening Endoscopic (ICD-10-PCS; 2023-08-17)
PROC: 0B9J8ZZ Drainage of Left Lower Lung Lobe, Via Natural or Artificial Opening Endoscopic (ICD-10-PCS; 2023-08-17)
PROC: 0B988ZZ Drainage of Left Upper Lobe Bronchus, Via Natural or Artificial Opening Endoscopic (ICD-10-PCS; 2023-08-17)
PROC: 0B998ZZ Drainage of Lingula Bronchus, Via Natural or Artificial Opening Endoscopic (ICD-10-PCS; 2023-08-17)
PROC: 0B9B8ZZ Drainage of Left Lower Lobe Bronchus, Via Natural or Artificial Opening Endoscopic (ICD-10-PCS; 2023-08-18)
PROC: 0B938ZZ Drainage of Right Main Bronchus, Via Natural or Artificial Opening Endoscopic (ICD-10-PCS; 2023-08-18)
DX: A41.9 Sepsis, unspecified organism (principal); G92.8 Other toxic encephalopathy; J69.0 Pneumonitis due to inhalation of food and vomit; J96.22 Acute and chronic respiratory failure with hypercapnia; J81.0 Acute pulmonary edema; J96.21 Acute and chronic respiratory failure with hypoxia; N17.9 Acute kidney failure, unspecified; I13.0 Hypertensive heart and chronic kidney disease with heart failure and stage 1 through stage 4 chronic kidney disease, or unspecified chronic kidney disease; E66.2 Morbid (severe) obesity with alveolar hypoventilation; E87.29 Other acidosis; Z68.43 Body mass index [BMI] 50.0-59.9, adult; I82.412 Acute embolism and thrombosis of left femoral vein; Z99.11 Dependence on respirator [ventilator] status; E87.0 Hyperosmolality and hypernatremia; E87.1 Hypo-osmolality and hyponatremia; J98.11 Atelectasis; N39.0 Urinary tract infection, site not specified; E87.5 Hyperkalemia; F22 Delusional disorders; N18.9 Chronic kidney disease, unspecified; E11.22 Type 2 diabetes mellitus with diabetic chronic kidney disease; E78.1 Pure hyperglyceridemia; H54.8 Legal blindness, as defined in USA; I45.10 Unspecified right bundle-branch block; D50.9 Iron deficiency anemia, unspecified; E11.40 Type 2 diabetes mellitus with diabetic neuropathy, unspecified; E55.9 Vitamin D deficiency, unspecified; F31.9 Bipolar disorder, unspecified; H35.52 Pigmentary retinal dystrophy; G47.00 Insomnia, unspecified; F41.9 Anxiety disorder, unspecified; K21.9 Gastro-esophageal reflux disease without esophagitis; N40.1 Benign prostatic hyperplasia with lower urinary tract symptoms; J43.2 Centrilobular emphysema; E11.65 Type 2 diabetes mellitus with hyperglycemia; R13.10 Dysphagia, unspecified; R33.8 Other retention of urine; M48.00 Spinal stenosis, site unspecified; G25.81 Restless legs syndrome; Q54.9 Hypospadias, unspecified; Z11.52 Encounter for screening for COVID-19; Z99.81 Dependence on supplemental oxygen; Z79.4 Long term (current) use of insulin; Z79.82 Long term (current) use of aspirin; Z86.718 Personal history of other venous thrombosis and embolism; Z87.891 Personal history of nicotine dependence; Z79.84 Long term (current) use of oral hypoglycemic drugs; Z74.01 Bed confinement status; Z98.84 Bariatric surgery status
CPT/HCPCS: 36600; 71045; 74018; 74221; 76775; 80048; 80053; 80164; 81003; 81015; 82533; 82805; 82962; 83036; 83605; 83735; 83880; 84100; 84132; 84478; 85025; 85027; 85610; 85730; 87040; 87070; 87205; 87502; 87811; 92526; 92610; 93005; 93306; 93970; 94002; 94003; 94640; 94660; 96374; 96375; 99285; Q9950

== ENCOUNTER 2023-09-01 19:36 | Inpatient (IN) | payer OTHER, SELFPAY ==
[2023-09-01] VITALS (11 sets, daily range): BP systolic 112–150; BP diastolic 58–87; PULSE 2–70; BMI 50.2; BMI 48.8
--- NOTE | 2023-09-01 16:20 | ED.GENMED ---
History of Present Illness
General
Chief Complaint: Breathing Problem
Source: patient
Exam Limitations: none
Time Seen by Provider: 09/01/23 16:05
Nursing documentation reviewed up to this point in time: agreed with
Travel History
Have you had any contact with someone who has COVID-19?: No
Do you have any symptoms of coronavirus? Fever > 100 degrees, chills, cough, shortness of breath, sore throat, loss of taste or smell, muscle aches, or headache?: No
History of Present Illness
History of Present Illness:
Patient presents to ED from longterm secondary to increased work of breathing over the past 2 days. Per patient, since Thursday, which was 4 days ago, he started to experience cough along with dysuria. Denies fever. Denies chills. Denies loss
of appetite. Denies nausea, vomiting, or diarrhea. Denies headache. Denies back pain. Denies dizziness. Per paramedics, patient's pulse ox was 88% on room air when first seen. Patient was placed on supplemental oxygen and transferred to ED for
further evaluation. Patient's medical history also significant for previous blood clots, for which he is taking Eliquis. In addition, patient does report to hallucinations, i.e. thinking that he is at [facility], when he is residing in nursing
home.
Review of Systems
Review of Systems
Allergies reviewed?: Yes
All Other Systems: ROS reviewed and negative except as documented in HPI and ROS
Constitutional: Reports no symptoms; Denies fever or chills
EENT: Reports no symptoms
Respiratory: Reports cough and trouble breathing
Cardiac: Reports no symptoms; Denies chest pain
ABD/GI: Reports no symptoms; Denies abdominal pain, vomiting or diarrhea
: Reports dysuria
Musculoskeletal: Reports no symptoms
Skin: Reports no symptoms
Neurological: Reports no symptoms
Phy Exam
Physical Exam
Physical Exam:
Physical Exam
General: moderate distress, acutely ill. afebrile. overweight.
Head: nc/at
Neck: supple. no meningeal signs.
Heart: s1/s2 regular rate and rhythm, no murmur. equal radial pulses.
Lungs: mild respiratory distress. diffuse rhonchi bilaterally
Abdomen: normal bowel sounds. not tender.
Neuro: alert and oriented. no focal neurological deficits
Skin: no rash
Psychiatric: well kept. interactive and cooperative
Extremities: no edema. no calf tenderness.
Scores
Heart Failure Risk
Heart Failure Risk Score: Not Applicable
Course
Orders/Labs/Results
Orders:
Orders
09/01/23 Dinner
Regular
At Your Request: Limited Participation
09/01/23 16:16
CR Chest Portable - 1 View Urgent
Comment:
Reason For Exam: cough/hypoxia
Reason Study Needs to be Portable: Patient Unstable
09/01/23 16:36
COVID-19 Antigen Urgent
Source: Nasal Swab
Complete Blood Count/With Diff Urgent
Comprehensive Metabolic Panel Urgent
Magnesium Urgent
Blood Culture Q30M
KYREE Source: Blood/Venous
Specimen Description:
Influenza A+B Rapid Molecular Urgent
KYREE Source: Nasal Swab
Specimen Description:
09/01/23 16:47
Acetaminophen [Tylenol] 650 mg PO NOW STA
09/01/23 17:05
Urinalysis Reflex To Culture Urgent
Date Specimen was Collected: 09/01/23
Time Specimen was Collected: 17:04
Urine Microscopic Reflex Cult Urgent
Blood Culture Q30M
KYREE Source: Blood/Venous
Specimen Description:
Urine Culture Urgent
KYREE Source: U
Specimen Description:
Date Specimen was Collected: 09/01/23
Time Specimen was Collected: 17:04
09/01/23 18:11
0.9% Sodium Chloride 500 ml [Nss] 500 ml IV BOLUS
Piperacillin/Tazo 3.375 Gram [Zosyn] 3.375 gram in 50 ml IV NOW
09/01/23 19:25
Admit/Transfer Patient As Directed
Co-Sign Provider:
Level of Care: Inpatient admission
Assign to:: IMU- Intermediate Care
Physician / Group: bety
Diagnosis: uti/aspiration
Reason for Hospitalization: uti/aspiration
Expected length of stay greater than two midnights?: Yes
ELOS- Estimated Length of Stay in days: 2
I certify the patient meets the requirements for IP care: Yes
09/01/23 19:26
Code Status As Directed
Resuscitation Status: Full Code
09/01/23 19:28
Villareal Catheter [Catheter- Indwelling] As Directed
Reason for insertion: Chronic Villareal on Admit
Comment: replace villareal
09/01/23 20:00
Ipratropium/Albuterol Sulfate [Duoneb] 3 ml INH R QID
09/01/23 20:53
Acetaminophen [Tylenol] 650 mg PO Q6HPRN PRN
Apixaban [Eliquis] 5 mg PO BID
Bisacodyl [Dulcolax] 10 mg RECTAL DAILYPRN PRN
Dextrose 50%-Water [Dextrose 50% Syringe] 12.5 grams IV [id number] PRN
Divalproex Delayed Rel. 12 Hr [Depakote (12 Hr Release)] 500 mg PO BID
Glucagon [GlucaGen] 1 mg IM PRN PRN
Loperamide [Imodium] 2 mg PO Q6HPRN PRN
Magnesium Hydroxide [Milk of Magnesia] 30 ml PO HSPRN PRN
Metoprolol [Lopressor] 50 mg PO BID
Miconazole Nitrate [Antifungal Clear] 1 applic TOPICAL BID
Oxybutynin Chloride [Ditropan] 5 mg PO Q8HPRN PRN
Phosphate Enema [Fleet Phosphate Enema-Adult] 118 ml RECTAL DAILYPRN PRN
insulin glargine [Lantus Solostar U-100 Insulin] 20 unit SC BID
menthol [Biofreeze (menthol)] 1 applic TOPICAL Q4HPRN PRN
urea 1 applic TOPICAL Q12H
09/01/23 20:53
Activity As Directed
Activity Level: As Tolerated
Bedside Glucose Monitoring As Directed
Frequency: AC&HS
Comment: Change to q6h if pt on TPN, tube feeding or not eating
Pneumatic Compression Sleeves As Directed
Type: Knee high
Vital Signs As Directed
Frequency: Per unit guidelines
Bipap [RESP] Routine
Patient to use own unit?: Yes
DX Deep Vein Thrombosis Video Routine
09/01/23 22:00
Aripiprazole [Abilify] 7.5 mg PO HS
Docusate Sodium [Colace] 100 mg PO HS
Gabapentin [Neurontin] 600 mg PO HS
Melatonin 3 mg PO HS
Miconazole Nitrate [Desenex/Mitrazol/Zeasorb] 0 applic TOPICAL BID
09/02/23 00:00
Piperacillin/Tazo 3.375 Gram [Zosyn] 3.375 gram in 50 ml IV Q6H
09/02/23 06:00
Complete Blood Count/With Diff IN AM
Comprehensive Metabolic Panel IN AM
Glycohemoglobin (HgbA1c) IN AM
09/02/23 07:30
Insulin Aspart Corrective Low [Novolog Flexpen-Low Resistance] See Protocol SC AC
09/02/23 08:00
Amlodipine [Norvasc] 5 mg PO DAILY
Aspirin Chewable [Low Strength Aspirin] 81 mg PO DAILY
Cholecalciferol (Vitamin D3) [VITAMIN D3 (cholecalciferol)] 25 mcg PO DAILY
Ferrous Sulfate [Feosol] 325 mg PO DAILY
Furosemide [Lasix] 40 mg PO DAILY
Gabapentin [Neurontin] 300 mg PO DAILY
Lidocaine [Lidocaine 4% Patch] 1 patch TOPICAL DAILY
Multivitamin [Theragran] 1 tablet PO DAILY
Pantoprazole [Protonix] 40 mg PO DAILY
Polyethylene Glycol Powder [Miralax] 17 grams PO DAILY
Psyllium [Metamucil, Konsyl] 1 packet PO DAILY
Abnormal Lab Results
09/01/23 09/01/23
16:36 17:05
WBC 13.5 H 10^3/uL
(4.8-10.8)
RBC 3.68 L 10^6/uL
(4.70-6.10)
Hgb 11.9 L g/dL
(13.0-18.0)
Hct 36.2 L %
(39.0-52.0)
MCV 98.4 H fL
(80.0-94.0)
MCH 32.3 H pg
(27.0-31.0)
MCHC 32.9 L g/dL
(33.0-37.0)
RDW 15.5 H %
(11.5-14.5)
Abs Immat Gran (auto) 0.1 H 10^3/uL
(0-0.05)
Absolute Neuts (auto) 8.9 H 10^3/uL
(1.4-6.5)
Absolute Monos (auto) 1.5 H 10^3/uL
(0.1-0.6)
Lymphocytes % 17.0 L %
(20.5-51.1)
Monocytes % 11.4 H %
(1.7-9.3)
Potassium 5.3 H mmol/L
(3.5-5.1)
Chloride 90 L mmol/L
(98-107)
Carbon Dioxide 32 H mmol/L
(22-30)
BUN 38 H mg/dl
(9-20)
Creatinine 1.6 H mg/dL
(0.7-1.3)
Glucose 160 H mg/dl
(70-99)
Ur Occult Blood Reflex 4+ A
(Negative)
Urine Nitrite (Reflex) Positive A
(Negative)
Leukocyte Esterase Rfl 2+ A
(Negative)
Urine RBC 40-50 A /HPF
(0-2)
Urine WBC (Reflex) 30-40 A /HPF
(0-5)
Urine Bacteria (Reflex) Many A
(Negative)
Urine Yeast Few A
(Negative)
09/01/23 16:36
09/01/23 16:36
Vital Signs
Initial and Last Documented VS:
Initial Vital Signs
BP
150/64
09/01/23 15:58
Last Documented Vital Signs
Temp Pulse Resp BP Pulse Ox
98.0 F 100 18 104/78 92
09/01/23 21:06 09/01/23 21:28 09/01/23 20:20 09/01/23 21:28 09/01/23 20:20
MDM/Problems Addressed
MDM/Problems Addressed:
History and exam along with blood work and urinalysis concerning for potential UTI along with clinical pneumonia, despite nonspecific findings on chest x-ray. Patient will be admitted for IV antibiotics and further evaluation, as there is concern
for potential bacteremia secondary to mental status change noted.
*Critical Care Note
Total Time (30-74mins, 75-104mins- exclusive of procedures): Not Applicable
ED Attending Note
-
Portions of this chart may have been created with voice recognition software.� Occasional wrong word or��sound alike� substitutions may have occurred due to the inherent limitations of voice recognition software.
Discharge Plan
Departure
Patient Disposition: Admit
Date of Disposition: 09/01/23
Time of Disposition: 18:12
Admit to: Telemetry
Presentation/result/management discussed w/ accepting MD/DO: Hospitalist
Condition: Fair
Discharge Problem:
Acute UTI
Interventions
Interventions:
*Risk Screen - Suicide Last Done: 09/01/23 16:01
*General Assessment Last Done: 09/01/23 16:00
*Neglect/Abuse Screening Last Done: 09/01/23 16:01
ED- Fall Risk Assessment Last Done: 09/01/23 16:02
*ED COVID-19 Vaccine History Last Done: 09/01/23 16:00
*Nursing Disposition Last Done: 09/01/23 20:42
ED- Cardiac Assessment Last Done: 09/01/23 16:02
ED- Pulmonary Assessment Last Done: 09/01/23 16:02
Discharge Date and Time
Discharge Date/Time: 09/01/23 20:43
[2023-09-01 16:48] LABS: % Basophils 0.6 % (0-2); % Eosinophils 4.4 % (0-6); % Immature Granulocytes 0.5 % (0-0.5); % Monocytes 11.4 % (1.7-9.3); % Neutrophils 66.1 % (42.2-75.2); Absolute Basophils 0.1 10^3/uL (0-0.2); Absolute Eosinophils 0.6 10^3/uL (0-0.7); Absolute Immature Granulocytes 0.1 10^3/uL (0-0.05); Absolute Lymphocytes 2.3 10^3/uL (1.2-3.4); Absolute Monocytes 1.5 10^3/uL (0.1-0.6); Absolute Neutrophils 8.9 10^3/uL (1.4-6.5); Hematocrit 36.2 % (39.0-52.0); Hemoglobin 11.9 g/dL (13.0-18.0); Mean Corp Hgb Conc. 32.9 g/dL (33.0-37.0); Mean Corpuscular Hgb 32.3 pg (27.0-31.0); Mean Corpuscular Volume 98.4 fL (80.0-94.0); Mean Platelet Volume 9.5 fL (7.4-10.4); Nucleated Red Blood Cells % 0 % (-); Platelet Count 345 10^3/uL (130-400); Red Blood Cell Count 3.68 10^6/uL (4.70-6.10); Red Cell Dist. Width 15.5 % (11.5-14.5); White Blood Cell Count 13.5 10^3/uL (4.8-10.8)
[2023-09-01] MEDS: TYLENOL 650 MG PO (16:54)
[2023-09-01 17:03] LABS: ALT (SGPT) 43 U/L (0-50); AST (SGOT) 49 U/L (17-59); Albumin 4.1 g/dl (3.5-5.0); Alkaline Phosphatase 65 U/L (38-126); Blood Urea Nitrogen 38 mg/dl (9-20); Calcium 9.6 mg/dl (8.4-10.2); Carbon Dioxide 32 mmol/L (22-30); Chloride 90 mmol/L (98-107); Glucose 160 mg/dl (70-99); Magnesium 1.8 mg/dl (1.6-2.3); Potassium 5.3 mmol/L (3.5-5.1); Sodium 135 mmol/L (135-145); Total Bilirubin 0.7 mg/dl (0.2-1.3); Total Protein 7.8 g/dl (6.3-8.2); eGFR 46.35
[2023-09-01 17:15] LABS: COVID-19 Antigen Negative (Negative)
[2023-09-01 17:18] LABS: Urine Albumin Trace (Neg - Trace); Urine Bilirubin Negative (Negative); Urine Character Slightly Cloudy (Clear); Urine Color Yellow; Urine Glucose Negative (Negative); Urine Ketone Negative (Negative); Urine Leukocyte 2+ (Negative); Urine Nitrite Positive (Negative); Urine Occult Blood 4+ (Negative); Urine Specific Gravity 1.015 (<1.030); Urine Urobilinogen Negative (Neg - 1+)
[2023-09-01 17:29] LABS: Urine Red Blood Cell 40-50 /HPF (0-2)
[2023-09-01 17:30] LABS: Urine Bacteria Many (Negative); Urine White Cell 30-40 /HPF (0-5)
[2023-09-01 17:33] LABS: Urine Yeast Few (Negative)
[2023-09-01] MEDS: ZOSYN 50 IV (18:20)
[2023-09-01] MEDS: NSS 500 IV (18:20)
--- NOTE | 2023-09-01 19:37 | HPS.HSE ---
Family Physician
-
Family Physician: Silas Ramírez
Chief Complaint
-
shortness of breath, hallucinations
History of Present Illness
68-year-old male with past medical history of hypercapnic respiratory failure suspected obesity hypoventilation syndrome with recent intubation, obstructive sleep apnea, probable aspiration, left lower extremity DVT, diabetes, hypertension, chronic
indwelling Brown catheter, bipolar disorder, GERD, obesity, neuropathy, colon resection, presenting for increased work of breathing for the past 2 days. 4 days ago he started having cough and complaint of wheezing. He denies fever or chills.
Denies loss of appetite. Denies nausea vomiting or diarrhea. Denies any headache. Denies any back pain. Denies any dizziness. Per paramedics his pulse ox was 88 percent on room air conversing. Patient was also having hallucinations and was
thinking that [place] was [place] [facility].
Patient was just discharged a week ago for hypercarbic/hypoxic respiratory failure secondary to obesity hypoventilation requiring intubation.
Medical History
Past Medical History
Past Medical History: Reports Other (hypercapnic respiratory failure suspected obesity hypoventilation syndrome with recent intubation, obstructive sleep apnea, probable aspiration, left lower extremity DVT, diabetes, hypertension, chronic
indwelling Brown catheter, bipolar disorder, GERD, obesity, neuropathy, colon resection)
Past Surgical History: Reports None
Social History
Tobacco: Former Smoker
Alcohol: None
Drug: None
Family History
Family History: Not pertinent
Allergies / Home Medications
Allergies reflects when Allergies were last updated in [facility].
Home Medications with original date entered in [facility]
Allergy/Medication List:
Allergies
Allergy/AdvReac Type Severity Reaction Status Date / Time
No Known Allergies Allergy Verified 08/07/23 23:08
Home Medications
metformin 500 mg tablet 500 mg PO BID Diabetes 11/07/11
metoprolol tartrate 50 mg tablet 50 mg PO BID Blood Pressure 11/07/11
acetaminophen 325 mg tablet (Tylenol) 650 mg PO Q6HPRN PRN mild pain 08/07/23
amlodipine 5 mg tablet (Norvasc) 5 mg PO DAILY Blood Pressure 08/07/23
aripiprazole 15 mg tablet 7.5 mg PO HS Mental Health/Anxiety 08/07/23
aspirin 81 mg chewable tablet 81 mg PO DAILY Blood Clot Prevention/Tx 08/07/23
bisacodyl 10 mg rectal suppository (Dulcolax (bisacodyl)) 10 mg ND DAILYPRN PRN constipation 08/07/23
cholecalciferol (vitamin D3) 25 mcg (1,000 unit) tablet (Vitamin D3) 25 mcg PO DAILY Supplement 08/07/23
divalproex 500 mg tablet,delayed release (Depakote) 500 mg PO BID Seizures 08/07/23
docusate sodium 100 mg capsule (Colace) 100 mg PO HS Constipation 08/07/23
ferrous sulfate 325 mg (65 mg iron) tablet 325 mg PO DAILY Supplement 08/07/23
furosemide 40 mg tablet (Lasix) 40 mg PO DAILY Fluid Retention/Swelling 08/07/23
gabapentin 300 mg capsule 300 mg PO DAILY Pain 08/07/23
gabapentin 600 mg tablet 600 mg PO HS Pain 08/07/23
insulin aspart U-100 100 unit/mL subcutaneous solution 0 sliding scale dose SC ACHS Diabetes 08/07/23
ipratropium 0.5 mg-albuterol 3 mg (2.5 mg base)/3 mL nebulization soln 3 ml inhalation R Q4HPRN PRN sob/wheezing 08/07/23
lidocaine 5 % topical patch (Lidoderm) 1 patch topical [id number] PRN apply to B/L knees 08/07/23
magnesium hydroxide 400 mg/5 mL oral suspension (Milk of Magnesia) 30 ml PO HSPRN PRN if no BM in 3 days 08/07/23
melatonin 3 mg tablet 3 mg PO HS Sleep 08/07/23
menthol 4 % topical gel (Biofreeze (menthol)) 1 applic topical Q4HPRN PRN apply to back, neck, or B/L knees 08/07/23
miconazole nitrate 2 % topical ointment 1 applic topical BID apply to folds, scrotum, groin 08/07/23
nystatin 100,000 unit/gram topical powder 1 applic topical Q12H apply to gluteal folds 08/07/23
omeprazole 40 mg capsule,delayed release 40 mg PO DAILY GERD 08/07/23
oxybutynin chloride 5 mg tablet 5 mg PO Q8HPRN PRN bladder instability 08/07/23
sodium phosphates 19 gram-7 gram/118 mL enema (Fleet Enema) 118 ml ND DAILYPRN PRN constipation 08/07/23
therapeutic multivitamin 1 tab PO DAILY Supplement 08/07/23
urea 20 % topical cream 1 applic topical Q12H apply to B/L feet 08/07/23
loperamide 2 mg capsule 2 mg PO Q6HPRN PRN diarrhea 08/10/23
apixaban 5 mg tablet (Eliquis) 5 mg PO BID 30 days #60 tabs 08/25/23
lisinopril 10 mg tablet 10 mg PO DAILY 30 days #30 tabs 08/25/23
polyethylene glycol 3350 17 gram oral powder packet (Miralax) 17 g PO DAILY Constipation #100 ea 08/25/23
insulin glargine 100 unit/mL (3 mL) subcutaneous pen (Lantus Solostar U-100 Insulin) 20 unit SC BID 09/01/23
psyllium 1 packet PO DAILY 09/01/23
Review of Systems
-
History Source: Patient
A 12 point ROS was completed and negative except as noted: Yes
Constitutional: Reports No Symptoms
EENT: Reports No Symptoms
Respiratory: Reports See HPI
Cardiac: Reports No Symptoms
Abdomen/GI: Reports No Symptoms
: Reports No Symptoms
Musculoskeletal: Reports No Symptoms
Skin: Reports No Symptoms
Neurological: Reports No Symptoms
Endocrine: Reports No Symptoms
Hematologic/Lymphatic: Reports No Symptoms
Psych: Reports No Symptoms
Physical Exam
Vital Signs
Vital Signs
Temp Pulse Resp BP Pulse Ox
98.7 F 81 25 129/87 89
09/01/23 15:59 09/01/23 19:00 09/01/23 19:00 09/01/23 18:00 09/01/23 18:45
Physical Exam
General: Well Developed, Well Nourished and No Apparent Distress
HEENT: NormoCephalic, Moist mucous membranes and Atraumatic
Respiratory: Clear and Rhonchi
Cardiac: S1/S2 and Regular Rhythm; No Murmur or Rub
GI: Soft, Non Tender, Non Distended and Normal Bowel Sounds; No Organomegaly
Rectal: Deferred by Provider
Musculoskeletal: No Clubbing, No Cyanosis and No Edema
Skin: No Rash
Neuro: Nonfocal/grossly intact
Laboratory Results
-
09/01/23 16:36
09/01/23 16:36
Laboratory Results
Total Bilirubin 0.7 mg/dl (0.2-1.3) 09/01/23 16:36
AST 49 U/L (17-59) 09/01/23 16:36
ALT 43 U/L (0-50) 09/01/23 16:36
Alkaline Phosphatase 65 U/L (38-126) 09/01/23 16:36
Data Reviewed
-
Lab Data: Labs Reviewed by me
Old Records: Reviewed
Impression/Plan
-
IMPRESSION:
PLAN:
# Catheter associated UTI
-Leukocytosis, UA showing 30-40 WBC, slightly cloudy urine and +2 leukocyte esterase
-Exchange Brown catheter
-Urine culture
-Blood cultures
-Zosyn
# Wheezing/dyspnea possible aspiration pneumonia versus COPD flare
-Rhonchi on examination
-Discharged on 4 L oxygen
-Chest x-ray shows minimal bibasilar opacification likely subsegmental atelectasis
-Zosyn to cover for aspiration pneumonia
-DuoNebs every 6 hours
-Pulmonary consulted
#History of hypercapnic respiratory failure secondary to obesity hypoventilation with recent intubation
History of obstructive sleep apnea
-Continue nighttime BiPAP
-Continue Lasix
# Acute kidney injury
# Hyperkalemia
-Given IV fluids in ER
-Hold lisinopril
History of COPD
Morbid obesity
Recent left lower extremity DVT
-Continue Eliquis
Essential hypertension
-Continue amlodipine
-Continue metoprolol
-Hold lisinopril
Type 2 diabetes
-Continue Lantus 20 minutes twice daily
-Hold metformin
-Insulin sliding scale
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
Spinal stenosis
Colon resection
Deviated septum repair
Former smoker
Bipolar disorder
-Continue aripiprazole, Depakote
GERD
-Continue omeprazole
Neuropathy
-Continue gabapentin
Constipation
-Continue bowel
Full code
DVT prophylaxis�Eliquis
Cardiac diet
[2023-09-01] MEDS: DUONEB 3 ML INH (20:16)
[2023-09-01] MEDS: ELIQUIS 5 MG PO (21:27)
[2023-09-01] MEDS: COLACE 100 MG PO (21:27)
[2023-09-01] MEDS: NEURONTIN 600 MG PO (21:27)
[2023-09-01] MEDS: MELATONIN 3 MG PO (21:27)
[2023-09-01] MEDS: DEPAKOTE (12 HR RELEASE) 500 MG PO (21:28)
[2023-09-01] MEDS: LOPRESSOR 50 MG PO (21:28)
[2023-09-01] MEDS: LANTUS 0.200000000000000011 UNITS SC (21:42)
[2023-09-01] MEDS: DESENEX/MITRAZOL/ZEASORB 1 APPLIC TOPICAL (21:43)
[2023-09-01] MEDS: ABILIFY 7.5 MG PO (21:43)
[2023-09-01] MEDS: ANTIFUNGAL CLEAR 1 APPLIC TOPICAL (21:44)
[2023-09-01 21:47] LABS: Glucose - Point of Care 139 mg/dl (70-99)
[2023-09-02] VITALS (18 sets, daily range): BP systolic 101–137; BP diastolic 51–77; PULSE 2–96; BMI 49.1
[2023-09-02] MEDS: ZOSYN 50 IV ×5 (00:04→23:40)
--- NOTE | 2023-09-02 04:08 | PTCARENOTE ---
Admitted pt overnight. Arrived to floor around 2129. Pt aaox3, blind. Denies pain or SOB. On 4L when arrived & placed on bipap HS. NSR on monitor. Villareal in place. Order to replace villareal. On pt villareal bag it says it was changed 08/31 but when asking
the pt if it as changed recently he said he does not remember, he has been out of it and he told them to write that on the bag. New villareal put in. Q2T with bariatric bed settings. SCDs. all vss. call alvarez in reach, will monitor.
[2023-09-02 05:12] LABS: % Basophils 0.8 % (0-2); % Immature Granulocytes 0.7 % (0-0.5); % Lymphocytes 16.5 % (20.5-51.1); % Monocytes 13.1 % (1.7-9.3); % Neutrophils 63.9 % (42.2-75.2); Absolute Basophils 0.1 10^3/uL (0-0.2); Absolute Eosinophils 0.6 10^3/uL (0-0.7); Absolute Immature Granulocytes 0.1 10^3/uL (0-0.05); Absolute Lymphocytes 1.9 10^3/uL (1.2-3.4); Absolute Monocytes 1.6 10^3/uL (0.1-0.6); Absolute Neutrophils 7.5 10^3/uL (1.4-6.5); Hemoglobin 11.6 g/dL (13.0-18.0); Mean Corp Hgb Conc. 33.1 g/dL (33.0-37.0); Mean Corpuscular Hgb 32.8 pg (27.0-31.0); Mean Corpuscular Volume 98.9 fL (80.0-94.0); Nucleated Red Blood Cells % 0 % (-); Platelet Count 281 10^3/uL (130-400); Red Blood Cell Count 3.54 10^6/uL (4.70-6.10); Red Cell Dist. Width 15.6 % (11.5-14.5); White Blood Cell Count 11.8 10^3/uL (4.8-10.8)
[2023-09-02 05:35] LABS: ALT (SGPT) 46 U/L (0-50); AST (SGOT) 42 U/L (17-59); Albumin 4.1 g/dl (3.5-5.0); Alkaline Phosphatase 68 U/L (38-126); Blood Urea Nitrogen 40 mg/dl (9-20); Calcium 8.9 mg/dl (8.4-10.2); Carbon Dioxide 33 mmol/L (22-30); Chloride 95 mmol/L (98-107); Estimated Creatinine Clearance 61 ml/min; Glucose 151 mg/dl (70-99); Potassium 5.1 mmol/L (3.5-5.1); Sodium 134 mmol/L (135-145); Total Bilirubin 0.7 mg/dl (0.2-1.3); Total Protein 7.2 g/dl (6.3-8.2)
[2023-09-02] MEDS: DUONEB 3 ML INH ×4 (07:19→20:15)
[2023-09-02] MEDS: NEURONTIN 300 MG PO (07:57)
[2023-09-02] MEDS: DESENEX/MITRAZOL/ZEASORB 1 APPLIC TOPICAL ×2 (07:57→19:45)
[2023-09-02] MEDS: ANTIFUNGAL CLEAR 1 APPLIC TOPICAL ×2 (07:57→19:41)
[2023-09-02] MEDS: PROTONIX 40 MG PO (07:59)
[2023-09-02] MEDS: NORVASC 5 MG PO (07:59)
[2023-09-02] MEDS: LOPRESSOR 50 MG PO ×2 (07:59→19:44)
[2023-09-02] MEDS: LASIX 40 MG PO (07:59)
[2023-09-02] MEDS: METAMUCIL, KONSYL 1 PACKET PO (07:59)
[2023-09-02] MEDS: DEPAKOTE (12 HR RELEASE) 500 MG PO ×2 (07:59→19:45)
[2023-09-02] MEDS: ELIQUIS 5 MG PO ×2 (07:59→19:44)
[2023-09-02] MEDS: VITAMIN D3 (cholecalciferol) 25 MCG PO (07:59)
[2023-09-02] MEDS: FEOSOL 325 MG PO (07:59)
[2023-09-02] MEDS: MIRALAX 17 GRAMS PO (07:59)
[2023-09-02] MEDS: THERAGRAN 1 TABLET PO (07:59)
[2023-09-02] MEDS: LOW STRENGTH ASPIRIN 81 MG PO (07:59)
[2023-09-02] MEDS: LIDOCAINE 4% PATCH 1 PATCH TOPICAL (08:00)
[2023-09-02 08:20] LABS: Glucose - Point of Care 173 mg/dl (70-99)
[2023-09-02] MEDS: NOVOLOG FLEXPEN-LOW RESISTANCE 1 UNITS SC ×2 (09:37→13:07)
[2023-09-02] MEDS: LANTUS 0.200000000000000011 UNITS SC ×2 (09:37→21:04)
--- NOTE | 2023-09-02 11:09 | PTCARENOTE ---
Pt presents as assessed. Aox3, but drowsy. VSS. Changed to 4L NC by RT this morning. PO medications administered without difficulty. Shortly after, pt becoming more drowsy and lethargic and unable to remain awake. Placed back on Bipap by RT. Sats
remain in low to mid 90's. Brown draining yellow urine. Q2T maintained with Amarjit bed.
--- NOTE | 2023-09-02 12:10 | W.PN.HOSP.TC ---
Today's Communication/Plan
-
trend cr
hold lasix
IV abx
await culture data
Assessment / Plan
Assessment / Plan
# Suspected Catheter associated UTI
-Leukocytosis, UA showing 30-40 WBC, slightly cloudy urine and +2 leukocyte esterase
-Exchange Brown catheter
-Urine culture in lab
-Blood cultures in lab
-Zosyn
#possible aspiration pneumonia
-Chest x-ray shows minimal bibasilar opacification likely subsegmental atelectasis
-Zosyn to cover for aspiration pneumonia
-DuoNebs every 6 hours
# Toxic metabolic encephalopathy likely multifactorial
#Chronic hypercapnic respiratory failure secondary to obesity hypoventilation with recent intubation
#History of obstructive sleep apnea and COPD
-Continue nighttime BiPAP
-Continue Lasix
-also on bipap currently.
-If worsening in mentation check ABG
-Pulm recs
# Acute kidney injury
# Hyperkalemia
-Hold further lasix
-Hold lisinopril
Recent left lower extremity DVT
-Continue Eliquis
Essential hypertension
-Continue amlodipine
-Continue metoprolol
-Hold lisinopril
Type 2 diabetes
-Continue Lantus 20 minutes twice daily
-Hold metformin
-Insulin sliding scale
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
Spinal stenosis
Colon resection
Deviated septum repair
Former smoker
Bipolar disorder
-Continue aripiprazole, Depakote
GERD
-Continue omeprazole
Neuropathy
-Continue gabapentin
Constipation
-Continue bowel
Full code
DVT prophylaxis�Eliquis
Anticipated Discharge: > 48 hours
Subjective/Interval History
-
Date of Service: September 02, 2023
Was falling asleep and thus placed back in Bipap
opens eyes and does have small conversation
not tachpyneic
Objective Data
-
Labs:
Laboratory Results
09/02/23
04:57
WBC 11.8 H
Hgb 11.6 L
Hct 35.0 L
Plt Count 281
Sodium 134 L
Potassium 5.1
Chloride 95 L
Carbon Dioxide 33 H
BUN 40 H
Creatinine 1.7 H
Glucose 151 H
Calcium 8.9
Total Bilirubin 0.7
AST 42
ALT 46
Alkaline Phosphatase 68
Vital Signs:
Vital Signs
Temp Pulse Resp BP Pulse Ox
99.8 F 94 22 116/63 95
09/02/23 07:50 09/02/23 12:03 09/02/23 12:03 09/02/23 10:00 09/02/23 12:03
I&O
09/01/23 09/02/23 09/03/23
06:59 06:59 06:59
Output Total 400 / 400
Balance -400 / -400
Physical Exam
-
General: No Apparent Distress, Intubated and Morbidly Obese; Negative Respiratory Distress
Respiratory: Clear to Auscultation and Other (bipap)
Cardiac: Regular Rhythm and S1/S2; Negative Murmur
GI: Soft, Nontender, Nondistended and Normal Bowel Sounds
Genito-urinary: Brown
Neuro: Awake
Psych: Calm
Data Reviewed
-
Total Time Spent with Patient (in minutes): 55
[2023-09-02 12:54] LABS: Glucose - Point of Care 164 mg/dl (70-99)
[2023-09-02] MEDS: TYLENOL 650 MG PO (13:30)
--- NOTE | 2023-09-02 14:07 | CON.PUL ---
Consultation
Consultation Request
Date/Time Consultation Requested: 09/02/2023
Date/Time Consultation Performed: 09/02/2023
Performing Provider: Dr. Nik Roberto
Medical History
-
History of Present Illness:
68-year-old man with history of chronic hypoxemic and hypercapnic respiratory failure, obesity hypoventilation syndrome, likely obstructive sleep apnea, recently admitted to the hospital with intubation and respiratory failure, treated for
pneumonia. Started on nocturnal BiPAP. Subsequently improved. He was discharged from the hospital on 08/25/2023.
He also was discovered to have a left lower extremity DVT discharged on anticoagulation.
For the past 2 days patient felt increased shortness of breath. Reported cough and some intermittent wheezing. Denies any fevers, chills or purulent sputum production. Denies nausea, vomiting or swallowing problems.
Apparently was found mildly hypoxemic at home, brought into the emergency room via EMS.
Hallucinations were also reported.
Diagnosed with a UTI, he has chronic Brown catheter. On antibiotics.
We were consulted for evaluation of wheezing and shortness of breath.
Past Medical History
Past Medical History: Other (See assessment and plan section)
Social History
Tobacco: Former Smoker
Alcohol: None
Drug: None
Family History
Family History: Reviewed & Not Pertinent
Allergies / Home Medications
Allergies
Allergy/AdvReac Type Severity Reaction Status Date / Time
No Known Allergies Allergy Verified 08/07/23 23:08
Home Medications
Medication Instructions Recorded Confirmed Last Taken Type
metformin 500 mg tablet 500 mg PO BID Diabetes 11/07/11 09/01/23 11/09/11 19:15 History
metoprolol tartrate 50 mg tablet 50 mg PO BID Blood Pressure 11/07/11 09/01/23 11/09/11 16:00 History
acetaminophen 325 mg tablet 650 mg PO Q6HPRN PRN mild pain 08/07/23 09/01/23 Unknown History
(Tylenol)
amlodipine 5 mg tablet (Norvasc) 5 mg PO DAILY Blood Pressure 08/07/23 09/01/23 Unknown History
aripiprazole 15 mg tablet 7.5 mg PO HS Mental Health/Anxiety 08/07/23 09/01/23 Unknown History
aspirin 81 mg chewable tablet 81 mg PO DAILY Blood Clot 08/07/23 09/01/23 Unknown History
Prevention/Tx
bisacodyl 10 mg rectal suppository 10 mg WV DAILYPRN PRN constipation 08/07/23 09/01/23 Unknown History
(Dulcolax (bisacodyl))
cholecalciferol (vitamin D3) 25 25 mcg PO DAILY Supplement 08/07/23 09/01/23 Unknown History
mcg (1,000 unit) tablet (Vitamin
D3)
divalproex 500 mg tablet,delayed 500 mg PO BID Seizures 08/07/23 09/01/23 Unknown History
release (Depakote)
docusate sodium 100 mg capsule 100 mg PO HS Constipation 08/07/23 09/01/23 Unknown History
(Colace)
ferrous sulfate 325 mg (65 mg 325 mg PO DAILY Supplement 08/07/23 09/01/23 Unknown History
iron) tablet
furosemide 40 mg tablet (Lasix) 40 mg PO DAILY Fluid 08/07/23 09/01/23 Unknown History
Retention/Swelling
gabapentin 300 mg capsule 300 mg PO DAILY Pain 08/07/23 09/01/23 Unknown History
gabapentin 600 mg tablet 600 mg PO HS Pain 08/07/23 09/01/23 Unknown History
insulin aspart U-100 100 unit/mL 0 sliding scale dose SC ACHS 08/07/23 09/01/23 Unknown History
subcutaneous solution Diabetes
ipratropium 0.5 mg-albuterol 3 mg 3 ml inhalation R Q4HPRN PRN 08/07/23 09/01/23 Unknown History
(2.5 mg base)/3 mL nebulization sob/wheezing
soln
lidocaine 5 % topical patch 1 patch topical [id number] PRN apply 08/07/23 09/01/23 Unknown History
(Lidoderm) to B/L knees
magnesium hydroxide 400 mg/5 mL 30 ml PO HSPRN PRN if no BM in 3 08/07/23 09/01/23 Unknown History
oral suspension (Milk of Magnesia) days
melatonin 3 mg tablet 3 mg PO HS Sleep 08/07/23 09/01/23 Unknown History
menthol 4 % topical gel (Biofreeze 1 applic topical Q4HPRN PRN apply 08/07/23 09/01/23 Unknown History
(menthol)) to back, neck, or B/L knees
miconazole nitrate 2 % topical 1 applic topical BID apply to 08/07/23 09/01/23 Unknown History
ointment folds, scrotum, groin
nystatin 100,000 unit/gram topical 1 applic topical Q12H apply to 08/07/23 09/01/23 Unknown History
powder gluteal folds
omeprazole 40 mg capsule,delayed 40 mg PO DAILY GERD 08/07/23 09/01/23 Unknown History
release
oxybutynin chloride 5 mg tablet 5 mg PO Q8HPRN PRN bladder 08/07/23 09/01/23 Unknown History
instability
sodium phosphates 19 gram-7 118 ml WV DAILYPRN PRN constipation 08/07/23 09/01/23 Unknown History
gram/118 mL enema (Fleet Enema)
therapeutic multivitamin 1 tab PO DAILY Supplement 08/07/23 09/01/23 Unknown History
urea 20 % topical cream 1 applic topical Q12H apply to B/L 08/07/23 09/01/23 Unknown History
feet/SKIN
loperamide 2 mg capsule 2 mg PO Q6HPRN PRN diarrhea 08/10/23 09/01/23 Unknown History
apixaban 5 mg tablet (Eliquis) 5 mg PO BID 30 days #60 tabs 08/25/23 09/01/23 Unknown Rx
polyethylene glycol 3350 17 gram 17 g PO DAILY Constipation #100 ea 08/25/23 09/01/23 Unknown Rx
oral powder packet (Miralax)
insulin glargine 100 unit/mL (3 20 unit SC BID Diabetes 09/01/23 09/01/23 Unknown History
mL) subcutaneous pen (Lantus
Solostar U-100 Insulin)
psyllium 1 packet PO DAILY Constipation 09/01/23 09/01/23 Unknown History
lisinopril 10 mg tablet 10 mg PO DAILY Blood Pressure 09/02/23 09/01/23 Unknown History
Review of Systems
-
History Source: Patient
All other systems: Negative unless noted
Vitals / Labs / Diagnostic Testing
Vital Signs
Temp Pulse Resp BP Pulse Ox
99.8 F 98 14 117/66 98
09/02/23 07:50 09/02/23 14:00 09/02/23 14:00 09/02/23 14:00 09/02/23 14:00
Lab Data
09/02/23 04:57
09/02/23 04:57
Microbiology
09/01/23 17:05 Urine Urine Culture - Preliminary
Gram negative bacilli
09/01/23 16:36 Nasal Swab Influenza Types A & B (ADELITA) - Final
Negative for Influenza A & B, NAAT
Negative results must be combined with clinical observations
and patient history.
Nucleic Acid Amplification test (NAAT)performed on the
[employer] platform.
Diagnostic Testing:
Physical Exam
-
HEENT: Normocephalic
Cardiovascular: S1/S2
Respiratory: Wheeze
GI: Soft and Distended
Neurology: Awake and Alert
Skin: Warm
Assessment
-
68-year-old man with multiple comorbidities including obesity hypoventilation syndrome suspected/obstructive sleep apnea, chronic Brown catheter, obesity admitted with shortness of breath. Found to be bronchospastic. Found to have a UTI. We were
consulted for evaluation of his shortness of breath.
Acute respiratory insufficiency
Possible exacerbation of COPD: Patient does have emphysema on CAT scan.
Cannot rule out infectious etiology: Chest x-ray mostly with bibasilar atelectasis.
Aspiration cannot be ruled out.
-
Catheter associated GJG-lfht-nrrpaeth bacilli in urine.
Conditions present prior to admission:
Admitted to [facility] 08/2023: Hypoxemic/hypercapnic respiratory failure with toxic metabolic encephalopathy. DC from hospital 08/25/2023
Obesity hypoventilation syndrome-discharged on BiPAP
Emphysema on CAT scan 08/07/2023
Morbid obesity-BMI 51 with Hx of bariatric surgery (sleeve)
Recent U[facility]-pdgzfdlw-[facility] stay.�08/11/2023
Hypertension.�
Obesity hypoventilation syndrome.�
Chronic oxygen supplementation.�
Legally blind-retinitis pigmentosa.�
Spinal stenosis.�
Colon resection.�
Deviated septum repair.�
Former smoker.
COPD on chronic oxygen supplementation
Chronic Brown due to BPH and chronic urinary retention
Ambulatory dysfunction: Patient may be on a stretcher-unable to follow-up in our office.
-
Plan and recommendations:
Lung exam with scattered mild rhonchi, no significant bronchospasm. Patient does have a wet cough and difficulty expectorating.
Chronic hypoxemia at baseline continue for now.
-
Agree with nebulizers mjquzq-ffs-lxqdf-patient has been taking as needed in the outpatient setting
Will add Pulmicort for secretion clearance
Acapella device
-
Antibiotics for UTI should cover for any pulmonary pathogens
Will obtain a sputum culture if able
-
Incentive spirometry encouraged
Patient is bedbound, does not help with his hypoxemia on top of his morbid obesity.
Continue to wean oxygen as able.
-
May use BiPAP while in the hospital 18/12. Unclear if he will be compliant in the outpatient setting.
He is unable to follow-up with our office as he is on a stretcher, mobility issues.
Avoid sedatives
-
Continue oxygen supplementation to maintain pulse ox above 90%.
-
DVT prophylaxis- on apixiban
[2023-09-02] MEDS: NOVOLOG FLEXPEN-LOW RESISTANCE SC (17:47)
[2023-09-02 17:48] LABS: Glucose - Point of Care 131 mg/dl (70-99)
--- NOTE | 2023-09-02 17:51 | PTCARENOTE ---
Attempts to transition to NC unsuccessful. Pt desatting to high 60's when asleep. Pt remains on bipap with sats in the mid to high 90's.
--- NOTE | 2023-09-02 18:16 | PTCARENOTE ---
Pt with multiple episodes sats dropping to the 60's on bipap, but recovering rapidly. Dr. Colin notified, order received for ABG. RT to bedside.
[2023-09-02 18:28] LABS: B.E. 7.9 mmol/L; HCO3 35.6 mmol/L (21-28); O2 Saturation % 97.8 % (94-98); PCO2 66 mmHg (35-48); PO2 87 mmHg (83-108); pH 7.34 (7.35-7.45)
[2023-09-02] MEDS: NEURONTIN 600 MG PO (19:44)
[2023-09-02] MEDS: ABILIFY 7.5 MG PO (19:44)
[2023-09-02] MEDS: COLACE 100 MG PO (19:45)
[2023-09-02] MEDS: PULMICORT 0.5 MG INH (20:15)
[2023-09-02 22:09] LABS: Glucose - Point of Care 156 mg/dl (70-99)
[2023-09-03] VITALS (19 sets, daily range): BP systolic 99–139; BP diastolic 45–71; PULSE 2–99; BMI 49.1
--- NOTE | 2023-09-03 04:29 | PTCARENOTE ---
Patient taken off Bipap for dinner, ate 75% with assistance. 4L in place while eating. Good appetite. Cousin visited. Pt with congested non productive cough, but appears to be swallowing safely. Pt placed back on Bipap for sleep; drowsy on/off. Pt
has apnea episodes even with bipap on, Sp02 decreases to 70s. If pt is not on bipap, apnea episodes will decrease sp02 to the 50s along with HR dropping to 40s during these episodes.
No hallucinations, disoriented to time of day. Pt takes off bipap and calls for help. Lungs with coarse rhonchi throughout. NSR/SB on tele. No BM. Brown draining yellow urine with some sediment. Purulent drainage from urethra. Right side of sacrum
with stage 2, pressure off-loading in place, heels floated. SCDs on. L white with small abrasion. Tolerated IV zosyn. RN sitting outside patient's room. Call alvarez within reach.
[2023-09-03 04:34] LABS: % Basophils 0.8 % (0-2); % Eosinophils 6.1 % (0-6); % Immature Granulocytes 0.7 % (0-0.5); % Lymphocytes 19.9 % (20.5-51.1); % Monocytes 14.9 % (1.7-9.3); % Neutrophils 57.6 % (42.2-75.2); Absolute Basophils 0.1 10^3/uL (0-0.2); Absolute Eosinophils 0.5 10^3/uL (0-0.7); Absolute Immature Granulocytes 0.1 10^3/uL (0-0.05); Absolute Lymphocytes 1.7 10^3/uL (1.2-3.4); Absolute Monocytes 1.3 10^3/uL (0.1-0.6); Absolute Neutrophils 4.9 10^3/uL (1.4-6.5); Hematocrit 30.9 % (39.0-52.0); Hemoglobin 10.3 g/dL (13.0-18.0); Mean Corp Hgb Conc. 33.3 g/dL (33.0-37.0); Mean Corpuscular Hgb 32.6 pg (27.0-31.0); Mean Corpuscular Volume 97.8 fL (80.0-94.0); Mean Platelet Volume 9.2 fL (7.4-10.4); Nucleated Red Blood Cells % 0 % (-); Platelet Count 257 10^3/uL (130-400); Red Blood Cell Count 3.16 10^6/uL (4.70-6.10); Red Cell Dist. Width 15.7 % (11.5-14.5); White Blood Cell Count 8.6 10^3/uL (4.8-10.8)
[2023-09-03 05:03] LABS: ALT (SGPT) 44 U/L (0-50); AST (SGOT) 37 U/L (17-59); Albumin 3.9 g/dl (3.5-5.0); Alkaline Phosphatase 62 U/L (38-126); Blood Urea Nitrogen 44 mg/dl (9-20); Calcium 8.6 mg/dl (8.4-10.2); Carbon Dioxide 35 mmol/L (22-30); Chloride 94 mmol/L (98-107); Estimated Creatinine Clearance 58 ml/min; Glucose 138 mg/dl (70-99); Potassium 4.9 mmol/L (3.5-5.1); Sodium 134 mmol/L (135-145); Total Bilirubin 0.8 mg/dl (0.2-1.3); eGFR 40.24
[2023-09-03] MEDS: ZOSYN 50 IV ×3 (05:21→17:33)
[2023-09-03] MEDS: PULMICORT 0.5 MG INH ×2 (07:20→19:16)
[2023-09-03] MEDS: DUONEB 3 ML INH ×3 (07:20→19:16)
[2023-09-03 07:55] LABS: Glucose - Point of Care 134 mg/dl (70-99)
--- NOTE | 2023-09-03 09:45 | CM ---
Patient from [facility] with Hx legally blind, bipolar DO with Dx CAUTI, possible aspiration PNA, TME, NATALIA. BIPAP, O2 6L. Receiving IV Zosyn. Bariatric bed. Per nurse assessment; forgetful, lethargic, right side of sacrum with stage 2.
Brown.
Spoke with Stacey, [facility]; the patient resides there in LTC and is on an MA bed hold. Patient is assisted with ADLs and is bedbound at baseline. He was on BIPAP at SNF. He was not getting rehab for his mobility. She is unsure if
patient had stage 2 wound sacrum/wound care. Pharmacy - [facility].
Spoke with Negra, daughter; she agrees with the patient returning to [facility]. She confirms that patient has been non-ambulatory for some time.
Patient will need to return to SNF by bariatric ambulance.
Plan return to [facility] by bariatric ambulance when medically ready.
[2023-09-03] MEDS: NOVOLOG FLEXPEN-LOW RESISTANCE SC (09:50)
[2023-09-03] MEDS: ANTIFUNGAL CLEAR 1 APPLIC TOPICAL ×2 (09:51→21:59)
[2023-09-03] MEDS: DESENEX/MITRAZOL/ZEASORB 1 APPLIC TOPICAL ×2 (09:53→21:59)
[2023-09-03] MEDS: DEPAKOTE (12 HR RELEASE) 500 MG PO ×2 (09:53→21:59)
[2023-09-03] MEDS: FEOSOL 325 MG PO (09:54)
[2023-09-03] MEDS: ELIQUIS 5 MG PO ×2 (09:54→21:59)
[2023-09-03] MEDS: LANTUS 0.200000000000000011 UNITS SC ×2 (09:55→22:01)
[2023-09-03] MEDS: LIDOCAINE 4% PATCH 1 PATCH TOPICAL (09:56)
[2023-09-03] MEDS: LOPRESSOR 50 MG PO ×2 (10:00→21:58)
[2023-09-03] MEDS: LOW STRENGTH ASPIRIN 81 MG PO (10:01)
[2023-09-03] MEDS: METAMUCIL, KONSYL 1 PACKET PO (10:02)
[2023-09-03] MEDS: MIRALAX 17 GRAMS PO (10:03)
[2023-09-03] MEDS: NEURONTIN 300 MG PO (10:04)
[2023-09-03] MEDS: NORVASC 5 MG PO (10:04)
[2023-09-03] MEDS: PROTONIX 40 MG PO (10:05)
[2023-09-03] MEDS: THERAGRAN 1 TABLET PO (10:05)
[2023-09-03] MEDS: VITAMIN D3 (cholecalciferol) 25 MCG PO (10:05)
--- NOTE | 2023-09-03 10:10 | W.PN.PUL3 ---
Today's Communication / Plan
-
Continue nebulizers DuoNebs and Pulmicort
No indication for systemic corticosteroids
Continue nocturnal BiPAP and as needed
Continue antibiotics for UTI.
Assessment
-
68-year-old man with multiple comorbidities including obesity hypoventilation syndrome suspected/obstructive sleep apnea, chronic Brown catheter, obesity admitted with shortness of breath. Found to be bronchospastic. Found to have a UTI. We were
consulted for evaluation of his shortness of breath.
Acute respiratory insufficiency
Possible exacerbation of COPD: Patient does have emphysema on CAT scan.
Cannot rule out infectious etiology: Chest x-ray mostly with bibasilar atelectasis.
Aspiration cannot be ruled out.
-
Catheter associated KXN-fsph-wsyozrya bacilli in urine.
Conditions present prior to admission:
Admitted to [facility] 08/2023: Hypoxemic/hypercapnic respiratory failure with toxic metabolic encephalopathy. DC from hospital 08/25/2023
Obesity hypoventilation syndrome-discharged on BiPAP
Emphysema on CAT scan 08/07/2023
Morbid obesity-BMI 51 with Hx of bariatric surgery (sleeve)
Recent [facility]X-ndptenbp-[facility] stay.�08/11/2023
Hypertension.�
Obesity hypoventilation syndrome.�
Chronic oxygen supplementation.�
Legally blind-retinitis pigmentosa.�
Spinal stenosis.�
Colon resection.�
Deviated septum repair.�
Former smoker.
COPD on chronic oxygen supplementation
Chronic Brown due to BPH and chronic urinary retention
Ambulatory dysfunction: Patient may be on a stretcher-unable to follow-up in our office.
-
Plan and recommendations:
Lung exam with scattered mild rhonchi, no significant bronchospasm.
Patient does have a wet cough and difficulty expectorating.
Chronic hypoxemia at baseline continue for now.
-
Continue symptomatic management:
Agree with nebulizers rxojai-alw-lryej-patient has been taking as needed in the outpatient setting
Continue DuoNebs
Continue Pulmicort for secretion clearance- while in hospital.
Acapella device if able
Aspiration precautions
Antitussives
Mucolytic
-
Fever curve improved.
Leukocytosis resolved
Antibiotics for UTI should cover for any pulmonary pathogens- Currently on Zosyn.
Will obtain a sputum culture if able
-
Incentive spirometry encouraged
Patient is bed bound, does not help with his hypoxemia on top of his morbid obesity.
Continue to wean oxygen as able.
-
Patient somewhat somnolent this morning but following commands. Likely related to infection, ABG from yesterday baseline.
Chronic hypercapnic respiratory failure: Nearly compensated.
ABG 09/02/2023: 7.34/66/87.
May use BiPAP while in the hospital 18/12. Unclear if he will be compliant in the outpatient setting. His facility does not accept noninvasive mechanical ventilation.
He is unable to follow-up with our office as he is on a stretcher, mobility issues.
Avoid sedatives as able.
-
Continue oxygen supplementation to maintain pulse ox above 90%.
-
DVT prophylaxis- on apixiban
Subjective Data
-
Date of Service:
Date of Service: September 03, 2023
Chief Complaint: Pulmonary Follow Up (Hypoxemic respiratory failure/chronic hypercapnic respiratory failure)
Subjective:
Main complaint is coughing, difficulty expectorating.
Tolerated BiPAP overnight
Somnolent this morning but following commands. Coughing on demand.
Review of Systems
Cardiopulmonary: Dyspnea (None at rest)
GI: Abdominal Pain (n) and Nausea (n)
Objective Data
Data Reviewed
Vital Signs / I&O / Oxygen:
Vital Signs
Temp Pulse Resp BP Pulse Ox
97.6 F 106 8 110/58 93
09/02/23 22:58 09/03/23 08:00 09/03/23 08:00 09/03/23 08:00 09/03/23 08:00
Intake and Output
09/02/23 09/03/23 09/04/23
06:59 06:59 06:59
Intake Total 560 / 560
Output Total 400 / 400 1450 / 1450
Balance -400 / -400 -890 / -890
SaO2 93
Nasal Cannula flow liters per 4
minute
Physical Exam
General: Respiratory Distress (n)
HEENT: Normocephalic
Cardiovascular: S1-S2
Respiratory: Non-Labored Respirations
GI: Distended (Obese) and Non Tender
Neurology: Awake and Alert
Skin: Warm
Labs/Micro/Reports
Lab Data
09/03/23 04:17
09/03/23 04:17
Laboratory Results
09/02/23
18:17
pH 7.34 L
pCO2 66 H
pO2 87
HCO3 35.6 H
O2 Delivery Level
Microbiology
09/01/23 17:05 Urine Urine Culture - Preliminary
Gram negative bacilli
09/01/23 21:19 Nose MRSA Screen - Final
Staph aureus MRSA
09/01/23 17:05 Blood/Venous Blood Culture - Preliminary
No Growth in 24 hours- Final report to follow
09/01/23 16:36 Blood/Venous Blood Culture - Preliminary
No Growth in 24 hours- Final report to follow
09/01/23 16:36 Nasal Swab Influenza Types A & B (ADELITA) - Final
Negative for Influenza A & B, NAAT
Negative results must be combined with clinical observations
and patient history.
Nucleic Acid Amplification test (NAAT)performed on the
[employer] platform.
[2023-09-03] MEDS: TYLENOL 650 MG PO (11:00)
--- NOTE | 2023-09-03 11:33 | W.PN.HOSP.TC ---
Today's Communication/Plan
-
Bipap per pulm
urine lytes
IV abx
Assessment / Plan
Assessment / Plan
# Suspected Catheter associated UTI
-Leukocytosis, UA showing 30-40 WBC, slightly cloudy urine and +2 leukocyte esterase
-Exchange Brown catheter
-Urine culture gram neg bacilli
-Blood cultures neg so far
-Zosyn. wbc downtrended.
#possible aspiration pneumonia
-Chest x-ray shows minimal bibasilar opacification likely subsegmental atelectasis
-Zosyn to cover for aspiration pneumonia
-DuoNebs every 6 hours
# Toxic metabolic encephalopathy likely multifactorial
#Chronic hypercapnic respiratory failure secondary to obesity hypoventilation with recent intubation
#History of obstructive sleep apnea and COPD
-Continue nighttime BiPAP and prn
-Continue Lasix
-bronchodilators per pulm
-Pulm recs
# Acute kidney injury
# Hyperkalemia
-Hold further lasix
-Hold lisinopril
-Check urine lytes
Recent left lower extremity DVT
-Continue Eliquis
Essential hypertension
-Continue amlodipine
-Continue metoprolol
-Hold lisinopril
Type 2 diabetes
-Continue Lantus 20 minutes twice daily
-Hold metformin
-Insulin sliding scale
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
Spinal stenosis
Colon resection
Deviated septum repair
Former smoker
Bipolar disorder
-Continue aripiprazole, Depakote
GERD
-Continue omeprazole
Neuropathy
-Continue gabapentin
Constipation
-Continue bowel
Full code
DVT prophylaxis�Eliquis
Anticipated Discharge: > 48 hours
Subjective/Interval History
-
Date of Service: September 03, 2023
Seen bipap
woke up later on
had conversation
ate dinner last night
Objective Data
-
Labs:
Laboratory Results
09/03/23
04:17
WBC 8.6
Hgb 10.3 L
Hct 30.9 L
Plt Count 257
Sodium 134 L
Potassium 4.9
Chloride 94 L
Carbon Dioxide 35 H
BUN 44 H
Creatinine 1.8 H
Glucose 138 H
Calcium 8.6
Total Bilirubin 0.8
AST 37
ALT 44
Alkaline Phosphatase 62
Vital Signs:
Vital Signs
Temp Pulse Resp BP Pulse Ox
97.6 F 95 8 112/58 93
09/02/23 22:58 09/03/23 10:04 09/03/23 08:00 09/03/23 10:04 09/03/23 08:00
I&O
09/02/23 09/03/23 09/04/23
06:59 06:59 06:59
Intake Total 560 / 560
Output Total 400 / 400 1450 / 1450
Balance -400 / -400 -890 / -890
Physical Exam
-
General: Well Developed, Well Nourished, No Apparent Distress, Intubated and Morbidly Obese; Negative Respiratory Distress
HEENT: Normocephalic, Atraumatic and Moist Mucous Membranes
Respiratory: Rhonchi
Cardiac: Regular Rhythm and S1/S2; Negative Murmur
GI: Soft, Nontender, Nondistended and Normal Bowel Sounds
Rectal: Deferred by Provider
Genito-urinary: Brown
Skin: Warm
Neuro: Awake
Psych: Calm
Data Reviewed
-
Total Time Spent with Patient (in minutes): 55
[2023-09-03] MEDS: DUONEB INH (11:38)
[2023-09-03 12:41] LABS: Urine Sodium 40 mmol/L (30-90)
[2023-09-03 13:16] LABS: Glucose - Point of Care 204 mg/dl (70-99)
[2023-09-03] MEDS: NOVOLOG FLEXPEN-LOW RESISTANCE 2 UNITS SC (13:41)
[2023-09-03 17:19] LABS: Glucose - Point of Care 179 mg/dl (70-99)
[2023-09-03] MEDS: NOVOLOG FLEXPEN-LOW RESISTANCE 1 UNITS SC (17:32)
[2023-09-03 20:52] LABS: Hepatitis C Antibody Negative (Negative)
[2023-09-03] MEDS: COLACE 100 MG PO (21:58)
[2023-09-03] MEDS: NEURONTIN 600 MG PO (21:58)
[2023-09-03] MEDS: ABILIFY 7.5 MG PO (21:58)
[2023-09-03] MEDS: MUCINEX 1200 MG PO (21:59)
[2023-09-03 22:13] LABS: Glucose - Point of Care 193 mg/dl (70-99)
[2023-09-04] VITALS (21 sets, daily range): BP systolic 90–133; BP diastolic 50–78; PULSE 2–100; BMI 49.4
[2023-09-04] MEDS: ZOSYN 50 IV ×4 (00:27→17:51)
[2023-09-04 05:36] LABS: % Basophils 0.8 % (0-2); % Eosinophils 9.1 % (0-6); % Immature Granulocytes 0.8 % (0-0.5); % Lymphocytes 20.7 % (20.5-51.1); % Neutrophils 50.6 % (42.2-75.2); Absolute Basophils 0.1 10^3/uL (0-0.2); Absolute Eosinophils 0.7 10^3/uL (0-0.7); Absolute Immature Granulocytes 0.1 10^3/uL (0-0.05); Absolute Lymphocytes 1.5 10^3/uL (1.2-3.4); Absolute Monocytes 1.3 10^3/uL (0.1-0.6); Absolute Neutrophils 3.7 10^3/uL (1.4-6.5); Hematocrit 28.6 % (39.0-52.0); Hemoglobin 9.8 g/dL (13.0-18.0); Mean Corp Hgb Conc. 34.3 g/dL (33.0-37.0); Mean Corpuscular Hgb 33.1 pg (27.0-31.0); Mean Corpuscular Volume 96.6 fL (80.0-94.0); Mean Platelet Volume 9.3 fL (7.4-10.4); Nucleated Red Blood Cells % 0 % (-); Platelet Count 215 10^3/uL (130-400); Red Blood Cell Count 2.96 10^6/uL (4.70-6.10); Red Cell Dist. Width 15.4 % (11.5-14.5); White Blood Cell Count 7.3 10^3/uL (4.8-10.8)
[2023-09-04 05:42] LABS: ALT (SGPT) 33 U/L (0-50); AST (SGOT) 27 U/L (17-59); Albumin 3.5 g/dl (3.5-5.0); Alkaline Phosphatase 52 U/L (38-126); Blood Urea Nitrogen 46 mg/dl (9-20); Calcium 9.1 mg/dl (8.4-10.2); Carbon Dioxide 32 mmol/L (22-30); Chloride 91 mmol/L (98-107); Estimated Creatinine Clearance 58 ml/min; Glucose 133 mg/dl (70-99); Potassium 4.6 mmol/L (3.5-5.1); Sodium 133 mmol/L (135-145); Total Bilirubin 0.7 mg/dl (0.2-1.3); Total Protein 6.5 g/dl (6.3-8.2); eGFR 40.24
[2023-09-04] MEDS: PULMICORT 0.5 MG INH ×2 (07:16→19:24)
[2023-09-04] MEDS: DUONEB 3 ML INH ×4 (07:16→19:24)
[2023-09-04] MEDS: NOVOLOG FLEXPEN-LOW RESISTANCE SC (07:45)
[2023-09-04 07:57] LABS: Glucose - Point of Care 146 mg/dl (70-99)
[2023-09-04] MEDS: NORVASC 5 MG PO (08:24)
[2023-09-04] MEDS: ANTIFUNGAL CLEAR 1 APPLIC TOPICAL ×2 (08:24→19:26)
[2023-09-04] MEDS: FEOSOL 325 MG PO (08:26)
[2023-09-04] MEDS: DEPAKOTE (12 HR RELEASE) 500 MG PO ×2 (08:26→19:21)
[2023-09-04] MEDS: ELIQUIS 5 MG PO ×2 (08:26→19:21)
[2023-09-04] MEDS: LOPRESSOR PO (08:26)
[2023-09-04] MEDS: MUCINEX 1200 MG PO ×2 (08:27→19:20)
[2023-09-04] MEDS: NEURONTIN 300 MG PO (08:27)
[2023-09-04] MEDS: VITAMIN D3 (cholecalciferol) 25 MCG PO (08:27)
[2023-09-04] MEDS: THERAGRAN 1 TABLET PO (08:27)
[2023-09-04] MEDS: PROTONIX 40 MG PO (08:27)
[2023-09-04] MEDS: LOW STRENGTH ASPIRIN 81 MG PO (08:28)
[2023-09-04] MEDS: DESENEX/MITRAZOL/ZEASORB 1 APPLIC TOPICAL ×2 (08:29→19:26)
[2023-09-04] MEDS: LIDOCAINE 4% PATCH 1 PATCH TOPICAL (08:29)
[2023-09-04] MEDS: MIRALAX 17 GRAMS PO (08:29)
[2023-09-04] MEDS: METAMUCIL, KONSYL 1 PACKET PO (08:29)
[2023-09-04] MEDS: LANTUS 0.200000000000000011 UNITS SC ×2 (08:32→22:11)
--- NOTE | 2023-09-04 09:36 | PN.CDI ---
CDI
- -
CDI:
Physician Documentation Request
Admit Date: 09/01/23 19:36
Dear Doctor Dixie,
Please review the following and provide your response in the progress notes.
Clinical Indicators:
Pt admitted with CAUTI/ Aspiration Pneumonia and possible COPD exacerbation
On admission WBC 13.5, HR 102, RR 35,Tmax 100.6 -On IV Zosyn
Please clarify which of the following most accurately describes the status of the patient's infection:
Sepsis-POA
- Systemic manifestations of infection, with 2 or more SIRS criteria which include:
- Fever >100.4 degrees F or hypothermia < 96.8 degrees F
- Leukocytosis - WBC > 12,000 or leukopenia - WBC < 4,000 or > 10% bands
- Tachycardia > 90 beats per minute
- Tachypnea - RR > 20 breaths per minute or PaCO2 , 32mmHg
Source: [employer]ck Manual 2013
CAUTI/Aspiration PNA only , Without Systemic Illness
Other
Use of terms such as suspected, likely, concern for, or probable (associated with a specific diagnosis that is being evaluated, monitored, or treated as if it exists) are acceptable and can be coded in the inpatient setting, when documented at the
time of discharge.
Thank you,
Meghan Weeks RN
CDI Specialist
[facility]
Please use your independent medical judgment in providing your response.
--- NOTE | 2023-09-04 09:46 | PN.CDI ---
CDI
- -
CDI:
Physician Documentation Request
Admit Date: 09/01/23 19:36
Dear Doctor Dixie,
Please review the following and provide your response in the progress notes.
Clinical Indicators:
Pt admitted with CAUTI/ Aspiration Pneumonia and possible COPD exacerbation
Documented per pulmonology note, ' ...Ambulatory dysfunction: Patient may be on a stretcher...'
Documented per WOCN panel 09/01 on admission sacrum pressure injury stage 2 silicone border foam for dressing.
Nutrition notes ,' Skin: stage 2 sacrum.'
Physician documentation of the type and location of wounds is required for compliant documentation. Based on the above clinical findings and your assessment, please provide the following in your progress note:
1. Location of the ulcer/wound, including laterality.
2. Type (etiology) of ulcer/wound:
- Pressure (decubitus) ulcer
- Non-pressure ulcer
- Other
Use of terms such as suspected, likely, concern for, or probable (associated with a specific diagnosis that is being evaluated, monitored, or treated as if it exists) are acceptable and can be coded in the inpatient setting, when documented at the
time of discharge.
Thank you,
Meghan Weeks RN
CDI Specialist
[place] [facility]
Please use your independent medical judgment in providing your response.
*Source: National Pressure Ulcer Advisory Panel (NPUAP)
--- NOTE | 2023-09-04 09:57 | PTCARENOTE ---
Pt wiped down with CHG wipes waffle cushion under butt
--- NOTE | 2023-09-04 10:06 | W.PN.PUL3 ---
Today's Communication / Plan
-
Continue nebulizer therapy DuoNebs and manage Pulmicort
No indication for systemic corticosteroids
Antibiotics for UTI
Continue BiPAP at night while in the hospital
Avoid sedatives
Assessment
-
68-year-old man with multiple comorbidities including obesity hypoventilation syndrome suspected/obstructive sleep apnea, chronic Brown catheter, obesity admitted with shortness of breath. Found to be bronchospastic. Found to have a UTI. We were
consulted for evaluation of his shortness of breath.
Acute respiratory insufficiency
Possible exacerbation of COPD: Patient does have emphysema on CAT scan.
Cannot rule out infectious etiology: Chest x-ray mostly with bibasilar atelectasis.
Aspiration cannot be ruled out.
-
Catheter associated FIN-cgte-vlrgihdg bacilli in urine.
Conditions present prior to admission:
Admitted to [facility] 08/2023: Hypoxemic/hypercapnic respiratory failure with toxic metabolic encephalopathy. DC from hospital 08/25/2023
Obesity hypoventilation syndrome-discharged on BiPAP
Emphysema on CAT scan 08/07/2023
Morbid obesity-BMI 51 with Hx of bariatric surgery (sleeve)
Recent [facility] stay.�08/11/2023
Hypertension.�
Obesity hypoventilation syndrome.�
Chronic oxygen supplementation.�
Legally blind-retinitis pigmentosa.�
Spinal stenosis.�
Colon resection.�
Deviated septum repair.�
Former smoker.
COPD on chronic oxygen supplementation
Chronic Brown due to BPH and chronic urinary retention
Ambulatory dysfunction: Patient may be on a stretcher-unable to follow-up in our office.
-
Plan and recommendations:
Lung exam with scattered mild rhonchi, no significant bronchospasm.
Patient does have a wet cough and difficulty expectorating.
Chronic hypoxemia at baseline.
-
Continue symptomatic management: Patient's main complaint is coughing.
Continue. nebulizers khscge-ibx-rutoa-patient has been taking as needed in the outpatient setting
DuoNebs
Pulmicort for secretion clearance- while in hospital.
Acapella device if able
Aspiration precautions
Cont. Antitussives
cont. Mucolytic
-
Fever curve improved.
Leukocytosis resolved
MRSA screen positive
Antibiotics for UTI should cover for any pulmonary pathogens- Currently on Zosyn.
Will obtain a sputum culture if able- unable to produce.
-
Incentive spirometry encouraged
Patient is bed bound, does not help with his hypoxemia on top of his morbid obesity.
-
Mental status fluctuates, at times somnolent but always following commands. Likely related to infection, ABG 7.34/66.87(09/02/2023) baseline.
Chronic hypercapnic respiratory failure: Nearly compensated.
-
May use BiPAP while in the hospital 21/12. Unclear if he will be compliant in the outpatient setting. His facility does not accept noninvasive mechanical ventilation.
He is unable to follow-up with our office as he is on a stretcher, mobility issues-attempts were made from our office based on ECW.
Avoid sedatives as able.
Ideally, he should be using noninvasive mechanical ventilation in the outpatient setting. Unfortunately unable to follow-up in our office.
They will have to identified someone in the outpatient setting will be responsible to follow-up. Elicited shelter.
-
Continue oxygen supplementation to maintain pulse ox above 90%.
-
DVT prophylaxis- on apixiban
Subjective Data
-
Date of Service:
Date of Service: September 04, 2023
Chief Complaint: Pulmonary Follow Up (Hypoxemic respiratory failure/chronic hypercapnic respiratory failure)
Subjective:
Continues to report intermittent coughing
No significant phlegm production
Tolerating nocturnal BiPAP
Review of Systems
General: Fever (n)
Cardiopulmonary: Dyspnea (none at rest) and Cough
GI: Abdominal Pain (n), Nausea (n) and Vomiting (n)
Objective Data
Data Reviewed
Vital Signs / I&O / Oxygen:
Vital Signs
Temp Pulse Resp BP Pulse Ox
98.1 F 81 18 106/58 92
09/04/23 08:00 09/04/23 08:24 09/04/23 07:20 09/04/23 08:26 09/04/23 08:57
Intake and Output
09/03/23 09/04/23 09/05/23
06:59 06:59 06:59
Intake Total 560 / 560 920 / 920
Output Total 1450 / 1450 1125 / 1125 350 / 350
Balance -890 / -890 -205 / -205 -350 / -350
SaO2 92
Nasal Cannula flow liters per 4
minute
Physical Exam
General: Respiratory Distress (n)
HEENT: Normocephalic
Cardiovascular: S1-S2
Respiratory: Non-Labored Respirations
GI: Distended (Obese) and Non Tender
Neurology: Awake and Alert
Skin: Warm
Labs/Micro/Reports
Lab Data
09/04/23 04:57
09/04/23 04:57
Microbiology
09/01/23 17:05 Urine Urine Culture - Preliminary
Gram negative bacilli
09/01/23 17:05 Blood/Venous Blood Culture - Preliminary
No Growth in 48 hours- Final report to follow
09/01/23 16:36 Blood/Venous Blood Culture - Preliminary
No Growth in 48 hours- Final report to follow
09/01/23 21:19 Nose MRSA Screen - Final
Staph aureus MRSA
09/01/23 16:36 Nasal Swab Influenza Types A & B (ADELITA) - Final
Negative for Influenza A & B, NAAT
Negative results must be combined with clinical observations
and patient history.
Nucleic Acid Amplification test (NAAT)performed on the
[employer] platform.
--- NOTE | 2023-09-04 12:57 | W.PN.HOSP.TC ---
Today's Communication/Plan
-
Reduce Bipap with qhs and prn
breaks for meals
probnp in am
pulm recs
Assessment / Plan
Assessment / Plan
# sepsis 2.2 Catheter associated UTI-poa
-Leukocytosis, UA showing 30-40 WBC, slightly cloudy urine and +2 leukocyte esterase
-Exchanged Brown catheter
-Urine culture with ESBL
-Blood cultures neg so far
-Zosyn. wbc downtrended.
#possible aspiration pneumonia
-Chest x-ray shows minimal bibasilar opacification likely subsegmental atelectasis
-Zosyn to cover for aspiration pneumonia
-DuoNebs every 6 hours
# Toxic metabolic encephalopathy likely multifactorial
#Chronic hypercapnic respiratory failure secondary to obesity hypoventilation with recent intubation
#History of obstructive sleep apnea and COPD
-Continue nighttime BiPAP and prn
-Continue Lasix
-bronchodilators per pulm
-Pulm recs
# Acute kidney injury
# Hyperkalemia
-Hold further lasix
-Hold lisinopril
-Check urine lytes
-fena with pre-renal. Chek probnp.
Recent left lower extremity DVT
-Continue Eliquis
Essential hypertension
-Continue amlodipine
-Continue metoprolol
-Hold lisinopril
Type 2 diabetes
-Continue Lantus 20 minutes twice daily
-Hold metformin
-Insulin sliding scale
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
Spinal stenosis
Colon resection
Deviated septum repair
Former smoker
Bipolar disorder
-Continue aripiprazole, Depakote
GERD
-Continue omeprazole
Neuropathy
-Continue gabapentin
Constipation
-Continue bowel
sacrum stage 2 PI-POA
-wound care
Full code
DVT prophylaxis�Eliquis
Anticipated Discharge: > 48 hours
Subjective/Interval History
-
Date of Service: September 04, 2023
Tolerating diet
Went back on bipap
opens eyes and states wants go off bipap
Objective Data
-
Labs:
Laboratory Results
09/04/23
04:57
WBC 7.3
Hgb 9.8 L
Hct 28.6 L
Plt Count 215
Sodium 133 L
Potassium 4.6
Chloride 91 L
Carbon Dioxide 32 H
BUN 46 H
Creatinine 1.8 H
Glucose 133 H
Calcium 9.1
Total Bilirubin 0.7
AST 27
ALT 33
Alkaline Phosphatase 52
Vital Signs:
Vital Signs
Temp Pulse Resp BP Pulse Ox
98.1 F 100 18 106/58 93
09/04/23 08:00 09/04/23 11:29 09/04/23 11:29 09/04/23 08:26 09/04/23 11:29
I&O
09/03/23 09/04/23 09/05/23
06:59 06:59 06:59
Intake Total 560 / 560 920 / 920 50 / 50
Output Total 1450 / 1450 1125 / 1125 350 / 350
Balance -890 / -890 -205 / -205 -300 / -300
Physical Exam
-
General: Well Developed, Well Nourished, No Apparent Distress, Intubated and Morbidly Obese; Negative Respiratory Distress
HEENT: Normocephalic, Atraumatic and Moist Mucous Membranes
Respiratory: Decreased Breath Sounds
Cardiac: Regular Rhythm and S1/S2; Negative Murmur
GI: Soft, Nontender, Nondistended and Normal Bowel Sounds
Rectal: Deferred by Provider
Genito-urinary: Brown
Skin: Warm
Neuro: Awake
Psych: Calm
Data Reviewed
-
Total Time Spent with Patient (in minutes): 55
[2023-09-04 13:14] LABS: Glucose - Point of Care 172 mg/dl (70-99)
[2023-09-04] MEDS: NOVOLOG FLEXPEN-LOW RESISTANCE 1 UNITS SC (13:55)
--- NOTE | 2023-09-04 16:37 | CM ---
Patient from [facility] with Hx legally blind, bipolar DO with Dx CAUTI, possible aspiration PNA, TME, NATALIA. BIPAP, O2 2L. Receiving IV Zosyn. Bariatric bed. Per nurse assessment; forgetful.
Message from Dr Colin; concern that patient was not placed on bipap at times at SNF. Message to MD that [facility] will relay to nurse & DON. Patient may be ready for d/c over w/e.
Spoke with Stacey [facility]; forwarded MD message that patient was not placed on bipap at times at SNF. Stacey will relay to nurse & DON. She was updated about possible d/c over w/e. The ph for report [phone], .
Patient will need to return to SNF by bariatric ambulance.
Plan return to [facility] by bariatric ambulance when medically ready.
[2023-09-04 17:24] LABS: Glucose - Point of Care 238 mg/dl (70-99)
[2023-09-04] MEDS: NOVOLOG FLEXPEN-LOW RESISTANCE 2 UNITS SC (17:50)
[2023-09-04] MEDS: TYLENOL 650 MG PO (17:54)
[2023-09-04] MEDS: LOPRESSOR 50 MG PO (19:20)
[2023-09-04] MEDS: ABILIFY 7.5 MG PO (22:09)
[2023-09-04] MEDS: NEURONTIN 600 MG PO (22:10)
[2023-09-04] MEDS: COLACE 100 MG PO (22:10)
[2023-09-04 22:13] LABS: Glucose - Point of Care 190 mg/dl (70-99)
[2023-09-05] VITALS (18 sets, daily range): BP systolic 105–135; BP diastolic 44–75; PULSE 2–86; BMI 50.0
[2023-09-05] MEDS: ZOSYN 50 IV ×4 (00:40→16:49)
--- NOTE | 2023-09-05 03:47 | PTCARENOTE ---
Received Pt on 4L NC O2 at start of shift. Pt dropped to 84% after an episode of non productive dry coughing. Pt was able to use deep breathing to recover to 90%. Pt took PM oral meds with water well without coughing. Respiratory assited Pt back
onto the BIPAP for the evening at bed time and has remained on since, satting 94%. Pt is agreeable to care. pt has has no acute changes over night. Moisture barrier applied to reddened groin, scrotum, and sacrum. See nursing shift assessment for
full head to toe.
[2023-09-05 04:31] LABS: % Basophils 0.9 % (0-2); % Eosinophils 7.8 % (0-6); % Immature Granulocytes 1.2 % (0-0.5); % Lymphocytes 25.9 % (20.5-51.1); % Monocytes 18.8 % (1.7-9.3); % Neutrophils 45.4 % (42.2-75.2); Absolute Basophils 0.1 10^3/uL (0-0.2); Absolute Eosinophils 0.5 10^3/uL (0-0.7); Absolute Immature Granulocytes 0.1 10^3/uL (0-0.05); Absolute Lymphocytes 1.8 10^3/uL (1.2-3.4); Absolute Monocytes 1.3 10^3/uL (0.1-0.6); Absolute Neutrophils 3.1 10^3/uL (1.4-6.5); Hemoglobin 9.3 g/dL (13.0-18.0); Mean Corp Hgb Conc. 33.2 g/dL (33.0-37.0); Mean Corpuscular Hgb 32.6 pg (27.0-31.0); Mean Corpuscular Volume 98.2 fL (80.0-94.0); Mean Platelet Volume 9.2 fL (7.4-10.4); Nucleated Red Blood Cells % 0 % (-); Platelet Count 204 10^3/uL (130-400); Red Blood Cell Count 2.85 10^6/uL (4.70-6.10); Red Cell Dist. Width 15.6 % (11.5-14.5); White Blood Cell Count 6.9 10^3/uL (4.8-10.8)
[2023-09-05 04:41] LABS: NT-proBNP 536 pg/ml
[2023-09-05 04:45] LABS: ALT (SGPT) 34 U/L (0-50); AST (SGOT) 27 U/L (17-59); Albumin 3.6 g/dl (3.5-5.0); Alkaline Phosphatase 58 U/L (38-126); Blood Urea Nitrogen 36 mg/dl (9-20); Calcium 9.1 mg/dl (8.4-10.2); Carbon Dioxide 33 mmol/L (22-30); Chloride 93 mmol/L (98-107); Estimated Creatinine Clearance 62 ml/min; Glucose 119 mg/dl (70-99); Potassium 4.6 mmol/L (3.5-5.1); Sodium 133 mmol/L (135-145); Total Bilirubin 0.5 mg/dl (0.2-1.3); Total Protein 6.5 g/dl (6.3-8.2)
[2023-09-05] MEDS: TYLENOL 650 MG PO ×2 (06:26→22:44)
[2023-09-05 07:26] LABS: Glucose - Point of Care 146 mg/dl (70-99)
[2023-09-05] MEDS: NOVOLOG FLEXPEN-LOW RESISTANCE SC (08:10)
[2023-09-05] MEDS: DESENEX/MITRAZOL/ZEASORB 1 APPLIC TOPICAL ×2 (08:10→21:34)
[2023-09-05] MEDS: ANTIFUNGAL CLEAR 1 APPLIC TOPICAL ×2 (08:11→21:34)
[2023-09-05] MEDS: PULMICORT 0.5 MG INH ×2 (08:13→19:52)
[2023-09-05] MEDS: DUONEB 3 ML INH ×4 (08:13→19:52)
[2023-09-05] MEDS: ELIQUIS 5 MG PO ×2 (08:14→21:36)
[2023-09-05] MEDS: DEPAKOTE (12 HR RELEASE) 500 MG PO ×2 (08:14→21:36)
[2023-09-05] MEDS: LANTUS 0.200000000000000011 UNITS SC ×2 (08:21→21:51)
[2023-09-05] MEDS: FEOSOL 325 MG PO (08:21)
[2023-09-05] MEDS: LIDOCAINE 4% PATCH 1 PATCH TOPICAL (08:22)
[2023-09-05] MEDS: LOPRESSOR 50 MG PO ×2 (08:22→21:36)
[2023-09-05] MEDS: MUCINEX 1200 MG PO ×2 (08:23→21:37)
[2023-09-05] MEDS: METAMUCIL, KONSYL 1 PACKET PO (08:23)
[2023-09-05] MEDS: MIRALAX 17 GRAMS PO (08:23)
[2023-09-05] MEDS: NEURONTIN 300 MG PO (08:23)
[2023-09-05] MEDS: LOW STRENGTH ASPIRIN 81 MG PO (08:23)
[2023-09-05] MEDS: THERAGRAN 1 TABLET PO (08:24)
[2023-09-05] MEDS: PROTONIX 40 MG PO (08:24)
[2023-09-05] MEDS: NORVASC 5 MG PO (08:24)
[2023-09-05] MEDS: VITAMIN D3 (cholecalciferol) 25 MCG PO (08:24)
[2023-09-05] MEDS: NOVOLOG FLEXPEN-LOW RESISTANCE 2 UNITS SC (11:23)
--- NOTE | 2023-09-05 11:32 | W.PN.HOSP.TC ---
Today's Communication/Plan
-
restart lasix
monitor mentation-imrpving
iv abx
Assessment / Plan
Assessment / Plan
# sepsis 2.2 Catheter associated UTI 2/2 ESBL-poa
-Leukocytosis, UA showing 30-40 WBC, slightly cloudy urine and +2 leukocyte esterase
-Exchanged Brown catheter
-Urine culture with ESBL -switch to po abx on dc.
-Blood cultures neg so far
-Zosyn. wbc downtrended.
#possible aspiration pneumonia
-Chest x-ray shows minimal bibasilar opacification likely subsegmental atelectasis
-Zosyn to cover for aspiration pneumonia
-DuoNebs every 6 hours
# Toxic metabolic encephalopathy likely multifactorial RESOLVED
#Chronic hypercapnic respiratory failure secondary to obesity hypoventilation with recent intubation
#History of obstructive sleep apnea and COPD
-Continue nighttime BiPAP and prn
-Continue Lasix
-bronchodilators per pulm
-Pulm recs
# Acute kidney injury
# Hyperkalemia
-wt gained. restarted lasix.
-Hold lisinopril
-Check urine lytes
-fena with pre-renal.
Recent left lower extremity DVT
-Continue Eliquis
Essential hypertension
-Continue amlodipine
-Continue metoprolol
-Hold lisinopril
Type 2 diabetes
-Continue Lantus 20 minutes twice daily
-Hold metformin
-Insulin sliding scale
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
Spinal stenosis
Colon resection
Deviated septum repair
Former smoker
Bipolar disorder
-Continue aripiprazole, Depakote
GERD
-Continue omeprazole
Neuropathy
-Continue gabapentin
Constipation
-Continue bowel
sacrum stage 2 PI-POA
-wound care
Full code
DVT prophylaxis�Eliquis
Anticipated Discharge: 24 - 48 hours
Subjective/Interval History
-
Date of Service: September 05, 2023
off Bipap this morning
on 4LNC
more awake and talkative this morning
states at [facility] puts on bipap
Objective Data
-
Labs:
Laboratory Results
09/05/23
04:04
WBC 6.9
Hgb 9.3 L
Hct 28.0 L
Plt Count 204
Sodium 133 L
Potassium 4.6
Chloride 93 L
Carbon Dioxide 33 H
BUN 36 H
Creatinine 1.7 H
Glucose 119 H
Calcium 9.1
Total Bilirubin 0.5
AST 27
ALT 34
Alkaline Phosphatase 58
Vital Signs:
Vital Signs
Temp Pulse Resp BP Pulse Ox
98.9 F 95 20 116/56 94
09/05/23 07:00 09/05/23 08:30 09/05/23 08:30 09/05/23 08:24 09/05/23 09:50
I&O
09/04/23 09/05/23 09/06/23
06:59 06:59 06:59
Intake Total 920 / 920 1370 / 1370 200 / 200
Output Total 1125 / 1125 2650 / 2650
Balance -205 / -205 -1280 / -1280 200 / 200
Physical Exam
-
General: Well Developed, Well Nourished, No Apparent Distress, Intubated and Morbidly Obese; Negative Respiratory Distress
HEENT: Normocephalic, Atraumatic, Moist Mucous Membranes and Oxygen (4L)
Respiratory: Decreased Breath Sounds
Cardiac: Regular Rhythm and S1/S2; Negative Murmur
GI: Soft, Nontender, Nondistended and Normal Bowel Sounds
Rectal: Deferred by Provider
Genito-urinary: Brown
Skin: Warm
Neuro: Awake and Alert
Psych: Calm
Data Reviewed
-
Total Time Spent with Patient (in minutes): 55
[2023-09-05 11:33] LABS: Glucose - Point of Care 229 mg/dl (70-99)
--- NOTE | 2023-09-05 13:52 | PTCARENOTE ---
Patient is awake, alert and oriented to person, place and time. In good spirits today, able to tuen himself side to side and pull himself up in bed. Feeding himself after setup, excellent appetite. Had a bowel movement this shift, continent in
bedpan. Patient on 4 liters of oxygen pulse ox 93% at this time. Unproductive cough with expiratory wheeze. Villareal in place with straw colored urine. WOund on glans avery, villareal wipe treatment completed. Patient turned every 2 hours.
--- NOTE | 2023-09-05 14:08 | W.PN.PUL3 ---
Today's Communication / Plan
-
Continue nebulizer therapy DuoNebs and Pulmicort
No indication for systemic corticosteroids
Antibiotics for UTI
Continue BiPAP at night while in the hospital
Avoid sedatives
Assessment
-
68-year-old man with multiple comorbidities including obesity hypoventilation syndrome suspected/obstructive sleep apnea, chronic Brown catheter, obesity admitted with shortness of breath. Found to be bronchospastic. Found to have a UTI. We were
consulted for evaluation of his shortness of breath.
Acute respiratory insufficiency
Possible exacerbation of COPD: Patient does have emphysema on CAT scan.
Cannot rule out infectious etiology: Chest x-ray mostly with bibasilar atelectasis.
Aspiration cannot be ruled out.
-
Catheter associated ZOY-nlsm-zzkzfgwq bacilli in urine.
Conditions present prior to admission:
Admitted to [facility] 08/2023: Hypoxemic/hypercapnic respiratory failure with toxic metabolic encephalopathy. DC from hospital 08/25/2023
Obesity hypoventilation syndrome-discharged on BiPAP
Emphysema on CAT scan 08/07/2023
Morbid obesity-BMI 51 with Hx of bariatric surgery (sleeve)
Recent [facility] stay.�08/11/2023
Hypertension.�
Obesity hypoventilation syndrome.�
Chronic oxygen supplementation.�
Legally blind-retinitis pigmentosa.�
Spinal stenosis.�
Colon resection.�
Deviated septum repair.�
Former smoker.
COPD on chronic oxygen supplementation
Chronic Brown due to BPH and chronic urinary retention
Ambulatory dysfunction: Patient may be on a stretcher-unable to follow-up in our office.
-
Plan and recommendations:
Lung exam with scattered rhonchi, no significant bronchospasm.
Patient does have a wet cough and difficulty expectorating.
Chronic hypoxemia at baseline.
-
Continue symptomatic management: Patient's main complaint is coughing.
Continue. nebulizers QID - pt was taking as needed in the outpatient setting
DuoNebs
Pulmicort for improvement in mucous production
Acapella device if able
Aspiration precautions
Cont. Antitussives
cont. Mucolytic
-
Leukocytosis resolved
MRSA screen positive
Antibiotics for UTI should cover for any pulmonary pathogens- Currently on Zosyn.
Will obtain a sputum culture if able- unable to produce.
-
Incentive spirometry encouraged
Patient is bed bound, does not help with his hypoxemia on top of his morbid obesity.
-
Mental status fluctuates, at times somnolent but always following commands. Likely related to infection, ABG 7.34/66/87 (09/02/2023) baseline.
Chronic hypercapnic respiratory failure: Nearly compensated.
-
May use BiPAP while in the hospital 21/12. Unclear if he will be compliant in the outpatient setting. His facility does not accept noninvasive mechanical ventilation.
He is unable to follow-up with our office as he is on a stretcher, mobility issues-attempts were made from our office based on ECW.
Avoid sedatives as able.
Ideally, he should be using noninvasive mechanical ventilation in the outpatient setting. Unfortunately unable to follow-up in our office.
They will have to identified someone in the outpatient setting will be responsible to follow-up to ensure he is using his PAP/NIV and that he is using it in the long-term and entrained with O2
-
Continue oxygen supplementation to maintain pulse ox above 90%.
-
DVT prophylaxis- on apixiban
Subjective Data
-
Date of Service:
Date of Service: September 05, 2023
Chief Complaint: Pulmonary Follow Up (Hypoxemic respiratory failure/chronic hypercapnic respiratory failure)
Subjective:
Patient seen at bedside this afternoon. He says he feels good. Currently on 3 L/min nasal cannula saturating 94%. BP 135/58, heart rate 90. Wore BiPAP overnight on 20/02 bled with 4L/min.
Review of Systems
General: Other (Negative unless mentioned above)
Objective Data
Data Reviewed
Vital Signs / I&O / Oxygen:
Vital Signs
Temp Pulse Resp BP Pulse Ox
98.5 F 83 20 118/49 92
09/05/23 11:00 09/05/23 16:03 09/05/23 16:03 09/05/23 16:51 09/05/23 17:12
Intake and Output
09/04/23 09/05/23 09/06/23
06:59 06:59 06:59
Intake Total 920 / 920 1370 / 1370 450 / 450
Output Total 1125 / 1125 2650 / 2650 1050 / 1050
Balance -205 / -205 -1280 / -1280 -600 / -600
SaO2 92
Nasal Cannula flow liters per 4
minute
Physical Exam
General: Respiratory Distress (n), Comfortable and Good Appetite
HEENT: Normocephalic and Anicteric
Cardiovascular: S1-S2 and Peripheral Edema (trace LE edema)
Respiratory: Wheeze (negative), Crackles (negative), Rhonchi (bilaterally) and Non-Labored Respirations
GI: Soft, Distended (Obese), Non Tender and Normal Bowel Sounds
Neurology: Awake and Alert
Skin: Warm and Dry
Labs/Micro/Reports
Lab Data
09/05/23 04:04
09/05/23 04:04
Microbiology
09/01/23 17:05 Blood/Venous Blood Culture - Preliminary
No Growth in 4 days- Final report to follow
09/01/23 16:36 Blood/Venous Blood Culture - Preliminary
No Growth in 4 days- Final report to follow
09/01/23 17:05 Urine Urine Culture - Final
Escherichia coli - ESBL
09/01/23 21:19 Nose MRSA Screen - Final
Staph aureus MRSA
[2023-09-05] MEDS: NOVOLOG FLEXPEN-LOW RESISTANCE 1 UNITS SC (16:18)
[2023-09-05 16:19] LABS: Glucose - Point of Care 183 mg/dl (70-99)
[2023-09-05 22:01] LABS: Glucose - Point of Care 198 mg/dl (70-99)
[2023-09-05] MEDS: ABILIFY 7.5 MG PO (22:43)
[2023-09-05] MEDS: NEURONTIN 600 MG PO (22:43)
[2023-09-05] MEDS: COLACE 100 MG PO (22:45)
[2023-09-06] VITALS (16 sets, daily range): BP systolic 102–143; BP diastolic 45–73; PULSE 2–88; BMI 49.8
[2023-09-06] MEDS: ZOSYN 50 IV ×4 (00:47→18:01)
[2023-09-06 05:59] LABS: Venous Blood Gas B.E. 11.1 mmol/L (-4 to +4); Venous Blood Gas HCO3 37.2 mmol/L (22-27); Venous Blood Gas O2 Sat % 99.7 %; Venous Blood Gas pCO2 56 mmHg (35-48); Venous Blood Gas pH 7.43 (7.32-7.43); Venous Blood Gas pO2 202 mmHg (30-50)
[2023-09-06 06:30] LABS: Blood Urea Nitrogen 28 mg/dl (9-20); Calcium 9.5 mg/dl (8.4-10.2); Carbon Dioxide 34 mmol/L (22-30); Chloride 95 mmol/L (98-107); Estimated Creatinine Clearance 81 ml/min; Glucose 135 mg/dl (70-99); Potassium 5.1 mmol/L (3.5-5.1); Sodium 138 mmol/L (135-145); eGFR 59.47
[2023-09-06] MEDS: DUONEB 3 ML INH ×4 (07:46→20:38)
[2023-09-06] MEDS: PULMICORT 0.5 MG INH ×2 (07:46→20:38)
[2023-09-06 08:00] LABS: Glucose - Point of Care 135 mg/dl (70-99)
[2023-09-06] MEDS: NOVOLOG FLEXPEN-LOW RESISTANCE SC (08:25)
[2023-09-06] MEDS: ANTIFUNGAL CLEAR 1 APPLIC TOPICAL ×2 (08:25→20:31)
[2023-09-06] MEDS: DESENEX/MITRAZOL/ZEASORB 1 APPLIC TOPICAL ×2 (08:26→20:31)
[2023-09-06] MEDS: LASIX 40 MG PO (08:26)
[2023-09-06] MEDS: TYLENOL 650 MG PO ×2 (08:27→15:47)
[2023-09-06] MEDS: THERAGRAN 1 TABLET PO (08:27)
[2023-09-06] MEDS: MUCINEX 1200 MG PO ×2 (08:27→20:33)
[2023-09-06] MEDS: NORVASC 5 MG PO (08:28)
[2023-09-06] MEDS: FEOSOL 325 MG PO (08:28)
[2023-09-06] MEDS: ELIQUIS 5 MG PO ×2 (08:28→20:32)
[2023-09-06] MEDS: VITAMIN D3 (cholecalciferol) 25 MCG PO (08:28)
[2023-09-06] MEDS: DEPAKOTE (12 HR RELEASE) 500 MG PO ×2 (08:28→20:32)
[2023-09-06] MEDS: LOW STRENGTH ASPIRIN 81 MG PO (08:28)
[2023-09-06] MEDS: NEURONTIN 300 MG PO (08:29)
[2023-09-06] MEDS: PROTONIX 40 MG PO (08:29)
[2023-09-06] MEDS: METAMUCIL, KONSYL 1 PACKET PO (08:29)
[2023-09-06] MEDS: MIRALAX 17 GRAMS PO (08:29)
[2023-09-06] MEDS: LANTUS 0.200000000000000011 UNITS SC ×2 (11:06→21:10)
[2023-09-06] MEDS: LOPRESSOR 50 MG PO ×2 (11:07→20:32)
[2023-09-06] MEDS: LIDOCAINE 4% PATCH 1 PATCH TOPICAL (11:07)
--- NOTE | 2023-09-06 11:13 | PTCARENOTE ---
Patient asked to be put back on BIPAP for a nap. Spo2 currently 95%.
[2023-09-06 12:41] LABS: Glucose - Point of Care 192 mg/dl (70-99)
[2023-09-06] MEDS: NOVOLOG FLEXPEN-LOW RESISTANCE 1 UNITS SC (12:47)
--- NOTE | 2023-09-06 14:03 | W.PN.HOSP.TC ---
Today's Communication/Plan
-
Monitor mentation
IV abx
cont lasix
trend cr
Start dispo
Assessment / Plan
Assessment / Plan
# sepsis 2.2 Catheter associated UTI 2/2 ESBL-poa
-Leukocytosis, UA showing 30-40 WBC, slightly cloudy urine and +2 leukocyte esterase
-Exchanged Brown catheter
-Urine culture with ESBL -switch to po abx on dc.
-Blood cultures neg so far
-Zosyn. wbc downtrended.
#possible aspiration pneumonia
-Chest x-ray shows minimal bibasilar opacification likely subsegmental atelectasis
-Zosyn to cover for aspiration pneumonia
-DuoNebs QID
# Toxic metabolic encephalopathy likely multifactorial
#Chronic hypercapnic respiratory failure secondary to obesity hypoventilation with recent intubation
#History of obstructive sleep apnea and COPD
-Continue nighttime BiPAP and prn. Requiring Bipap more frequently..
-Continue Lasix
-bronchodilators per pulm
-Need to follow up with pulmonary as OP.
-Pulm recs
# Acute kidney injury
# Hyperkalemia
-wt gained. restarted lasix.
-Hold lisinopril
-fena with pre-renal.
-Cr downtrended.
Recent left lower extremity DVT
-Continue Eliquis
Essential hypertension
-Continue amlodipine
-Continue metoprolol
-Hold lisinopril
Type 2 diabetes
-Continue Lantus 20 minutes twice daily
-Hold metformin
-Insulin sliding scale
-POC 195
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
Spinal stenosis
Colon resection
Deviated septum repair
Former smoker
Bipolar disorder
-Continue aripiprazole, Depakote
GERD
-Continue omeprazole
Neuropathy
-Continue gabapentin
Constipation
-Continue bowel
sacrum stage 2 PI-POA
-wound care
Full code
DVT prophylaxis�Eliquis
Dispo-eventual SNF.
Anticipated Discharge: Within 24 hours
Subjective/Interval History
-
Date of Service: September 06, 2023
Wants to go back to bipap
mentation slowly improving
tolerating diet
Objective Data
-
Labs:
Laboratory Results
09/06/23
05:49
Sodium 138
Potassium 5.1
Chloride 95 L
Carbon Dioxide 34 H
BUN 28 H
Creatinine 1.3
Glucose 135 H
Calcium 9.5
Vital Signs:
Vital Signs
Temp Pulse Resp BP Pulse Ox
98 F 95 24 142/71 98
09/06/23 07:20 09/06/23 11:43 09/06/23 11:43 09/06/23 10:00 09/06/23 11:43
I&O
09/05/23 09/06/23 09/07/23
06:59 06:59 06:59
Intake Total 1370 / 1370 1380 / 1380 625 / 625
Output Total 2650 / 2650 5075 / 5075
Balance -1280 / -1280 -3695 / -3695 625 / 625
Physical Exam
-
General: Well Developed, Well Nourished, No Apparent Distress, Intubated and Morbidly Obese; Negative Respiratory Distress
HEENT: Normocephalic, Atraumatic, Moist Mucous Membranes and Oxygen (4L)
Respiratory: Decreased Breath Sounds
Cardiac: Regular Rhythm and S1/S2; Negative Murmur
GI: Soft, Nontender, Nondistended and Normal Bowel Sounds
Rectal: Deferred by Provider
Genito-urinary: Brown
Musculoskeletal: Edema, Right Lower Extrem (improving ) and Edema, Left Lower Extrem (improving )
Skin: Warm
Neuro: Awake and Alert
Psych: Calm
--- NOTE | 2023-09-06 14:40 | W.PN.PUL3 ---
Today's Communication / Plan
-
Continue nebulizer therapy DuoNebs and Pulmicort
No indication for systemic corticosteroids
Antibiotics for UTI
Continue BiPAP at night while in the hospital
Avoid sedatives
Assessment
-
68-year-old man with multiple comorbidities including obesity hypoventilation syndrome suspected/obstructive sleep apnea, chronic Brown catheter, obesity admitted with shortness of breath. Found to be bronchospastic. Found to have a UTI. We were
consulted for evaluation of his shortness of breath.
Acute respiratory insufficiency
Possible exacerbation of COPD: Patient does have emphysema on CAT scan.
Cannot rule out infectious etiology: Chest x-ray mostly with bibasilar atelectasis.
Aspiration cannot be ruled out.
-
Catheter associated JAY-elnp-auxsfior bacilli in urine.
Conditions present prior to admission:
Admitted to [facility] 08/2023: Hypoxemic/hypercapnic respiratory failure with toxic metabolic encephalopathy. DC from hospital 08/25/2023
Obesity hypoventilation syndrome-discharged on BiPAP
Emphysema on CAT scan 08/07/2023
Morbid obesity-BMI 51 with Hx of bariatric surgery (sleeve)
Recent UOB-zxpiszlg-DRU stay.�08/11/2023
Hypertension.�
Obesity hypoventilation syndrome.�
Chronic oxygen supplementation.�
Legally blind-retinitis pigmentosa.�
Spinal stenosis.�
Colon resection.�
Deviated septum repair.�
Former smoker.
COPD on chronic oxygen supplementation
Chronic Brown due to BPH and chronic urinary retention
Ambulatory dysfunction: Patient may be on a stretcher-unable to follow-up in our office.
-
Plan and recommendations:
Lung exam with scattered rhonchi, no significant bronchospasm.
Patient does have a wet cough and difficulty expectorating.
Chronic hypoxemia at baseline.
-
Continue symptomatic management: Patient's main complaint is coughing.
Continue. nebulizers QID - pt was taking as needed in the outpatient setting
DuoNebs
Pulmicort for improvement in mucous production
Acapella device if able
Aspiration precautions
Cont. Antitussives
cont. Mucolytic
-
Leukocytosis resolved
MRSA screen positive
Antibiotics for UTI should cover for any pulmonary pathogens- Currently on Zosyn.
Will obtain a sputum culture if able- unable to produce.
-
Incentive spirometry encouraged
Patient is bed bound, does not help with his hypoxemia on top of his morbid obesity.
-
Mental status fluctuates, at times somnolent but always following commands. Likely related to infection, ABG 7.34/66/87 (09/02/2023) baseline.
Chronic hypercapnic respiratory failure: Nearly compensated.
-
May use BiPAP while in the hospital 21/12. Unclear if he will be compliant in the outpatient setting. His facility does not accept noninvasive mechanical ventilation.
He is unable to follow-up with our office as he is on a stretcher, mobility issues-attempts were made from our office based on ECW.
Avoid sedatives as able.
Ideally, he should be using noninvasive mechanical ventilation in the outpatient setting. Unfortunately unable to follow-up in our office.
They will have to identified someone in the outpatient setting will be responsible to follow-up to ensure he is using his PAP/NIV and that he is using it in the [facility] and entrained with O2
-
Continue oxygen supplementation to maintain pulse ox above 90%.
-
DVT prophylaxis- on apixiban
Patient was seen and evaluated on 09/06/2023.
Subjective Data
-
Date of Service:
Date of Service: September 06, 2023
Chief Complaint: Pulmonary Follow Up (Hypoxemic respiratory failure/chronic hypercapnic respiratory failure)
Subjective:
Seen today. No events reported from overnight. Wore BiPAP 20/02 bled with 6L/min.
Review of Systems
General: Other (negative unless mentioned above)
Objective Data
Data Reviewed
Vital Signs / I&O / Oxygen:
Vital Signs
Temp Pulse Resp BP Pulse Ox
98 F 63 23 143/61 96
09/06/23 07:20 09/06/23 16:04 09/06/23 16:04 09/06/23 14:00 09/06/23 16:04
Intake and Output
09/05/23 09/06/23 09/07/23
06:59 06:59 06:59
Intake Total 1370 / 1370 1380 / 1380 625 / 625
Output Total 2650 / 2650 5075 / 5075
Balance -1280 / -1280 -3695 / -3695 625 / 625
SaO2 96
Nasal Cannula flow liters per 4
minute
Physical Exam
General: Respiratory Distress (n), Comfortable and Good Appetite
HEENT: Normocephalic and Anicteric
Cardiovascular: S1-S2 and Peripheral Edema (trace LE edema)
Respiratory: Wheeze (negative), Crackles (negative), Rhonchi (bilaterally) and Non-Labored Respirations
GI: Soft, Distended (Obese), Non Tender and Normal Bowel Sounds
Neurology: Awake and Alert
Skin: Warm and Dry
Labs/Micro/Reports
Lab Data
09/05/23 04:04
09/06/23 05:49
Microbiology
09/01/23 17:05 Blood/Venous Blood Culture - Final
No Growth - Final Report
09/01/23 16:36 Blood/Venous Blood Culture - Final
No Growth - Final Report
09/01/23 17:05 Urine Urine Culture - Final
Escherichia coli - ESBL
[2023-09-06 16:38] LABS: Glucose - Point of Care 237 mg/dl (70-99)
[2023-09-06] MEDS: NOVOLOG FLEXPEN-LOW RESISTANCE 2 UNITS SC (17:03)
[2023-09-06] MEDS: COLACE 100 MG PO (21:10)
[2023-09-06] MEDS: NEURONTIN 600 MG PO (21:10)
[2023-09-06] MEDS: ABILIFY 7.5 MG PO (21:10)
[2023-09-06 21:16] LABS: Glucose - Point of Care 261 mg/dl (70-99)
[2023-09-07] VITALS (15 sets, daily range): BP systolic 108–149; BP diastolic 51–83; PULSE 2–90; BMI 49.4
[2023-09-07] MEDS: ZOSYN 50 IV ×4 (01:07→18:52)
--- NOTE | 2023-09-07 02:49 | PTCARENOTE ---
Pt has not been desaturating on his bipap tonight. He had a close shave yesterday and his mask seems to fit better and not leak as much. He has maintained his O2 sat at 98% on 4 liters and bipap. He complains of his scrotum hurting. Barrier
ointment (Calazime) and antifungal powder used to help with the irritation. A cool water filled glove placed there has helped with his discomfort. There is clear drainage from around his penis-meatus. Brown care given. Area is often damp. Brown
catheter has drained 1800 so far this shift. Heart monitor is NSR with BBB. Skin is flushed, warm and dry. He has a moist non productive cough.
[2023-09-07 05:53] LABS: % Basophils 1.1 % (0-2); % Eosinophils 6.2 % (0-6); % Immature Granulocytes 3.8 % (0-0.5); % Lymphocytes 31.1 % (20.5-51.1); % Monocytes 15.2 % (1.7-9.3); % Neutrophils 42.6 % (42.2-75.2); Absolute Basophils 0.1 10^3/uL (0-0.2); Absolute Eosinophils 0.5 10^3/uL (0-0.7); Absolute Immature Granulocytes 0.3 10^3/uL (0-0.05); Absolute Lymphocytes 2.6 10^3/uL (1.2-3.4); Absolute Monocytes 1.3 10^3/uL (0.1-0.6); Absolute Neutrophils 3.5 10^3/uL (1.4-6.5); Hematocrit 32.8 % (39.0-52.0); Hemoglobin 10.6 g/dL (13.0-18.0); Mean Corp Hgb Conc. 32.3 g/dL (33.0-37.0); Mean Corpuscular Hgb 32.8 pg (27.0-31.0); Mean Corpuscular Volume 101.5 fL (80.0-94.0); Mean Platelet Volume 9.5 fL (7.4-10.4); Nucleated Red Blood Cells % 0.5 % (-); Platelet Count 267 10^3/uL (130-400); Red Blood Cell Count 3.23 10^6/uL (4.70-6.10); Red Cell Dist. Width 15.9 % (11.5-14.5); White Blood Cell Count 8.3 10^3/uL (4.8-10.8)
[2023-09-07 06:14] LABS: Blood Urea Nitrogen 27 mg/dl (9-20); Calcium 9.8 mg/dl (8.4-10.2); Carbon Dioxide 32 mmol/L (22-30); Chloride 93 mmol/L (98-107); Estimated Creatinine Clearance 87 ml/min; Glucose 141 mg/dl (70-99); Potassium 5.1 mmol/L (3.5-5.1); Sodium 138 mmol/L (135-145); eGFR > 60.00
[2023-09-07 07:25] LABS: Glucose - Point of Care 133 mg/dl (70-99)
[2023-09-07] MEDS: PULMICORT 0.5 MG INH ×2 (07:50→19:44)
[2023-09-07] MEDS: DUONEB 3 ML INH ×4 (07:50→19:44)
--- NOTE | 2023-09-07 07:58 | W.PN.HOSP.TC ---
Addendum entered and electronically signed by Francisco Garcia MD 09/07/23 13:09:
Abnormal lab value hyponatremia of clinical insignificant
Original Note:
Today's Communication/Plan
-
Although legally blind with retinitis will need to assess activity with PT assessment
Continuous BiPAP nightly oxygen requirements and titration avoid sedation
Continue treatment for ESBL UTI as per ID
Assessment / Plan
Assessment / Plan
# sepsis 2.2 Catheter associated UTI 2/2 ESBL-poa
-Leukocytosis, UA showing 30-40 WBC, slightly cloudy urine and +2 leukocyte esterase
-Exchanged Brown catheter
-Urine culture with ESBL -switch to po abx on dc.
-Blood cultures neg so far
-Zosyn. wbc downtrended.
#possible aspiration pneumonia
-Chest x-ray shows minimal bibasilar opacification likely subsegmental atelectasis
-Zosyn to cover for aspiration pneumonia
-DuoNebs QID
# Toxic metabolic encephalopathy likely multifactorial
#Chronic hypercapnic respiratory failure secondary to obesity hypoventilation with recent intubation
#History of obstructive sleep apnea and COPD
-Continue nighttime BiPAP and prn. Requiring Bipap more frequently..
-Continue Lasix
-bronchodilators per pulm
-Need to follow up with pulmonary as OP.
-Pulm recs
# Acute kidney injury
# Hyperkalemia
-wt gained. restarted lasix.
-Hold lisinopril
-fena with pre-renal.
-Cr downtrended.
Recent left lower extremity DVT
-Continue Eliquis
Essential hypertension
-Continue amlodipine
-Continue metoprolol
-Hold lisinopril
Type 2 diabetes
-Continue Lantus 20 minutes twice daily
-Hold metformin
-Insulin sliding scale
-POC 195
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
Spinal stenosis
Colon resection
Deviated septum repair
Former smoker
Bipolar disorder
-Continue aripiprazole, Depakote
GERD
-Continue omeprazole
Neuropathy
-Continue gabapentin
Constipation
-Continue bowel
sacrum stage 2 PI-POA
-wound care
Full code
DVT prophylaxis�Eliquis
Dispo-eventual SNF.
Anticipated Discharge: 24 - 48 hours
Subjective/Interval History
-
Date of Service: September 07, 2023
States he had a restless night was on BiPAP overnight now off and getting respiratory treatment. States he has not gotten out of bed since he here also states he is constipated.
Objective Data
-
Labs:
Laboratory Results
09/07/23
05:15
WBC 8.3
Hgb 10.6 L
Hct 32.8 L
Plt Count 267 D
Sodium 138
Potassium 5.1
Chloride 93 L
Carbon Dioxide 32 H
BUN 27 H
Creatinine 1.2
Glucose 141 H
Calcium 9.8
Vital Signs:
Vital Signs
Temp Pulse Resp BP Pulse Ox
98.2 F 84 19 111/62 96
09/06/23 23:31 09/07/23 07:54 09/07/23 07:54 09/07/23 06:00 09/07/23 07:54
I&O
09/06/23 09/07/23 09/08/23
06:59 06:59 06:59
Intake Total 1380 / 1380 2565 / 2565
Output Total 5075 / 5075 4275 / 4275
Balance -3695 / -3695 -1710 / -1710
Review of Systems
-
History Source: Patient
Respiratory: Reports Trouble Breathing
Cardiac: Reports No Symptoms
Abdomen/GI: Reports Constipated
Genitourinary: Reports UTI
Physical Exam
-
General: Morbidly Obese
HEENT: Normocephalic and Oxygen
Respiratory: Decreased Breath Sounds
Cardiac: Regular Rhythm
GI: Soft, Nontender and Nondistended
Musculoskeletal: Edema, Right Upper Extrem and Edema, Left Upper Extrem
Skin: IV Access / Catheter Site
Neuro: Awake
Psych: Calm
Data Reviewed
-
Total Time Spent with Patient (in minutes): 56
Labs: Labs Reviewed by me (White count 8.3/hemoglobin 10.6/BUN 27 bicarb 32/blood sugar 141)
[2023-09-07] MEDS: NOVOLOG FLEXPEN-LOW RESISTANCE SC (08:22)
[2023-09-07] MEDS: TYLENOL 650 MG PO ×2 (08:39→17:38)
[2023-09-07] MEDS: FEOSOL 325 MG PO (08:39)
[2023-09-07] MEDS: ELIQUIS 5 MG PO ×2 (08:39→20:39)
[2023-09-07] MEDS: LASIX 40 MG PO (08:40)
[2023-09-07] MEDS: NORVASC 5 MG PO (08:40)
[2023-09-07] MEDS: DEPAKOTE (12 HR RELEASE) 500 MG PO ×2 (08:40→20:38)
[2023-09-07] MEDS: LOPRESSOR 50 MG PO ×2 (08:40→20:39)
[2023-09-07] MEDS: METAMUCIL, KONSYL 1 PACKET PO (08:40)
[2023-09-07] MEDS: VITAMIN D3 (cholecalciferol) 25 MCG PO (08:40)
[2023-09-07] MEDS: LOW STRENGTH ASPIRIN 81 MG PO (08:40)
[2023-09-07] MEDS: MIRALAX 17 GRAMS PO (08:40)
[2023-09-07] MEDS: MUCINEX 1200 MG PO ×2 (08:40→20:40)
[2023-09-07] MEDS: NEURONTIN 300 MG PO (08:40)
[2023-09-07] MEDS: PROTONIX 40 MG PO (08:41)
[2023-09-07] MEDS: LANTUS 0.200000000000000011 UNITS SC ×2 (08:45→20:44)
[2023-09-07] MEDS: ANTIFUNGAL CLEAR 1 APPLIC TOPICAL ×2 (08:46→20:37)
[2023-09-07] MEDS: DESENEX/MITRAZOL/ZEASORB 1 APPLIC TOPICAL ×2 (08:46→20:37)
[2023-09-07] MEDS: THERAGRAN 1 TABLET PO (08:47)
--- NOTE | 2023-09-07 09:07 | PN.CDI ---
CDI
- -
CDI:
Physician Documentation Request
Admit Date: 09/01/23 19:36
Dear Doctor Jose,
Please review the following and provide your response in the progress notes.
Clinical Indicators:
Pt admitted with Sepsis 2/2 CAUTI /Acute hypoxic Respiratory failure
Sodium levels are as below / Pt did get IVFs
09/02/23 09/03/23 09/04/23
04:57 04:17 04:57
Sodium 134 L 134 L 133 L
09/05/23
04:04
Sodium 133 L
Based on the above, could you clarify in the progress notes, the appropriate diagnosis, if significant, that supports the above abnormalities and additional evaluation, monitoring and/or treatment rendered:
Hyponatremia
Abnormal lab value of clinical insignificance
Other
Use of terms such as suspected, likely, concern for, or probable (associated with a specific diagnosis that is being evaluated, monitored, or treated as if it exists) are acceptable and can be coded in the inpatient setting, when documented at the
time of discharge.
Thank you,
Meghan Weeks RN
CDI Specialist
[place] [facility]
Please use your independent medical judgment in providing your response.
--- NOTE | 2023-09-07 09:59 | W.PN.PUL.V3 ---
Today's Communication / Plan
-
Make attempts to wean oxygen
BiPAP-attempt to liberate
ABG if mental status declines
Antibiotics
Assessment
-
68-year-old man with multiple comorbidities including obesity hypoventilation syndrome suspected/obstructive sleep apnea, chronic Brown catheter, obesity admitted with shortness of breath. Found to be bronchospastic. Found to have a UTI. We were
consulted for evaluation of his shortness of breath.
Acute respiratory insufficiency
Possible exacerbation of COPD: Patient does have emphysema on CAT scan.
Cannot rule out infectious etiology: Chest x-ray mostly with bibasilar atelectasis.
Aspiration cannot be ruled out.
-
Catheter associated CDD-tcif-ajuwtuzu bacilli in urine.
Conditions present prior to admission:
Admitted to [facility] 08/2023: Hypoxemic/hypercapnic respiratory failure with toxic metabolic encephalopathy. DC from hospital 08/25/2023
Obesity hypoventilation syndrome-discharged on BiPAP
Emphysema on CAT scan 08/07/2023
Morbid obesity-BMI 51 with Hx of bariatric surgery (sleeve)
Recent YQR-lebcnchz-[facility] stay.�08/11/2023
Hypertension.�
Obesity hypoventilation syndrome.�
Chronic oxygen supplementation.�
Legally blind-retinitis pigmentosa.�
Spinal stenosis.�
Colon resection.�
Deviated septum repair.�
Former smoker.
COPD on chronic oxygen supplementation
Chronic Brown due to BPH and chronic urinary retention
Ambulatory dysfunction: Patient may be on a stretcher-unable to follow-up in our office.
Plan
Respiratory status remains tenuous-on high FiO2 and BiPAP dependent
Aspiration precautions
Continue DuoNebs
Antitussives
Continue mucolytic's
Acapella if able
BiPAP 18/8 cm with supplemental oxygen at night and during the daytime as needed-attempt brief periods of liberation
Cultures reviewed
Sputum culture if able-currently unable to produce
Antibiotics for UTI-currently on Zosyn
Monitor mental status
ABG if becomes more somnolent
The patient's facility facility does not accept noninvasive mechanical ventilation.
He is unable to follow-up with our office as he is on a stretcher, mobility issues-attempts were made from our office based on ECW.
Avoid sedatives as able.
Ideally, he should be using noninvasive mechanical ventilation in the outpatient setting. Unfortunately unable to follow-up in our office.
They will have to identified someone in the outpatient setting will be responsible to follow-up to ensure he is using his PAP/NIV and that [facility] and [facility]rained with O2
DVT prophylaxis- on apixiban
Long-term prognosis unfortunately poor with likely repetitive hospitalizations
Reviewed with nursing
Subjective Data
-
Date of Service:
Date of Service: September 07, 2023
Chief Complaint: Pulmonary Follow Up (Hypoxemic respiratory failure/chronic hypercapnic respiratory failure) and Dyspnea Follow Up
Subjective:
Nonverbal, sleeping with BiPAP, no increased respiratory distress, saturations improved
Review of Systems
General: Other (Per HPI)
Objective Data
Data Reviewed
Vital Signs / I&O:
Vital Signs
Temp Pulse Resp BP Pulse Ox
97.2 F 83 24 136/59 97
09/07/23 07:41 09/07/23 08:00 09/07/23 08:00 09/07/23 08:00 09/07/23 08:56
Intake and Output
09/06/23 09/07/23 09/08/23
06:59 06:59 06:59
Intake Total 1380 / 1380 2565 / 2565 530 / 530
Output Total 5075 / 5075 4275 / 4275 525 / 525
Balance -3695 / -3695 -1710 / -1710 5 / 5
SaO2: 97
Nasal Cannula flow liters per minute: 4
Physical Exam
General: Respiratory Distress (n), Comfortable and Good Appetite
HEENT: Normocephalic and Anicteric
Cardiovascular: Regular Rhythm and Peripheral Edema (trace LE edema)
Respiratory: Wheeze (negative), Crackles (negative), Rhonchi (bilaterally) and Non-Labored Respirations
GI: Soft, Distended (Obese), Non Tender and Normal Bowel Sounds
Neurology: Awake, Alert and No Motor Deficits
Skin: Warm, Dry, Cyanosis (n) and Jaundice
Labs/Micro/Reports
Lab Data
09/07/23 05:15
09/07/23 05:15
Microbiology
09/01/23 17:05 Blood/Venous Blood Culture - Final
No Growth - Final Report
09/01/23 16:36 Blood/Venous Blood Culture - Final
No Growth - Final Report
09/01/23 17:05 Urine Urine Culture - Final
Escherichia coli - ESBL
--- NOTE | 2023-09-07 12:09 | PTOTSP ---
Pt is from [facility] facility where he is bedbound. No acute PT needs or goals. Will sign off.
[2023-09-07 12:28] LABS: Glucose - Point of Care 203 mg/dl (70-99)
[2023-09-07] MEDS: NOVOLOG FLEXPEN-LOW RESISTANCE 2 UNITS SC (12:55)
[2023-09-07] MEDS: LIDOCAINE 4% PATCH TOPICAL (15:05)
--- NOTE | 2023-09-07 15:42 | CM ---
CM reviewed chart and pt remains in the IMU with oxygen needs- 6L
Plan [facility]
Discharge Disposition- return to SNF with bariatric ambulance
The ph for report [phone], .
[2023-09-07 16:52] LABS: Glucose - Point of Care 309 mg/dl (70-99)
[2023-09-07] MEDS: NOVOLOG FLEXPEN-LOW RESISTANCE 4 UNITS SC (17:37)
[2023-09-07 20:55] LABS: Glucose - Point of Care 310 mg/dl (70-99)
[2023-09-07] MEDS: ABILIFY 7.5 MG PO (21:49)
[2023-09-07] MEDS: NEURONTIN 600 MG PO (21:50)
[2023-09-07] MEDS: COLACE 100 MG PO (21:50)
[2023-09-08] VITALS (16 sets, daily range): BP systolic 67–127; BP diastolic 47–87; PULSE 2–88; BMI 49.1
[2023-09-08] MEDS: ZOSYN 50 IV ×4 (00:20→17:51)
[2023-09-08] MEDS: TYLENOL 650 MG PO ×2 (00:21→22:17)
--- NOTE | 2023-09-08 03:58 | PTCARENOTE ---
Pt noted to cough after he drinks at times. Encouraged to put his chin down when he swallows and to be sure he is sitting upright when he eats and drinks. He said that a speech therapist told him that the chin down when swallowing was a myth.
Encouraged to tuck his chin when drinking and see if he coughs less. Mouth care given, pt turns to his sided well and is cooperative with beatriz care. His scrotum is sore and he still has clear drainage from his penile meatus constantly, making his
groin and scrotum consistently moist. He complains of groin and tail bone pain. Given Tylenol for this pain and bed rotation therapies turned on so he can have less pressure on his sacrum. Given a back rub with some relief of his lower back pain.
Cough is moist and non productive.
[2023-09-08 06:02] LABS: Blood Urea Nitrogen 24 mg/dl (9-20); Calcium 9.8 mg/dl (8.4-10.2); Carbon Dioxide 36 mmol/L (22-30); Chloride 91 mmol/L (98-107); Estimated Creatinine Clearance 70 ml/min; Glucose 151 mg/dl (70-99); Potassium 4.7 mmol/L (3.5-5.1); Sodium 137 mmol/L (135-145); eGFR 50.08
--- NOTE | 2023-09-08 06:58 | W.PN.HOSP.TC ---
Addendum entered and electronically signed by Francisco Garcia MD 09/08/23 14:13:
Acute on chronic hypoxic and hypercapnic respiratory failure multifactorial from sepsis, and hypoventilation
Sepsis multifactorial from catheter associated UTI and aspiration
Original Note:
Today's Communication/Plan
-
Continue present course of Zosyn
Will obtain speech therapy eval as there is questionable dysphagia when eating and possible aspiration as cause of his chronic cough
Continues on BiPAP nightly
Assessment / Plan
Assessment / Plan
# sepsis 2.2 Catheter associated UTI 2/2 ESBL-poa
-Leukocytosis, UA showing 30-40 WBC, slightly cloudy urine and +2 leukocyte esterase
-Exchanged Brown catheter
-Urine culture with ESBL -switch to po abx on dc.
-Blood cultures neg so far
-Zosyn. wbc downtrended.
#possible aspiration pneumonia
-Chest x-ray shows minimal bibasilar opacification likely subsegmental atelectasis
-Zosyn to cover for aspiration pneumonia
-DuoNebs QID
-Has not been seen by speech therapy and will order may benefit from VSE
# Toxic metabolic encephalopathy likely multifactorial
#Chronic hypercapnic respiratory failure secondary to obesity hypoventilation with recent intubation
#History of obstructive sleep apnea and COPD
-Continue nighttime BiPAP and prn. Requiring Bipap more frequently..
-Continue Lasix
-bronchodilators per pulm
-Need to follow up with pulmonary as OP.
-Pulm recs
# Acute kidney injury
# Hyperkalemia
-wt gained. restarted lasix.
-Hold lisinopril
-fena with pre-renal.
-Cr downtrended.
Recent left lower extremity DVT
-Continue Eliquis
Essential hypertension
-Continue amlodipine
-Continue metoprolol
-Hold lisinopril
Type 2 diabetes
-Continue Lantus 20 minutes twice daily
-Hold metformin
-Insulin sliding scale
-POC 195
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
-Bedbound
Spinal stenosis
Colon resection
Deviated septum repair
Former smoker
Bipolar disorder
-Continue aripiprazole, Depakote
GERD
-Continue omeprazole
Neuropathy
-Continue gabapentin
Constipation
-Continue bowel
sacrum stage 2 PI-POA
-wound care
Full code
DVT prophylaxis�Eliquis
Dispo-eventual SNF.
Anticipated Discharge: > 48 hours
Subjective/Interval History
-
Date of Service: September 08, 2023
Harsh cough/nursing reports coughing exenterate anytime he eats especially with liquids refused to perform chin tuck while eating
Objective Data
-
Labs:
Laboratory Results
09/08/23
05:25
Sodium 137
Potassium 4.7
Chloride 91 L
Carbon Dioxide 36 H
BUN 24 H
Creatinine 1.5 H
Glucose 151 H
Calcium 9.8
Vital Signs:
Vital Signs
Temp Pulse Resp BP Pulse Ox
98.4 F 73 19 113/53 95
09/08/23 04:18 09/08/23 06:07 09/08/23 06:07 09/08/23 06:07 09/08/23 06:15
I&O
09/06/23 09/07/23 09/08/23
06:59 06:59 06:59
Intake Total 1380 / 1380 2565 / 2565 3220 / 3220
Output Total 5075 / 5075 4275 / 4275 4365 / 4365
Balance -3695 / -3695 -1710 / -1710 -1145 / -1145
Review of Systems
-
History Source: Patient
Constitutional: Reports Weight Gain, Fatigue and Weakness
Respiratory: Reports Cough and Trouble Breathing
Physical Exam
-
General: Respiratory Distress and Morbidly Obese
HEENT: Normocephalic
Respiratory: Rales and Rhonchi
Cardiac: Regular Rhythm
GI: Nondistended (Protuberant obesity)
Neuro: Awake and AO x 3
Data Reviewed
-
Total Time Spent with Patient (in minutes): 67
Labs: Labs Reviewed by me (Creatinine up back up to 1.5 near baseline/blood sugar stable at 150 range)
[2023-09-08] MEDS: DUONEB 3 ML INH ×4 (07:41→20:04)
[2023-09-08] MEDS: PULMICORT 0.5 MG INH ×2 (07:41→20:04)
[2023-09-08 08:11] LABS: Glucose - Point of Care 154 mg/dl (70-99)
[2023-09-08] MEDS: NOVOLOG FLEXPEN-LOW RESISTANCE 1 UNITS SC (08:44)
[2023-09-08] MEDS: LANTUS 0.200000000000000011 UNITS SC ×2 (08:45→22:14)
[2023-09-08] MEDS: LOPRESSOR 50 MG PO ×2 (08:47→22:12)
[2023-09-08] MEDS: METAMUCIL, KONSYL 1 PACKET PO (08:47)
[2023-09-08] MEDS: THERAGRAN 1 TABLET PO (08:47)
[2023-09-08] MEDS: NEURONTIN 300 MG PO (08:47)
[2023-09-08] MEDS: LIDOCAINE 4% PATCH 1 PATCH TOPICAL (08:47)
[2023-09-08] MEDS: MIRALAX 17 GRAMS PO (08:47)
[2023-09-08] MEDS: LOW STRENGTH ASPIRIN 81 MG PO (08:49)
[2023-09-08] MEDS: MUCINEX 1200 MG PO ×2 (08:49→22:13)
[2023-09-08] MEDS: PROTONIX 40 MG PO (08:49)
[2023-09-08] MEDS: ELIQUIS 5 MG PO ×2 (08:49→22:13)
[2023-09-08] MEDS: LASIX 40 MG PO (08:50)
[2023-09-08] MEDS: VITAMIN D3 (cholecalciferol) 25 MCG PO (08:50)
[2023-09-08] MEDS: DEPAKOTE (12 HR RELEASE) 500 MG PO ×2 (08:50→22:13)
[2023-09-08] MEDS: NORVASC 5 MG PO (08:50)
[2023-09-08] MEDS: FEOSOL 325 MG PO (08:50)
[2023-09-08] MEDS: DESENEX/MITRAZOL/ZEASORB 1 APPLIC TOPICAL ×2 (08:52→22:14)
[2023-09-08] MEDS: ANTIFUNGAL CLEAR 1 APPLIC TOPICAL ×2 (08:53→22:14)
--- NOTE | 2023-09-08 10:02 | PN.CDI ---
CDI
- -
CDI:
Physician Documentation Request
Admit Date: 09/01/23 19:36
Dear Doctor Jose,
Please review the following and provide your response in the progress notes.
Clinical Indicators:
Pt admitted with Sepsis 2/2 CAUTI /suspected aspiration PNA
Documented per pulmonology notes, ' Chief Complaint: Pulmonary Follow Up (Hypoxemic respiratory failure/chronic hypercapnic respiratory failure)...'
Patient care note 09/02 @ 1751, 'Attempts to transition to NC unsuccessful. Pt desatting to high 60's when asleep. Pt remains on bipap with sats in the mid to high 90's. ...'
Patient care note 09/02 @ 1816, ' Pt with multiple episodes sats dropping to the 60's on bipap...'
Patient care note @ 0429,' Pt has apnea episodes even with bipap on, Sp02 decreases to 70s. If pt is not on bipap, apnea episodes will decrease sp02 to the 50s along with HR dropping to 40s during these episodes...'
Progress note pulmonology 09/06 ,' Respiratory status remains tenuous-on high FiO2 and BiPAP dependent..BiPAP 18/8 cm with supplemental oxygen at night and during the daytime as needed-attempt brief periods of liberation...'
Pt has been on 2-6 LPM via NC, Also BIPAP and Midflow
Please provide a diagnosis for the above finding/treatment regarding pts respiratory status:
Acute Hypoxic respiratory failure
Hypoxia-Only
Other
Additional information for Respiratory Failure:
Recognized criteria for Respiratory Failure (Source: [employer] Hospitalist May 2013)
ABGs: (1 or more) Symptoms Please indicate type if known
1. p)2 <60 or RA SPO2 <91% on RA 1. Tachypnea, SOB, dyspnea Hypoxic
2. pCO2 50 and pH <7.35 2. Use of accessory muscles Hypercapnic
3. pO2 decrease of pCO2 increase by 3. Pallor or cyanosis Hypoxic and Hypercapnic
10 mmHg from baseline if known 4. Anxiety or restlessness Unable to determine
5. Unable to speak in full sentences
Supplemental O2 of > 40% (5LPM) Intubation is not required
Use of terms such as suspected, likely, concern for, or probable (associated with a specific diagnosis that is being evaluated, monitored, or treated as if it exists) are acceptable and can be coded in the inpatient setting, when documented at the
time of discharge.
Thank you,
Meghan Weeks RN
CDI Specialist
[place] text
Please use your independent medical judgment in providing your response.
--- NOTE | 2023-09-08 10:20 | PN.CDI ---
CDI
- -
CDI:
Physician Documentation Request
Admit Date: 09/01/23 19:36
Dear Doctor Jose,
Please review the following and provide your response in the progress notes.
Clinical Indicators:
Pt admitted with Sepsis
Documented per progress note 09/02-09/07,' sepsis 2.2 Catheter associated UTI 2/ ESBL-poa ...possible aspiration pneumonia ....-Zosyn to cover for aspiration pneumonia...'
Please provide the suspected Etiology/Etiologies of the documented sepsis :
Multifactorial due to CAUTI/ Aspiration Pneumonia
Due to CAUTI only
Other
Use of terms such as suspected, likely, concern for, or probable (associated with a specific diagnosis that is being evaluated, monitored, or treated as if it exists) are acceptable and can be coded in the inpatient setting, when documented at the
time of discharge.
Thank you,
Meghan Weeks RN
CDI Specialist
[place] Text
Please use your independent medical judgment in providing your response.
--- NOTE | 2023-09-08 10:52 | W.PN.PUL.V3 ---
Today's Communication / Plan
-
Continue BiPAP-attempt to liberate briefly
Speech therapy evaluation
Wean oxygen
Assessment
-
68-year-old man with multiple comorbidities including obesity hypoventilation syndrome suspected/obstructive sleep apnea, chronic Brown catheter, obesity admitted with shortness of breath. Found to be bronchospastic. Found to have a UTI. We were
consulted for evaluation of his shortness of breath.
Acute respiratory insufficiency
Possible exacerbation of COPD: Patient does have emphysema on CAT scan.
Cannot rule out infectious etiology: Chest x-ray mostly with bibasilar atelectasis.
Aspiration cannot be ruled out.
-
Catheter associated DBV-clgb-zayfdguu bacilli in urine.
Conditions present prior to admission:
Admitted to [facility] 08/2023: Hypoxemic/hypercapnic respiratory failure with toxic metabolic encephalopathy. DC from hospital 08/25/2023
Obesity hypoventilation syndrome-discharged on BiPAP
Emphysema on CAT scan 08/07/2023
Morbid obesity-BMI 51 with Hx of bariatric surgery (sleeve)
Recent [facility] stay.�08/11/2023
Hypertension.�
Obesity hypoventilation syndrome.�
Chronic oxygen supplementation.�
Legally blind-retinitis pigmentosa.�
Spinal stenosis.�
Colon resection.�
Deviated septum repair.�
Former smoker.
COPD on chronic oxygen supplementation
Chronic Brown due to BPH and chronic urinary retention
Ambulatory dysfunction: Patient may be on a stretcher-unable to follow-up in our office.
Plan
Respiratory status is slowly improving
Continue BiPAP-attempt to liberate-he reports having CPAP at his institution-would recommend BiPAP 18/8 cm with supplemental oxygen at time of discharge as he is tolerating it here
Aspiration precautions
Speech therapy evaluation 09/08/2023
Continue DuoNebs
Antitussives
Continue mucolytic's
Acapella as needed
Cultures reviewed
Sputum culture if able-currently unable to produce
Antibiotics for UTI-currently on Zosyn
Monitor mental status
Obtain ABG if becomes more somnolent
The patient's facility facility does not accept noninvasive mechanical ventilation.
He is unable to follow-up with our office as he is on a stretcher, mobility issues-attempts were made from our office based on ECW.
Avoid sedatives as able.
Ideally, he should be using noninvasive mechanical ventilation in the outpatient setting. Unfortunately unable to follow-up in our office.
They will have to identified someone in the outpatient setting will be responsible to follow-up to ensure he is using his PAP/NIV and that he is using it in the detention and entrained with O2
DVT prophylaxis- on Eliquis
Long-term prognosis unfortunately poor with likely repetitive hospitalizations
Reviewed with nursing
Subjective Data
-
Date of Service:
Date of Service: September 08, 2023
Chief Complaint: Pulmonary Follow Up (Hypoxemic respiratory failure/chronic hypercapnic respiratory failure) and Dyspnea Follow Up
Subjective:
Off BiPAP, alert and oriented, less short of breath, tolerating BiPAP, states he has CPAP back at the detention, no chest pain, abdominal pain
Review of Systems
General: Other (Per HPI)
Objective Data
Data Reviewed
Vital Signs / I&O:
Vital Signs
Temp Pulse Resp BP Pulse Ox
97.9 F 90 19 117/72 95
09/08/23 07:30 09/08/23 08:47 09/08/23 06:07 09/08/23 08:47 09/08/23 08:00
Intake and Output
09/07/23 09/08/23 09/09/23
06:59 06:59 06:59
Intake Total 2565 / 2565 3220 / 3220
Output Total 4275 / 4275 4365 / 4365
Balance -1710 / -1710 -1145 / -1145
SaO2: 95
Nasal Cannula flow liters per minute: 4
Physical Exam
General: Respiratory Distress (n), Comfortable and Good Appetite
HEENT: Normocephalic and Anicteric
Cardiovascular: Regular Rhythm and Peripheral Edema (trace LE edema)
Respiratory: Wheeze (negative), Crackles (negative), Rhonchi (bilaterally) and Non-Labored Respirations
GI: Soft, Distended (Obese), Non Tender and Normal Bowel Sounds
Neurology: Awake, Alert and No Motor Deficits
Skin: Warm, Dry, Cyanosis (n) and Jaundice
Labs/Micro/Reports
Lab Data
09/07/23 05:15
09/08/23 05:25
Microbiology
09/01/23 17:05 Blood/Venous Blood Culture - Final
No Growth - Final Report
09/01/23 16:36 Blood/Venous Blood Culture - Final
No Growth - Final Report
--- NOTE | 2023-09-08 10:56 | PTOTSP ---
ST Dysphagia Evaluation
Suspected pharyngeal dysphagia from identified aspiration during esophagram 08/24/23. Known esophageal dysphagia; 'reflux is all the way to the thoracic inlet' per GI note 08/24/23
Pt seen during recent admission to by IMPREGNATION OPERATOR. Last recommendations to continue regular solids/thin liquids on 08/24/2023. Underwent esophagram during that admission; which revealed aspiration with thin barium while reclined between 20-30 degrees and
with rapid ingestion via a straw per discussion with polysomnography technologist. Patient had coughing when he aspirated. He was unable to have a video swallow study with IMPREGNATION OPERATOR at this hospital due to limitation of current size of fluoro suite and due to weight
limitations of current Hausted chair. It was recommended he follow up as outpatient for FEES v. VFSS upon d/c to next level of care however does not appear this was pursued.
Pt received awake/alert with AM Meal of regular solids and thin liquids. He was able to pull himself up in the bed independently in trendelenberg. HOB raised full upright prior to PO trials. Meal set up assist was provided. Self fed with R-hand demo
adequate oral access/containment, mildly prolonged yet grossly effective mastication and bolus was orally cleared. Thin liquids by cup sip swallow appears min delayed there was coughing observed after swallow ~40% opportunities. Declined diet
modification trials. Reiterated education that was provided during previous admission re: rationale for swallow strategies and risks/benefits of diet modification.
Recommend
1. May remain on regular solids/thin liquids
2. Aspiration and DIANA/reflux precautions with meal set up assistance and supervision for cueing purposes
3. Small bites, small/single sips and slow rate
4. Oral care 3-5x daily
5. Patient would benefit from a FEES or VFSS completed at outside hospital as an outpatient that can accommodate bariatric patients to further assess swallowing function, rule out any aspiration, and further develop treatment plan
6. No further acute IMPREGNATION OPERATOR needs. Please reconsult as needed.
[2023-09-08 12:13] LABS: Glucose - Point of Care 265 mg/dl (70-99)
[2023-09-08] MEDS: NOVOLOG FLEXPEN-LOW RESISTANCE 3 UNITS SC (12:36)
[2023-09-08 16:39] LABS: Glucose - Point of Care 302 mg/dl (70-99)
[2023-09-08] MEDS: NOVOLOG FLEXPEN-LOW RESISTANCE 4 UNITS SC (17:52)
--- NOTE | 2023-09-08 18:19 | PTCARENOTE ---
Pt continues to cough with oral intake
[2023-09-08] MEDS: ABILIFY 7.5 MG PO (22:12)
[2023-09-08] MEDS: COLACE 100 MG PO (22:13)
[2023-09-08] MEDS: NEURONTIN 600 MG PO (22:13)
[2023-09-08 22:17] LABS: Glucose - Point of Care 257 mg/dl (70-99)
[2023-09-09] VITALS (14 sets, daily range): BP systolic 101–151; BP diastolic 42–76; PULSE 2–87; BMI 48.4
[2023-09-09] MEDS: ZOSYN 50 IV ×2 (01:00→05:28)
--- NOTE | 2023-09-09 04:41 | PTCARENOTE ---
No acute changes overnight. pt able to rest in between cares. pt drinks large amounts of fluids and in turn large amounts of urine output from villareal. Tolerating Bipap HS. Frequently coughs, non productive. Turned and repositioned throughout the
night. SCDs on. Tylenol provided for 'tail bone pain'. Call alvarez within reach.
[2023-09-09 05:13] LABS: Hematocrit 32.3 % (39.0-52.0); Hemoglobin 10.5 g/dL (13.0-18.0); Mean Corp Hgb Conc. 32.5 g/dL (33.0-37.0); Mean Corpuscular Hgb 32.9 pg (27.0-31.0); Mean Corpuscular Volume 101.3 fL (80.0-94.0); Mean Platelet Volume 9.2 fL (7.4-10.4); Platelet Count 282 10^3/uL (130-400); Red Blood Cell Count 3.19 10^6/uL (4.70-6.10); Red Cell Dist. Width 15.9 % (11.5-14.5); White Blood Cell Count 10.3 10^3/uL (4.8-10.8)
[2023-09-09 06:02] LABS: Blood Urea Nitrogen 27 mg/dl (9-20); Carbon Dioxide 32 mmol/L (22-30); Chloride 89 mmol/L (98-107); Estimated Creatinine Clearance 80 ml/min; Glucose 147 mg/dl (70-99); Potassium 4.7 mmol/L (3.5-5.1); Sodium 136 mmol/L (135-145); eGFR 59.47
[2023-09-09 07:13] LABS: Glucose - Point of Care 155 mg/dl (70-99)
--- NOTE | 2023-09-09 07:19 | W.PN.HOSP.TC ---
Today's Communication/Plan
-
Will discontinue Zosyn at this point
See response in next 3 to 4 hours believe he was ESBL colonization in urine catheter
Will remain at significant risk for recurrent aspiration due to reflux
Not sure if he will ever follow-up for a bariatric video swallow study there is outpatient
Assessment / Plan
Assessment / Plan
# sepsis 2.2 Catheter associated UTI 2/2 ESBL-poa /may be colonized
-Leukocytosis, UA showing 30-40 WBC, slightly cloudy urine and +2 leukocyte esterase
-Exchanged Brown catheter
-Urine culture with ESBL -switch to po abx on dc.
-Blood cultures neg so far
-Zosyn. wbc downtrended. Can now discontinue
#possible aspiration pneumonia /probably in relation to backward gastroesophageal reflux as noted on previous admission
-Chest x-ray shows minimal bibasilar opacification likely subsegmental atelectasis
-Zosyn to cover for aspiration pneumonia
-DuoNebs QID
-Unable to have video swallow study done here due to size of bariatric concerns to be done as outpatient last admission but never followed up
# Toxic metabolic encephalopathy likely multifactorial
#Chronic hypercapnic respiratory failure secondary to obesity hypoventilation with recent intubation
#History of obstructive sleep apnea and COPD
-Continue nighttime BiPAP and prn. Requiring Bipap more frequently..
-Continue Lasix
-bronchodilators per pulm
-Need to follow up with pulmonary as OP.
-Pulm recs
# Acute kidney injury
# Hyperkalemia
-wt gained. restarted lasix.
-Hold lisinopril
-fena with pre-renal.
-Cr downtrended. Now at 1.3/Probably would not resume lisinopril given continued borderline hyperkalemia
Recent left lower extremity DVT
-Continue Eliquis
Essential hypertension
-Continue amlodipine
-Continue metoprolol
-Hold lisinopril
Type 2 diabetes
-Continue Lantus 20 minutes twice daily
-Hold metformin
-Insulin sliding scale
-POC 195
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
-Bedbound
Spinal stenosis
Colon resection
Deviated septum repair
Former smoker
Bipolar disorder
-Continue aripiprazole, Depakote
GERD
-Continue omeprazole
Neuropathy
-Continue gabapentin
Constipation
-Continue bowel
sacrum stage 2 PI-POA
-wound care
Full code
DVT prophylaxis�Eliquis
Dispo-eventual SNF.
Anticipated Discharge: Within 24 hours
Subjective/Interval History
-
Date of Service: September 09, 2023
Not as lethargic today/we went over the importance of sitting up in bed when eating given the aspiration risk from reflux and went over the results of the speech therapy well and the need for outpatient further testing.
Objective Data
-
Labs:
Laboratory Results
09/09/23
04:33
WBC 10.3
Hgb 10.5 L
Hct 32.3 L
Plt Count 282
Sodium 136
Potassium 4.7
Chloride 89 L
Carbon Dioxide 32 H
BUN 27 H
Creatinine 1.3
Glucose 147 H
Calcium 10.0
Vital Signs:
Vital Signs
Temp Pulse Resp BP Pulse Ox
97.8 F 83 25 107/69 100
09/09/23 03:43 09/09/23 06:00 09/09/23 06:00 09/09/23 04:00 09/09/23 04:01
I&O
09/08/23 09/09/23 09/10/23
06:59 06:59 06:59
Intake Total 3220 / 3220 680 / 680
Output Total 4365 / 4365 3950 / 3950
Balance -1145 / -1145 -3270 / -3270
Review of Systems
-
History Source: Patient
Constitutional: Reports Fatigue
Respiratory: Reports Trouble Breathing
Physical Exam
-
General: Morbidly Obese (Bedbound)
HEENT: Normocephalic
Respiratory: Rhonchi
Cardiac: Regular Rhythm
Neuro: Awake and Alert
Psych: Calm
Data Reviewed
-
Total Time Spent with Patient (in minutes): 56
Labs: Labs Reviewed by me (No leukocytosis and has remained stable)
[2023-09-09] MEDS: DUONEB 3 ML INH ×4 (07:53→20:31)
[2023-09-09] MEDS: PULMICORT 0.5 MG INH ×2 (07:54→20:31)
[2023-09-09] MEDS: ELIQUIS 5 MG PO ×2 (08:14→20:54)
[2023-09-09] MEDS: MIRALAX 17 GRAMS PO (08:14)
[2023-09-09] MEDS: METAMUCIL, KONSYL 1 PACKET PO (08:14)
[2023-09-09] MEDS: LOW STRENGTH ASPIRIN 81 MG PO (08:14)
[2023-09-09] MEDS: LIDOCAINE 4% PATCH 1 PATCH TOPICAL (08:14)
[2023-09-09] MEDS: NORVASC 5 MG PO (08:14)
[2023-09-09] MEDS: DEPAKOTE (12 HR RELEASE) 500 MG PO ×2 (08:14→20:54)
[2023-09-09] MEDS: LOPRESSOR 50 MG PO ×2 (08:15→20:53)
[2023-09-09] MEDS: LASIX 40 MG PO (08:15)
[2023-09-09] MEDS: FEOSOL 325 MG PO (08:15)
[2023-09-09] MEDS: VITAMIN D3 (cholecalciferol) 25 MCG PO (08:15)
[2023-09-09] MEDS: PROTONIX 40 MG PO (08:15)
[2023-09-09] MEDS: NEURONTIN 300 MG PO (08:15)
[2023-09-09] MEDS: MUCINEX 1200 MG PO ×2 (08:15→20:54)
[2023-09-09] MEDS: THERAGRAN 1 TABLET PO (08:15)
[2023-09-09] MEDS: LANTUS 0.200000000000000011 UNITS SC ×2 (08:22→22:00)
[2023-09-09] MEDS: NOVOLOG FLEXPEN-LOW RESISTANCE 1 UNITS SC ×2 (08:22→14:01)
[2023-09-09] MEDS: TYLENOL 650 MG PO ×2 (08:22→20:54)
[2023-09-09] MEDS: ANTIFUNGAL CLEAR 1 APPLIC TOPICAL ×2 (08:23→20:53)
[2023-09-09] MEDS: DESENEX/MITRAZOL/ZEASORB 1 APPLIC TOPICAL ×2 (08:23→20:55)
--- NOTE | 2023-09-09 08:33 | W.PN.PUL.V3 ---
Today's Communication / Plan
-
Wean oxygen.
Continue BiPAP and attempt to liberate.
Assessment
-
68-year-old man with multiple comorbidities including obesity hypoventilation syndrome suspected/obstructive sleep apnea, chronic Brown catheter, obesity admitted with shortness of breath. Found to be bronchospastic. Found to have a UTI. We were
consulted for evaluation of his shortness of breath.
Acute respiratory insufficiency
Possible exacerbation of COPD: Patient does have emphysema on CAT scan.
Cannot rule out infectious etiology: Chest x-ray mostly with bibasilar atelectasis.
Aspiration cannot be ruled out.
-
Catheter associated ANZ-yjyz-looclanm bacilli in urine..
Toxic metabolic encephalopathy.
NATALIA
Conditions present prior to admission:
Admitted to [facility] 08/2023: Hypoxemic/hypercapnic respiratory failure with toxic metabolic encephalopathy. DC from hospital 08/25/2023
Obesity hypoventilation syndrome-discharged on BiPAP
Emphysema on CAT scan 08/07/2023
Morbid obesity-BMI 51 with Hx of bariatric surgery (sleeve)
Recent [facility] stay.�08/11/2023
Hypertension.�
Obesity hypoventilation syndrome.�
Chronic oxygen supplementation.�
Legally blind-retinitis pigmentosa.�
Spinal stenosis.�
Colon resection.�
Deviated septum repair.�
Former smoker.
COPD on chronic oxygen supplementation
Chronic Brown due to BPH and chronic urinary retention
Ambulatory dysfunction: Patient may be on a stretcher-unable to follow-up in our office.
Plan
.
Respiratory status still tenuous and BiPAP dependent
Continue BiPAP- continue attempts to liberate-he reports having CPAP at his institution-would recommend BiPAP 18/8 cm with supplemental oxygen at time of discharge as he is tolerating it here
Aspiration precautions
Speech therapy evaluation 09/08/2023 I then unable to perform video swallow unless bariatric center
Continue DuoNebs as well as budesonide
Antitussives.
Mucinex continues
Acapella as needed
Cultures reviewed
Sputum culture if able-currently unable to produce
Antibiotics for UTI-currently on Zosyn
Monitor mental status
Obtain ABG if becomes more somnolent.
Monitor blood sugar.
Insulin supplementation as needed
The patient's facility facility does not accept noninvasive mechanical ventilation.
He is unable to follow-up with our office as he is on a stretcher, mobility issues-attempts were made from our office based on ECW.
Avoid sedatives as able.
Ideally, he should be using noninvasive mechanical ventilation in the outpatient setting. Unfortunately unable to follow-up in our office.
They will have to identified someone in the outpatient setting will be responsible to follow-up to ensure he is using his PAP/NIV and that he is using it in the [facility] and entrained with O2
DVT prophylaxis- on Eliquis
GI prophylaxis-on pantoprazole
Long-term prognosis unfortunately poor with likely repetitive hospitalizations
Reviewed with nursing
Subjective Data
-
Date of Service:
Date of Service: September 09, 2023
Chief Complaint: Pulmonary Follow Up (Hypoxemic respiratory failure/chronic hypercapnic respiratory failure) and Dyspnea Follow Up
Subjective:
Respiratory status still tenuous, nearly constantly, BiPAP dependent, mental status waxes and wanes, no respiratory distress
Review of Systems
General: Other ( per HPI)
Objective Data
Data Reviewed
Vital Signs / I&O:
Vital Signs
Temp Pulse Resp BP Pulse Ox
97.6 F 88 20 111/50 97
09/09/23 07:20 09/09/23 08:14 09/09/23 08:13 09/09/23 08:14 09/09/23 08:13
Intake and Output
09/08/23 09/09/23 09/10/23
06:59 06:59 06:59
Intake Total 3220 / 3220 680 / 680
Output Total 4365 / 4365 3950 / 3950 300 / 300
Balance -1145 / -1145 -3270 / -3270 -300 / -300
SaO2: 97
Nasal Cannula flow liters per minute: 4
Physical Exam
General: Respiratory Distress (n), Comfortable and Good Appetite
HEENT: Normocephalic and Anicteric
Cardiovascular: Regular Rhythm and Peripheral Edema (trace LE edema)
Respiratory: Wheeze (negative), Crackles (negative), Rhonchi (bilaterally) and Non-Labored Respirations
GI: Soft, Distended (Obese), Non Tender and Normal Bowel Sounds
Neurology: Awake, Alert and No Motor Deficits
Skin: Warm, Dry, Cyanosis (n) and Jaundice
Labs/Micro/Reports
Lab Data
09/09/23 04:33
09/09/23 04:33
Microbiology
09/01/23 17:05 Blood/Venous Blood Culture - Final
No Growth - Final Report
09/01/23 16:36 Blood/Venous Blood Culture - Final
No Growth - Final Report
[2023-09-09 13:48] LABS: Glucose - Point of Care 189 mg/dl (70-99)
[2023-09-09] MEDS: NOVOLOG FLEXPEN-LOW RESISTANCE 3 UNITS SC (17:34)
[2023-09-09 17:43] LABS: Glucose - Point of Care 260 mg/dl (70-99)
[2023-09-09] MEDS: ABILIFY 7.5 MG PO (20:53)
[2023-09-09] MEDS: NEURONTIN 600 MG PO (20:54)
[2023-09-09] MEDS: COLACE 100 MG PO (20:54)
[2023-09-09 21:57] LABS: Glucose - Point of Care 347 mg/dl (70-99)
[2023-09-10] VITALS (10 sets, daily range): BP systolic 102–142; BP diastolic 48–114; PULSE 2–72; BMI 49.7
[2023-09-10 05:22] LABS: Hematocrit 32.3 % (39.0-52.0); Hemoglobin 10.8 g/dL (13.0-18.0); Mean Corp Hgb Conc. 33.4 g/dL (33.0-37.0); Mean Corpuscular Hgb 33.1 pg (27.0-31.0); Mean Corpuscular Volume 99.1 fL (80.0-94.0); Mean Platelet Volume 9.2 fL (7.4-10.4); Platelet Count 293 10^3/uL (130-400); Red Blood Cell Count 3.26 10^6/uL (4.70-6.10); Red Cell Dist. Width 15.9 % (11.5-14.5); White Blood Cell Count 10.6 10^3/uL (4.8-10.8)
--- NOTE | 2023-09-10 06:06 | PTCARENOTE ---
Repositioned throughout the night. Applied barrier cream and antifungal cream/powder generously to sacrum, beatriz area, abd folds. Posterior upper left thigh with abrasion. Scrotum red swollen and irritated. Tylenol provided for discomfort. Tolerated
Bipap HS. Brown with good UO. Tele NSR. Call alvarez within reach. Hx ESBL/MRSA.
--- NOTE | 2023-09-10 07:10 | W.DS.TRANS ---
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
-
Discharge Instructions:
Discharge Diagnosis/Procedures sepsis 2/2 Catheter associated UTI 2/2 ESBL
Possible aspiration pneumonia
Toxic metabolic encephalopathy
Acute kidney injury
Hyperkalemia
Diet Diabetic, Carb Controlled
Activity With assistance,As tolerated
Additional Activity BIPAP nightly 20/02
Driving Restrictions No driving
Instructions:
Stand-Alone Forms:
Changes to Home Medications: Yes
Discharge Medications:
DC Medications w/original date entered in [facility]
metformin 500 mg tablet 500 mg PO BID Diabetes 11/07/11
metoprolol tartrate 50 mg tablet 50 mg PO BID Blood Pressure 11/07/11
acetaminophen 325 mg tablet (Tylenol) 650 mg PO Q6HPRN PRN mild pain 08/07/23
amlodipine 5 mg tablet (Norvasc) 5 mg PO DAILY Blood Pressure 08/07/23
aripiprazole 15 mg tablet 7.5 mg PO HS Mental Health/Anxiety 08/07/23
aspirin 81 mg chewable tablet 81 mg PO DAILY Blood Clot Prevention/Tx 08/07/23
bisacodyl 10 mg rectal suppository (Dulcolax (bisacodyl)) 10 mg KS DAILYPRN PRN constipation 08/07/23
cholecalciferol (vitamin D3) 25 mcg (1,000 unit) tablet (Vitamin D3) 25 mcg PO DAILY Supplement 08/07/23
divalproex 500 mg tablet,delayed release (Depakote) 500 mg PO BID Seizures 08/07/23
docusate sodium 100 mg capsule (Colace) 100 mg PO HS Constipation 08/07/23
ferrous sulfate 325 mg (65 mg iron) tablet 325 mg PO DAILY Supplement 08/07/23
furosemide 40 mg tablet (Lasix) 40 mg PO DAILY Fluid Retention/Swelling 08/07/23
gabapentin 300 mg capsule 300 mg PO DAILY Pain 08/07/23
gabapentin 600 mg tablet 600 mg PO HS Pain 08/07/23
insulin aspart U-100 100 unit/mL subcutaneous solution 0 sliding scale dose SC ACHS Diabetes 08/07/23
ipratropium 0.5 mg-albuterol 3 mg (2.5 mg base)/3 mL nebulization soln 3 ml inhalation R Q4HPRN PRN sob/wheezing 08/07/23
lidocaine 5 % topical patch (Lidoderm) 1 patch topical [id number] PRN apply to B/L knees 08/07/23
magnesium hydroxide 400 mg/5 mL oral suspension (Milk of Magnesia) 30 ml PO HSPRN PRN if no BM in 3 days 08/07/23
melatonin 3 mg tablet 3 mg PO HS Sleep 08/07/23
menthol 4 % topical gel (Biofreeze (menthol)) 1 applic topical Q4HPRN PRN apply to back, neck, or B/L knees 08/07/23
miconazole nitrate 2 % topical ointment 1 applic topical BID apply to folds, scrotum, groin 08/07/23
nystatin 100,000 unit/gram topical powder 1 applic topical Q12H apply to gluteal folds 08/07/23
omeprazole 40 mg capsule,delayed release 40 mg PO DAILY GERD 08/07/23
oxybutynin chloride 5 mg tablet 5 mg PO Q8HPRN PRN bladder instability 08/07/23
sodium phosphates 19 gram-7 gram/118 mL enema (Fleet Enema) 118 ml KS DAILYPRN PRN constipation 08/07/23
therapeutic multivitamin 1 tab PO DAILY Supplement 08/07/23
urea 20 % topical cream 1 applic topical Q12H apply to B/L feet/SKIN 08/07/23
loperamide 2 mg capsule 2 mg PO Q6HPRN PRN diarrhea 08/10/23
apixaban 5 mg tablet (Eliquis) 5 mg PO BID 30 days #60 tabs 08/25/23
polyethylene glycol 3350 17 gram oral powder packet (Miralax) 17 g PO DAILY Constipation #100 ea 08/25/23
insulin glargine 100 unit/mL (3 mL) subcutaneous pen (Lantus Solostar U-100 Insulin) 20 unit SC BID Diabetes 09/01/23
psyllium 1 packet PO DAILY Constipation 09/01/23
budesonide 0.5 mg/2 mL suspension for nebulization 0.5 mg (2 mL) inhalation R BID Anti-inflammatory #60 mL 09/10/23
Home Medication Changes
budesonide 0.5 mg/2 mL suspension for nebulization 0.5 mg (2 mL) inhalation R BID Anti-inflammatory #60 mL
Pending Results: No
Total time spent discharging patient (in min): 456
--- NOTE | 2023-09-10 07:12 | W.PN.UPDATE ---
Update Note
Progress Note Update
Has remained afebrile after discontinuation of antibiotics remains on nightly BiPAP 20/02 which should be continued in outpatient setting at facility they do not support noninvasive ventilation otherwise Brown catheter will continue only significant
medication changes discontinuation of lisinopril with maintain blood pressure resume metformin unfortunately given his comorbidities and chronicity of hypoventilation and hypoxia looking at recurrent hospitalizations
[2023-09-10] MEDS: DUONEB 3 ML INH ×3 (07:49→15:13)
[2023-09-10] MEDS: PULMICORT 0.5 MG INH (07:49)
[2023-09-10 07:56] LABS: Glucose - Point of Care 165 mg/dl (70-99)
[2023-09-10] MEDS: NOVOLOG FLEXPEN-LOW RESISTANCE 1 UNITS SC (08:20)
[2023-09-10] MEDS: ANTIFUNGAL CLEAR 1 APPLIC TOPICAL (08:29)
[2023-09-10] MEDS: LANTUS 0.200000000000000011 UNITS SC (08:31)
[2023-09-10] MEDS: MIRALAX 17 GRAMS PO (08:31)
[2023-09-10] MEDS: METAMUCIL, KONSYL 1 PACKET PO (08:32)
[2023-09-10] MEDS: LIDOCAINE 4% PATCH 1 PATCH TOPICAL (08:32)
[2023-09-10] MEDS: LOPRESSOR 50 MG PO (08:32)
[2023-09-10] MEDS: MUCINEX 1200 MG PO (08:33)
[2023-09-10] MEDS: DEPAKOTE (12 HR RELEASE) 500 MG PO (08:34)
[2023-09-10] MEDS: PROTONIX 40 MG PO (08:34)
[2023-09-10] MEDS: LASIX 40 MG PO (08:34)
[2023-09-10] MEDS: THERAGRAN 1 TABLET PO (08:34)
[2023-09-10] MEDS: NORVASC 5 MG PO (08:34)
[2023-09-10] MEDS: FEOSOL 325 MG PO (08:34)
[2023-09-10] MEDS: VITAMIN D3 (cholecalciferol) 25 MCG PO (08:34)
[2023-09-10] MEDS: ELIQUIS 5 MG PO (08:34)
[2023-09-10] MEDS: LOW STRENGTH ASPIRIN 81 MG PO (08:34)
[2023-09-10] MEDS: NEURONTIN 300 MG PO (08:34)
[2023-09-10] MEDS: DESENEX/MITRAZOL/ZEASORB 1 APPLIC TOPICAL (08:39)
--- NOTE | 2023-09-10 09:54 | W.PN.PUL.V3 ---
Today's Communication / Plan
-
.
Increased BiPAP settings-20/12 cm
Wean oxygen.
Reviewed with nursing and respiratory therapy as well as primary team
Assessment
-
68-year-old man with multiple comorbidities including obesity hypoventilation syndrome suspected/obstructive sleep apnea, chronic Brown catheter, obesity admitted with shortness of breath. Found to be bronchospastic. Found to have a UTI. We were
consulted for evaluation of his shortness of breath.
Acute respiratory insufficiency
Possible exacerbation of COPD: Patient does have emphysema on CAT scan.
Cannot rule out infectious etiology: Chest x-ray mostly with bibasilar atelectasis.
Aspiration cannot be ruled out.
-
Catheter associated QAI-tfnf-seobjxzh bacilli in urine..
Toxic metabolic encephalopathy.
NATALIA
Conditions present prior to admission:
Admitted to [facility] 08/2023: Hypoxemic/hypercapnic respiratory failure with toxic metabolic encephalopathy. DC from hospital 08/25/2023
Obesity hypoventilation syndrome-discharged on BiPAP
Emphysema on CAT scan 08/07/2023
Morbid obesity-BMI 51 with Hx of bariatric surgery (sleeve)
Recent [facility] stay.�08/11/2023
Hypertension.�
Obesity hypoventilation syndrome.�
Chronic oxygen supplementation.�
Legally blind-retinitis pigmentosa.�
Spinal stenosis.�
Colon resection.�
Deviated septum repair.�
Former smoker.
COPD on chronic oxygen supplementation
Chronic Brown due to BPH and chronic urinary retention
Ambulatory dysfunction: Patient may be on a stretcher-unable to follow-up in our office.
Plan
Respiratory status still tenuous as he is BiPAP dependent
Continue BiPAP- continue attempts to liberate-he reports having CPAP at his institution-would recommend increasing his BiPAP 20/12 cm with supplemental oxygen at time of discharge -increasing as he desaturates at night time and EPAP portion of the
BiPAP may not be enough to keep airway stented open
Aspiration precautions
Speech therapy evaluation 09/08/2023 I then unable to perform video swallow unless bariatric center
Continue DuoNebs as well as budesonide
Antitussives.
Mucinex continues
Acapella as needed
Cultures reviewed
Sputum culture if able-currently unable to produce
Antibiotics for UTI-currently on Zosyn
Monitor mental status.
Once again, recommend obtaining ABG if becomes more somnolent.
Follow blood sugar.
Insulin supplementation as needed
The patient's facility facility does not accept noninvasive mechanical ventilation.
He is unable to follow-up with our office as he is on a stretcher, mobility issues-attempts were made from our office based on ECW.
Avoid sedatives as able.
Ideally, he should be using noninvasive mechanical ventilation in the outpatient setting. Unfortunately unable to follow-up in our office.
They will have to identified someone in the outpatient setting will be responsible to follow-up to ensure he is using his PAP/NIV and that he is using it in the alf and entrained with O2
DVT prophylaxis- on Eliquis
GI prophylaxis-on pantoprazole
Long-term prognosis unfortunately poor with likely repetitive hospitalizations
Reviewed with nursing, as well as primary team
Subjective Data
-
Date of Service:
Date of Service: September 10, 2023
Chief Complaint: Pulmonary Follow Up (Hypoxemic respiratory failure/chronic hypercapnic respiratory failure) and Dyspnea Follow Up
Subjective:
Nursing reports desaturations at nighttime, increasing FiO2 through the BiPAP, alert, tolerating pressures, feels like he could tolerate more pressure, no abdominal pain
Review of Systems
General: Other ( per HPI)
Objective Data
Data Reviewed
Vital Signs / I&O:
Vital Signs
Temp Pulse Resp BP Pulse Ox
98.6 F 105 20 123/64 97
09/10/23 04:06 09/10/23 08:34 09/10/23 07:50 09/10/23 08:34 09/10/23 07:50
Intake and Output
09/09/23 09/10/23 09/11/23
06:59 06:59 06:59
Intake Total 680 / 680 720 / 720
Output Total 3950 / 3950 4700 / 4700
Balance -3270 / -3270 -3980 / -3980
SaO2: 97
Nasal Cannula flow liters per minute: 6
Physical Exam
General: Respiratory Distress (n), Comfortable and Good Appetite
HEENT: Normocephalic and Anicteric
Cardiovascular: Regular Rhythm and Peripheral Edema (trace LE edema)
Respiratory: Wheeze (negative), Crackles (negative), Rhonchi (bilaterally) and Non-Labored Respirations
GI: Soft, Distended (Obese), Non Tender and Normal Bowel Sounds
Neurology: Awake, Alert and No Motor Deficits
Skin: Warm, Dry, Cyanosis (n) and Jaundice
Labs/Micro/Reports
Lab Data
09/10/23 04:52
09/09/23 04:33
--- NOTE | 2023-09-10 10:22 | CM ---
Received a call from IMU unit that patient is stable for discharge. Placed a call to Georges in admissions at [facility] to confirm that they can accept back today. He stated that he will check and call CM back.
Plan: Case management will continue to follow and assist with discharge planning. Will await return call from Georges before discharge is facilitated.
[2023-09-10] MEDS: TYLENOL 650 MG PO (10:43)
--- NOTE | 2023-09-10 11:21 | W.DCSUMMARY ---
Discharge Summary
Discharge Data
Date of Admission: 09/01/23
Date of Discharge: 09/10/23
-
Pending Results: No
Hospital Course
68-year-old male with a medical history includes hypercarbic respiratory failure in relation to morbid obesity hypoventilation syndrome with fairly recent intubation with also underlying obstructive sleep apnea and probable recurrent aspiration. He
also has left lower extremity DVTs diabetes mellitus hypertension chronic indwelling Brown catheter bipolar disorder neuropathy colon resection and developed increased work of breathing prompting his evaluation at the ED of the [facility] he is a long-term care facility patient at [facility]. Initial pulse ox at the time of presentation by paramedics on pickup was 88% on room air but the patient was also noted to be hallucinating at time of presentation when he was at
the assisted. He had only been discharge a week prior to this presentation with similar hypercarbic hypoxic respiratory failure.
He also presented with what was suspected to be catheter associated UTI and urinary tract infection with urinalysis noted to be infected and eventually growing out ESBL/had been empirically started on Zosyn and/sensitivities remain sensitive to it
He is treated for an aspiration pneumonitis he was consulted with the pulmonary service it became significantly apparent that the patient prior facility does not accept noninvasive mechanical ventilation which is apparently he is in need of given
his extreme morbid obesity hypoventilation and recurrent risk of respiratory failure in the setting of hypercarbia avoided sedative medications on him which should be on going. Speech therapy was again unable to evaluate him fully for underlying
dysphagia but has been documented to have the significant risk of recurrent aspiration from gastroesophageal reflux and backflow aspiration. He will been instructed to follow-up as an outpatient for outpatient video swallow study which cannot be
done here due to bariatric concerns.
He has been unable to follow-up in the pulmonary office as he is on a stretcher and in relation to lack of mobility issues and attempts were made from pulmonary service via [facility]. He had waxing and waning periods of somnolence in relation to his
hypercarbia
He will continue to require an indwelling Brown catheter and presumptively is now colonized with ESBL although he has normalized his leukocytosis from initial presentation and he is off antibiotics at time of discharge.
There will be a continued need for BiPAP nightly and pulmonary has again adjusted this to a value of 24/06 with continued aspiration precautions to be undertaken continue DuoNebs as well as budesonide given his continued infirmities including his
morbid obesity ongoing blindness and lack of ability to assess fully his underlying dysphagia from reflux he remains at high risk for recurrent aspiration and and hypercarbic and hypoxic respiratory failure that may only be able to be addressed with
a tracheotomy in the future.
Discharge Plan
-
Patient Disposition: Group Home/SNF
Discharge Diagnosis/Procedures: sepsis 2/2 Catheter associated UTI 2/2 ESBL
Probable and recurrent aspiration pneumonia
Toxic metabolic encephalopathy
Acute kidney injury
Hyperkalemia
Acute on chronic hypercarbic and hypoxic respiratory failure
Condition: Fair
Diet: Diabetic, Carb Controlled
Activity: With assistance and As tolerated
Additional Activity: BIPAP nightly 24/06
Driving Restrictions: No driving
Referrals:
Silas Ramírez I., DO [Family Provider] -
Prescriptions:
New
budesonide 0.5 mg/2 mL Suspension For Nebulization
0.5 mg inhalation R BID Qty: 60 0RF
Continued
metformin 500 MG tablet
500 mg PO BID
metoprolol tartrate 50 MG tablet
50 mg PO BID
furosemide [Lasix] 40 mg Tablet
40 mg PO DAILY
acetaminophen [Tylenol] 325 mg Tablet
650 mg PO Q6HPRN MDD 3000 mg PRN (Reason: mild pain)
gabapentin 600 mg Tablet
600 mg PO HS
ipratropium-albuterol 0.5 mg-3 mg(2.5 mg base)/3 mL Solution For Nebulization
3 ml INHALATION R Q4HPRN PRN (Reason: sob/wheezing)
urea 20 % Cream
1 applic TOPICAL Q12H
therapeutic multivitamin Tablet
1 tab PO DAILY
melatonin 3 mg Tablet
3 mg PO HS
amlodipine [Norvasc] 5 mg Tablet
5 mg PO DAILY
divalproex [Depakote] 500 mg Tablet,Delayed Release (Dr/Ec)
500 mg PO BID
omeprazole 40 mg Capsule,Delayed Release(Dr/Ec)
40 mg PO DAILY
magnesium hydroxide [Milk of Magnesia] 400 mg/5 mL Suspension
30 ml PO HSPRN PRN (Reason: if no BM in 3 days)
miconazole nitrate 2 % Ointment
1 applic TOPICAL BID
insulin aspart U-100 100 unit/mL Solution
0 sliding scale dose SC ACHS
Rx Instructions:
150-200 = 2 units; 201-250 = 4 units; 251-300 = 6 units; 301-350 = 8 units; 351-400 = 10 units; call provider for BS less than 70 or greater than 400.
bisacodyl [Dulcolax (bisacodyl)] 10 mg Suppository
10 mg SD DAILYPRN PRN (Reason: constipation)
ferrous sulfate 325 mg (65 mg iron) Tablet
325 mg PO DAILY
lidocaine [Lidoderm] 5 % Adhesive Patch,Medicated
1 patch topical [id number] PRN (Reason: apply to B/L knees)
Fleet Enema 19-7 gram/118 mL Enema
118 ml SD DAILYPRN PRN (Reason: constipation)
docusate sodium [Colace] 100 mg Capsule
100 mg PO HS
gabapentin 300 mg Capsule
300 mg PO DAILY
aspirin 81 mg Tablet,Chewable
81 mg PO DAILY
nystatin 100,000 unit/gram Powder
1 applic TOPICAL Q12H
oxybutynin chloride 5 mg Tablet
5 mg PO Q8HPRN PRN (Reason: bladder instability)
aripiprazole 15 mg Tablet
7.5 mg PO HS
cholecalciferol (vitamin D3) [Vitamin D3] 25 mcg (1,000 unit) Tablet
25 mcg PO DAILY
Biofreeze (menthol) 4 % Gel
1 applic TOPICAL Q4HPRN PRN (Reason: apply to back, neck, or B/L knees)
loperamide 2 mg Capsule
2 mg PO Q6HPRN PRN (Reason: diarrhea)
Eliquis 5 mg Tablet
5 mg PO BID 30 Days Qty: 60 0RF
polyethylene glycol 3350 [Miralax] 17 gram Powder In Packet
17 g PO DAILY Qty: 100 0RF
psyllium Packet
1 packet PO DAILY
insulin glargine [Lantus Solostar U-100 Insulin] 100 unit/mL (3 mL) Insulin Pen
20 unit SC BID
Discontinued
lisinopril 10 mg tablet
10 mg PO DAILY
Discharge Orders:
Discharge Patient (As Directed); Ordered 09/10/23
Ordered By: Francisco Garcia
--- NOTE | 2023-09-10 12:06 | CM ---
Received notification from unit that patient has been medically cleared for discharge. Placed a call to facility and spoke with Georges in admissions at [facility] who confirmed that patient can return. #For report [phone] and fax#
[phone] Met with patient and provided IMM. No authorization needed as patient is going back to [facility].
Plan: Case mangement will continue to follow and assist with discharge planning. Back to [facility].
[2023-09-10 12:14] LABS: Glucose - Point of Care 268 mg/dl (70-99)
[2023-09-10] MEDS: NOVOLOG FLEXPEN-LOW RESISTANCE 3 UNITS SC (12:33)
--- NOTE | 2023-09-10 14:21 | PTCARENOTE ---
Pt for d.c. to return to [facility]. Gave report to KATIE Echeverria at . Reviewed d.c. instructions with pt who is unable to sign due to blindess but verbally expressed understanding.
== END 2023-09-10 15:59 | DRG 871 ==
LOC: IMU 19:36
PROVIDERS: Hospitalist; Internal Medicine Critical Care Medicine; ADMITTING PHYSICIAN Hospitalist; ATTENDING PHYSICIAN Internal Medicine; EMERGENCY PHYSICIAN Emergency Medicine; FAMILY PHYSICIAN Internal Medicine; OTHER PHYSICIAN Internal Medicine Critical Care Medicine
DX: A41.9 Sepsis, unspecified organism (principal); G92.8 Other toxic encephalopathy; J69.0 Pneumonitis due to inhalation of food and vomit; T83.518A Infection and inflammatory reaction due to other urinary catheter, initial encounter; N39.0 Urinary tract infection, site not specified; N17.9 Acute kidney failure, unspecified; E66.2 Morbid (severe) obesity with alveolar hypoventilation; Z68.43 Body mass index [BMI] 50.0-59.9, adult; J96.11 Chronic respiratory failure with hypoxia; J96.12 Chronic respiratory failure with hypercapnia; Z87.891 Personal history of nicotine dependence; Y84.6 Urinary catheterization as the cause of abnormal reaction of the patient, or of later complication, without mention of misadventure at the time of the procedure; E87.5 Hyperkalemia; I10 Essential (primary) hypertension; Z79.01 Long term (current) use of anticoagulants; F31.9 Bipolar disorder, unspecified; K21.9 Gastro-esophageal reflux disease without esophagitis; E11.40 Type 2 diabetes mellitus with diabetic neuropathy, unspecified; L89.152 Pressure ulcer of sacral region, stage 2; Z11.52 Encounter for screening for COVID-19
CPT/HCPCS: 36600; 71045; 80048; 80053; 81003; 81015; 82570; 82805; 82962; 83735; 83880; 84300; 85025; 85027; 86803; 87040; 87070; 87077; 87086; 87147; 87186; 87502; 87811; 92610; 94640; 94660; 96365; 99285

== ENCOUNTER 2023-09-16 18:12 | Emergency (ER) | payer OTHER, SELFPAY ==
[2023-09-16 18:14] VITALS: BP 121/64; BMI 50.6
[2023-09-16 18:37] LABS: % Basophils 0.6 % (0-2); % Eosinophils 6.9 % (0-6); % Monocytes 11.7 % (1.7-9.3); % Neutrophils 56.8 % (42.2-75.2); Absolute Basophils 0.1 10^3/uL (0-0.2); Absolute Eosinophils 0.6 10^3/uL (0-0.7); Absolute Immature Granulocytes 0.1 10^3/uL (0-0.05); Absolute Lymphocytes 1.9 10^3/uL (1.2-3.4); Absolute Neutrophils 4.8 10^3/uL (1.4-6.5); Hematocrit 33.3 % (39.0-52.0); Hemoglobin 10.6 g/dL (13.0-18.0); Mean Corp Hgb Conc. 31.8 g/dL (33.0-37.0); Mean Corpuscular Hgb 32.6 pg (27.0-31.0); Mean Corpuscular Volume 102.5 fL (80.0-94.0); Mean Platelet Volume 9.2 fL (7.4-10.4); Nucleated Red Blood Cells % 0 % (-); Platelet Count 301 10^3/uL (130-400); Red Blood Cell Count 3.25 10^6/uL (4.70-6.10); Red Cell Dist. Width 17.7 % (11.5-14.5); White Blood Cell Count 8.4 10^3/uL (4.8-10.8)
[2023-09-16 18:45] LABS: ALT (SGPT) 41 U/L (0-50); AST (SGOT) 35 U/L (17-59); Albumin 4.2 g/dl (3.5-5.0); Alkaline Phosphatase 61 U/L (38-126); Blood Urea Nitrogen 54 mg/dl (9-20); Calcium 9.4 mg/dl (8.4-10.2); Carbon Dioxide 31 mmol/L (22-30); Chloride 98 mmol/L (98-107); Estimated Creatinine Clearance 46 ml/min; Glucose 172 mg/dl (70-99); Potassium 5.6 mmol/L (3.5-5.1); Sodium 138 mmol/L (135-145); Total Bilirubin 0.4 mg/dl (0.2-1.3); Total Protein 7.3 g/dl (6.3-8.2); eGFR 29.99
[2023-09-16 19:26] LABS: Lactic Acid 2.7 mmol/L (0.7-2.0)
--- NOTE | 2023-09-16 19:29 | ED.GENMED ---
History of Present Illness
General
Chief Complaint: Breathing Problem
Source: patient and [facility] records
Exam Limitations: none
Time Seen by Provider: 09/16/23 19:28
Nursing documentation reviewed up to this point in time: agreed with
Travel History
Have you had any contact with someone who has COVID-19?: No
Do you have any symptoms of coronavirus? Fever > 100 degrees, chills, cough, shortness of breath, sore throat, loss of taste or smell, muscle aches, or headache?: Yes
Symptoms:: see above
History of Present Illness
History of Present Illness:
68-year-old male from [facility] with history of dysphagia, COPD, DVT on Eliquis, HTN, HLD, GERD, CKD, prostate hypertrophy, IDDM, blind, bipolar presents morbid obesity, BiPap HS, with hypoxemia 88%RA to 95% on 4 L NC.
Reportedly had CXR yesterday showing mild RLL infiltrate, pulse ox was 84% RA at NH, RR 32. Today, started on doxycycline 100 mg BID x 7 days, has had 2 doses.
Now states he is 'exhausted,' having trouble breathing, and was hallucinating.
Past History
Past History
ED Past Medical History: COPD, GERD, HTN, Hypercholesterolemia, IDDM, Psychiatric (Bipolar) and Other (Blind)
Social History
Tobacco: Non-smoker
Alcohol: None
Personal:
Living: [facility]
Review of Systems
Review of Systems
Allergies reviewed?: Yes
All Other Systems: ROS reviewed and negative except as documented in HPI and ROS
Constitutional: Reports fatigue; Denies fever
Respiratory: Reports trouble breathing
Cardiac: Denies chest pain
ABD/GI: Denies abdominal pain, nausea, vomiting or diarrhea
: Reports other (Brown catheter)
Musculoskeletal: Reports no symptoms; Denies edema
Skin: Reports no symptoms
Neurological: Denies dizzy, headache, weakness or numbness
Phy Exam
Physical Exam
Physical Exam:
GENERAL: Morbidly obese. No acute distress. A&Ox3.
CONSTITUTIONAL: Afebrile.
EYES: Patient is blind, conjunctivae normal
ENMT: moist mucus membranes, Pharynx nl
RESPIRATORY: Regular respirations, nonlabored, lungs clear in bases,coarse upper airway rhonchi which clear with coughing
CARDIOVASCULAR: Regular rate and rhythm, no murmurs, no rubs.
GI: Soft, obese, nontender, normal BS
MUSCULOSKELETAL: Well perfused. Limited movement due to his size and deconditioning
SKIN: Warm, dry, pink
PSYCH: Normal mood and affect. Well kept, interactive and appropriate
NEUROLOGIC: Awake, alert and oriented. No focal neurological deficits
Scores
Heart Failure Risk
Heart Failure Risk Score: Not Applicable
Course
Orders/Labs/Results
Orders:
Orders
09/16/23 18:23
Complete Blood Count/With Diff Urgent
Comprehensive Metabolic Panel Urgent
Blood Culture Q30M
[facility] Source: Blood/Venous
Specimen Description:
09/16/23 18:55
Lactate Level [Lactic Acid] Q4H
Blood Culture Q30M
[facility] Source: Blood/Venous
Specimen Description:
09/16/23 19:35
Chest X-ray Portable [CR Chest Portable - 1 View] Urgent
Comment:
Reason For Exam: hypoxemia, SOB, fatigue
Reason Study Needs to be Portable: Patient Unstable
09/16/23 19:53
Urinalysis Reflex To Culture Urgent
Date Specimen was Collected: 09/16/23
Time Specimen was Collected: 19:45
Urine Microscopic Reflex Cult Urgent
Urine Culture Urgent
[facility] Source: U
Specimen Description:
Date Specimen was Collected: 09/16/23
Time Specimen was Collected: 19:45
09/16/23 20:35
Amoxicillin 875 mg/Clav 125 mg [Augmentin 875 mg/125 mg] 1 tablet PO NOW STA
09/16/23 20:37
0.9% Sodium Chloride 1000 ml [Nss] 1,000 ml IV BOLUS
09/16/23 20:[address] Non Medication Order As Directed
Physician Order: Change Brown Catheter please
09/16/23 22:30
Lactate Level [Lactic Acid] Q4H
Abnormal Lab Results
09/16/23 09/16/23 09/16/23
18:23 18:55 19:53
RBC 3.25 L 10^6/uL
(4.70-6.10)
Hgb 10.6 L g/dL
(13.0-18.0)
Hct 33.3 L %
(39.0-52.0)
MCV 102.5 H fL
(80.0-94.0)
MCH 32.6 H pg
(27.0-31.0)
MCHC 31.8 L g/dL
(33.0-37.0)
RDW 17.7 H %
(11.5-14.5)
Abs Immat Gran (auto) 0.1 H 10^3/uL
(0-0.05)
Absolute Monos (auto) 1.0 H 10^3/uL
(0.1-0.6)
Immature Gran % 1.0 H %
(0-0.5)
Monocytes % 11.7 H %
(1.7-9.3)
Eosinophils % 6.9 H %
(0-6)
Potassium 5.6 H mmol/L
(3.5-5.1)
Carbon Dioxide 31 H mmol/L
(22-30)
BUN 54 H mg/dl
(9-20)
Creatinine 2.3 H mg/dL
(0.7-1.3)
Glucose 172 H mg/dl
(70-99)
Lactic Acid 2.7 H mmol/L
(0.7-2.0)
Ur Occult Blood Reflex Trace A
(Negative)
Leukocyte Esterase Rfl 2+ A
(Negative)
Urine RBC 3-6 A /HPF
(0-2)
Urine WBC (Reflex) >100 A /HPF
(0-5)
Urine Yeast Many A
(Negative)
09/16/23 18:23
09/16/23 18:23
Vital Signs
Initial and Last Documented VS:
Initial Vital Signs
Temp Pulse Resp BP Pulse Ox
99.0 F 84 24 121/64 86
09/16/23 18:14 09/16/23 18:14 09/16/23 18:14 09/16/23 18:14 09/16/23 18:14
Last Documented Vital Signs
Temp Pulse Resp BP Pulse Ox
98.4 F 66 24 123/61 94
09/16/23 19:47 09/16/23 19:47 09/16/23 19:47 09/16/23 19:47 09/16/23 19:47
MDM/Problems Addressed
Differential Diagnosis Includes:
PNA, UTI,
MDM/Problems Addressed:
68-year-old male from [facility] with history of dysphagia, COPD, DVT on Eliquis, HTN, HLD, GERD, CKD, prostate hypertrophy, IDDM, blind, bipolar presents morbid obesity, BiPap HS, with hypoxemia 88%RA to 95% on 4 L NC.
Reportedly had CXR yesterday showing mild RLL infiltrate, pulse ox was 84% RA at [place], RR 32. Today, started on doxycycline 100 mg BID x 7 days, has had 2 doses.
Now states he is 'exhausted,' having trouble breathing, and was hallucinating.
09/16/2023 2034 PM
Chest x-ray radiology report read: 1. No acute cardiopulmonary process.
2. Low lung volumes with mild subsegmental atelectasis in the bilateral lung bases.
CBC with no clinically significant abnormality
CMP: Consistent with his chronic CKD as well as most likely some element of dehydration. IV fluids infusing.
UA: Consistent with UTI: Greater than 100 WBCs 2+ leukocytes
09/16/2023 2052 PM
Spoke with nurse Letitia at the [facility]
Instructed to stop doxycycline, sent a prescription for patient for Augmentin
Instructed to have CMP rechecked in 1 week to check his kidney functions
Pulse ox has been 91% on RA consistently. This is most likely his baseline
Brown catheter changed as Letitia did not know when it was last changed
Patient has had E. coli ESBL in his urine in the past. It is sensitive to Augmentin so I will stop the doxycycline and start Augmentin.
*Critical Care Note
Total Time (30-74mins, 75-104mins- exclusive of procedures): Not Applicable
ED Attending Note
-
Portions of this chart may have been created with voice recognition software.� Occasional wrong word or��sound alike� substitutions may have occurred due to the inherent limitations of voice recognition software.
Discharge Plan
Departure
Patient Disposition: Long Term/SNF
Date of Disposition: 09/16/23
Time of Disposition: 21:02
Condition: Good
Discharge Problem:
Acute UTI, Acute on chronic renal insufficiency, Acute dehydration
Instructions: Urinary Tract Infection, Adult (DC), Chronic Kidney Disease (DC), Dehydration, Adult ED
Prescriptions:
New
amoxicillin-pot clavulanate 875-125 mg tablet
1 tab PO BID Qty: 14 0RF
No Action
metformin 500 MG tablet
500 mg PO BID
metoprolol tartrate 50 MG tablet
50 mg PO BID
furosemide [Lasix] 40 mg Tablet
40 mg PO DAILY
acetaminophen [Tylenol] 325 mg Tablet
650 mg PO Q6HPRN MDD 3000 mg PRN (Reason: mild pain)
gabapentin 600 mg Tablet
600 mg PO HS
ipratropium-albuterol 0.5 mg-3 mg(2.5 mg base)/3 mL Solution For Nebulization
3 ml INHALATION R Q4HPRN PRN (Reason: sob/wheezing)
urea 20 % Cream
1 applic TOPICAL Q12H
melatonin 3 mg Tablet
3 mg PO HS
amlodipine [Norvasc] 5 mg Tablet
5 mg PO DAILY
divalproex [Depakote] 500 mg Tablet,Delayed Release (Dr/Ec)
500 mg PO BID
omeprazole 40 mg Capsule,Delayed Release(Dr/Ec)
40 mg PO DAILY
magnesium hydroxide [Milk of Magnesia] 400 mg/5 mL Suspension
30 ml PO HSPRN PRN (Reason: if no BM in 3 days)
miconazole nitrate 2 % Ointment
1 applic TOPICAL BID
insulin aspart U-100 100 unit/mL Solution
2 - 10 sliding scale dose SC ACHS
Rx Instructions:
150-200 = 2 units; 201-250 = 4 units; 251-300 = 6 units; 301-350 = 8 units; 351-400 = 10 units; call provider for BS less than 70 or greater than 400.
bisacodyl [Dulcolax (bisacodyl)] 10 mg Suppository
10 mg MO DAILYPRN PRN (Reason: constipation)
ferrous sulfate 325 mg (65 mg iron) Tablet
325 mg PO DAILY
lidocaine [Lidoderm] 5 % Adhesive Patch,Medicated
1 patch topical [id number] PRN (Reason: apply to B/L knees)
Fleet Enema 19-7 gram/118 mL Enema
118 ml MO DAILYPRN PRN (Reason: constipation)
docusate sodium [Colace] 100 mg Capsule
100 mg PO HS
gabapentin 300 mg Capsule
300 mg PO DAILY
aspirin 81 mg Tablet,Chewable
81 mg PO DAILY
nystatin 100,000 unit/gram Powder
1 applic TOPICAL Q12H
oxybutynin chloride 5 mg Tablet
5 mg PO Q8HPRN PRN (Reason: bladder instability)
aripiprazole 15 mg Tablet
7.5 mg PO HS
cholecalciferol (vitamin D3) [Vitamin D3] 25 mcg (1,000 unit) Tablet
25 mcg PO DAILY
Biofreeze (menthol) 4 % Gel
1 applic TOPICAL Q4HPRN PRN (Reason: apply to back, neck, or B/L knees)
loperamide 2 mg Capsule
2 mg PO Q6HPRN PRN (Reason: diarrhea)
Eliquis 5 mg Tablet
5 mg PO BID 30 Days Qty: 60 0RF
polyethylene glycol 3350 [Miralax] 17 gram Powder In Packet
17 g PO DAILY Qty: 100 0RF
psyllium Packet
1 packet PO DAILY
insulin glargine [Lantus Solostar U-100 Insulin] 100 unit/mL (3 mL) Insulin Pen
20 unit SC BID
budesonide 0.5 mg/2 mL Suspension For Nebulization
0.5 mg inhalation R BID Qty: 60 0RF
multivitamin Tablet
1 tab PO DAILY
lisinopril 10 mg tablet
10 mg PO DAILY
doxycycline hyclate 100 mg tablet
100 mg PO BID
Referrals:
Silas Ramírez I., DO [Family Provider] - Follow up in 2-3 days
Activity Restrictions/Additional Instructions:
I discussed the following with nurse Dong: Mr. Collier has the following:
1. UTI, stop Doxycycline and start Augmentin, he was given a dose here today. Give it BID for the next 7 days.
The urine infection he had in the past showed E coli ESBL and was sensitive to Augmentin
2. He has no pneumonia on our CXR here today
3. His oxygen level has been 91% on room air consistently, this is most likely his normal.
4. He has worsening kidney function, most likely from dehydration. Encourage fluids. Repeat BMP in one week
His Brown catheter was changed here tonight.
Interventions
Interventions:
*Risk Screen - Suicide Last Done: 09/16/23 18:18
*General Assessment Last Done: 09/16/23 18:18
*Neglect/Abuse Screening Last Done: 09/16/23 18:18
ED- Fall Risk Assessment Last Done: 09/16/23 19:47
*ED COVID-19 Vaccine History Last Done: 09/16/23 19:47
ED- Cardiac Assessment Last Done: 09/16/23 19:47
ED- Pulmonary Assessment Last Done: 09/16/23 19:47
[2023-09-16 19:47] VITALS: BP 123/61
[2023-09-16 19:59] LABS: Urine Albumin Negative (Neg - Trace); Urine Bilirubin Negative (Negative); Urine Character Slightly Cloudy (Clear); Urine Color Yellow; Urine Glucose Negative (Negative); Urine Ketone Negative (Negative); Urine Leukocyte 2+ (Negative); Urine Nitrite Negative (Negative); Urine Occult Blood Trace (Negative); Urine Urobilinogen Negative (Neg - 1+)
[2023-09-16 20:15] LABS: Urine Squamous Cell 0-2 /LPF (Few); Urine White Cell >100 /HPF (0-5); Urine Yeast Many (Negative)
[2023-09-16 21:29] VITALS: BP 110/80
[2023-09-16] MEDS: NSS 1000 IV (22:06)
[2023-09-16] MEDS: AUGMENTIN 875 MG/125 MG 1 TABLET PO (22:07)
[2023-09-16 22:19] VITALS: BP 109/65
[2023-09-16 22:27] VITALS: BP 109/70
== END 2023-09-16 22:30 ==
LOC: EMR 18:12
PROVIDERS: Emergency Medicine; Registered Nurse; EMERGENCY PHYSICIAN Student in an Organized Health Care Education/Training Program; FAMILY PHYSICIAN Internal Medicine
DX: E86.0 Dehydration (principal); R06.02 Shortness of breath; N39.0 Urinary tract infection, site not specified; I12.9 Hypertensive chronic kidney disease with stage 1 through stage 4 chronic kidney disease, or unspecified chronic kidney disease; E11.22 Type 2 diabetes mellitus with diabetic chronic kidney disease; N18.9 Chronic kidney disease, unspecified; E78.00 Pure hypercholesterolemia, unspecified; E66.01 Morbid (severe) obesity due to excess calories; F31.9 Bipolar disorder, unspecified; J44.9 Chronic obstructive pulmonary disease, unspecified; K21.9 Gastro-esophageal reflux disease without esophagitis; Z79.01 Long term (current) use of anticoagulants
CPT/HCPCS: 99283; 96360; 71045; 80053; 81003; 81015; 83605; 85025; 87040; 87086